=== PATIENT | male | born 1960 | race Caucasian/White ===

== ENCOUNTER 2017-05-25 11:48 | Inpatient (IN) | payer MEDICAID, SELFPAY ==
[2017-05-25] VITALS (27 sets, daily range): BP systolic 110–204; BP diastolic 68–112; PULSE 70–101; RESP 8–26; TEMP 36.9–37.2; O2SAT 88–100; BMI 61.8; BMI 58.6
--- NOTE | 2017-05-25 12:02 | RAD_ITS ---
STUDY: X-RAY CHEST REASON FOR EXAM: Male, 56 years old. Dyspnea. Shortness of breath. TECHNIQUE: Single AP portable view of the chest. COMPARISON: Comparison is made with prior study dated June 12, 2015. FINDINGS: EKG electrodes are seen. There is evidence of vascular congestion and CHF. Small right pleural effusion with bibasilar atelectasis. There is moderate cardiac enlargement. Normal mediastinum and ender. Normal visualized pulmonary arteries. There is atherosclerotic tortuosity of the aortic arch and descending thoracic aorta. There are diffuse degenerative changes of the visualized thoracic spine. Normal visualized ribs, clavicles, and shoulders. There is no demonstrated abnormality of the visualized soft tissue structures of the upper abdomen. RAD/Chest 1 View (Portable) IMPRESSION: Cardiomegaly and CHF. Bibasilar atelectasis. Small right pleural effusion. Electronically Signed: Sourav Norwood MD at 12:28 EST Tel [phone], Service support ,
--- NOTE | 2017-05-25 12:03 | EKG12_ITS ---
Test Reason : SOB Blood Pressure : / mmHG Vent. Rate : 099 BPM Atrial Rate : 099 BPM P-R Int : 188 ms QRS Dur : 082 ms QT Int : 360 ms P-R-T Axes : 059 029 019 degrees QTc Int : 462 ms Sinus rhythm with Premature supraventricular complexes Low voltage QRS Septal [place],age undetermined, cannot be excluded Nonspecific ST abnormality Abnormal ECG Confirmed by WINSOME SHEPPARD, FLORIN ([id number]), news assignment editor WILI CHACON ([id number]) on 05/27/2017 1:28:21 PM Referred By: KAYCE/RENEE Confirmed By:FLORIN SCHUMACHER MD
--- NOTE | 2017-05-25 12:06 | ED.VISSUMM ---
- ER Visit Summary Date of Service: 05/25/17 Chief Complaint: Shortness of breath History of Present Illness: The patient is a 56 M presenting with shortness of breath. He states this has been ongoing for the past 2-3 days. He is short of breath with exertion. He has had a productive cough. He denies chest pain. He was seen at [facility] and per staff he was 50% on room air. EMS was called. He was put on nonrebreather with some improvement Physical Examination: Vitals are stable. Patient is afebrile. Alert no acute distress. HEENT exam is unremarkable. Neck is supple. Lungs are diminished bilaterally. Heart is regular rate and rhythm. Abdomen is soft obese nontender nondistended. Extremities symmetric edema with psoriasis Skin is warm and dry. No focal neurologic deficit. Opens eyes to voice and follows commands Remainder of exam is unremarkable. Emergency Department Course and Treatment: EKG is sinus rate of 99. Chest x-ray shows cardiomegaly, CHF, small right pleural effusion. CBC normal except for platelets 128. This is similar to baseline. Chemistries show glucose 161, BUN 19. Troponin is negative. BNP 145. Lactic acid is normal. He was started on BiPAP on his arrival. Initial VBG shows pH 7.28, PO2 41, PCO2 84.9. Repeat VBG shows pH 7.27, PO2 106, PCO2 86.2. Patient was given Lasix IV. Discussed with Dr. Norman who suggested new BiPAP settings. Discussed with Dr. Shultz for admission. Disposition: Admission Impression: Respiratory failure, CHF This note was generated with [employer]ux dictation software. It may contain incorrect words, spelling, and punctuation that were not noted in review of the chart prior to signing ED Disposition - Plan for ED Patient: Chief Complaint: Shortness of Breath Referrals: [facility],[place] Dhruvcoleman [Primary Care Provider] -
[2017-05-25 12:21] LABS: Absolute Lymphocyte Count 0.69 X10^3/ul (0.83-4.51); Absolute Neutrophil Count 7.3 X10^3/uL (2.0-7.7); Basophil# 0.02 X10^3/uL; Basophil% 0.2 % (0-1); Eosinophil# 0.07 X10^3/uL; Eosinophils% 0.8 % (0-5); Hematocrit 54.8 % (40-54); Hemoglobin 15.7 g/dl (13.0-16.5); Lymphocyte # 0.69 X10^3/ul (4.0); Lymphocyte % 7.9 % (19-41); Mean Corp Hgb Conc 28.6 g/gl (32-36); Mean Corpuscular Hgb 25.7 pg (27.0-32.0); Mean Corpuscular Volume 89.8 fL (80-94); Mean Platelet Vol. 11.2 fl (6.2-12.0); Monocyte# 0.55 X10^3/uL; Monocyte% 6.3 % (0-10); Neutrophil # 7.29 X10^3/uL (2.7-7.7); Neutrophil % 83.7 % (47-70); Platelet Count 128 K/mm3 (150-450); RBC Distribution Width CV 18.8 % (11.6-14.6); RBC Distribution Width SD 59.7 fl (35.1-43.9); White Blood Count 8.7 K/mm3 (4.4-11.0)
[2017-05-25 12:22] LABS: Blood Gas Specimen Type VEN; O2 Delivery Device NRB Mask; SITE OTHER; Time Given 1200; VBG BASE EXCESS 13 mmol/L (-1.0-3.5); VBG Bicarbonate 40 mmol/L (22-26); VBG Oxygen Content 42 mmol/L (23-33); VBG PO2 41 mmHg (25-40); VBG SO2 66 % (50-70); VBG pCO2 84.9 mmHg (41-51); VBG pH 7.28 (7.32-7.42)
[2017-05-25 12:27] LABS: Anion Gap 4 (5-15); BUN 19 mg/dL (7-18); BUN/Creat Ratio 16.8 RATIO (10-20); Chloride 102 mmol/L (98-107); Creatinine, Serum 1.13 mg/dL (0.70-1.30); EST Glomerular Filtration Rate 71 mL/min (>60); Est Glom Filt Rate - Afr Amer 86 mL/min (>60); Estimated Creatinine Clearance 71.26 ml/min; Glucose 161 mg/dL (74-106); Potassium 4.1 mmol/L (3.5-5.1); Sodium Level 143 mmol/L (136-145)
[2017-05-25] MEDS: Ipratropium/Albuterol Sulfate 3 ML AMPUL.NEB INHALATION ×2 (12:27→22:36)
[2017-05-25] MEDS: Albuterol 2.5 MG/3 ML VIAL.NEB. INHALATION ×2 (12:27)
[2017-05-25 12:34] LABS: Differential Indicated SCAN CRITERIA MET; POSITIVE COUNT NO; POSITIVE DIFFERENTIAL NO; POSITIVE MORPHOLOGY YES
[2017-05-25 12:52] LABS: Platelet Estimate ADEQUATE (ADEQ); Platelet Morphology LARGE; Polychromasia RARE
[2017-05-25 12:57] LABS: Lactic Acid 1.7 mmol/L (0.4-2.0)
--- NOTE | 2017-05-25 13:06 | CPS ---
MOTHER'S NAME IS JOSE AND HER PHONE NUMBER IS [phone]
[2017-05-25 13:50] LABS: Mucous, Urine 0 SEEN /hpf (<or=2+)
[2017-05-25 13:59] LABS: Color, Urine Yellow (Yellow); Glucose, Dipstick Normal (Normal); Ketone-Dipstick Negative (Negative); Leukocyte Esterase-Dipstick 25 /ul (Negative); Nitrite-Dipstick Negative (Negative); Occult Blood-Urine 50 /ul (Negative); Protein-Dipstick 100 mg/dl (Negative); Specific Gravity, Urine 1.025 (1.002-1.030); Urine Clarity Sl. Cloudy (Clear); Urine Urobilinogen 4 mg/dl (Normal)
[2017-05-25 14:02] LABS: Urine Bilirubin Dipstick 1 mg/dL (Negative)
[2017-05-25 14:15] LABS: Bacteria RARE /hpf (None Seen); Red Blood Cells-Urine 0-5 SEEN /hpf (0-5); Squamous Epithelial Cells - UA 0-5 SEEN /hpf (0-5); White Blood Cells 0-5 SEEN /hpf (0-5); Yeast-Urine RARE /hpf (None Seen)
[2017-05-25 14:21] LABS: Base Excess 12 mmol/L (-2 to +2); Bicarbonate 39.2 mmol/L (22-26); Blood Gas Specimen Type ART; EPAP 9; FI02 75; IPAP 18; PO2 106 mmHG (75-100); RR 12; SITE R Radial; SO2 97 % (95-99); Time Given 1415; Total Carbon Dioxide 42 mmol/L; pCO2 86.2 mmHg (35-45); pH 7.27 (7.35-7.45)
[2017-05-25] MEDS: Furosemide 40 MG/4 ML Vial IV ×2 (14:52→17:02)
--- NOTE | 2017-05-25 15:06 | HP.PCM_ITS ---
Problem List (1) Acute respiratory failure Status: Acute (2) CHF exacerbation Status: Acute Qualifiers: Heart failure type: unspecified Qualified Code(s): I50.9 - Heart failure, unspecified (3) Super-super obese Status: Chronic History of Present Illness Date of Admission: 05/25/17 Chief Complaint: Shortness of breath - 2 days The patient is a 56 year old M, with history of super super morbid obesity, hypertension, type II DM comes in with shortness of breath ongoing for 2 days. EMS was called to the [facility] for complaints of shortness of breath. Patient who lives with his mother states that he has been feeling very short of breath, his pulse oximetry was said to be 50% on room air in the clinic, he was given 10 L of oxygen via a nonrebreather, patient saturation was percent when the EMS got there. Arrival to the ED, his vitals show temperature of 90 8.6F, heart rate of 101, blood pressure was 204/106, oxygen saturation was 94% on 15 L nonrebreather. Patient was said to be sleepy, ABGs were done -7.27, PCO2 was 86.2, PO2 was 97. He was started on BiPAP at 22/12. At the time of being seen in the ED, his oxygen saturation was 84% on BiPAP. Show WBC count of 8.7, Hb 15.7 platelet 128, BMP was remarkable for CO2 of 37, BUN 17, creatinine 1.13, troponin 0.02, BNP of 145. Chest x-ray showed vascular congestion. Past Medical History Past Medical History (Chronic Problems): Chronic Problems Super obesity (Chronic) Super-super obese (Chronic) HTN (hypertension) (Chronic) Allergies No Known Allergies Allergy (Verified 05/25/17 11:48) Home Medications: Ambulatory Orders Medication Instructions Recorded Amlodipine [Norvasc] 5 mg PO DAILY 05/25/17 Docusate Sodium [Colace] 100 mg PO DAILY PRN PRN 05/25/17 Ergocalciferol [Vitamin D] 1 cap PO QWEEK 05/25/17 Fluticasone 0.05% [Flonase Nasal 2 spray NASAL DAILY 05/25/17 [place]] Metformin HCl [Glucophage] 500 mg PO TIDCM 05/25/17 Mineral Oil/Petrolatum,White 1 applic TOPICAL DAILY PRN PRN 05/25/17 [Eucerin] Surgical History: no surgical history Lives: With Family Smoking Status: Former smoker Tobacco Use: Non-smoker Alcohol: None Drugs: None - *Family History Maternal History Items: Unknown Review of Systems Constitutional: Denies: Anorexia, Chills, Fever, Malaise, Weakness, Weight Change Eyes: Denies: Blurred vision, Cataracts, Conjunctivae Inflammation, Pain, Redness, Vision Change HEENT: Denies: Head Aches, Hearing Changes, Sinus Congestion, Sinus Drainage, Sore Throat Cardiovascular: Denies: Chest Pain, Claudication, Chest Pressure, Orthopnea, Palpitations, Paroxysmal Noc. Dyspnea Respiratory: Reports: Shortness of Breath, Shortness of breath upon exertion. Denies: Cough, Shortness of breath at rest, Sputum production Gastrointestinal: Denies: Abdominal Pain, Constipation, Hematemesis, Nausea, Vomiting Genitourinary: Denies: Dysuria, Frequency, Incontinence Musculoskeletal: Denies: Arm Pain, Joint Pain, Joint stiffness, Joint swelling, Joint Tenderness Skin: Denies: Rash, Wounds Neurological: Denies: Difficulty swallowing, Focal weakness, Numbness, Tingling Psychiatric: Denies: Anxiety, Depression, Homicidal Ideations, Suicidal Ideations Endocrine: Reports: Heat/ Cold Intolerance - heat intolerant Hematologic/ Lymphatic: Denies: Easy Bruising, Easy Bleeding VTE Information - Inpt Only VTE Present on Admission: No VTE Pharm Prophylaxis ordered?: Yes Patient Problems: Active and Suspected Problems Acute respiratory failure (Acute) CHF exacerbation (Acute) - Physical Exam General: Alert, Oriented x3, Cooperative, - - Super super morbid obesity HEENT: Atraumatic, PERRLA, EOMI, Normocephalic Oral: Moist Mucosa Neck: Supple Lungs: Clear to auscultation, Normal air movement Cardiovascular: Regular rate, Regular Rhythm, Normal S1, Normal S2, No murmurs Abdomen: Bowel Sounds Present, Soft, Non Tender, Non-Distended, No Hepato- splenomegaly, Obese Extremities: No edema Skin: No rashes Musculoskeletal: No Tenderness to Palpation of Joints or Extremities Lymphatic: No Cervical, Supraclavicular, or Inguinal Adenopathy Neurological: Cranial nerves II-XII grossly intact, Neuro grossly intact Psych/Mental Status: Normal Affect, Appropriate Vital Signs Temp Pulse Resp BP Pulse Ox 98.6 F 88 21 H 162/90 H 99 05/25/17 11:50 05/25/17 14:43 05/25/17 14:43 05/25/17 14:43 05/25/17 14:43 Oxygen Flow Rate 12 Oxygen Delivery Method Bi-pap Weight: 189.9 kg Body Mass Index (BMI) 61.8 Microbiology Past 72 Hours 05/25/17 13:00 Influenza Types A,B Direct FA (RANDOLPH) - Final Mucosa - Nose Laboratory Tests Past 24 Hrs 05/25/17 05/25/17 05/25/17 12:00 12:00 12:00 WBC 8.7 RBC 6.10 Hgb 15.7 Hct 54.8 H MCV 89.8 MCH 25.7 L MCHC 28.6 L RDW 18.8 H RDW Differential 59.7 H Plt Count 128 L MPV 11.2 Immature Gran % (Auto) 1.100 H Neut % (Auto) 83.7 H Lymph % (Auto) 7.9 L Rich % (Auto) 6.3 Eos % (Auto) 0.8 Baso % (Auto) 0.2 Absolute Neuts (auto) 7.3 Absolute Lymphs (auto) 0.69 L Total Counted Not Reportable Platelet Estimate ADEQUATE Plt Morphology Comment LARGE Polychromasia RARE Specimen Type Sample Site pH Bicarbonate Actual POC Total CO2 Base Excess O2 Saturation O2 % ABG pCO2 ABG pO2 VBG pH VBG pO2 VBG O2 Sat (Calc) VBG O2 Content VBG Base Excess POC Mix VBG pCO2 Pt Tmp Respiration Rate O2 Delivery Device Liter Flow EPAP IPAP Blood Gas Notified Whom Blood Gas Notified Time Sodium 143 Potassium 4.1 Chloride 102 Carbon Dioxide 37.0 H Anion Gap 4 L BUN 19 H Creatinine 1.13 Estim Creat Clear Calc 71.26 Est GFR (MDRD) Af Amer 86 Est GFR (MDRD) Non-Af 71 BUN/Creatinine Ratio 16.8 Glucose 161 H Lactic Acid Calcium 8.0 L Troponin I 0.02 B-Natriuretic Peptide 145.0 H Urine Color Urine Clarity Urine pH Ur Specific Garrison Urine Protein Urine Glucose (UA) Urine Ketones Urine Occult Blood Urine Nitrite Urine Bilirubin Urine Urobilinogen Ur Leukocyte Esterase Urine RBC Urine WBC Ur Squamous Epith Cells Urine Bacteria Urine Mucus Urine Yeast 05/25/17 05/25/17 05/25/17 12:09 12:20 13:45 WBC RBC Hgb Hct MCV MCH MCHC RDW RDW Differential Plt Count MPV Immature Gran % (Auto) Neut % (Auto) Lymph % (Auto) Rich % (Auto) Eos % (Auto) Baso % (Auto) Absolute Neuts (auto) Absolute Lymphs (auto) Total Counted Platelet Estimate Plt Morphology Comment Polychromasia Specimen Type ALISHA Sample Site OTHER pH Bicarbonate Actual POC Total CO2 Base Excess O2 Saturation O2 % ABG pCO2 ABG pO2 VBG pH 7.28 L VBG pO2 41 H VBG O2 Sat (Calc) 66 VBG O2 Content 42 H VBG Base Excess 13 H POC Mix VBG pCO2 Pt Tmp 84.9 H* Respiration Rate O2 Delivery Device NRB Mask Liter Flow 15.0 EPAP IPAP Blood Gas Notified Whom ED Blood Gas Notified Time 1200 Sodium Potassium Chloride Carbon Dioxide Anion Gap BUN Creatinine Estim Creat Clear Calc Est GFR (MDRD) Af Amer Est GFR (MDRD) Non-Af BUN/Creatinine Ratio Glucose Lactic Acid 1.7 Calcium Troponin I B-Natriuretic Peptide Urine Color Yellow Urine Clarity Sl. Cloudy Urine pH 5.0 Ur Specific Garrison 1.025 Urine Protein 100 H Urine Glucose (UA) Normal Urine Ketones Negative Urine Occult Blood 50 H Urine Nitrite Negative Urine Bilirubin 1 H Urine Urobilinogen 4 H Ur Leukocyte Esterase 25 H Urine RBC 0-5 SEEN Urine WBC 0-5 SEEN Ur Squamous Epith Cells 0-5 SEEN Urine Bacteria RARE Urine Mucus 0 SEEN Urine Yeast RARE 05/25/17 14:13 WBC RBC Hgb Hct MCV MCH MCHC RDW RDW Differential Plt Count MPV Immature Gran % (Auto) Neut % (Auto) Lymph % (Auto) Rich % (Auto) Eos % (Auto) Baso % (Auto) Absolute Neuts (auto) Absolute Lymphs (auto) Total Counted Platelet Estimate Plt Morphology Comment Polychromasia Specimen Type ART Sample Site R Radial pH 7.27 L Bicarbonate Actual 39.2 H POC Total CO2 42 Base Excess 12 H O2 Saturation 97 O2 % 75 ABG pCO2 86.2 H* ABG pO2 106 H VBG pH VBG pO2 VBG O2 Sat (Calc) VBG O2 Content VBG Base Excess POC Mix VBG pCO2 Pt Tmp Respiration Rate 12 O2 Delivery Device Bi / C PAP Liter Flow EPAP 9 IPAP 18 Blood Gas Notified Whom HOSP Blood Gas Notified Time 1415 Sodium Potassium Chloride Carbon Dioxide Anion Gap BUN Creatinine Estim Creat Clear Calc Est GFR (MDRD) Af Amer Est GFR (MDRD) Non-Af BUN/Creatinine Ratio Glucose Lactic Acid Calcium Troponin I B-Natriuretic Peptide Urine Color Urine Clarity Urine pH Ur Specific Garrison Urine Protein Urine Glucose (UA) Urine Ketones Urine Occult Blood Urine Nitrite Urine Bilirubin Urine Urobilinogen Ur Leukocyte Esterase Urine RBC Urine WBC Ur Squamous Epith Cells Urine Bacteria Urine Mucus Urine Yeast Assessment/Plan Active and Suspected Problems Acute respiratory failure (Acute) CHF exacerbation (Acute) 56 year old M, with history of super super morbid obesity, hypertension, type II DM comes in with shortness of breath ongoing for 2 days. EMS was called to the [facility] for complaints of shortness of breath. 1. Acute respiratory failure, multifactorial, likely secondary to CHF exacerbation, obesity hypoventilation syndrome, possible COPD, although no wheezes heard on exam and chest x-ray points to vascular congestion. BNP is 145. 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 2. Hypertension, controlled, continue on home Norvasc with as needed hydralazine, will continue to monitor closely 3. DM, type 2, on metformin 500 mg p.o. 3 times daily, will add Accu-Cheks and insulin sliding scale 4. Super morbid obesity with BMI more than 60, patient should be evaluated for bariatric surgery on discharge in the outpatient 5. Thrombocytopenia, likely transient, no signs of bleeding, will continue to monitor 6. Chronic Lymphedema with chronic skin changes 7. DVT prophylaxis with Lovenox twice daily per guidelines. 8. GI Prophylaxis with PPI Code Visit Inpatient E&M: 63521 Init Hosp L3
--- NOTE | 2017-05-25 15:52 | ECHOD_ITS ---
Reason For Study: DYSPNEA Procedure This was a 2D Doppler, Color Flow transthoracic echocardiogram. The exam was of poor technical quality due to body habitus. The study was technically difficult. Contrast injection was performed. Exam performed portable in ICU/CCU. Left Ventricle Normal LV size. Mild concentric left ventricular hypertrophy. Left ventricular systolic function is normal. The estimated ejection fraction is 65 %. No evidence for diastolic dysfunction. No regional wall motion abnormalities noted. Right Ventricle The right ventricle is not well visualized. Atria The left atrium is not well visualized. The right atrium is not well visualized. No doppler evidence for ASD. Mitral Valve There is no mitral annular calcification. Mitral valve not well visualized. Trivial mitral valve insufficiency. Tricuspid Valve The tricuspid valve is not well visualized. Trivial tricuspid valve insufficiency. Right ventricular systolic pressure estimated to be 63 mmHg. Aortic Valve The aortic valve is not well visualized. Pulmonic Valve The pulmonic valve is not well visualized. Great Vessels The aortic root is not well visualized. Pericardium/Pleural Small pericardial effusion. There are no echocardiographic indications of cardiac tamponade. Medication Diluted definity 4ml given slow IV push to enhance endocardial definition. MMode/2D Measurements & Calculations LVIDd: 4.8 cm IVSd: 1.4 cm Ao root diam: 3.9 cm LVIDs: 3.2 cm LVPWd: 1.3 cm LA dimension: 3.1 cm FS: 33.8 % LVAd ap4: 33.2 cm2 SV(MOD-sp4): 79.4 ml SV(sp4-el): 82.8 ml EDV(MOD-sp4): 104.4 ml EDV(sp4-el): 108.4 ml LVAs ap4: 14.2 cm2 ESV(MOD-sp4): 25.1 ml ESV(sp4-el): 25.7 ml EF(MOD-sp4): 76.0 % EF(sp4-el): 76.3 % Doppler Measurements & Calculations MV E max carlene: 94.5 cm/sec Ao V2 max: 134.6 cm/sec LV V1 max: 110.2 cm/sec MV A max carlene: 77.4 cm/sec Ao max P.3 mmHg LV V1 max P.9 mmHg MV E/A: 1.2 PA V2 max: 92.3 cm/sec TR max carlene: 370.9 cm/sec TR max P.2 mmHg Interpretation Summary The study was technically difficult. Contrast injection was performed. Left ventricular systolic function is normal. The estimated ejection fraction is 65 %. Mild concentric left ventricular hypertrophy. Trivial mitral valve insufficiency. Trivial tricuspid valve insufficiency. Small pericardial effusion. There are no echocardiographic indications of cardiac tamponade. Right ventricular systolic pressure estimated to be 63 mmHg c/w pulmonary hypertension. No evidence for diastolic dysfunction. Ordering Physician: Nida Shultz Referring Physician: LARRY GUTIERRES [facility] Performed By: Sivan Colby, RDCS, RVT
[2017-05-25 17:16] LABS: Bedside Glucose 108 mg/dL (70-110)
[2017-05-25 19:08] LABS: M R Staph aureus DNA By PCR Negative (Negative); Probe Check PASS; Specimen Processing Control PASS
[2017-05-25 21:34] LABS: D-Dimer Quantitative (DVT/PE) 0.86 FEU/ug/m (0.27-0.49)
[2017-05-25 21:41] LABS: Bedside Glucose 103 mg/dL (70-110)
[2017-05-25] MEDS: Menthol/Lanolin/Calamine/Znox 113 GM Tube 1 APPLIC TOPICAL (22:11)
[2017-05-25] MEDS: Enoxaparin 40 MG/0.4 ML Syringe SC (22:12)
[2017-05-25] MEDS: MELATONIN 3 MG TABLET PO (22:13)
[2017-05-26] VITALS (34 sets, daily range): BP systolic 123–161; BP diastolic 71–103; PULSE 72–84; RESP 11–20; TEMP 36.1–37.1; O2SAT 78–99
[2017-05-26 04:23] LABS: Hematocrit 50.5 % (40-54); Hemoglobin 14.4 g/dl (13.0-16.5); Mean Corp Hgb Conc 28.5 g/gl (32-36); Mean Corpuscular Hgb 25.6 pg (27.0-32.0); Mean Corpuscular Volume 89.7 fL (80-94); Mean Platelet Vol. 10.9 fl (6.2-12.0); Platelet Count 105 K/mm3 (150-450); RBC Distribution Width CV 18.5 % (11.6-14.6); RBC Distribution Width SD 59.7 fl (35.1-43.9); Red Blood Count 5.63 M/mm3 (4.6-6.2); White Blood Count 8.1 K/mm3 (4.4-11.0)
[2017-05-26 04:24] LABS: Scan Indicated on CBC? Y/N NO
[2017-05-26 04:44] LABS: Anion Gap 4 (5-15); BUN 17 mg/dL (7-18); BUN/Creat Ratio 16.8 RATIO (10-20); Calcium,Total 7.9 mg/dL (8.5-10.1); Chloride 99 mmol/L (98-107); Creatinine, Serum 1.01 mg/dL (0.70-1.30); EST Glomerular Filtration Rate 81 mL/min (>60); Est Glom Filt Rate - Afr Amer 97 mL/min (>60); Estimated Creatinine Clearance 82.32 ml/min; Glucose 105 mg/dL (74-106); Potassium 4.1 mmol/L (3.5-5.1); Sodium Level 142 mmol/L (136-145)
[2017-05-26 06:16] LABS: Bedside Glucose 106 mg/dL (70-110)
[2017-05-26] MEDS: Ipratropium/Albuterol Sulfate 3 ML AMPUL.NEB INHALATION ×5 (07:09→23:03)
--- NOTE | 2017-05-26 07:46 | CON.PCM_ITS ---
Problem List (1) Acute respiratory failure Status: Acute (2) CHF exacerbation Status: Acute Qualifiers: Heart failure type: unspecified Qualified Code(s): I50.9 - Heart failure, unspecified (3) Super-super obese Status: Chronic (4) HTN (hypertension) Status: Chronic Reason for Consult Date of Consultation: 05/26/17 Reason for Consultation: Respiratory failure History of Present Illness: The patient is a 56 year old M, with past medical history listed below, who presented to [facility] on 05/25/2017 secondary to progressive shortness of breath over 2 day period. Patient reportedly was picked up from the [facility] for complaints of shortness of breath by EMS. Patient reportedly lives with his mother and states that he started to have progressive shortness of breath. Upon evaluation, patient was noted to be 50% on room air was given 10 L of oxygen via nonrebreather and improved by EMS arrival. On evaluation in the emergency department, patient was noted to be tachycardic with a severely elevated blood pressure of 204/106 and saturating 94 % on a nonrebreather. Patient was reportedly sleepy and an ABG was obtained showing a combined hypoxic and hypercarbic respiratory failure. Patient was initiated on BiPAP therapy at 16/8. I was called and the patient was increased to 22/12. In the intensive care unit, patient was transitioned to 6 L nasal cannula oxygen at approximately 1 AM. Patient reports he does not use supplemental oxygen at baseline. Patient does have lymphedema, but states he is unaware of any history of congestive heart failure or heart problems. Patient does report subjective improvement after hospitalization. Patient denies any constitutional symptoms such as fever, chills, nausea or vomiting. Patient has diuresed well overnight. Patient denies any history of severely elevated blood pressures. Patient denies any previous respiratory issues. Patient has never smoked. Patient has never had pulmonary function testing. 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 Review of systems otherwise negative ?10 systems. Past Medical History Past Medical History (Chronic Problems): Chronic Problems Super obesity (Chronic) Super-super obese (Chronic) HTN (hypertension) (Chronic) Allergies No Known Allergies Allergy (Verified 05/25/17 11:48) Home Medications: Ambulatory Orders Medication Instructions Recorded Amlodipine [Norvasc] 5 mg PO DAILY 05/25/17 Docusate Sodium [Colace] 100 mg PO DAILY PRN PRN 05/25/17 Ergocalciferol [Vitamin D] 1 cap PO QWEEK 05/25/17 Fluticasone 0.05% [Flonase Nasal 2 spray NASAL DAILY 05/25/17 [place]] Metformin HCl [Glucophage] 500 mg PO TIDCM 05/25/17 Mineral Oil/Petrolatum,White 1 applic TOPICAL DAILY PRN PRN 05/25/17 [Eucerin] Surgical History: no surgical history Lives: With Family Smoking Status: Former smoker Tobacco Use: Non-smoker Alcohol: None Drugs: None - *Family History Maternal History Items: Unknown Review of Systems Comment: See HPI Patient Problems: Active and Suspected Problems Acute respiratory failure (Acute) CHF exacerbation (Acute) Objective: Chest x-ray was personally reviewed and shows cardiomegaly with bilateral pleural effusions and vascular congestion. Patient does appear to have right sided enlargement. - Physical Exam General: Alert, Oriented x3, Cooperative, No apparent distress, - - Morbidly obese. Speaking in full sentences. HEENT: Atraumatic, PERRLA, EOMI, Normocephalic, - - Scleral icterus or injection noted. Oral: Moist Mucosa, No Gingival or Mucosal Lesions/ Ulcerations, - - Mallampati 4 Neck: Supple, No Nodes, Trachea Midline, - - Unable to assess JVD secondary to body habitus. Very thick neck with redundant tissue noted. Lungs: No rhonchi, No wheeze, Diminished, Rales, - - Symmetric expansion. No dullness to percussion. Cardiovascular: Regular rate, Regular Rhythm, Normal S1, Normal S2, No murmurs, No rub noted, No Gallop Abdomen: Bowel Sounds Present, Soft, Non Tender, Non-Distended, Obese Extremities: No clubbing, No cyanosis, Edema - 4+ lower extremity Skin: - - Lymphedema and chronic stasis changes of lower extremities. No purulent secretions appreciated. Scattered vesicles appreciated. Musculoskeletal: No Tenderness to Palpation of Joints or Extremities, No Muscle Wasting Lymphatic: No Cervical, Supraclavicular, or Inguinal Adenopathy Neurological: Cranial nerves II-XII grossly intact, Neuro grossly intact, - - Decreased sensation of the lower extremities. Psych/Mental Status: Alert and oriented to time, place, person, mood and affect Vital Signs Temp Pulse Resp BP Pulse Ox 37.1 C 77 15 136/94 H 94 05/26/17 07:00 05/26/17 07:00 05/26/17 07:00 05/26/17 07:00 05/26/17 07:00 Oxygen Flow Rate 6 Oxygen Delivery Method Nasal Cannula Weight: 183.7 kg Body Mass Index (BMI) 58.6 Intake and Output for Last 24 Hours 05/24/17 05/25/17 05/26/17 23:59 23:59 23:59 Intake Total 550 / 550 Output Total 1600 / 1600 1999 Balance -1600 / -1600 -1450 / -1450 Laboratory Tests Past 24 Hrs 05/25/17 05/25/17 05/25/17 16:00 16:00 20:50 WBC RBC Hgb Hct MCV MCH MCHC RDW RDW Differential Plt Count MPV D-Dimer Quant (PE/DVT) Sodium Potassium Chloride Carbon Dioxide Anion Gap BUN Creatinine Estim Creat Clear Calc Est GFR (MDRD) Af Amer Est GFR (MDRD) Non-Af BUN/Creatinine Ratio Glucose Calcium Troponin I 0.03 0.04 MRSA (PCR) Negative 05/25/17 05/26/17 05/26/17 20:50 02:00 04:00 WBC RBC Hgb Hct MCV MCH MCHC RDW RDW Differential Plt Count MPV D-Dimer Quant (PE/DVT) 0.86 H* Sodium 142 Potassium 4.1 Chloride 99 Carbon Dioxide 39.0 H Anion Gap 4 L BUN 17 Creatinine 1.01 Estim Creat Clear Calc 82.32 Est GFR (MDRD) Af Amer 97 Est GFR (MDRD) Non-Af 81 BUN/Creatinine Ratio 16.8 Glucose 105 Calcium 7.9 L Troponin I < 0.02 MRSA (PCR) 05/26/17 04:00 WBC 8.1 RBC 5.63 Hgb 14.4 Hct 50.5 MCV 89.7 MCH 25.6 L MCHC 28.5 L RDW 18.5 H RDW Differential 59.7 H Plt Count 105 L MPV 10.9 D-Dimer Quant (PE/DVT) Sodium Potassium Chloride Carbon Dioxide Anion Gap BUN Creatinine Estim Creat Clear Calc Est GFR (MDRD) Af Amer Est GFR (MDRD) Non-Af BUN/Creatinine Ratio Glucose Calcium Troponin I MRSA (PCR) POC Glucose 05/26/17 05/25/17 05/25/17 06:11 21:35 17:09 POC Glucose 106 103 108 Clinical Impression(s) from Imaging Studies Chest X-Ray 05/25/17 12:02 IMPRESSION: Cardiomegaly and CHF. Bibasilar atelectasis. Small right pleural effusion. Electronically Signed: Sourav Norwood MD at 12:28 EST Tel [phone], Service support , Assessment/Plan Active and Suspected Problems Acute respiratory failure (Acute) CHF exacerbation (Acute) RECOMMENDATIONS: 1. Aggressive blood pressure control 2. Aggressive diuresis 3. Continue diabetic medications with sliding scale insulin 4. Consider peripheral smear for evaluation of clumping of platelets 5. Wean oxygen as tolerated, ABG as indicated 6. PT/OT RECOMMENDATIONS: 1. Acute combined respiratory failure secondary to probable congestive heart failure Patient denies any history of cardiac dysfunction in the past. However, patient does have significant changes with lymphedema and radiologic evidence of congestion. Echocardiogram has been ordered. Patient is receiving diuretic therapy. Wean oxygen as tolerated. Cannot exclude the need for BiPAP rescue. Patient is at high risk for obstructive sleep apnea and would likely benefit from a polysomnogram with initiation of BiPAP therapy if applicable. Would keep saturations 88-92% to avoid go to retention moving forward. 2. Hypertensive emergency Patient presented with blood pressures that were 200s/100s. Patient was significant improvement overnight following diuresis and support of lung function. Unclear if patient has had flash pulmonary edema secondary to elevated blood pressures or if elevated blood pressures were result of stress reaction to decreased oxygenation. We will continue to monitor. 3. Type 2 diabetes mellitus Patient can continue on metformin for now. Continue to watch renal function closely. Patient should continue with Accu-Cheks with sliding scale insulin. Cannot exclude the need for long-acting insulin moving forward. 4. Thrombocytopenia/chronic lymphedema/super morbid obesity Complicates care, management, recovery and prognosis. Clinical suspicion for clumping of platelets leading to decreased reported counts. No bleeding complications have been noted. Wound nurse will be consulted for lower extremities. Patient should continue with physical therapy and occupational therapy to provide mobility. Code Visit Inpatient E&M: 21036 Init Hosp L3
[2017-05-26] MEDS: CHLORHEXIDINE GLUC 2% CLOTH 1 EACH TOWELETTE TOPICAL (09:00)
[2017-05-26] MEDS: Enoxaparin 40 MG/0.4 ML Syringe SC ×2 (10:15→20:55)
[2017-05-26] MEDS: Furosemide 40 MG/4 ML Vial IV ×2 (10:15→17:40)
[2017-05-26] MEDS: Pantoprazole Sodium 20 MG Tablet PO (10:16)
[2017-05-26] MEDS: Menthol/Lanolin/Calamine/Znox 113 GM Tube 1 APPLIC TOPICAL ×2 (10:30→20:54)
--- NOTE | 2017-05-26 12:03 | CASEMGMT ---
Social Work Referral received from nursing with questions regarding family situation. SW met with pt in room and introduced self and role of SW. Pt lives in a one story home with mother, father and sister. Pt states he is independent with ADLs and IADLs but does need assistance with finances. Pt bedroom and bath is on the first floor and pt states he has access to shower and has no physical limitations caring for daily grooming needs. Pt goes to the [facility] for primary care and uses [facility] pharmacy. Pt states most meds are covered and if not he can scrape together enough money to fill prescriptions SW provided information on [employer] prescription assistance program. Pt has not previously had home oxygen. Pt states he is currently not working but does assist family in the home and with driving. Pt confirms that he feels safe in his home and plans to return there upon d/c. With permission from pt, phone call placed to pt mother Saumya. She confirms pt is able to care for himself, is a helpful part of the family and is planning on returning home upon d/c. Report given to MELINDA Lam CM. No further SW needs at this time. NOREEN Rosa
[2017-05-26 12:51] LABS: Bedside Glucose 144 mg/dL (70-110)
--- NOTE | 2017-05-26 13:37 | CHAPLAIN ---
Type of Pastoral Visit _x__ Initial Visit ___ Follow-up Visit ___ On-call Visit ___ General Patient Visit ___ Spiritual Assessment ___ Family Conference ___ Bereavement ___ Rapid Response ___ Code Blue ___ Other (describe below) Pastoral Care Referral From _x__ Patient ___ Family ___ Nurse ___ Physician ___ Agile Test Lead ___ Nougat Candy Maker Helper ___ Other (describe below) Sacrament/Intervention _x__ Active listening ___ Anointing ___ Congregational ___ Bereavement ___ Communion ___ Leticia exploration ___ ___ Life review ___ Prayer ___ Reconciliation ___ Sacrament of Sick ___ Supportive presence ___ Wedding ___ Other (describe below) Pastoral Comments
--- NOTE | 2017-05-26 13:39 | NURSING ---
was asked to see patient for edema to bilateral lower legs. pt is super morbidly obese with a BMI of 58. patient was admitted for SOB. patient states he has chronic edema to bilateral lower legs. states he cannot tolerate wearing compression. states he tries to keep legs elevated but cannot always keep them up. patient has lymphedema with lichenification of bilateral lower legs. washed legs and feet with soap and water. attempted to remove some of the dry skin but was unsuccessful. skin very thick, crusty, and brown. no signs of infection noted. patient states he cannot tolerated wearing any type of compression to the lower legs. would consider unna boots, but do not think patient would be able to tolerate them. legs elevated up in the recliner at this time. will monitor.
--- NOTE | 2017-05-26 16:36 | PCM.PN.HOSP ---
Patient Problems: Active and Suspected Problems Acute respiratory failure (Acute) CHF exacerbation (Acute) Subjective: Breathing better. States that he's LE edema for years. Vitals/I&O's: Vital Signs Temp Pulse Resp BP Pulse Ox 36.2 C L 81 18 142/77 H 93 05/26/17 16:00 05/26/17 16:00 05/26/17 16:00 05/26/17 16:00 05/26/17 16:00 Oxygen Flow Rate 6 Oxygen Delivery Method Nasal Cannula Weight: 183.7 kg Body Mass Index (BMI) 58.6 Intake and Output for Last 24 Hours 05/24/17 05/25/17 05/26/17 23:59 23:59 23:59 Intake Total 550 / 550 Output Total 1600 / 1600 3600 / 3600 Balance -1600 / -1600 -3050 / -3050 General: Alert, Cooperative, No apparent distress HEENT: Atraumatic, Normocephalic Neck: No Nodes, Thyroid Normal Size and Texture Lungs: Diminished, - - crackles Cardiovascular: Regular rate, Regular Rhythm, Normal S1, Normal S2 Abdomen: Bowel Sounds Present, Soft, Non Tender, Non-Distended, Obese Extremities: No clubbing, No Calf Tenderness, Edema Skin: - - Lymphedematous changes to the lower extremities with lichenification. Psych/Mental Status: Normal Affect, Appropriate Laboratory Results 05/25/17 16:00: Troponin I 0.03 05/25/17 16:00: MRSA (PCR) Negative 05/25/17 17:09: POC Glucose 108 05/25/17 20:50: Troponin I 0.04 05/25/17 20:50: D-Dimer Quant (PE/DVT) 0.86 H* 05/25/17 21:35: POC Glucose 103 05/26/17 02:00: Troponin I < 0.02 05/26/17 04:00: Sodium 142, Potassium 4.1, Chloride 99, Carbon Dioxide 39.0 H, Anion Gap 4 L, BUN 17, Creatinine 1.01, Estim Creat Clear Calc 82.32, Est GFR (MDRD) Af Amer 97, Est GFR (MDRD) Non-Af 81, BUN/Creatinine Ratio 16.8, Glucose 105, Calcium 7.9 L 05/26/17 04:00: WBC 8.1, RBC 5.63, Hgb 14.4, Hct 50.5, MCV 89.7, MCH 25.6 L, MCHC 28.5 L, RDW 18.5 H, RDW Differential 59.7 H, Plt Count 105 L, MPV 10.9 05/26/17 06:11: POC Glucose 106 05/26/17 12:46: POC Glucose 144 H Current Medications Acetaminophen (Tylenol) 650 mg PO Q6H PRN PRN PRN Reason: Mild Pain (scale 0-3)/T>100.7 Albuterol Sulfate (Ventolin Aerosols) 2.5 mg INHALATION Q2H PRN PRN PRN Reason: SOB &/OR WHEEZING Albuterol/Ipratropium (Duoneb) 3 ml INHALATION Q4HWA.RT [facility] Last Admin: 05/26/17 15:43 Dose: 3 ml Bisacodyl (Dulcolax) 10 mg PO DAILY PRN PRN PRN Reason: Constipation Calamine/Phenol (Calmoseptine Ointment) 1 applic TOPICAL BID [facility] PRN Reason: Protocol Last Admin: 05/25/17 22:11 Dose: 1 applic Chlorhexidine Gluconate () 1 each TOPICAL DAILY [facility] Dextrose (D50w Syringe) 0 gm IV X1 PRN; Protocol PRN Reason: Hypoglycemia Enoxaparin Sodium (Lovenox) 40 mg SC BID [facility] Last Admin: 05/26/17 10:15 Dose: 40 mg Furosemide (Lasix) 40 mg IV BIDLX [facility] Last Admin: 05/26/17 10:15 Dose: 40 mg Glucagon () 1 mg IM .X1 PRN PRN Reason: Hypoglycemia Sodium Chloride () 250 mls @ 15 mls/hr IV .[id number] PRN PRN Reason: SALINE FLUSH Insulin Aspart (Novolog Flexpen (Bkc)) 0 units SC ACHS [facility] PRN Reason: Protocol Last Admin: 05/26/17 12:47 Dose: Not Given Magnesium Hydroxide (Milk Of Magnesia) 30 ml PO DAILY PRN PRN PRN Reason: Constipation Melatonin (Melatonin) 3 mg PO QHS [facility] Last Admin: 05/25/17 22:13 Dose: 3 mg Ondansetron HCl (Zofran) 4 mg IV Q8H PRN PRN PRN Reason: Nausea Pantoprazole Sodium (Protonix) 20 mg PO DAILY [facility] Last Admin: 05/26/17 10:16 Dose: 20 mg Sodium Chloride () 5 - 30 ml IV UD PRN PRN Reason: SALINE FLUSH Assessment/Plan Active and Suspected Problems Acute respiratory failure (Acute) CHF exacerbation (Acute) 1. Acute hypoxic and hypercapnic respiratory failure Certainly multifactorial due to the patient's heart failure but may be underlying obstructive sleep apnea, pulmonary artery hypertension, obesity hypoventilation. Wean oxygen as tolerated. Check an amatory pulse ox at discharge. Patient polysomnogram 2. Acute heart failure Unclear type at this time. Follow-up echocardiogram Continue with Lasix. 3. Hypertension Fair control at this time. Will monitor and assess echocardiogram and see what agents may need to be added. 4. DVT prophylaxis with Lovenox. Code Visit Inpatient E&M: 08191 Subs Hosp L2
--- NOTE | 2017-05-26 16:51 | PN_ITS ---
Patient Problems: Active and Suspected Problems Acute respiratory failure (Acute) CHF exacerbation (Acute) Subjective: Breathing better. States that he's LE edema for years. Vitals/I&O's: Vital Signs Temp Pulse Resp BP Pulse Ox 36.2 C L 81 18 142/77 H 93 05/26/17 16:00 05/26/17 16:00 05/26/17 16:00 05/26/17 16:00 05/26/17 16:00 Oxygen Flow Rate 6 Oxygen Delivery Method Nasal Cannula Weight: 183.7 kg Body Mass Index (BMI) 58.6 Intake and Output for Last 24 Hours 05/24/17 05/25/17 05/26/17 23:59 23:59 23:59 Intake Total 550 / 550 Output Total 1600 / 1600 3600 / 3600 Balance -1600 / -1600 -3050 / -3050 General: Alert, Cooperative, No apparent distress HEENT: Atraumatic, Normocephalic Neck: No Nodes, Thyroid Normal Size and Texture Lungs: Diminished, - - crackles Cardiovascular: Regular rate, Regular Rhythm, Normal S1, Normal S2 Abdomen: Bowel Sounds Present, Soft, Non Tender, Non-Distended, Obese Extremities: No clubbing, No Calf Tenderness, Edema Skin: - - Lymphedematous changes to the lower extremities with lichenification. Psych/Mental Status: Normal Affect, Appropriate Laboratory Results 05/25/17 16:00: Troponin I 0.03 05/25/17 16:00: MRSA (PCR) Negative 05/25/17 17:09: POC Glucose 108 05/25/17 20:50: Troponin I 0.04 05/25/17 20:50: D-Dimer Quant (PE/DVT) 0.86 H* 05/25/17 21:35: POC Glucose 103 05/26/17 02:00: Troponin I < 0.02 05/26/17 04:00: Sodium 142, Potassium 4.1, Chloride 99, Carbon Dioxide 39.0 H, Anion Gap 4 L, BUN 17, Creatinine 1.01, Estim Creat Clear Calc 82.32, Est GFR ( MDRD) Af Amer 97, Est GFR (MDRD) Non-Af 81, BUN/Creatinine Ratio 16.8, Glucose 105, Calcium 7.9 L 05/26/17 04:00: WBC 8.1, RBC 5.63, Hgb 14.4, Hct 50.5, MCV 89.7, MCH 25.6 L, MCHC 28.5 L, RDW 18.5 H, RDW Differential 59.7 H, Plt Count 105 L, MPV 10.9 05/26/17 06:11: POC Glucose 106 05/26/17 12:46: POC Glucose 144 H Current Medications Acetaminophen (Tylenol) 650 mg PO Q6H PRN PRN PRN Reason: Mild Pain (scale 0-3)/T>100.7 Albuterol Sulfate (Ventolin Aerosols) 2.5 mg INHALATION Q2H PRN PRN PRN Reason: SOB &/OR WHEEZING Albuterol/Ipratropium (Duoneb) 3 ml INHALATION Q4HWA.RT [facility] Last Admin: 05/26/17 15:43 Dose: 3 ml Bisacodyl (Dulcolax) 10 mg PO DAILY PRN PRN PRN Reason: Constipation Calamine/Phenol (Calmoseptine Ointment) 1 applic TOPICAL BID [facility] PRN Reason: Protocol Last Admin: 05/25/17 22:11 Dose: 1 applic Chlorhexidine Gluconate () 1 each TOPICAL DAILY [facility] Dextrose (D50w Syringe) 0 gm IV X1 PRN; Protocol PRN Reason: Hypoglycemia Enoxaparin Sodium (Lovenox) 40 mg SC BID [facility] Last Admin: 05/26/17 10:15 Dose: 40 mg Furosemide (Lasix) 40 mg IV BIDLX [facility] Last Admin: 05/26/17 10:15 Dose: 40 mg Glucagon () 1 mg IM .X1 PRN PRN Reason: Hypoglycemia Sodium Chloride () 250 mls @ 15 mls/hr IV .[id number] PRN PRN Reason: SALINE FLUSH Insulin Aspart (Novolog Flexpen (Bkc)) 0 units SC ACHS [facility] PRN Reason: Protocol Last Admin: 05/26/17 12:47 Dose: Not Given Magnesium Hydroxide (Milk Of Magnesia) 30 ml PO DAILY PRN PRN PRN Reason: Constipation Melatonin (Melatonin) 3 mg PO QHS [facility] Last Admin: 05/25/17 22:13 Dose: 3 mg Ondansetron HCl (Zofran) 4 mg IV Q8H PRN PRN PRN Reason: Nausea Pantoprazole Sodium (Protonix) 20 mg PO DAILY [facility] Last Admin: 05/26/17 10:16 Dose: 20 mg Sodium Chloride () 5 - 30 ml IV UD PRN PRN Reason: SALINE FLUSH Assessment/Plan Active and Suspected Problems Acute respiratory failure (Acute) CHF exacerbation (Acute) 1. Acute hypoxic and hypercapnic respiratory failure * Certainly multifactorial due to the patient's heart failure but may be underlying obstructive sleep apnea, pulmonary artery hypertension, obesity hypoventilation. * Wean oxygen as tolerated. Check an amatory pulse ox at discharge. * Patient polysomnogram 2. Acute heart failure * Unclear type at this time. * Follow-up echocardiogram * Continue with Lasix. 3. Hypertension * Fair control at this time. * Will monitor and assess echocardiogram and see what agents may need to be added. 4. DVT prophylaxis with Lovenox. Code Visit Inpatient E&M: 01318 Subs Hosp L2
[2017-05-26] MEDS: 0.9% NaCl Peripheral Flush Adult/Peds IV (17:40)
[2017-05-26 17:56] LABS: Bedside Glucose 106 mg/dL (70-110)
[2017-05-26] MEDS: MELATONIN 3 MG TABLET PO (20:55)
[2017-05-26 21:11] LABS: Bedside Glucose 136 mg/dL (70-110)
[2017-05-27] VITALS (24 sets, daily range): BP systolic 114–166; BP diastolic 72–129; PULSE 73–94; RESP 12–20; TEMP 36.3–37.2; O2SAT 89–100
[2017-05-27 06:12] LABS: Anion Gap 1 (5-15); BUN 19 mg/dL (7-18); BUN/Creat Ratio 20.1 RATIO (10-20); Calcium,Total 7.8 mg/dL (8.5-10.1); Chloride 97 mmol/L (98-107); Creatinine, Serum 0.94 mg/dL (0.70-1.30); EST Glomerular Filtration Rate 87 mL/min (>60); Est Glom Filt Rate - Afr Amer 105 mL/min (>60); Estimated Creatinine Clearance 88.45 ml/min; Glucose 106 mg/dL (74-106); Sodium Level 143 mmol/L (136-145); Thyroid Stim Hormone (TSH) 2.16 uIU/mL (0.358-3.74)
[2017-05-27] MEDS: 0.9% NaCl Peripheral Flush Adult/Peds IV ×3 (06:32→17:19)
[2017-05-27] MEDS: CHLORHEXIDINE GLUC 2% CLOTH 1 EACH TOWELETTE TOPICAL (06:32)
[2017-05-27 06:36] LABS: Bedside Glucose 96 mg/dL (70-110)
[2017-05-27] MEDS: Ipratropium/Albuterol Sulfate 3 ML AMPUL.NEB INHALATION ×4 (06:50→19:00)
--- NOTE | 2017-05-27 08:32 | PCM.PN.INT ---
Subjective: Patient did well overnight. Patient denies any current chest pain, abdominal pain, nausea or vomiting. Patient does report that he has difficulty tolerating BiPAP therapy. Patient's oxygen requirements have improved. Patient does state that he feels improved now that he is able to get to a chair. General: Alert, Oriented x3, Cooperative, No apparent distress, - - Morbidly obese. Speaking in full sentences. HEENT: Atraumatic, PERRLA, EOMI, Normocephalic, - - No scleral icterus or injection noted. Oral: Moist Mucosa, No Gingival or Mucosal Lesions/ Ulcerations Neck: Supple, No Nodes, Trachea Midline, - - Unable to assess JVD secondary to body habitus Lungs: No rhonchi, No wheeze, Diminished, Rales, - - Symmetric expansion. No dullness to percussion. Cardiovascular: Regular rate, Regular Rhythm, Normal S1, Normal S2, No murmurs, No rub noted, No Gallop Abdomen: Bowel Sounds Present, Soft, Non Tender, Non-Distended, Obese Extremities: No clubbing, No cyanosis, Edema, - - Venous stasis changes of the lower extremity Skin: - - Mostly unchanged compared to previous. Musculoskeletal: No Tenderness to Palpation of Joints or Extremities, No Muscle Wasting Lymphatic: No Cervical, Supraclavicular, or Inguinal Adenopathy Neurological: Cranial nerves II-XII grossly intact, Neuro grossly intact, Motor Exam 5/5 strength throughout Psych/Mental Status: Alert and oriented to time, place, person, mood and affect Vital Signs Temp Pulse Resp BP Pulse Ox 36.7 C 78 16 162/101 H 94 05/27/17 04:00 05/27/17 06:50 05/27/17 06:50 05/27/17 06:06 05/27/17 06:50 Oxygen Flow Rate 3 Oxygen Delivery Method Nasal Cannula Weight: 183.7 kg Body Mass Index (BMI) 58.6 Intake and Output for Last 24 Hours 05/25/17 05/26/17 05/27/17 23:59 23:59 23:59 Intake Total 1350 / 1350 180 / 180 Output Total 1600 / 1600 5500 / 5500 850 / 850 Balance -1600 / -1600 -4150 / -4150 -670 / -670 Labs (Last 48 Hours) 05/25/17 05/25/17 05/25/17 16:00 16:00 17:09 WBC RBC Hgb Hct MCV MCH MCHC RDW RDW Differential Plt Count MPV D-Dimer Quant (PE/DVT) Sodium Potassium Chloride Carbon Dioxide Anion Gap BUN Creatinine Estim Creat Clear Calc Est GFR (MDRD) Af Amer Est GFR (MDRD) Non-Af BUN/Creatinine Ratio Glucose Calcium Troponin I 0.03 TSH MRSA (PCR) Negative POC Glucose 108 05/25/17 05/25/17 05/25/17 20:50 20:50 21:35 WBC RBC Hgb Hct MCV MCH MCHC RDW RDW Differential Plt Count MPV D-Dimer Quant (PE/DVT) 0.86 H* Sodium Potassium Chloride Carbon Dioxide Anion Gap BUN Creatinine Estim Creat Clear Calc Est GFR (MDRD) Af Amer Est GFR (MDRD) Non-Af BUN/Creatinine Ratio Glucose Calcium Troponin I 0.04 TSH MRSA (PCR) POC Glucose 103 05/26/17 05/26/17 05/26/17 02:00 04:00 04:00 WBC 8.1 RBC 5.63 Hgb 14.4 Hct 50.5 MCV 89.7 MCH 25.6 L MCHC 28.5 L RDW 18.5 H RDW Differential 59.7 H Plt Count 105 L MPV 10.9 D-Dimer Quant (PE/DVT) Sodium 142 Potassium 4.1 Chloride 99 Carbon Dioxide 39.0 H Anion Gap 4 L BUN 17 Creatinine 1.01 Estim Creat Clear Calc 82.32 Est GFR (MDRD) Af Amer 97 Est GFR (MDRD) Non-Af 81 BUN/Creatinine Ratio 16.8 Glucose 105 Calcium 7.9 L Troponin I < 0.02 TSH MRSA (PCR) POC Glucose 05/26/17 05/26/17 05/26/17 06:11 12:46 17:37 WBC RBC Hgb Hct MCV MCH MCHC RDW RDW Differential Plt Count MPV D-Dimer Quant (PE/DVT) Sodium Potassium Chloride Carbon Dioxide Anion Gap BUN Creatinine Estim Creat Clear Calc Est GFR (MDRD) Af Amer Est GFR (MDRD) Non-Af BUN/Creatinine Ratio Glucose Calcium Troponin I TSH MRSA (PCR) POC Glucose 106 144 H 106 05/26/17 05/27/17 05/27/17 20:51 05:35 06:29 WBC RBC Hgb Hct MCV MCH MCHC RDW RDW Differential Plt Count MPV D-Dimer Quant (PE/DVT) Sodium 143 Potassium 4.0 Chloride 97 L Carbon Dioxide 45.0 H Anion Gap 1 L BUN 19 H Creatinine 0.94 Estim Creat Clear Calc 88.45 Est GFR (MDRD) Af Amer 105 Est GFR (MDRD) Non-Af 87 BUN/Creatinine Ratio 20.1 H Glucose 106 Calcium 7.8 L Troponin I TSH 2.16 MRSA (PCR) POC Glucose 136 H 96 Assessment/Plan Active and Suspected Problems Acute respiratory failure (Acute) CHF exacerbation (Acute) RECOMMENDATIONS: 1. Aggressive diuresis and continued blood pressure control 2. Repeat BMP on a daily basis for electrolyte repletion 3. Continue diabetic medications with sliding scale insulin 4. Continue with PT/OT 5. Wean oxygen as tolerated, ABG as indicated 6. Okay to leave the intensive care unit from my perspective RECOMMENDATIONS: 1. Acute combined respiratory failure secondary to probable congestive heart failure She appears to be responding to diuretic therapy well. Despite diuresis of 4 L, patient's renal function has remained acceptable. Patient's oxygenation is improving. Patient's echo was a very poor quality, but did show significantly elevated right ventricular systolic pressures. This would likely need to be reevaluated after patient is euvolemic. 2. Hypertensive emergency Patient presented with blood pressures that were 200s/100s. Patient was significant improvement overnight following diuresis and support of lung function. Unclear if patient has had flash pulmonary edema secondary to elevated blood pressures or if elevated blood pressures were result of stress reaction to decreased oxygenation. We will continue to monitor. 3. Type 2 diabetes mellitus Patient can continue on metformin for now. Continue to watch renal function closely. Patient should continue with Accu-Cheks with sliding scale insulin. Cannot exclude the need for long-acting insulin moving forward. 4. Thrombocytopenia/chronic lymphedema/super morbid obesity Complicates care, management, recovery and prognosis. Clinical suspicion for clumping of platelets leading to decreased reported counts. No bleeding complications have been noted. Wound nurse will be consulted for lower extremities. Patient should continue with physical therapy and occupational therapy to provide mobility. Recheck CBC tomorrow Code Visit Inpatient E&M: 55224 Subs Hosp L3
[2017-05-27] MEDS: Acetaminophen 325 MG Tablet 650 MG PO (08:44)
[2017-05-27] MEDS: Enoxaparin 40 MG/0.4 ML Syringe SC ×2 (08:45→21:57)
[2017-05-27] MEDS: Pantoprazole Sodium 20 MG Tablet PO (08:45)
[2017-05-27] MEDS: Furosemide 40 MG/4 ML Vial IV ×2 (08:46→17:18)
[2017-05-27 11:56] LABS: Bedside Glucose 134 mg/dL (70-110)
--- NOTE | 2017-05-27 11:58 | PCM.PN.HOSP ---
Patient Problems: Active and Suspected Problems Acute respiratory failure (Acute) CHF exacerbation (Acute) Subjective: Breathing better. States that he has tried CPAP for years ago but just in feel that it worked and stated that it actually made his symptoms worse. States that he has had chronic lower extremity edema and skin changes since he was in high school. Vitals/I&O's: Vital Signs Temp Pulse Resp BP Pulse Ox 37.2 C 74 14 166/100 H 96 05/27/17 11:00 05/27/17 11:00 05/27/17 11:00 05/27/17 11:00 05/27/17 11:00 Oxygen Flow Rate 3 Oxygen Delivery Method Nasal Cannula Weight: 183.7 kg Body Mass Index (BMI) 58.6 Intake and Output for Last 24 Hours 05/25/17 05/26/17 05/27/17 23:59 23:59 23:59 Intake Total 1350 / 1350 180 / 180 Output Total 1600 / 1600 5500 / 5500 850 / 850 Balance -1600 / -1600 -4150 / -4150 -670 / -670 General: Alert, Cooperative, No apparent distress HEENT: Atraumatic, Normocephalic Neck: No Nodes, Thyroid Normal Size and Texture Lungs: Clear to auscultation, Normal air movement, No rhonchi, No wheeze Cardiovascular: Regular rate, Regular Rhythm, Normal S1, Normal S2 Abdomen: Bowel Sounds Present, Soft, Non Tender, Non-Distended, Obese Extremities: Edema - Bilateral with lichenification. Skin: - - Lymphedematous changes of lower extremities with lichenification. Musculoskeletal: No Tenderness to Palpation of Joints or Extremities, No Muscle Wasting Psych/Mental Status: Normal Affect, Appropriate Laboratory Results 05/26/17 12:46: POC Glucose 144 H 05/26/17 17:37: POC Glucose 106 05/26/17 20:51: POC Glucose 136 H 05/27/17 05:35: Sodium 143, Potassium 4.0, Chloride 97 L, Carbon Dioxide 45.0 H, Anion Gap 1 L, BUN 19 H, Creatinine 0.94, Estim Creat Clear Calc 88.45, Est GFR (MDRD) Af Amer 105, Est GFR (MDRD) Non-Af 87, BUN/Creatinine Ratio 20.1 H, Glucose 106, Calcium 7.8 L, TSH 2.16 05/27/17 06:29: POC Glucose 96 05/27/17 11:49: POC Glucose 134 H Current Medications Acetaminophen (Tylenol) 650 mg PO Q6H PRN PRN PRN Reason: Mild Pain (scale 0-3)/T>100.7 Last Admin: 05/27/17 08:44 Dose: 650 mg Albuterol Sulfate (Ventolin Aerosols) 2.5 mg INHALATION Q2H PRN PRN PRN Reason: SOB &/OR WHEEZING Albuterol/Ipratropium (Duoneb) 3 ml INHALATION Q4HWA.RT [facility] Last Admin: 05/27/17 11:24 Dose: 3 ml Bisacodyl (Dulcolax) 10 mg PO DAILY PRN PRN PRN Reason: Constipation Calamine/Phenol (Calmoseptine Ointment) 1 applic TOPICAL BID [facility] PRN Reason: Protocol Last Admin: 05/26/17 20:54 Dose: 1 applic Chlorhexidine Gluconate () 1 each TOPICAL DAILY [facility] Last Admin: 05/27/17 06:32 Dose: 1 each Dextrose (D50w Syringe) 0 gm IV X1 PRN; Protocol PRN Reason: Hypoglycemia Enoxaparin Sodium (Lovenox) 40 mg SC BID [facility] Last Admin: 05/27/17 08:45 Dose: 40 mg Furosemide (Lasix) 40 mg IV BIDLX [facility] Last Admin: 05/27/17 08:46 Dose: 40 mg Glucagon () 1 mg IM .X1 PRN PRN Reason: Hypoglycemia Sodium Chloride () 250 mls @ 15 mls/hr IV .[id number] PRN PRN Reason: SALINE FLUSH Insulin Aspart (Novolog Flexpen (Bkc)) 0 units SC ACHS [facility] PRN Reason: Protocol Last Admin: 05/27/17 06:31 Dose: Not Given Magnesium Hydroxide (Milk Of Magnesia) 30 ml PO DAILY PRN PRN PRN Reason: Constipation Melatonin (Melatonin) 3 mg PO QHS [facility] Last Admin: 05/26/17 20:55 Dose: 3 mg Ondansetron HCl (Zofran) 4 mg IV Q8H PRN PRN PRN Reason: Nausea Pantoprazole Sodium (Protonix) 20 mg PO DAILY [facility] Last Admin: 05/27/17 08:45 Dose: 20 mg Sodium Chloride () 5 - 30 ml IV UD PRN PRN Reason: SALINE FLUSH Last Admin: 05/27/17 08:46 Dose: 10 ml Assessment/Plan Active and Suspected Problems Acute respiratory failure (Acute) CHF exacerbation (Acute) 1. Acute hypoxic and hypercapnic respiratory failure Certainly multifactorial due to the patient's heart failure but may be underlying obstructive sleep apnea, pulmonary artery hypertension, obesity hypoventilation. Wean oxygen as tolerated. Check an amatory pulse ox at discharge. Patient polysomnogram 2. Acute heart failure with preserved ejection fraction EF 65% Continue with Lasix. Add lisinopril 3. Hypertension Still elevated. We will add lisinopril and monitor. 4. Pulmonary hypertension Likely group 2 and or 3 secondary to CHF and obstructive sleep apnea, respectively Patient really has no enthusiasm to go through another polysomnogram nor get set up with another CPAP or BiPAP. I talked to him about further cardiac dysfunction and even sudden cardiac without proper treatment of his obstructive sleep apnea. Did not seem receptive to making any changes and essentially I would get the impression that he would continue to ignore those recommendations. 5. DVT prophylaxis with Lovenox. Transfer to PCU. Code Visit Inpatient E&M: 93329 Subs Hosp L2
--- NOTE | 2017-05-27 12:08 | PN_ITS ---
Patient Problems: Active and Suspected Problems Acute respiratory failure (Acute) CHF exacerbation (Acute) Subjective: Breathing better. States that he has tried CPAP for years ago but just in feel that it worked and stated that it actually made his symptoms worse. States that he has had chronic lower extremity edema and skin changes since he was in high school. Vitals/I&O's: Vital Signs Temp Pulse Resp BP Pulse Ox 37.2 C 74 14 166/100 H 96 05/27/17 11:00 05/27/17 11:00 05/27/17 11:00 05/27/17 11:00 05/27/17 11:00 Oxygen Flow Rate 3 Oxygen Delivery Method Nasal Cannula Weight: 183.7 kg Body Mass Index (BMI) 58.6 Intake and Output for Last 24 Hours 05/25/17 05/26/17 05/27/17 23:59 23:59 23:59 Intake Total 1350 / 1350 180 / 180 Output Total 1600 / 1600 5500 / 5500 850 / 850 Balance -1600 / -1600 -4150 / -4150 -670 / -670 General: Alert, Cooperative, No apparent distress HEENT: Atraumatic, Normocephalic Neck: No Nodes, Thyroid Normal Size and Texture Lungs: Clear to auscultation, Normal air movement, No rhonchi, No wheeze Cardiovascular: Regular rate, Regular Rhythm, Normal S1, Normal S2 Abdomen: Bowel Sounds Present, Soft, Non Tender, Non-Distended, Obese Extremities: Edema - Bilateral with lichenification. Skin: - - Lymphedematous changes of lower extremities with lichenification. Musculoskeletal: No Tenderness to Palpation of Joints or Extremities, No Muscle Wasting Psych/Mental Status: Normal Affect, Appropriate Laboratory Results 05/26/17 12:46: POC Glucose 144 H 05/26/17 17:37: POC Glucose 106 05/26/17 20:51: POC Glucose 136 H 05/27/17 05:35: Sodium 143, Potassium 4.0, Chloride 97 L, Carbon Dioxide 45.0 H , Anion Gap 1 L, BUN 19 H, Creatinine 0.94, Estim Creat Clear Calc 88.45, Est GFR (MDRD) Af Amer 105, Est GFR (MDRD) Non-Af 87, BUN/Creatinine Ratio 20.1 H, Glucose 106, Calcium 7.8 L, TSH 2.16 05/27/17 06:29: POC Glucose 96 05/27/17 11:49: POC Glucose 134 H Current Medications Acetaminophen (Tylenol) 650 mg PO Q6H PRN PRN PRN Reason: Mild Pain (scale 0-3)/T>100.7 Last Admin: 05/27/17 08:44 Dose: 650 mg Albuterol Sulfate (Ventolin Aerosols) 2.5 mg INHALATION Q2H PRN PRN PRN Reason: SOB &/OR WHEEZING Albuterol/Ipratropium (Duoneb) 3 ml INHALATION Q4HWA.RT [facility] Last Admin: 05/27/17 11:24 Dose: 3 ml Bisacodyl (Dulcolax) 10 mg PO DAILY PRN PRN PRN Reason: Constipation Calamine/Phenol (Calmoseptine Ointment) 1 applic TOPICAL BID [facility] PRN Reason: Protocol Last Admin: 05/26/17 20:54 Dose: 1 applic Chlorhexidine Gluconate () 1 each TOPICAL DAILY [facility] Last Admin: 05/27/17 06:32 Dose: 1 each Dextrose (D50w Syringe) 0 gm IV X1 PRN; Protocol PRN Reason: Hypoglycemia Enoxaparin Sodium (Lovenox) 40 mg SC BID [facility] Last Admin: 05/27/17 08:45 Dose: 40 mg Furosemide (Lasix) 40 mg IV BIDLX [facility] Last Admin: 05/27/17 08:46 Dose: 40 mg Glucagon () 1 mg IM .X1 PRN PRN Reason: Hypoglycemia Sodium Chloride () 250 mls @ 15 mls/hr IV .[id number] PRN PRN Reason: SALINE FLUSH Insulin Aspart (Novolog Flexpen (Bkc)) 0 units SC ACHS [facility] PRN Reason: Protocol Last Admin: 05/27/17 06:31 Dose: Not Given Magnesium Hydroxide (Milk Of Magnesia) 30 ml PO DAILY PRN PRN PRN Reason: Constipation Melatonin (Melatonin) 3 mg PO QHS [facility] Last Admin: 05/26/17 20:55 Dose: 3 mg Ondansetron HCl (Zofran) 4 mg IV Q8H PRN PRN PRN Reason: Nausea Pantoprazole Sodium (Protonix) 20 mg PO DAILY [facility] Last Admin: 05/27/17 08:45 Dose: 20 mg Sodium Chloride () 5 - 30 ml IV UD PRN PRN Reason: SALINE FLUSH Last Admin: 05/27/17 08:46 Dose: 10 ml Assessment/Plan Active and Suspected Problems Acute respiratory failure (Acute) CHF exacerbation (Acute) 1. Acute hypoxic and hypercapnic respiratory failure * Certainly multifactorial due to the patient's heart failure but may be underlying obstructive sleep apnea, pulmonary artery hypertension, obesity hypoventilation. * Wean oxygen as tolerated. Check an amatory pulse ox at discharge. * Patient polysomnogram 2. Acute heart failure with preserved ejection fraction * EF 65% * Continue with Lasix. * Add lisinopril 3. Hypertension * Still elevated. We will add lisinopril and monitor. 4. Pulmonary hypertension * Likely group 2 and or 3 secondary to CHF and obstructive sleep apnea, respectively * Patient really has no enthusiasm to go through another polysomnogram nor get set up with another CPAP or BiPAP. I talked to him about further cardiac dysfunction and even sudden cardiac without proper treatment of his obstructive sleep apnea. Did not seem receptive to making any changes and essentially I would get the impression that he would continue to ignore those recommendations. 5. DVT prophylaxis with Lovenox. Transfer to PCU. Code Visit Inpatient E&M: [id number] Subs Hosp L2
[2017-05-27] MEDS: Menthol/Lanolin/Calamine/Znox 113 GM Tube 1 APPLIC TOPICAL ×2 (17:18→21:56)
[2017-05-27] MEDS: Lisinopril 10 MG Tablet PO (17:18)
[2017-05-27 17:20] LABS: Bedside Glucose 128 mg/dL (70-110)
[2017-05-27 21:56] LABS: Bedside Glucose 122 mg/dL (70-110)
[2017-05-27] MEDS: MELATONIN 3 MG TABLET PO (21:57)
[2017-05-28] VITALS (20 sets, daily range): BP systolic 119–156; BP diastolic 61–89; PULSE 74–99; RESP 12–20; TEMP 35.9–37; O2SAT 70–100
[2017-05-28 05:16] LABS: Absolute Lymphocyte Count 0.84 X10^3/ul (0.83-4.51); Absolute Neutrophil Count 6.4 X10^3/uL (2.0-7.7); Basophil# 0.01 X10^3/uL; Basophil% 0.1 % (0-1); Eosinophils% 2.5 % (0-5); Hematocrit 51.9 % (40-54); Hemoglobin 15.6 g/dl (13.0-16.5); Lymphocyte # 0.84 X10^3/ul (4.0); Lymphocyte % 10.4 % (19-41); Mean Corp Hgb Conc 30.1 g/gl (32-36); Mean Corpuscular Volume 86.4 fL (80-94); Mean Platelet Vol. 11.2 fl (6.2-12.0); Monocyte# 0.61 X10^3/uL; Monocyte% 7.6 % (0-10); Neutrophil # 6.38 X10^3/uL (2.7-7.7); Platelet Count 137 K/mm3 (150-450); RBC Distribution Width CV 19.1 % (11.6-14.6); RBC Distribution Width SD 57.8 fl (35.1-43.9); Red Blood Count 6.01 M/mm3 (4.6-6.2); White Blood Count 8.1 K/mm3 (4.4-11.0)
[2017-05-28 05:36] LABS: Anion Gap 3 (5-15); BUN 23 mg/dL (7-18); BUN/Creat Ratio 24.6 RATIO (10-20); Calcium,Total 8.3 mg/dL (8.5-10.1); Chloride 96 mmol/L (98-107); Creatinine, Serum 0.93 mg/dL (0.70-1.30); EST Glomerular Filtration Rate 88 mL/min (>60); Est Glom Filt Rate - Afr Amer 107 mL/min (>60); Glucose 114 mg/dL (74-106); Magnesium 2.4 mg/dL (1.6-2.6); Phosphorus 4.3 mg/dL (2.5-4.9); Potassium 3.9 mmol/L (3.5-5.1); Sodium Level 139 mmol/L (136-145)
[2017-05-28 05:38] LABS: POSITIVE COUNT NO; POSITIVE DIFFERENTIAL NO; POSITIVE MORPHOLOGY NO
[2017-05-28 06:55] LABS: Bedside Glucose 119 mg/dL (70-110)
[2017-05-28] MEDS: Ipratropium/Albuterol Sulfate 3 ML AMPUL.NEB INHALATION ×4 (07:02→20:57)
--- NOTE | 2017-05-28 07:02 | PN_ITS ---
Subjective: Patient did well overnight. Patient was transferred to the floor, but stayed in the intensive care unit secondary to lack of beds. Patient did wear his BiPAP overnight for approximately 6 hours and reported it hurt my chest. Patient does continue to report discomfort from the Poe catheter. Some dyspnea on exertion was reported. Nursing with no concerns overnight. General: Alert, Oriented x3, Cooperative, No apparent distress, - - Morbidly obese. Speaking in full sentences. Appears older than stated age. HEENT: Atraumatic, PERRLA, EOMI, Normocephalic, - - No scleral icterus or injection noted. Oral: Moist Mucosa, No Gingival or Mucosal Lesions/ Ulcerations Neck: Supple, No Nodes, Trachea Midline, - - Unable to assess JVD secondary to body habitus Lungs: No rhonchi, No wheeze, Diminished, Rales - Improving, - - Symmetric expansion. No dullness to percussion. Cardiovascular: Regular rate, Regular Rhythm, Normal S1, Normal S2, No murmurs, No rub noted, No Gallop Abdomen: Bowel Sounds Present, Soft, Non Tender, Non-Distended, Obese Extremities: No clubbing, No cyanosis, Edema Skin: - - Chronic venous stasis changes of lower extremities. Musculoskeletal: No Tenderness to Palpation of Joints or Extremities Lymphatic: No Cervical, Supraclavicular, or Inguinal Adenopathy Neurological: Cranial nerves II-XII grossly intact, Neuro grossly intact Psych/Mental Status: Alert and oriented to time, place, person, mood and affect Vital Signs Temp Pulse Resp BP Pulse Ox 36.7 C 80 15 130/86 H 89 05/28/17 06:00 05/28/17 06:00 05/28/17 06:00 05/28/17 06:00 05/28/17 06:00 Oxygen Flow Rate 2 Oxygen Delivery Method Nasal Cannula Weight: 174.5 kg Body Mass Index (BMI) 58.6 Intake and Output for Last 24 Hours 05/26/17 05/27/17 05/28/17 23:59 23:59 23:59 Intake Total 1350 / 1350 580 / 580 480 / 480 Output Total 5500 / 5500 3100 / 3100 2150 / 2150 Balance -4150 / -4150 -2520 / -2520 -1670 / -1670 Labs (Last 48 Hours) 02/05/26/17 05/26/17 12:46 17:37 20:51 WBC RBC Hgb Hct MCV MCH MCHC RDW RDW Differential Plt Count MPV Immature Gran % (Auto) Neut % (Auto) Lymph % (Auto) [place] % (Auto) Eos % (Auto) Baso % (Auto) Absolute Neuts (auto) Absolute Lymphs (auto) Total Counted Sodium Potassium Chloride Carbon Dioxide Anion Gap BUN Creatinine Estim Creat Clear Calc Est GFR (MDRD) Af Amer Est GFR (MDRD) Non-Af BUN/Creatinine Ratio Glucose Calcium Phosphorus Magnesium TSH POC Glucose 144 H 106 136 H 05/27/17 05/27/17 05/27/17 05:35 06:29 11:49 WBC RBC Hgb Hct MCV MCH MCHC RDW RDW Differential Plt Count MPV Immature Gran % (Auto) Neut % (Auto) Lymph % (Auto) [place] % (Auto) Eos % (Auto) Baso % (Auto) Absolute Neuts (auto) Absolute Lymphs (auto) Total Counted Sodium 143 Potassium 4.0 Chloride 97 L Carbon Dioxide 45.0 H Anion Gap 1 L BUN 19 H Creatinine 0.94 Estim Creat Clear Calc 88.45 Est GFR (MDRD) Af Amer 105 Est GFR (MDRD) Non-Af 87 BUN/Creatinine Ratio 20.1 H Glucose 106 Calcium 7.8 L Phosphorus Magnesium TSH 2.16 POC Glucose 96 134 H 05/27/17 05/27/17 05/28/17 17:14 21:52 05:10 WBC 8.1 RBC 6.01 Hgb 15.6 Hct 51.9 MCV 86.4 MCH 26.0 L MCHC 30.1 L RDW 19.1 H RDW Differential 57.8 H Plt Count 137 L MPV 11.2 Immature Gran % (Auto) 0.400 Neut % (Auto) 79.0 H Lymph % (Auto) 10.4 L [place] % (Auto) 7.6 Eos % (Auto) 2.5 Baso % (Auto) 0.1 Absolute Neuts (auto) 6.4 Absolute Lymphs (auto) 0.84 Total Counted Not Reportable Sodium Potassium Chloride Carbon Dioxide Anion Gap BUN Creatinine Estim Creat Clear Calc Est GFR (MDRD) Af Amer Est GFR (MDRD) Non-Af BUN/Creatinine Ratio Glucose Calcium Phosphorus Magnesium TSH POC Glucose 128 H 122 H 05/28/17 05/28/17 05:10 06:32 WBC RBC Hgb Hct MCV MCH MCHC RDW RDW Differential Plt Count MPV Immature Gran % (Auto) Neut % (Auto) Lymph % (Auto) [place] % (Auto) Eos % (Auto) Baso % (Auto) Absolute Neuts (auto) Absolute Lymphs (auto) Total Counted Sodium 139 Potassium 3.9 Chloride 96 L Carbon Dioxide 40.0 H Anion Gap 3 L BUN 23 H Creatinine 0.93 Estim Creat Clear Calc 89.40 Est GFR (MDRD) Af Amer 107 Est GFR (MDRD) Non-Af 88 BUN/Creatinine Ratio 24.6 H Glucose 114 H Calcium 8.3 L Phosphorus 4.3 Magnesium 2.4 TSH POC Glucose 119 H Assessment/Plan Active and Suspected Problems Acute respiratory failure (Acute) CHF exacerbation (Acute) RECOMMENDATIONS: 1. Aggressive diuresis and continued blood pressure control 2. Repeat BMP on a daily basis for electrolyte repletion 3. Continue diabetic medications with sliding scale insulin 4. Continue with PT/OT 5. Wean oxygen as tolerated, walking oximetry prior to discharge 6. Remove Poe catheter RECOMMENDATIONS: 1. Acute combined respiratory failure secondary to probable congestive heart failure Patient appears to be responding to diuretic therapy well. Despite diuresis of 35 pound weight loss from admission, patient's renal function has remained acceptable. Patient's oxygenation is improving. Patient's echo was a very poor quality, but did show significantly elevated right ventricular systolic pressures. This would likely need to be reevaluated after patient is euvolemic to see if pulmonary hypertension persists. 2. Hypertensive emergency Patient presented with blood pressures that were 200s/100s. Patient was significant improvement overnight following diuresis and support of lung function. Unclear if patient has had flash pulmonary edema secondary to elevated blood pressures or if elevated blood pressures were result of stress reaction to decreased oxygenation. We will continue to monitor. 3. Type 2 diabetes mellitus Patient can continue on metformin for now. Continue to watch renal function closely. Patient should continue with Accu-Cheks with sliding scale insulin. Cannot exclude the need for long-acting insulin moving forward. 4. Thrombocytopenia/chronic lymphedema/super morbid obesity Complicates care, management, recovery and prognosis. Clinical suspicion for clumping of platelets leading to decreased reported counts. No bleeding complications have been noted. Wound nurse will be consulted for lower extremities. Patient should continue with physical therapy and occupational therapy to provide mobility. Code Visit Inpatient E&M: [id number] Subs Hosp L2
[2017-05-28] MEDS: Enoxaparin 40 MG/0.4 ML Syringe SC (09:49)
[2017-05-28] MEDS: Pantoprazole Sodium 20 MG Tablet PO (09:49)
[2017-05-28] MEDS: Furosemide 40 MG/4 ML Vial IV ×2 (09:50→18:11)
[2017-05-28] MEDS: Menthol/Lanolin/Calamine/Znox 113 GM Tube 1 APPLIC TOPICAL ×2 (09:50→21:46)
[2017-05-28] MEDS: Lisinopril 10 MG Tablet PO (09:53)
--- NOTE | 2017-05-28 10:24 | PCM.PN.HOSP ---
Patient Problems: Active and Suspected Problems Acute respiratory failure (Acute) CHF exacerbation (Acute) Subjective: Breathing well. No changes lower extremity edema. Vitals/I&O's: Vital Signs Temp Pulse Resp BP Pulse Ox 35.9 C L 80 16 137/89 H 100 05/28/17 08:12 05/28/17 08:12 05/28/17 08:12 05/28/17 08:12 05/28/17 08:12 Oxygen Flow Rate 3 Oxygen Delivery Method Nasal Cannula Weight: 174.5 kg Body Mass Index (BMI) 58.6 Intake and Output for Last 24 Hours 05/26/17 05/27/17 05/28/17 23:59 23:59 23:59 Intake Total 1350 / 1350 580 / 580 480 / 480 Output Total 5500 / 5500 3100 / 3100 2150 / 2150 Balance -4150 / -4150 -2520 / -2520 -1670 / -1670 General: Alert, Cooperative, No apparent distress HEENT: Atraumatic, Normocephalic Neck: No Nodes, Thyroid Normal Size and Texture Lungs: Clear to auscultation, Normal air movement, No rhonchi, No wheeze Cardiovascular: Regular rate, Regular Rhythm, Normal S1, Normal S2 Abdomen: Bowel Sounds Present, Soft, Non-Distended, Obese Extremities: Edema Skin: - - Stasis dermatitis, lymphedema and lichenification of the lower extremities. Psych/Mental Status: Normal Affect, Appropriate Laboratory Results 05/27/17 11:49: POC Glucose 134 H 05/27/17 17:14: POC Glucose 128 H 05/27/17 21:52: POC Glucose 122 H 05/28/17 05:10: WBC 8.1, RBC 6.01, Hgb 15.6, Hct 51.9, MCV 86.4, MCH 26.0 L, MCHC 30.1 L, RDW 19.1 H, RDW Differential 57.8 H, Plt Count 137 L, MPV 11.2, Immature Gran % (Auto) 0.400, Neut % (Auto) 79.0 H, Lymph % (Auto) 10.4 L, [place] % (Auto) 7.6, Eos % (Auto) 2.5, Baso % (Auto) 0.1, Absolute Neuts (auto) 6.4, Absolute Lymphs (auto) 0.84, Total Counted Not Reportable 05/28/17 05:10: Sodium 139, Potassium 3.9, Chloride 96 L, Carbon Dioxide 40.0 H, Anion Gap 3 L, BUN 23 H, Creatinine 0.93, Estim Creat Clear Calc 89.40, Est GFR (MDRD) Af Amer 107, Est GFR (MDRD) Non-Af 88, BUN/Creatinine Ratio 24.6 H, Glucose 114 H, Calcium 8.3 L, Phosphorus 4.3, Magnesium 2.4 05/28/17 06:32: POC Glucose 119 H Current Medications Acetaminophen (Tylenol) 650 mg PO Q6H PRN PRN PRN Reason: Mild Pain (scale 0-3)/T>100.7 Last Admin: 05/27/17 08:44 Dose: 650 mg Albuterol Sulfate (Ventolin Aerosols) 2.5 mg INHALATION Q2H PRN PRN PRN Reason: SOB &/OR WHEEZING Albuterol/Ipratropium (Duoneb) 3 ml INHALATION Q4HWA.RT [facility] Last Admin: 05/28/17 07:02 Dose: 3 ml Bisacodyl (Dulcolax) 10 mg PO DAILY PRN PRN PRN Reason: Constipation Calamine/Phenol (Calmoseptine Ointment) 1 applic TOPICAL BID CHRISTINA PRN Reason: Protocol Last Admin: 05/28/17 09:50 Dose: 1 applic Chlorhexidine Gluconate () 1 each TOPICAL DAILY [facility] Last Admin: 05/28/17 09:50 Dose: Not Given Dextrose (D50w Syringe) 0 gm IV X1 PRN; Protocol PRN Reason: Hypoglycemia Enoxaparin Sodium (Lovenox) 40 mg SC BID [facility] Last Admin: 05/28/17 09:49 Dose: 40 mg Furosemide (Lasix) 40 mg IV BIDLX [facility] Last Admin: 05/28/17 09:50 Dose: 40 mg Glucagon () 1 mg IM .X1 PRN PRN Reason: Hypoglycemia Insulin Aspart (Novolog Flexpen (Bkc)) 0 units SC ACHS [facility] PRN Reason: Protocol Last Admin: 05/28/17 06:39 Dose: Not Given Lisinopril (Zestril) 10 mg PO DAILY [facility] Last Admin: 05/28/17 09:53 Dose: 10 mg Magnesium Hydroxide (Milk Of Magnesia) 30 ml PO DAILY PRN PRN PRN Reason: Constipation Melatonin (Melatonin) 3 mg PO QHS [facility] Last Admin: 05/27/17 21:57 Dose: 3 mg Ondansetron HCl (Zofran) 4 mg IV Q8H PRN PRN PRN Reason: Nausea Pantoprazole Sodium (Protonix) 20 mg PO DAILY [facility] Last Admin: 05/28/17 09:49 Dose: 20 mg Sodium Chloride () 5 - 30 ml IV UD PRN PRN Reason: SALINE FLUSH Last Admin: 05/27/17 17:19 Dose: 10 ml Assessment/Plan Active and Suspected Problems Acute respiratory failure (Acute) CHF exacerbation (Acute) 1. Acute hypoxic and hypercapnic respiratory failure Certainly multifactorial due to the patient's heart failure but may be underlying obstructive sleep apnea, pulmonary artery hypertension, obesity hypoventilation. Wean oxygen as tolerated. Check an amatory pulse ox at discharge. Patient declines further evaluation for CPAP at this time. 2. Acute heart failure with preserved ejection fraction EF 65% Change Lasix over to oral, additionally add potassium Add lisinopril 3. Hypertension Still elevated. We will add lisinopril and monitor. 4. Pulmonary hypertension Likely group 2 and or 3 secondary to CHF and obstructive sleep apnea, respectively Patient really has no enthusiasm to go through another polysomnogram nor get set up with another CPAP or BiPAP. I talked to him about further cardiac dysfunction and even sudden cardiac without proper treatment of his obstructive sleep apnea. Did not seem receptive to making any changes and essentially I would get the impression that he would continue to ignore those recommendations. 5. DVT prophylaxis with Lovenox. We will discharge patient today.
--- NOTE | 2017-05-28 10:28 | PN_ITS ---
Patient Problems: Active and Suspected Problems Acute respiratory failure (Acute) CHF exacerbation (Acute) Subjective: Breathing well. No changes lower extremity edema. Vitals/I&O's: Vital Signs Temp Pulse Resp BP Pulse Ox 35.9 C L 80 16 137/89 H 100 05/28/17 08:12 05/28/17 08:12 05/28/17 08:12 05/28/17 08:12 05/28/17 08:12 Oxygen Flow Rate 3 Oxygen Delivery Method Nasal Cannula Weight: 174.5 kg Body Mass Index (BMI) 58.6 Intake and Output for Last 24 Hours 05/26/17 05/27/17 05/28/17 23:59 23:59 23:59 Intake Total 1350 / 1350 580 / 580 480 / 480 Output Total 5500 / 5500 3100 / 3100 2150 / 2150 Balance -4150 / -4150 -2520 / -2520 -1670 / -1670 General: Alert, Cooperative, No apparent distress HEENT: Atraumatic, Normocephalic Neck: No Nodes, Thyroid Normal Size and Texture Lungs: Clear to auscultation, Normal air movement, No rhonchi, No wheeze Cardiovascular: Regular rate, Regular Rhythm, Normal S1, Normal S2 Abdomen: Bowel Sounds Present, Soft, Non-Distended, Obese Extremities: Edema Skin: - - Stasis dermatitis, lymphedema and lichenification of the lower extremities. Psych/Mental Status: Normal Affect, Appropriate Laboratory Results 05/27/17 11:49: POC Glucose 134 H 05/27/17 17:14: POC Glucose 128 H 05/27/17 21:52: POC Glucose 122 H 05/28/17 05:10: WBC 8.1, RBC 6.01, Hgb 15.6, Hct 51.9, MCV 86.4, MCH 26.0 L, MCHC 30.1 L, RDW 19.1 H, RDW Differential 57.8 H, Plt Count 137 L, MPV 11.2, Immature Gran % (Auto) 0.400, Neut % (Auto) 79.0 H, Lymph % (Auto) 10.4 L, [place] % (Auto) 7.6, Eos % (Auto) 2.5, Baso % (Auto) 0.1, Absolute Neuts (auto) 6.4, Absolute Lymphs (auto) 0.84, Total Counted Not Reportable 05/28/17 05:10: Sodium 139, Potassium 3.9, Chloride 96 L, Carbon Dioxide 40.0 H , Anion Gap 3 L, BUN 23 H, Creatinine 0.93, Estim Creat Clear Calc 89.40, Est GFR (MDRD) Af Amer 107, Est GFR (MDRD) Non-Af 88, BUN/Creatinine Ratio 24.6 H, Glucose 114 H, Calcium 8.3 L, Phosphorus 4.3, Magnesium 2.4 05/28/17 06:32: POC Glucose 119 H Current Medications Acetaminophen (Tylenol) 650 mg PO Q6H PRN PRN PRN Reason: Mild Pain (scale 0-3)/T>100.7 Last Admin: 05/27/17 08:44 Dose: 650 mg Albuterol Sulfate (Ventolin Aerosols) 2.5 mg INHALATION Q2H PRN PRN PRN Reason: SOB &/OR WHEEZING Albuterol/Ipratropium (Duoneb) 3 ml INHALATION Q4HWA.RT [facility] Last Admin: 05/28/17 07:02 Dose: 3 ml Bisacodyl (Dulcolax) 10 mg PO DAILY PRN PRN PRN Reason: Constipation Calamine/Phenol (Calmoseptine Ointment) 1 applic TOPICAL BID CHRISTINA PRN Reason: Protocol Last Admin: 05/28/17 09:50 Dose: 1 applic Chlorhexidine Gluconate () 1 each TOPICAL DAILY [facility] Last Admin: 05/28/17 09:50 Dose: Not Given Dextrose (D50w Syringe) 0 gm IV X1 PRN; Protocol PRN Reason: Hypoglycemia Enoxaparin Sodium (Lovenox) 40 mg SC BID [facility] Last Admin: 05/28/17 09:49 Dose: 40 mg Furosemide (Lasix) 40 mg IV BIDLX [facility] Last Admin: 05/28/17 09:50 Dose: 40 mg Glucagon () 1 mg IM .X1 PRN PRN Reason: Hypoglycemia Insulin Aspart (Novolog Flexpen (Bkc)) 0 units SC ACHS [facility] PRN Reason: Protocol Last Admin: 05/28/17 06:39 Dose: Not Given Lisinopril (Zestril) 10 mg PO DAILY [facility] Last Admin: 05/28/17 09:53 Dose: 10 mg Magnesium Hydroxide (Milk Of Magnesia) 30 ml PO DAILY PRN PRN PRN Reason: Constipation Melatonin (Melatonin) 3 mg PO QHS [facility] Last Admin: 05/27/17 21:57 Dose: 3 mg Ondansetron HCl (Zofran) 4 mg IV Q8H PRN PRN PRN Reason: Nausea Pantoprazole Sodium (Protonix) 20 mg PO DAILY [facility] Last Admin: 05/28/17 09:49 Dose: 20 mg Sodium Chloride () 5 - 30 ml IV UD PRN PRN Reason: SALINE FLUSH Last Admin: 05/27/17 17:19 Dose: 10 ml Assessment/Plan Active and Suspected Problems Acute respiratory failure (Acute) CHF exacerbation (Acute) 1. Acute hypoxic and hypercapnic respiratory failure * Certainly multifactorial due to the patient's heart failure but may be underlying obstructive sleep apnea, pulmonary artery hypertension, obesity hypoventilation. * Wean oxygen as tolerated. Check an amatory pulse ox at discharge. * Patient declines further evaluation for CPAP at this time. 2. Acute heart failure with preserved ejection fraction * EF 65% * Change Lasix over to oral, additionally add potassium * Add lisinopril 3. Hypertension * Still elevated. We will add lisinopril and monitor. 4. Pulmonary hypertension * Likely group 2 and or 3 secondary to CHF and obstructive sleep apnea, respectively * Patient really has no enthusiasm to go through another polysomnogram nor get set up with another CPAP or BiPAP. I talked to him about further cardiac dysfunction and even sudden cardiac without proper treatment of his obstructive sleep apnea. Did not seem receptive to making any changes and essentially I would get the impression that he would continue to ignore those recommendations. 5. DVT prophylaxis with Lovenox. We will discharge patient today.
--- NOTE | 2017-05-28 10:38 | DCINST_ITS ---
- Discharge Diagnoses Current Active Problems: Current Active and Chronic Problems Acute respiratory failure (Acute) CHF exacerbation (Acute) Super obesity (Chronic) Super-super obese (Chronic) You will use the following diet at home:: Calorie/Carbohydrate Controlled ( specify 1200, 1400, etc) - 2000 kcal/day, Fluid restricted (specify 2000 mls, 1500 mls) - 1500 cc fluid/day Your food should be the consistency of: Regular Your liquids should be the consistency of: Regular/Thin Discharge Activity: Return to Normal Activity Weight Bearing Status: Weight bearing as tolerated Call your doctor if your incision/area has: Continuous Slow Oozing Call your doctor if you observe: Fever of 101 or Higher Instructions: Heart Failure: Making Changes to Your Diet, Heart Failure: Evaluating Your Heart, Heart Failure: Medications to Help Your Heart, Discharge Instructions for Heart Failure Allergies/Adverse Reactions: Allergies No Known Allergies Allergy (Verified 05/25/17 11:48) Medications to take at Discharge Docusate Sodium [Colace] 100 mg PO DAILY PRN PRN 05/25/17 Ergocalciferol [Vitamin D] 1 cap PO QWEEK 05/25/17 Fluticasone 0.05% [Flonase Nasal [place]] 2 spray NASAL DAILY 05/25/17 Mineral Oil/Petrolatum,White [Eucerin] 1 applic TOPICAL DAILY PRN PRN 05/25/17 Acetaminophen [Tylenol Tablet] 500 mg PO Q6H PRN PRN tablet 05/28/17 Aspirin 81 mg PO DAILY #1 tab.chew 05/28/17 Carvedilol [Coreg] 6.25 mg PO BID #60 tab 05/28/17 Furosemide [Lasix] 40 mg PO BID #60 tab 05/28/17 Lisinopril [Zestril] 10 mg PO DAILY #30 tab 05/28/17 Potassium Chloride [K-Dur] 20 meq PO DAILY #30 tab 05/28/17 The following prescriptions were given: Aspirin 81 mg PO DAILY #1 tab.chew Lisinopril [Zestril] 10 mg PO DAILY #30 tab Potassium Chloride [K-Dur] 20 meq PO DAILY #30 tab Carvedilol [Coreg] 6.25 mg PO BID #60 tab Furosemide [Lasix] 40 mg PO BID #60 tab Primary Care Physician: Gaby Mata [Primary Care Provider] - Within 1 Week Please Follow Up With: heart group - Heart failure When: 1-2 months Please Follow Up With: Sukh Norman MD - [facility] When: 1-2 months Proposed Discharge Date: 05/28/17
--- NOTE | 2017-05-28 10:38 | PCM.DC.SUM ---
Discharge Date and Diagnosis - Problem List Patient Problems: Active and Suspected Problems CHF (congestive heart failure) (Acute) Acute respiratory failure (Acute) CHF exacerbation (Acute) Date of Admission: 05/25/17 Date of Discharge: 05/28/17 - Primary Discharge Diagnosis Active and Suspected Problems CHF (congestive heart failure) (Acute) Acute respiratory failure (Acute) CHF exacerbation (Acute) - Secondary Discharge Diagnosis Chronic Problems Super obesity (Chronic) Super-super obese (Chronic) HTN (hypertension) (Chronic) Hospital Course and Treatment Imaging Results: Clinical Impression(s) from Imaging Studies Chest X-Ray 05/25/17 12:02 IMPRESSION: Cardiomegaly and CHF. Bibasilar atelectasis. Small right pleural effusion. Electronically Signed: Sourav Norwood MD at 12:28 EST Tel [phone], Service support , Consultations 05/25/17 16:45 Consult: Onc/Wound/procurement specialist Routine Comment: Procedures: 2-D Echocardiogram - Left ventricular systolic function is normal. The estimated ejection fraction is 65 %. Mild concentric left ventricular hypertrophy. Trivial mitral valve insufficiency. Trivial tricuspid valve insufficiency. Small pericardial effusion. There are no echocardiographic indications of cardiac tamponade. Right ventricular systolic pressure estimated to be 63 mmHg c/w pulmonary hypertension. No evidence for diastolic dysfunction. Summary of Care Provided: The patient is a 56 year old M presents with shortness of breath from home. Patient was in acute hypercapnic Respiratory failure. Patient's respiratory failure was due to acute heart failure with preserved ejection fraction us pulmonary hypertension plus obesity hypoventilation plus untreated obstructive sleep apnea. He was put on Lasix and his weight from 189.9 kg to 174.5 kg. Patient is still very edematous overall but this is complicated due to the patient's pulmonary hypertension which is a combination of group 2 and group 3, due to heart failure and obstructive sleep apnea that has been untreated. Patient has been evaluated for sleep apnea in the past and has not tolerated CPAP. Patient is dismissive of further recommendations of him getting a no sleep study and CPAP or BiPAP. When it is brought to the patient's attention about his diffuse edema, lymphedema and his lichenification of his lower extremities patient just shrugs it off saying that he has had that since he has been in high school. Patient is currently medically stable. And I feel patient can be discharged. My concern is compliance for this patient and/or the lack thereof. And with that I feel the patient would be a high likelihood of readmission irregardless as to when he was discharged. I am going to discharge the patient today with prescription for oral Lasix, lisinopril and Coreg. Patient also received potassium tablets as well. Patient instructed to have a BMP in about 2 weeks time. Patient is instructed to follow-up with his primary care doctor in 1 week. Patient should follow-up with pulmonary as well as cardiology in the next 1-2 months. [] Discharge Diet: 1800 Calorie Control Diet, 6 Cup Fluid Restriction, 2000 mg Sodium Diet Discharge Activity: Return to Normal Activity Weight Bearing Status: Weight bearing as tolerated Call your doctor if your incision/area has: Continuous Slow Oozing Call your doctor if you observe: Fever of 101 or Higher Home Medications: Medications to take at Discharge Docusate Sodium [Colace] 100 mg PO DAILY PRN PRN 05/25/17 Ergocalciferol [Vitamin D] 1 cap PO QWEEK 05/25/17 Fluticasone 0.05% [Flonase Nasal [place]] 2 spray NASAL DAILY 05/25/17 Mineral Oil/Petrolatum,White [Eucerin] 1 applic TOPICAL DAILY PRN PRN 05/25/17 Acetaminophen [Tylenol Tablet] 500 mg PO Q6H PRN PRN tablet 05/28/17 Aspirin 81 mg PO DAILY #1 tab.chew 05/28/17 Carvedilol [Coreg] 6.25 mg PO BID #60 tab 05/28/17 Furosemide [Lasix] 40 mg PO BID #60 tab 05/28/17 Lisinopril [Zestril] 10 mg PO DAILY #30 tab 05/28/17 Potassium Chloride [K-Dur] 20 meq PO DAILY #30 tab 05/28/17 Following Prescrptions Were Given to Patient: Aspirin 81 mg PO DAILY #1 tab.chew Lisinopril [Zestril] 10 mg PO DAILY #30 tab Potassium Chloride [K-Dur] 20 meq PO DAILY #30 tab Carvedilol [Coreg] 6.25 mg PO BID #60 tab Furosemide [Lasix] 40 mg PO BID #60 tab Primary Care Physician: Gaby Mata [Primary Care Provider] - Within 1 Week Please Follow Up With: heart group - Heart failure When: 1-2 months Please Follow Up With: Sukh Norman MD - [facility] When: 1-2 months Patient Instructions: Heart Failure: Making Changes to Your Diet, Heart Failure: Evaluating Your Heart, Heart Failure: Medications to Help Your Heart, Discharge Instructions for Heart Failure Disposition: Home Minutes spent on discharge:: 32 Patient Condition:: Fair Meaningful Use Info Meaningful Use Diagnoses (Choose all that apply): CHF - CHF DHIRAJ/ARB ordered at discharge?: Yes Documented LVEF (%): 65 Code Visit Inpatient E&M: 59232 Disch Hosp
--- NOTE | 2017-05-28 10:44 | DS.PCM_ITS ---
Discharge Date and Diagnosis - Problem List Patient Problems: Active and Suspected Problems CHF (congestive heart failure) (Acute) Acute respiratory failure (Acute) CHF exacerbation (Acute) Date of Admission: 05/25/17 Date of Discharge: 05/28/17 - Primary Discharge Diagnosis Active and Suspected Problems CHF (congestive heart failure) (Acute) Acute respiratory failure (Acute) CHF exacerbation (Acute) - Secondary Discharge Diagnosis Chronic Problems Super obesity (Chronic) Super-super obese (Chronic) HTN (hypertension) (Chronic) Hospital Course and Treatment Imaging Results: Clinical Impression(s) from Imaging Studies Chest X-Ray 05/25/17 12:02 IMPRESSION: Cardiomegaly and CHF. Bibasilar atelectasis. Small right pleural effusion. Electronically Signed: Sourav Norwood MD at 12:28 EST Tel [phone], Service support , Consultations 05/25/17 16:45 Consult: Onc/Wound/paste up artist Routine Comment: Procedures: 2-D Echocardiogram - Left ventricular systolic function is normal. The estimated ejection fraction is 65 %. Mild concentric left ventricular hypertrophy. Trivial mitral valve insufficiency. Trivial tricuspid valve insufficiency. Small pericardial effusion. There are no echocardiographic indications of cardiac tamponade. Right ventricular systolic pressure estimated to be 63 mmHg c/w pulmonary hypertension. No evidence for diastolic dysfunction. Summary of Care Provided: The patient is a 56 year old M presents with shortness of breath from home. Patient was in acute hypercapnic Respiratory failure. Patient's respiratory failure was due to acute heart failure with preserved ejection fraction us pulmonary hypertension plus obesity hypoventilation plus untreated obstructive sleep apnea. He was put on Lasix and his weight from 189.9 kg to 174.5 kg. Patient is still very edematous overall but this is complicated due to the patient's pulmonary hypertension which is a combination of group 2 and group 3, due to heart failure and obstructive sleep apnea that has been untreated. Patient has been evaluated for sleep apnea in the past and has not tolerated CPAP. Patient is dismissive of further recommendations of him getting a no sleep study and CPAP or BiPAP. When it is brought to the patient's attention about his diffuse edema, lymphedema and his lichenification of his lower extremities patient just shrugs it off saying that he has had that since he has been in high school. Patient is currently medically stable. And I feel patient can be discharged. My concern is compliance for this patient and/or the lack thereof. And with that I feel the patient would be a high likelihood of readmission irregardless as to when he was discharged. I am going to discharge the patient today with prescription for oral Lasix, lisinopril and Coreg. Patient also received potassium tablets as well. Patient instructed to have a BMP in about 2 weeks time. Patient is instructed to follow-up with his primary care doctor in 1 week. Patient should follow-up with pulmonary as well as cardiology in the next 1-2 months. [] Discharge Diet: 1800 Calorie Control Diet, 6 Cup Fluid Restriction, 2000 mg Sodium Diet Discharge Activity: Return to Normal Activity Weight Bearing Status: Weight bearing as tolerated Call your doctor if your incision/area has: Continuous Slow Oozing Call your doctor if you observe: Fever of 101 or Higher Home Medications: Medications to take at Discharge Docusate Sodium [Colace] 100 mg PO DAILY PRN PRN 05/25/17 Ergocalciferol [Vitamin D] 1 cap PO QWEEK 05/25/17 Fluticasone 0.05% [Flonase Nasal [place]] 2 spray NASAL DAILY 05/25/17 Mineral Oil/Petrolatum,White [Eucerin] 1 applic TOPICAL DAILY PRN PRN 05/25/17 Acetaminophen [Tylenol Tablet] 500 mg PO Q6H PRN PRN tablet 05/28/17 Aspirin 81 mg PO DAILY #1 tab.chew 05/28/17 Carvedilol [Coreg] 6.25 mg PO BID #60 tab 05/28/17 Furosemide [Lasix] 40 mg PO BID #60 tab 05/28/17 Lisinopril [Zestril] 10 mg PO DAILY #30 tab 05/28/17 Potassium Chloride [K-Dur] 20 meq PO DAILY #30 tab 05/28/17 Following Prescrptions Were Given to Patient: Aspirin 81 mg PO DAILY #1 tab.chew Lisinopril [Zestril] 10 mg PO DAILY #30 tab Potassium Chloride [K-Dur] 20 meq PO DAILY #30 tab Carvedilol [Coreg] 6.25 mg PO BID #60 tab Furosemide [Lasix] 40 mg PO BID #60 tab Primary Care Physician: Gaby Mata [Primary Care Provider] - Within 1 Week Please Follow Up With: heart group - Heart failure When: 1-2 months Please Follow Up With: Sukh Norman MD - [facility] When: 1-2 months Patient Instructions: Heart Failure: Making Changes to Your Diet, Heart Failure : Evaluating Your Heart, Heart Failure: Medications to Help Your Heart, Discharge Instructions for Heart Failure Disposition: Home Minutes spent on discharge:: 32 Patient Condition:: Fair Meaningful Use Info Meaningful Use Diagnoses (Choose all that apply): CHF - CHF DHIRAJ/ARB ordered at discharge?: Yes Documented LVEF (%): 65 Code Visit Inpatient E&M: [id number] Disch Hosp
--- NOTE | 2017-05-28 10:50 | CPS ---
with ambulation, put 02 back on at 3 lpm
[2017-05-28 12:22] LABS: Bedside Glucose 127 mg/dL (70-110)
--- NOTE | 2017-05-28 12:49 | CASEMGMT ---
Addendum entered by Genaro Cali 05/28/17 15:12: DC Summary with Home Oxygen need included by physician faxed to [facility]. Original Note: Home oxygen testing completed, pt will need Home O2. Order faxed to [facility], joe @ [employer] notified and tank will be delivered to [facility]. Jeanna IZAGUIRRE RN ACM
[2017-05-28 17:50] LABS: Bedside Glucose 114 mg/dL (70-110)
[2017-05-28] MEDS: MELATONIN 3 MG TABLET PO (21:47)
[2017-05-28 21:55] LABS: Bedside Glucose 140 mg/dL (70-110)
[2017-05-29] VITALS (11 sets, daily range): BP systolic 118–144; BP diastolic 71–73; PULSE 71–92; RESP 18–20; TEMP 36.6–36.8; O2SAT 83–97
[2017-05-29 07:06] LABS: Absolute Lymphocyte Count 0.76 X10^3/ul (0.83-4.51); Absolute Neutrophil Count 5.4 X10^3/uL (2.0-7.7); Basophil# 0.02 X10^3/uL; Basophil% 0.3 % (0-1); Eosinophil# 0.25 X10^3/uL; Eosinophils% 3.6 % (0-5); Hematocrit 53.6 % (40-54); Hemoglobin 15.6 g/dl (13.0-16.5); Lymphocyte # 0.76 X10^3/ul (4.0); Lymphocyte % 11.1 % (19-41); Mean Corp Hgb Conc 29.1 g/gl (32-36); Mean Corpuscular Hgb 25.8 pg (27.0-32.0); Mean Corpuscular Volume 88.7 fL (80-94); Mean Platelet Vol. 10.3 fl (6.2-12.0); Monocyte# 0.42 X10^3/uL; Monocyte% 6.1 % (0-10); Neutrophil # 5.41 X10^3/uL (2.7-7.7); Neutrophil % 78.9 % (47-70); Platelet Count 100 K/mm3 (150-450); RBC Distribution Width CV 18.2 % (11.6-14.6); Red Blood Count 6.04 M/mm3 (4.6-6.2); White Blood Count 6.9 K/mm3 (4.4-11.0)
[2017-05-29 07:06] LABS: Bedside Glucose 119 mg/dL (70-110)
[2017-05-29 07:07] LABS: Differential Indicated SCAN CRITERIA MET; POSITIVE COUNT NO; POSITIVE DIFFERENTIAL NO; POSITIVE MORPHOLOGY YES
[2017-05-29 07:33] LABS: Anion Gap 1 (5-15); BUN 28 mg/dL (7-18); BUN/Creat Ratio 24.8 RATIO (10-20); Calcium,Total 8.3 mg/dL (8.5-10.1); Chloride 98 mmol/L (98-107); Creatinine, Serum 1.13 mg/dL (0.70-1.30); EST Glomerular Filtration Rate 71 mL/min (>60); Est Glom Filt Rate - Afr Amer 86 mL/min (>60); Estimated Creatinine Clearance 73.57 ml/min; Glucose 103 mg/dL (74-106); Potassium 5.2 mmol/L (3.5-5.1); Sodium Level 143 mmol/L (136-145)
[2017-05-29 08:02] LABS: Platelet Morphology LARGE
[2017-05-29 08:04] LABS: Platelet Estimate SLT DEC (ADEQ)
--- NOTE | 2017-05-29 09:39 | PCM.PN.INT ---
Subjective: Patient did okay overnight. Patient continues to have hematuria, but states it is typically at the end of his urine stream. Patient does report some dysuria. Patient's discharge was delayed secondary to gross hematuria following Poe removal yesterday. Patient feels his breathing is at its baseline. Patient is willing to take oxygen at home if necessary. General: Alert, Oriented x3, Cooperative, No apparent distress, - - Morbidly obese. Speaking in full sentences. HEENT: Atraumatic, PERRLA, EOMI, Normocephalic, - - Right scleral injection without icterus Oral: Moist Mucosa, No Gingival or Mucosal Lesions/ Ulcerations Neck: Supple, No Nodes, Trachea Midline, - - JVD difficult to assess secondary to body habitus Lungs: No rhonchi, No wheeze, Diminished, Rales - Continues to improve, - - Symmetric expansion. No dullness to percussion. Cardiovascular: Regular rate, Regular Rhythm, Normal S1, Normal S2, No murmurs, No rub noted, No Gallop Abdomen: Bowel Sounds Present, Soft, Non Tender, Non-Distended, Obese Extremities: No cyanosis, Capillary Refill Less than 3 Seconds, Edema - Improving Skin: - - Bob unchanged compared to previous Musculoskeletal: No Tenderness to Palpation of Joints or Extremities, No Muscle Wasting Lymphatic: No Cervical, Supraclavicular, or Inguinal Adenopathy Neurological: Cranial nerves II-XII grossly intact, Neuro grossly intact Psych/Mental Status: Alert and oriented to time, place, person, mood and affect Vital Signs Temp Pulse Resp BP Pulse Ox 36.6 C 82 18 118/73 83 05/29/17 08:40 05/29/17 08:40 05/29/17 08:40 05/29/17 08:40 05/29/17 09:01 Oxygen Flow Rate [AMBULATION 3 with Oxygen] Oxygen Flow Rate [AMBULATING 0 on Room Air] Oxygen Flow Rate 3 Oxygen Delivery Method Nasal Cannula Weight: 175.5 kg Body Mass Index (BMI) 58.6 Intake and Output for Last 24 Hours 05/27/17 05/28/17 05/29/17 23:59 23:59 23:59 Intake Total 580 / 580 1464 / 1464 120 / 120 Output Total 3100 / 3100 2350 / 2350 Balance -2520 / -2520 -886 / -886 120 / 120 Labs (Last 48 Hours) 05/27/17 05/27/17 05/27/17 11:49 17:14 21:52 WBC RBC Hgb Hct MCV MCH MCHC RDW RDW Differential Plt Count MPV Immature Gran % (Auto) Neut % (Auto) Lymph % (Auto) [place] % (Auto) Eos % (Auto) Baso % (Auto) Absolute Neuts (auto) Absolute Lymphs (auto) Total Counted Platelet Estimate Plt Morphology Comment Sodium Potassium Chloride Carbon Dioxide Anion Gap BUN Creatinine Estim Creat Clear Calc Est GFR (MDRD) Af Amer Est GFR (MDRD) Non-Af BUN/Creatinine Ratio Glucose Calcium Phosphorus Magnesium POC Glucose 134 H 128 H 122 H 05/28/17 05/28/17 05/28/17 05:10 05:10 06:32 WBC 8.1 RBC 6.01 Hgb 15.6 Hct 51.9 MCV 86.4 MCH 26.0 L MCHC 30.1 L RDW 19.1 H RDW Differential 57.8 H Plt Count 137 L MPV 11.2 Immature Gran % (Auto) 0.400 Neut % (Auto) 79.0 H Lymph % (Auto) 10.4 L [place] % (Auto) 7.6 Eos % (Auto) 2.5 Baso % (Auto) 0.1 Absolute Neuts (auto) 6.4 Absolute Lymphs (auto) 0.84 Total Counted Not Reportable Platelet Estimate Plt Morphology Comment Sodium 139 Potassium 3.9 Chloride 96 L Carbon Dioxide 40.0 H Anion Gap 3 L BUN 23 H Creatinine 0.93 Estim Creat Clear Calc 89.40 Est GFR (MDRD) Af Amer 107 Est GFR (MDRD) Non-Af 88 BUN/Creatinine Ratio 24.6 H Glucose 114 H Calcium 8.3 L Phosphorus 4.3 Magnesium 2.4 POC Glucose 119 H 05/28/17 05/28/17 05/28/17 12:03 17:31 21:46 WBC RBC Hgb Hct MCV MCH MCHC RDW RDW Differential Plt Count MPV Immature Gran % (Auto) Neut % (Auto) Lymph % (Auto) [place] % (Auto) Eos % (Auto) Baso % (Auto) Absolute Neuts (auto) Absolute Lymphs (auto) Total Counted Platelet Estimate Plt Morphology Comment Sodium Potassium Chloride Carbon Dioxide Anion Gap BUN Creatinine Estim Creat Clear Calc Est GFR (MDRD) Af Amer Est GFR (MDRD) Non-Af BUN/Creatinine Ratio Glucose Calcium Phosphorus Magnesium POC Glucose 127 H 114 H 140 H 05/29/17 05/29/17 05/29/17 06:40 06:40 07:02 WBC 6.9 RBC 6.04 Hgb 15.6 Hct 53.6 MCV 88.7 MCH 25.8 L MCHC 29.1 L RDW 18.2 H RDW Differential 58.0 H Plt Count 100 L MPV 10.3 Immature Gran % (Auto) 0.000 Neut % (Auto) 78.9 H Lymph % (Auto) 11.1 L [place] % (Auto) 6.1 Eos % (Auto) 3.6 Baso % (Auto) 0.3 Absolute Neuts (auto) 5.4 Absolute Lymphs (auto) 0.76 L Total Counted Not Reportable Platelet Estimate SLT DEC Plt Morphology Comment LARGE Sodium 143 Potassium 5.2 H Chloride 98 Carbon Dioxide 44.0 H Anion Gap 1 L BUN 28 H Creatinine 1.13 Estim Creat Clear Calc 73.57 Est GFR (MDRD) Af Amer 86 Est GFR (MDRD) Non-Af 71 BUN/Creatinine Ratio 24.8 H Glucose 103 Calcium 8.3 L Phosphorus Magnesium POC Glucose 119 H Assessment/Plan Active and Suspected Problems Acute respiratory failure (Acute) CHF exacerbation (Acute) RECOMMENDATIONS: 1. Continue diuresis and blood pressure control 2. No active intervention for hyperkalemia 3. Continue diabetic medications with sliding scale insulin 4. Continue with PT/OT 5. Wean oxygen as tolerated, walking oximetry prior to discharge 6. Follow-up in 2 weeks in our office RECOMMENDATIONS: 1. Acute combined respiratory failure secondary to probable congestive heart failure Patient appears to be responding to diuretic therapy well. He was significant reduction in weight secondary to diuresis. Discharge was delayed secondary to hematuria following Poe removal. Patient should continue on diuretic therapy as an outpatient. Once euvolemic, complete pulmonary function test and walking oximetry should be completed. High clinical suspicion the patient will require supplemental oxygen on discharge, at least with ambulation. Stressed to the patient the importance of keeping saturations greater than 90% at all times. Patient was advised to obtain his own pulse oximeter. Patient should follow-up in our office with nurse practitioner in 2 weeks. 2. Hypertensive emergency Patient presented with blood pressures that were 200s/100s. Patient was significant improvement overnight following diuresis and support of lung function. Unclear if patient has had flash pulmonary edema secondary to elevated blood pressures or if elevated blood pressures were result of stress reaction to decreased oxygenation. We will continue to monitor. 3. Type 2 diabetes mellitus Patient can continue on metformin for now. Continue to watch renal function closely. Patient should continue with Accu-Cheks with sliding scale insulin. Cannot exclude the need for long-acting insulin moving forward. 4. Thrombocytopenia/chronic lymphedema/super morbid obesity materia Complicates care, management, recovery and prognosis. Clinical suspicion for clumping of platelets leading to decreased reported counts. Spite reported hematuria, hemoglobin remains stable. Wound nurse following lower extremities. Patient should continue with physical therapy and occupational therapy to provide mobility. Code Visit Inpatient E&M: 47147 Subs Hosp L2
[2017-05-29] MEDS: Furosemide 40 MG/4 ML Vial IV ×2 (10:00→18:03)
[2017-05-29] MEDS: Menthol/Lanolin/Calamine/Znox 113 GM Tube 1 APPLIC TOPICAL ×2 (10:00→22:25)
[2017-05-29] MEDS: Pantoprazole Sodium 20 MG Tablet PO (10:00)
[2017-05-29] MEDS: CHLORHEXIDINE GLUC 2% CLOTH 1 EACH TOWELETTE TOPICAL (10:05)
[2017-05-29] MEDS: Lisinopril 10 MG Tablet PO (10:05)
[2017-05-29 11:31] LABS: Bedside Glucose 106 mg/dL (70-110)
--- NOTE | 2017-05-29 14:53 | PCM.PN.HOSP ---
Patient Problems: Active and Suspected Problems Acute respiratory failure (Acute) CHF exacerbation (Acute) Subjective: still w hematuria, but improving. declining BiPAP. Vitals/I&O's: Vital Signs Temp Pulse Resp BP Pulse Ox 36.7 C 81 18 132/72 H 95 05/29/17 14:04 05/29/17 14:04 05/29/17 14:04 05/29/17 14:04 05/29/17 14:04 Oxygen Flow Rate [AMBULATION 3 with Oxygen] Oxygen Flow Rate [AMBULATING 0 on Room Air] Oxygen Flow Rate 3 Oxygen Delivery Method Nasal Cannula Weight: 175.5 kg Body Mass Index (BMI) 58.6 Intake and Output for Last 24 Hours 05/27/17 05/28/17 05/29/17 23:59 23:59 23:59 Intake Total 580 / 580 1464 / 1464 300 / 300 Output Total 3100 / 3100 2350 / 2350 150 / 150 Balance -2520 / -2520 -886 / -886 150 / 150 General: Alert, Cooperative, No apparent distress HEENT: Atraumatic, Normocephalic Neck: No Nodes, Thyroid Normal Size and Texture Lungs: Clear to auscultation, No rhonchi, No wheeze, Diminished Cardiovascular: Regular rate, Regular Rhythm, Normal S1, Normal S2, No murmurs Abdomen: Bowel Sounds Present, Soft, Non Tender, Non-Distended, No Hepato-splenomegaly Extremities: No edema, Capillary Refill Less than 3 Seconds Skin: No rashes, No breakdown Psych/Mental Status: Normal Affect, Appropriate Laboratory Results 05/28/17 17:31: POC Glucose 114 H 05/28/17 21:46: POC Glucose 140 H 05/29/17 06:40: Sodium 143, Potassium 5.2 H, Chloride 98, Carbon Dioxide 44.0 H, Anion Gap 1 L, BUN 28 H, Creatinine 1.13, Estim Creat Clear Calc 73.57, Est GFR (MDRD) Af Amer 86, Est GFR (MDRD) Non-Af 71, BUN/Creatinine Ratio 24.8 H, Glucose 103, Calcium 8.3 L 05/29/17 06:40: WBC 6.9, RBC 6.04, Hgb 15.6, Hct 53.6, MCV 88.7, MCH 25.8 L, MCHC 29.1 L, RDW 18.2 H, RDW Differential 58.0 H, Plt Count 100 L, MPV 10.3, Immature Gran % (Auto) 0.000, Neut % (Auto) 78.9 H, Lymph % (Auto) 11.1 L, [place] % (Auto) 6.1, Eos % (Auto) 3.6, Baso % (Auto) 0.3, Absolute Neuts (auto) 5.4, Absolute Lymphs (auto) 0.76 L, Total Counted Not Reportable, Platelet Estimate SLT DEC, Plt Morphology Comment LARGE 05/29/17 07:02: POC Glucose 119 H 05/29/17 11:23: POC Glucose 106 Current Medications Acetaminophen (Tylenol) 650 mg PO Q6H PRN PRN PRN Reason: Mild Pain (scale 0-3)/T>100.7 Last Admin: 05/27/17 08:44 Dose: 650 mg Albuterol Sulfate (Ventolin Aerosols) 2.5 mg INHALATION Q2H PRN PRN PRN Reason: SOB &/OR WHEEZING Albuterol/Ipratropium (Duoneb) 3 ml INHALATION Q4HWA.RT [facility] Last Admin: 05/29/17 10:31 Dose: Not Given Bisacodyl (Dulcolax) 10 mg PO DAILY PRN PRN PRN Reason: Constipation Calamine/Phenol (Calmoseptine Ointment) 1 applic TOPICAL BID [facility]STINA PRN Reason: Protocol Last Admin: 05/29/17 10:00 Dose: 1 applic Chlorhexidine Gluconate () 1 each TOPICAL DAILY [facility] Last Admin: 05/29/17 10:05 Dose: 1 each Dextrose (D50w Syringe) 0 gm IV X1 PRN; Protocol PRN Reason: Hypoglycemia Furosemide (Lasix) 40 mg IV BIDLX [facility] Last Admin: 05/29/17 10:00 Dose: 40 mg Glucagon () 1 mg IM .X1 PRN PRN Reason: Hypoglycemia Insulin Aspart (Novolog Flexpen (Bkc)) 0 units SC ACHS [facility]RISTINA PRN Reason: Protocol Last Admin: 05/29/17 11:25 Dose: Not Given Lisinopril (Zestril) 10 mg PO DAILY [facility] Last Admin: 05/29/17 10:05 Dose: 10 mg Magnesium Hydroxide (Milk Of Magnesia) 30 ml PO DAILY PRN PRN PRN Reason: Constipation Melatonin (Melatonin) 3 mg PO QHS [facility] Last Admin: 05/28/17 21:47 Dose: 3 mg Ondansetron HCl (Zofran) 4 mg IV Q8H PRN PRN PRN Reason: Nausea Pantoprazole Sodium (Protonix) 20 mg PO DAILY [facility] Last Admin: 05/29/17 10:00 Dose: 20 mg Sodium Chloride () 5 - 30 ml IV UD PRN PRN Reason: SALINE FLUSH Last Admin: 05/27/17 17:19 Dose: 10 ml Assessment/Plan Active and Suspected Problems Acute respiratory failure (Acute) CHF exacerbation (Acute) 1. Acute hypoxic and hypercapnic respiratory failure Certainly multifactorial due to the patient's heart failure but may be underlying obstructive sleep apnea, pulmonary artery hypertension, obesity hypoventilation. Wean oxygen as tolerated. Check an amatory pulse ox at discharge. Patient declines further evaluation for CPAP at this time. 2. Acute heart failure with preserved ejection fraction EF 65% Change Lasix over to oral, additionally add potassium Add lisinopril 3. Hypertension Still elevated. We will add lisinopril and monitor. 4. Pulmonary hypertension Likely group 2 and or 3 secondary to CHF and obstructive sleep apnea, respectively Patient really has no enthusiasm to go through another polysomnogram nor get set up with another CPAP or BiPAP. I talked to him about further cardiac dysfunction and even sudden cardiac without proper treatment of his obstructive sleep apnea. Did not seem receptive to making any changes and essentially I would get the impression that he would continue to ignore those recommendations. 5. DVT prophylaxis on hold as chemical proph, contraindicated w active bleeding; and holding SCDs given LE edema and dermatitis. 6. Hematuria occurred after cates dc'd improving continue to monitor hold flushing unless worse given his CHF. Code Visit Inpatient E&M: 46497 Subs Hosp L2
--- NOTE | 2017-05-29 14:57 | PN_ITS ---
Patient Problems: Active and Suspected Problems Acute respiratory failure (Acute) CHF exacerbation (Acute) Subjective: still w hematuria, but improving. declining BiPAP. Vitals/I&O's: Vital Signs Temp Pulse Resp BP Pulse Ox 36.7 C 81 18 132/72 H 95 05/29/17 14:04 05/29/17 14:04 05/29/17 14:04 05/29/17 14:04 05/29/17 14:04 Oxygen Flow Rate [AMBULATION 3 with Oxygen] Oxygen Flow Rate [AMBULATING 0 on Room Air] Oxygen Flow Rate 3 Oxygen Delivery Method Nasal Cannula Weight: 175.5 kg Body Mass Index (BMI) 58.6 Intake and Output for Last 24 Hours 05/27/17 05/28/17 05/29/17 23:59 23:59 23:59 Intake Total 580 / 580 1464 / 1464 300 / 300 Output Total 3100 / 3100 2350 / 2350 150 / 150 Balance -2520 / -2520 -886 / -886 150 / 150 General: Alert, Cooperative, No apparent distress HEENT: Atraumatic, Normocephalic Neck: No Nodes, Thyroid Normal Size and Texture Lungs: Clear to auscultation, No rhonchi, No wheeze, Diminished Cardiovascular: Regular rate, Regular Rhythm, Normal S1, Normal S2, No murmurs Abdomen: Bowel Sounds Present, Soft, Non Tender, Non-Distended, No Hepato- splenomegaly Extremities: No edema, Capillary Refill Less than 3 Seconds Skin: No rashes, No breakdown Psych/Mental Status: Normal Affect, Appropriate Laboratory Results 05/28/17 17:31: POC Glucose 114 H 05/28/17 21:46: POC Glucose 140 H 05/29/17 06:40: Sodium 143, Potassium 5.2 H, Chloride 98, Carbon Dioxide 44.0 H , Anion Gap 1 L, BUN 28 H, Creatinine 1.13, Estim Creat Clear Calc 73.57, Est GFR (MDRD) Af Amer 86, Est GFR (MDRD) Non-Af 71, BUN/Creatinine Ratio 24.8 H, Glucose 103, Calcium 8.3 L 05/29/17 06:40: WBC 6.9, RBC 6.04, Hgb 15.6, Hct 53.6, MCV 88.7, MCH 25.8 L, MCHC 29.1 L, RDW 18.2 H, RDW Differential 58.0 H, Plt Count 100 L, MPV 10.3, Immature Gran % (Auto) 0.000, Neut % (Auto) 78.9 H, Lymph % (Auto) 11.1 L, [place] % (Auto) 6.1, Eos % (Auto) 3.6, Baso % (Auto) 0.3, Absolute Neuts (auto) 5.4, Absolute Lymphs (auto) 0.76 L, Total Counted Not Reportable, Platelet Estimate SLT DEC, Plt Morphology Comment LARGE 05/29/17 07:02: POC Glucose 119 H 05/29/17 11:23: POC Glucose 106 Current Medications Acetaminophen (Tylenol) 650 mg PO Q6H PRN PRN PRN Reason: Mild Pain (scale 0-3)/T>100.7 Last Admin: 05/27/17 08:44 Dose: 650 mg Albuterol Sulfate (Ventolin Aerosols) 2.5 mg INHALATION Q2H PRN PRN PRN Reason: SOB &/OR WHEEZING Albuterol/Ipratropium (Duoneb) 3 ml INHALATION Q4HWA.RT [facility] Last Admin: 05/29/17 10:31 Dose: Not Given Bisacodyl (Dulcolax) 10 mg PO DAILY PRN PRN PRN Reason: Constipation Calamine/Phenol (Calmoseptine Ointment) 1 applic TOPICAL BID [facility]STINA PRN Reason: Protocol Last Admin: 05/29/17 10:00 Dose: 1 applic Chlorhexidine Gluconate () 1 each TOPICAL DAILY [facility] Last Admin: 05/29/17 10:05 Dose: 1 each Dextrose (D50w Syringe) 0 gm IV X1 PRN; Protocol PRN Reason: Hypoglycemia Furosemide (Lasix) 40 mg IV BIDLX [facility] Last Admin: 05/29/17 10:00 Dose: 40 mg Glucagon () 1 mg IM .X1 PRN PRN Reason: Hypoglycemia Insulin Aspart (Novolog Flexpen (Bkc)) 0 units SC ACHS [facility]STINA PRN Reason: Protocol Last Admin: 05/29/17 11:25 Dose: Not Given Lisinopril (Zestril) 10 mg PO DAILY [facility] Last Admin: 05/29/17 10:05 Dose: 10 mg Magnesium Hydroxide (Milk Of Magnesia) 30 ml PO DAILY PRN PRN PRN Reason: Constipation Melatonin (Melatonin) 3 mg PO QHS [facility] Last Admin: 05/28/17 21:47 Dose: 3 mg Ondansetron HCl (Zofran) 4 mg IV Q8H PRN PRN PRN Reason: Nausea Pantoprazole Sodium (Protonix) 20 mg PO DAILY [facility] Last Admin: 05/29/17 10:00 Dose: 20 mg Sodium Chloride () 5 - 30 ml IV UD PRN PRN Reason: SALINE FLUSH Last Admin: 05/27/17 17:19 Dose: 10 ml Assessment/Plan Active and Suspected Problems Acute respiratory failure (Acute) CHF exacerbation (Acute) 1. Acute hypoxic and hypercapnic respiratory failure * Certainly multifactorial due to the patient's heart failure but may be underlying obstructive sleep apnea, pulmonary artery hypertension, obesity hypoventilation. * Wean oxygen as tolerated. Check an amatory pulse ox at discharge. * Patient declines further evaluation for CPAP at this time. 2. Acute heart failure with preserved ejection fraction * EF 65% * Change Lasix over to oral, additionally add potassium * Add lisinopril 3. Hypertension * Still elevated. We will add lisinopril and monitor. 4. Pulmonary hypertension * Likely group 2 and or 3 secondary to CHF and obstructive sleep apnea, respectively * Patient really has no enthusiasm to go through another polysomnogram nor get set up with another CPAP or BiPAP. I talked to him about further cardiac dysfunction and even sudden cardiac without proper treatment of his obstructive sleep apnea. Did not seem receptive to making any changes and essentially I would get the impression that he would continue to ignore those recommendations. 5. DVT prophylaxis on hold as chemical proph, contraindicated w active bleeding ; and holding SCDs given LE edema and dermatitis. 6. Hematuria * occurred after cates dc'd * improving * continue to monitor * hold flushing unless worse given his CHF. Code Visit Inpatient E&M: 40286 Subs Hosp L2
--- NOTE | 2017-05-29 16:08 | CHAPLAIN ---
Type of Pastoral Visit ___ Initial Visit _x__ Follow-up Visit ___ On-call Visit ___ General Patient Visit ___ Spiritual Assessment ___ Family Conference ___ Bereavement ___ Rapid Response ___ Code Blue ___ Other (describe below) Pastoral Care Referral From _x__ Patient ___ Family ___ Nurse ___ Physician ___ Editor In Chief ___ Physics Instructor ___ Other (describe below) Sacrament/Intervention _x__ Active listening ___ Anointing ___ Protestant ___ Bereavement ___ Communion ___ Leticia exploration ___ ___ Life review _x__ Prayer ___ Reconciliation ___ Sacrament of Sick ___ Supportive presence ___ Wedding ___ Other (describe below) Pastoral Comments
[2017-05-29 16:26] LABS: Bedside Glucose 94 mg/dL (70-110)
[2017-05-29] MEDS: 0.9% NaCl Peripheral Flush Adult/Peds IV (18:04)
[2017-05-29 22:35] LABS: Bedside Glucose 113 mg/dL (70-110)
[2017-05-30] VITALS (7 sets, daily range): BP systolic 132–147; BP diastolic 65–93; PULSE 72–101; RESP 20; TEMP 36.6–36.7; O2SAT 91–97
[2017-05-30 07:06] LABS: Bedside Glucose 103 mg/dL (70-110)
--- NOTE | 2017-05-30 07:48 | PCM.PROGNOTE ---
Patient Problems: Active and Suspected Problems Acute respiratory failure (Acute) CHF exacerbation (Acute) Subjective: Patient did well overnight. No acute issues have been reported. Patient reports dysuria and hematuria have resolved. Patient denies any current chest pain and states his dyspnea on exertion is at its baseline. Patient is aware of the need for oxygen at home and reports he will be compliant. - Physical Exam General: Alert, Oriented x3, Cooperative, No apparent distress, Well developed, Well nourished, - - Morbidly obese HEENT: Atraumatic, PERRLA, EOMI, Normocephalic, - - No scleral icterus or injection. Glasses in place. Oral: Moist Mucosa, No Gingival or Mucosal Lesions/ Ulcerations Neck: Supple, No Nodes, Trachea Midline, - - Difficult to assess JVD secondary to body habitus Lungs: No rhonchi, No wheeze, No rales, Diminished, - - Symmetric expansion. No dullness to percussion. Cardiovascular: Regular rate, Regular Rhythm, Normal S1, Normal S2, No murmurs, No rub noted, No Gallop Abdomen: Bowel Sounds Present, Soft, Non Tender, Non-Distended, Obese Extremities: No clubbing, No cyanosis, Edema Skin: - - Venous stasis changes of bilateral lower extremities Musculoskeletal: No Tenderness to Palpation of Joints or Extremities Lymphatic: No Cervical, Supraclavicular, or Inguinal Adenopathy Neurological: Cranial nerves II-XII grossly intact, Neuro grossly intact, Motor Exam 5/5 strength throughout Psych/Mental Status: Alert and oriented to time, place, person, mood and affect Vital Signs Temp Pulse Resp BP Pulse Ox 36.6 C 75 20 H 133/91 H 91 05/30/17 06:49 05/30/17 06:49 05/30/17 06:49 05/30/17 06:49 05/30/17 07:33 Oxygen Flow Rate [AMBULATION 3 with Oxygen] Oxygen Flow Rate [AMBULATING 0 on Room Air] Oxygen Flow Rate 5 Oxygen Delivery Method Nasal Cannula Weight: 175.5 kg Body Mass Index (BMI) 58.6 Intake and Output for Last 24 Hours 05/28/17 05/29/17 05/30/17 23:59 23:59 23:59 Intake Total 1464 / 1464 1280 / 1280 220 / 220 Output Total 2350 / 2350 450 / 450 250 / 250 Balance -886 / -886 830 / 830 -30 / -30 Laboratory Tests Past 24 Hrs 05/29/17 06:40 Total Counted Not Reportable Platelet Estimate SLT DEC Plt Morphology Comment LARGE POC Glucose 05/30/17 05/29/17 05/29/17 06:54 22:23 16:22 POC Glucose 103 113 H 94 05/29/17 11:23 POC Glucose 106 Laboratory Results - last 24 hr 05/29/17 05/29/17 05/29/17 11:23 16:22 22:23 WBC RBC Hgb Hct MCV MCH MCHC RDW RDW Differential Plt Count MPV Immature Gran % (Auto) Neut % (Auto) Lymph % (Auto) [place] % (Auto) Eos % (Auto) Baso % (Auto) Absolute Neuts (auto) Absolute Lymphs (auto) Total Counted Sodium Potassium Chloride Carbon Dioxide Anion Gap BUN Creatinine Estim Creat Clear Calc Est GFR (MDRD) Af Amer Est GFR (MDRD) Non-Af BUN/Creatinine Ratio Glucose Calcium Phosphorus Magnesium POC Glucose 106 94 113 H 05/30/17 05/30/17 05/30/17 06:54 07:54 07:54 WBC 6.3 RBC 5.85 Hgb 15.1 Hct 51.3 MCV 87.7 MCH 25.8 L MCHC 29.4 L RDW 18.6 H RDW Differential 58.0 H Plt Count 116 L MPV 11.5 Immature Gran % (Auto) 0.200 Neut % (Auto) 73.1 H Lymph % (Auto) 11.8 L [place] % (Auto) 8.1 Eos % (Auto) 6.5 H Baso % (Auto) 0.3 Absolute Neuts (auto) 4.6 Absolute Lymphs (auto) 0.75 L Total Counted Not Reportable Sodium 141 Potassium 4.3 Chloride 95 L Carbon Dioxide 43.0 H Anion Gap 3 L BUN 31 H Creatinine 1.08 Estim Creat Clear Calc 76.98 Est GFR (MDRD) Af Amer 90 Est GFR (MDRD) Non-Af 75 BUN/Creatinine Ratio 28.7 H Glucose 102 Calcium 8.3 L Phosphorus 3.2 Magnesium 2.6 POC Glucose 103 Assessment/Plan Active and Suspected Problems Acute respiratory failure (Acute) CHF exacerbation (Acute) RECOMMENDATIONS: 1. Continue diuresis and blood pressure control 2. No active intervention for hyperkalemia 3. Continue diabetic medications with sliding scale insulin 4. Continue with PT/OT 5. Wean oxygen as tolerated, walking oximetry prior to discharge 6. Follow-up in 2 weeks in our office RECOMMENDATIONS: 1. Acute combined respiratory failure secondary to probable congestive heart failure Patient appears to be responding to diuretic therapy well. He was significant reduction in weight secondary to diuresis. Discharge was delayed secondary to hematuria following Poe removal, but this has resolved. Patient should continue on diuretic therapy as an outpatient. Once euvolemic, complete pulmonary function test and walking oximetry should be completed. Patient reports he will be compliant with supplemental oxygen. Patient was advised to obtain his own pulse oximeter. Patient should follow-up in our office with nurse practitioner in 2 weeks. 2. Hypertensive emergency Patient presented with blood pressures that were 200s/100s. Patient was significant improvement overnight following diuresis and support of lung function. Unclear if patient has had flash pulmonary edema secondary to elevated blood pressures or if elevated blood pressures were result of stress reaction to decreased oxygenation. We will continue to monitor. 3. Type 2 diabetes mellitus Patient can continue on metformin for now. Blood sugars have been well-controlled. Continue to watch renal function closely. Patient should continue with Accu-Cheks with sliding scale insulin. Cannot exclude the need for long-acting insulin moving forward. 4. Thrombocytopenia/chronic lymphedema/super morbid obesity materia Complicates care, management, recovery and prognosis. Clinical suspicion for clumping of platelets leading to decreased reported counts. Spite reported hematuria, hemoglobin remains stable. Wound nurse following lower extremities. Patient should continue with physical therapy and occupational therapy to provide mobility. Code Visit Inpatient E&M: 87244 Subs Hosp L2
[2017-05-30 08:04] LABS: Absolute Lymphocyte Count 0.75 X10^3/ul (0.83-4.51); Absolute Neutrophil Count 4.6 X10^3/uL (2.0-7.7); Basophil# 0.02 X10^3/uL; Basophil% 0.3 % (0-1); Eosinophil# 0.41 X10^3/uL; Eosinophils% 6.5 % (0-5); Hematocrit 51.3 % (40-54); Hemoglobin 15.1 g/dl (13.0-16.5); Lymphocyte # 0.75 X10^3/ul (4.0); Lymphocyte % 11.8 % (19-41); Mean Corp Hgb Conc 29.4 g/gl (32-36); Mean Corpuscular Hgb 25.8 pg (27.0-32.0); Mean Corpuscular Volume 87.7 fL (80-94); Mean Platelet Vol. 11.5 fl (6.2-12.0); Monocyte# 0.51 X10^3/uL; Monocyte% 8.1 % (0-10); Neutrophil # 4.63 X10^3/uL (2.7-7.7); Neutrophil % 73.1 % (47-70); Platelet Count 116 K/mm3 (150-450); RBC Distribution Width CV 18.6 % (11.6-14.6); Red Blood Count 5.85 M/mm3 (4.6-6.2); White Blood Count 6.3 K/mm3 (4.4-11.0)
[2017-05-30 08:19] LABS: Anion Gap 3 (5-15); BUN 31 mg/dL (7-18); BUN/Creat Ratio 28.7 RATIO (10-20); Calcium,Total 8.3 mg/dL (8.5-10.1); Chloride 95 mmol/L (98-107); Creatinine, Serum 1.08 mg/dL (0.70-1.30); EST Glomerular Filtration Rate 75 mL/min (>60); Est Glom Filt Rate - Afr Amer 90 mL/min (>60); Estimated Creatinine Clearance 76.98 ml/min; Glucose 102 mg/dL (74-106); Magnesium 2.6 mg/dL (1.6-2.6); Phosphorus 3.2 mg/dL (2.5-4.9); Potassium 4.3 mmol/L (3.5-5.1); Sodium Level 141 mmol/L (136-145)
[2017-05-30 08:20] LABS: POSITIVE COUNT NO; POSITIVE DIFFERENTIAL NO; POSITIVE MORPHOLOGY NO
[2017-05-30] MEDS: Pantoprazole Sodium 20 MG Tablet PO (09:29)
[2017-05-30] MEDS: Menthol/Lanolin/Calamine/Znox 113 GM Tube 1 APPLIC TOPICAL (09:29)
[2017-05-30] MEDS: Furosemide 40 MG/4 ML Vial IV (09:29)
[2017-05-30] MEDS: 0.9% NaCl Peripheral Flush Adult/Peds IV (09:30)
[2017-05-30] MEDS: Lisinopril 10 MG Tablet PO (09:30)
--- NOTE | 2017-05-30 09:38 | PCM.PN.HOSP ---
Patient Problems: Active and Suspected Problems Acute respiratory failure (Acute) CHF exacerbation (Acute) Subjective: Hematuria resolved. Breathing well. Vitals/I&O's: Vital Signs Temp Pulse Resp BP Pulse Ox 36.7 C 74 20 H 147/93 H 97 05/30/17 09:28 05/30/17 09:28 05/30/17 09:28 05/30/17 09:28 05/30/17 09:28 Oxygen Flow Rate [AMBULATION 3 with Oxygen] Oxygen Flow Rate [AMBULATING 0 on Room Air] Oxygen Flow Rate 3 Oxygen Delivery Method Nasal Cannula Weight: 175.1 kg Body Mass Index (BMI) 58.6 Intake and Output for Last 24 Hours 05/28/17 05/29/17 05/30/17 23:59 23:59 23:59 Intake Total 1464 / 1464 1280 / 1280 220 / 220 Output Total 2350 / 2350 450 / 450 250 / 250 Balance -886 / -886 830 / 830 -30 / -30 General: Alert, Cooperative, No apparent distress HEENT: Atraumatic, Normocephalic Neck: No Nodes, Thyroid Normal Size and Texture Lungs: Clear to auscultation, Normal air movement, No rhonchi, No wheeze Cardiovascular: Regular rate, Regular Rhythm, Normal S1, Normal S2, No murmurs Abdomen: Bowel Sounds Present, Soft, Non Tender, Non-Distended, No Hepato-splenomegaly Extremities: No edema, No Calf Tenderness Psych/Mental Status: Normal Affect, Appropriate Laboratory Results 05/29/17 11:23: POC Glucose 106 05/29/17 16:22: POC Glucose 94 05/29/17 22:23: POC Glucose 113 H 05/30/17 06:54: POC Glucose 103 05/30/17 07:54: WBC 6.3, RBC 5.85, Hgb 15.1, Hct 51.3, MCV 87.7, MCH 25.8 L, MCHC 29.4 L, RDW 18.6 H, RDW Differential 58.0 H, Plt Count 116 L, MPV 11.5, Immature Gran % (Auto) 0.200, Neut % (Auto) 73.1 H, Lymph % (Auto) 11.8 L, Price % (Auto) 8.1, Eos % (Auto) 6.5 H, Baso % (Auto) 0.3, Absolute Neuts (auto) 4.6, Absolute Lymphs (auto) 0.75 L, Total Counted Not Reportable 05/30/17 07:54: Sodium 141, Potassium 4.3, Chloride 95 L, Carbon Dioxide 43.0 H, Anion Gap 3 L, BUN 31 H, Creatinine 1.08, Estim Creat Clear Calc 76.98, Est GFR (MDRD) Af Amer 90, Est GFR (MDRD) Non-Af 75, BUN/Creatinine Ratio 28.7 H, Glucose 102, Calcium 8.3 L, Phosphorus 3.2, Magnesium 2.6 Current Medications Acetaminophen (Tylenol) 650 mg PO Q6H PRN PRN PRN Reason: Mild Pain (scale 0-3)/T>100.7 Last Admin: 05/27/17 08:44 Dose: 650 mg Albuterol Sulfate (Ventolin Aerosols) 2.5 mg INHALATION Q2H PRN PRN PRN Reason: SOB &/OR WHEEZING Albuterol/Ipratropium (Duoneb) 3 ml INHALATION Q4HWA.RT [facility] Last Admin: 05/30/17 07:00 Dose: Not Given Bisacodyl (Dulcolax) 10 mg PO DAILY PRN PRN PRN Reason: Constipation Calamine/Phenol (Calmoseptine Ointment) 1 applic TOPICAL BID [facility] PRN Reason: Protocol Last Admin: 05/30/17 09:29 Dose: 1 applic Chlorhexidine Gluconate () 1 each TOPICAL DAILY [facility] Last Admin: 05/30/17 09:28 Dose: Not Given Dextrose (D50w Syringe) 0 gm IV X1 PRN; Protocol PRN Reason: Hypoglycemia Furosemide (Lasix) 40 mg IV BIDLX [facility] Last Admin: 05/30/17 09:29 Dose: 40 mg Glucagon () 1 mg IM .X1 PRN PRN Reason: Hypoglycemia Insulin Aspart (Novolog Flexpen (Bkc)) 0 units SC ACHS [facility] PRN Reason: Protocol Last Admin: 05/30/17 09:28 Dose: Not Given Lisinopril (Zestril) 10 mg PO DAILY [facility] Last Admin: 05/30/17 09:30 Dose: 10 mg Magnesium Hydroxide (Milk Of Magnesia) 30 ml PO DAILY PRN PRN PRN Reason: Constipation Melatonin (Melatonin) 3 mg PO QHS [facility] Last Admin: 05/29/17 22:26 Dose: Not Given Ondansetron HCl (Zofran) 4 mg IV Q8H PRN PRN PRN Reason: Nausea Pantoprazole Sodium (Protonix) 20 mg PO DAILY [facility] Last Admin: 05/30/17 09:29 Dose: 20 mg Sodium Chloride () 5 - 30 ml IV UD PRN PRN Reason: SALINE FLUSH Last Admin: 05/30/17 09:30 Dose: 10 ml Assessment/Plan Active and Suspected Problems Acute respiratory failure (Acute) CHF exacerbation (Acute) 1. Acute hypoxic and hypercapnic respiratory failure Certainly multifactorial due to the patient's heart failure but may be underlying obstructive sleep apnea, pulmonary artery hypertension, obesity hypoventilation. Wean oxygen as tolerated. Check an amatory pulse ox at discharge. Patient declines further evaluation for CPAP at this time. 2. Acute heart failure with preserved ejection fraction EF 65% Change Lasix over to oral, additionally add potassium Add lisinopril 3. Hypertension Still elevated. We will add lisinopril and monitor. 4. Pulmonary hypertension Likely group 2 and or 3 secondary to CHF and obstructive sleep apnea, respectively Patient really has no enthusiasm to go through another polysomnogram nor get set up with another CPAP or BiPAP. I talked to him about further cardiac dysfunction and even sudden cardiac without proper treatment of his obstructive sleep apnea. Did not seem receptive to making any changes and essentially I would get the impression that he would continue to ignore those recommendations. 5. DVT prophylaxis on hold as chemical proph, contraindicated w active bleeding; and holding SCDs given LE edema and dermatitis. 6. Hematuria occurred after cates dc'd resolved DC to home. Code Visit Inpatient E&M: [id number] Disch Hosp
== END 2017-05-30 11:35 | disposition home or self-care (01) | DRG 87 ==
LOC: ED 13:37 → ICU 15:09 → PCU 05-28 18:32
PROVIDERS: Internal Medicine Critical Care Medicine; Admitting Provider Internal Medicine; Emergency Provider Emergency Medicine
DX: J96.02 Acute respiratory failure with hypercapnia (principal); I50.31 Acute diastolic (congestive) heart failure; I27.20 Pulmonary hypertension, unspecified; D69.6 Thrombocytopenia, unspecified; E66.2 Morbid (severe) obesity with alveolar hypoventilation; Z68.43 Body mass index [BMI] 50.0-59.9, adult; I11.0 Hypertensive heart disease with heart failure; R31.0 Gross hematuria; E11.9 Type 2 diabetes mellitus without complications; Z79.84 Long term (current) use of oral hypoglycemic drugs; Z87.891 Personal history of nicotine dependence; I89.0 Lymphedema, not elsewhere classified; G47.33 Obstructive sleep apnea (adult) (pediatric); L28.0 Lichen simplex chronicus; J96.01 Acute respiratory failure with hypoxia
CPT/HCPCS: 36415; 36600; 71045; 80048; 81001; 82803; 82962; 83605; 83735; 83880; 84100; 84443; 84484; 85025; 85027; 85379; 87040; 87641; 87804; 93005; 93306; 94002; 94003; 94640; 94761; 97110; 97116; 97162; 97166; 97530; 97535; 97802; 99285; Q9957; A4216; C8929; J1940

== ENCOUNTER → 2017-08-06 14:24 | Outpatient (CLI) | payer MEDICAID, SELFPAY | PROVIDERS: Visit Provider Internal Medicine Critical Care Medicine | DX: G47.33 Obstructive sleep apnea (adult) (pediatric) (principal); I27.21 Secondary pulmonary arterial hypertension | CPT/HCPCS: 94762 ==

== ENCOUNTER → 2017-08-18 11:01 | Outpatient (CLI) | payer MEDICAID, SELFPAY ==
[2017-08-18 11:58] VITALS: PULSE 116; PULSE 66; PULSE 71; PULSE 72; PULSE 84; PULSE 90; PULSE 92; PULSE 94; O2SAT 86; O2SAT 89; O2SAT 90; O2SAT 92; O2SAT 94; O2SAT 96
--- NOTE | 2017-08-18 12:05 | CPS ---
He wears O2 at home 3LPM with exertion and at night. Started test on room air and at 2 minutes applied 3 LPM O2. At 9 mins 96% and then removed the O2 for 2 mins 93%
--- NOTE | 2017-08-18 14:49 | WT_ITS ---
PSN 6 Minute Walk Test - 6 Minute Walk Test 6 Minute Walk Test: 6 Minute Walk Test PSN:6-Minute Walk Test Start: 08/18/17 11: 58 Freq: Status: Active Protocol: RESP.6MINW Document 08/18/17 11:58 FR (Rec: 08/18/17 12:10 FR [id number]) 6 Minute Walk Test Date Performed 08/18/17 Time Performed 11:00 Height 5 ft 11 in Weight: 173.726 kg Weight in Pounds 383.[address]: Sukh Norman Assistive device used: None Pre-test Oxygen Delivery Method Room Air Pulse Ox (%) 94 Pulse Rate (60-100 beats/min) 66 Dyspnea Radha Scale (0-10) 7 Exertion Radha Scale (6-20) 11 1st minute Oxygen Delivery Method Room Air Pulse Ox (%) 89 Pulse Rate (60-100 beats/min) 94 2nd minute Oxygen Delivery Method Room Air Pulse Ox (%) 86 Pulse Rate (60-100 beats/min) 116 H Number of Rests Taken 1 Reported Symptoms Increased Work of Breathing 3rd minute Oxygen Flow Rate (L/min) (L/min) 3 Oxygen Delivery Method Nasal Cannula Pulse Ox (%) 86 Pulse Rate (60-100 beats/min) 72 Reported Symptoms Increased Work of Breathing 4th minute Oxygen Flow Rate (L/min) (L/min) 3 Oxygen Delivery Method Nasal Cannula Pulse Ox (%) 90 Pulse Rate (60-100 beats/min) 84 Reported Symptoms Increased Work of Breathing 5th minute Oxygen Flow Rate (L/min) (L/min) 3 Oxygen Delivery Method Nasal Cannula Pulse Ox (%) 92 Pulse Rate (60-100 beats/min) 90 Reported Symptoms Increased Work of Breathing 6th minute Oxygen Flow Rate (L/min) (L/min) 3 Oxygen Delivery Method Nasal Cannula Pulse Ox (%) 89 Pulse Rate (60-100 beats/min) 92 Dyspnea Radha Scale (0-10) 9 Exertion Radha Scale (6-20) 14 Reported Symptoms Increased Work of Breathing Post-test Oxygen Flow Rate (L/min) (L/min) 3 Oxygen Delivery Method Nasal Cannula Pulse Ox (%) 96 Pulse Rate (60-100 beats/min) 71 Full Laps Walked 15 Partial Lap, Number of Tiles Walked 12 Total Distance Walked (ft) 897 08/18/17 12:05 Cardiopulmonary Services by Ross,Sandee He wears O2 at home 3LPM with exertion and at night. Started test on room air and at 2 minutes applied 3 LPM O2. At 9 mins 96% and then removed the O2 for 2 mins 93% Initialized on 08/18/17 12:05 - END OF NOTE - Interpretation Interpretation: The patient was able to ambulate only 897 feet over the course of 6 minutes with no assistive devices and one break. The patient had a saturation of 94% on room air. The patient desaturated to 86% in the second minute of ambulation with associated tachycardia. Patient was placed on 3 L nasal cannula and remained marginal and saturations. His are consistent with a respiratory limitation exercise tolerance. - Recommendations Recommendations: The patient requires no supplemental oxygen at rest, but should be using at least 3 L/min with any exertion.
== END ==
PROVIDERS: Visit Provider Internal Medicine Critical Care Medicine
DX: J96.11 Chronic respiratory failure with hypoxia (principal); Z99.81 Dependence on supplemental oxygen
CPT/HCPCS: 94618

== ENCOUNTER → 2017-08-25 09:49 | Outpatient (CLI) | payer MEDICAID, SELFPAY ==
--- NOTE | 2017-08-25 13:41 | PFT ---
INTRODUCTION: The patient is a 56-year-old male currently under the care of Dr. Norman that presents for pulmonary function testing secondary to a diagnosis of VAN. Respiratory therapy reports good patient effort. Bronchodilators were used during testing. INTERPRETATION: Forced expiration spirometry demonstrates no evidence of a large airways obstructive ventilatory defect. There was a significant response to aerosolized bronchodilators, based upon overall change in FEV1. Spirograms are of good quality and plateau normally. Body plethysmography was performed and reveals a decreased TLC to 5.3 L, 80% of predicted, indicative of a mild restrictive ventilatory impairment. The ERV was significantly reduced, which could be related to an underlying body habitus effect. Diffusing capacity by single breath CO is moderately reduced at 45% of predicted. IMPRESSION: These pulmonary function studies demonstrate the presence of a mild restrictive ventilatory impairment with a disproportionate reduction in diffusing capacity. The patient was also noted to have a significant bronchodilator response. There are no previous pulmonary function studies available for comparison.
== END ==
PROVIDERS: Visit Provider Internal Medicine Critical Care Medicine
DX: J96.11 Chronic respiratory failure with hypoxia (principal); G47.33 Obstructive sleep apnea (adult) (pediatric); Z99.81 Dependence on supplemental oxygen
CPT/HCPCS: 94060; 94726; 94729

== ENCOUNTER 2017-12-29 01:22 | Emergency (ER) | payer MEDICAID, SELFPAY ==
[2017-12-29 01:22] VITALS: BP 186/92; PULSE 60; RESP 17; TEMP 36.6; O2SAT 92; BMI 54.5
--- NOTE | 2017-12-29 01:29 | RAD_ITS ---
STUDY: X-RAY CHEST REASON FOR EXAM: Male, 57 years old. Right-sided rib pain, no injury TECHNIQUE: Single AP portable view of the chest. 2 images There is obesity, the entirety of soft tissue is not imaged. COMPARISON: 05/25/2017. 06/12/2015 FINDINGS: The lungs are clear and expanded. There is no demonstrated pleural abnormality. There is mild cardiac enlargement. Normal mediastinum and ender. Normal visualized pulmonary arteries. Normal visualized aortic arch and descending thoracic aorta. There are diffuse degenerative changes of the visualized thoracic spine. Ribs are not sufficiently visualized for detailed assessment. Stable thickening along the chest wall. The upper abdominal soft tissues are obscured. RAD/Chest 1 View IMPRESSION: Stable cardiac enlargement and thickening along the chest davenport. Technically limited examination due to body habitus and penetration. Electronically Signed: Brandy Frye MD at 2:20 EDT , Service support ,
--- NOTE | 2017-12-29 01:32 | ED.DCSUM_ITS ---
- ER Visit Summary Date of Service: 12/29/17 Chief Complaint: [] Right-sided shoulder and rib pain History of Present Illness: The patient is a 57 M has been expressing right- sided shoulder and rib pain for last week. It waxes and wanes. It is continuous aching and throbbing. He saw the chiropractor earlier today and was adjusted. He is unsure if that made it worse. He is to be been using aspirin with minimal relief. No injury. Hurts to move his shoulder and twist his body. Denies any other symptoms. Is never had this much pain before. Does not remember what caused it Physical Examination: [] Vital signs reviewed General: Well-nourished well-developed Head: Normocephalic atraumatic Eyes: Pupils equal round and reactive to light extraocular movements intact ENT: TMs clear no hemotympanum no trauma Neck: Nontender full range of motion Cardiovascular: Regular rate rhythm no murmurs normal S1-S2 Respiratory: No distress clear to auscultation bilaterally chest to palpation whole right side of the chest without step-off or deformity or crepitus. Abdomen: Soft nontender nondistended normal bowel sounds no masses Back: Nontender no CVA tenderness Extremities: Tender to palpation right upper shoulder and arm secondary to pain and movement. Skin: Normal color no trauma Neuro alert oriented cranial nerves II through XII intact normal strength sensation reflexes Test Results: [] Emergency Department Course and Treatment: [] Patient given a shot of morphine. Chest x-ray obtained to look at his lungs and ribs. It is negative for fracture or pneumothorax. At this time I think is musculoskeletal. I think likely chiropractor manipulated his ribs and cause worsening pain. He will be discharged with a short course of Percocet. I do not feel this is cardiac or emergent cause. This is very much reproducible musculoskeletal pain. Treatment Plan: [] Disposition: [] Impression: [] Right-sided rib pain This note was generated with [employer] dictation software. It may contain incorrect words, spelling, and punctuation that were not noted in review of the chart prior to signing ED Disposition - Plan for ED Patient: Disposition: Home or Assisted Living Chief Complaint: Upper Extremity Injury Instructions: Costochondritis Prescriptions: Oxycodone HCl/Acetaminophen [Percocet 5/325] 1 - 2 tab PO Q6H PRN PRN 3 Days #12 tab PRN Reason: Pain Referrals: [facility]Gaby Ugalde [Primary Care Provider] -
--- NOTE | 2017-12-29 01:34 | ED.DEP ---
ED Disposition - Plan for ED Patient: Disposition: Home or Assisted Living Chief Complaint: Upper Extremity Injury Instructions: Costochondritis Prescriptions: Oxycodone HCl/Acetaminophen [Percocet 5/325] 1 - 2 tab PO Q6H PRN PRN 3 Days #12 tab PRN Reason: Pain Referrals: [facility],Gaby Ugalde [Primary Care Provider] -
[2017-12-29] MEDS: morphine 8 MG/ML Syringe IM (01:41)
== END 2017-12-29 02:30 | disposition home or self-care (01) ==
PROVIDERS: Emergency Provider Emergency Medicine
DX: R07.81 Pleurodynia (principal); M25.511 Pain in right shoulder; I11.0 Hypertensive heart disease with heart failure; I50.9 Heart failure, unspecified; G47.33 Obstructive sleep apnea (adult) (pediatric); E66.9 Obesity, unspecified; Z79.82 Long term (current) use of aspirin; Z79.899 Other long term (current) drug therapy
CPT/HCPCS: 71045; 96372; 99281

== ENCOUNTER → 2018-08-03 09:43 | Outpatient (CLI) | payer MEDICAID, SELFPAY ==
[2018-05-10 09:34] VITALS: BMI 55.5
[2018-07-22 09:01] VITALS: BMI 55.5
--- NOTE | 2018-08-03 14:46 | PFTCOMP_ITS ---
COMPLETE PULMONARY FUNCTION TEST INTERPRETATION Brief HPI: Patient is a 57 year old male, currently under the care of myself, who presents to [facility] for complete pulmonary function tests secondary to diagnosis of respiratory failure. Respiratory therapist reports good effort and reproducible results. Interpretation: Forced expiration spirometry shows no large airways obstructive ventilatory defect with an FEV1 of 53% predicted. There is no significant bronchodilator re sponse by strict ATS criteria. Spirograms are of good quality and plateau slowly, indicating slowly emptying areas of the lungs. The respiratory flow volume loop shows decreased expiratory flow rates at high lung volumes consistent with small airways obstruction. Lung volumes by body plethysmography show a decreased total lung capacity at 4.38 L, 72% predicted. All other lung volumes are reduced symmetrically. Diffusion capacity by carbon monoxide is decreased at 47% predicted. The airway resistance is normal. No previous pulmonary function tests were available for review. Impression: Mild restrictive ventilatory defect with reduction to diffusion capacity that is out of proportion in a pattern consistent with interstitial lung disease
== END ==
PROVIDERS: Referring Provider Nurse Practitioner Acute Care; Visit Provider Nurse Practitioner Acute Care
DX: R06.02 Shortness of breath (principal)
CPT/HCPCS: 94060; 94726; 94729

== ENCOUNTER → 2018-08-05 10:52 | Outpatient (CLI) | payer MEDICAID, SELFPAY ==
[2018-05-10 09:34] VITALS: BMI 55.5
[2018-07-22 09:01] VITALS: BMI 55.5
[2018-08-05 11:21] VITALS: PULSE 100; PULSE 102; PULSE 82; PULSE 86; PULSE 98; PULSE 99; O2SAT 85; O2SAT 89; O2SAT 90; O2SAT 91; O2SAT 92
--- NOTE | 2018-08-05 14:40 | PCM.PSN.6M ---
PSN 6 Minute Walk Test - 6 Minute Walk Test 6 Minute Walk Test: 6 Minute Walk Test PSN:6-Minute Walk Test Start: 08/05/18 11:21 Freq: Status: Active Protocol: RESP.6MINW Document 08/05/18 11:21 SMB (Rec: 08/05/18 11:25 SMB [id number]) 6 Minute Walk Test Date Performed 08/05/18 Time Performed 11:05 Height 5 ft 10 in Weight: 176.901 kg Weight in Pounds 390.[address]: Christianne Tariq Assistive device used: None Pre-test Oxygen Flow Rate (L/min) (L/min) 3 Oxygen Delivery Method Nasal Cannula Pulse Ox (%) 91 Pulse Rate (60-100 beats/min) 86 Dyspnea Radha Scale (0-10) 1 Exertion Radha Scale (6-20) 11 1st minute Oxygen Flow Rate (L/min) (L/min) 3 Oxygen Delivery Method Nasal Cannula Pulse Ox (%) 91 Pulse Rate (60-100 beats/min) 99 2nd minute Oxygen Flow Rate (L/min) (L/min) 4 Oxygen Delivery Method Nasal Cannula Pulse Ox (%) 89 Pulse Rate (60-100 beats/min) 100 3rd minute Oxygen Flow Rate (L/min) (L/min) 3 Oxygen Delivery Method Nasal Cannula Pulse Ox (%) 85 Pulse Rate (60-100 beats/min) 102 H 4th minute Oxygen Flow Rate (L/min) (L/min) 4 Oxygen Delivery Method Nasal Cannula Pulse Ox (%) 90 Pulse Rate (60-100 beats/min) 98 5th minute Oxygen Flow Rate (L/min) (L/min) 4 Oxygen Delivery Method Nasal Cannula Pulse Ox (%) 92 Pulse Rate (60-100 beats/min) 100 Reported Symptoms Increased Work of Breathing 6th minute Oxygen Flow Rate (L/min) (L/min) 4 Oxygen Delivery Method Room Air Pulse Ox (%) 91 Pulse Rate (60-100 beats/min) 100 Reported Symptoms Increased Work of Breathing Post-test Oxygen Flow Rate (L/min) (L/min) 4 Oxygen Delivery Method Nasal Cannula Pulse Ox (%) 92 Pulse Rate (60-100 beats/min) 82 Dyspnea Radha Scale (0-10) 5 Exertion Radha Scale (6-20) 13 Reported Symptoms Increased Work of Breathing Full Laps Walked 15 Partial Lap, Number of Tiles Walked 5 Total Distance Walked (ft) 890 - Interpretation Interpretation: The patient was noted to be 91% on 3 L nasal cannula at rest. The patient desaturated to 85% in the third minute and was increased to 4 L nasal cannula. In total, the patient traveled 890 feet over the course of 6 minutes with no breaks. There was some reflexive tachycardia, but overall, patient has respiratory limitation exercise tolerance. - Recommendations Recommendations: 3 L nasal cannula are needed at rest and 4 L nasal cannula with exertion.
== END ==
PROVIDERS: Referring Provider Nurse Practitioner Acute Care; Visit Provider Nurse Practitioner Acute Care
DX: J96.11 Chronic respiratory failure with hypoxia (principal); Z99.81 Dependence on supplemental oxygen
CPT/HCPCS: 94618

== ENCOUNTER 2018-12-29 08:46 | Outpatient (RCR) | payer MEDICAID, SELFPAY ==
[2018-11-08 10:28] VITALS: BMI 57.1
[2018-12-29 09:14] VITALS: BP 155/97; PULSE 73; RESP 20; TEMP 36.5; BMI 58.2
--- NOTE | 2018-12-29 18:30 | HP.PCM_ITS ---
(1) Blister of great toe of left foot Status: Acute Current Visit: Yes Qualifiers: Encounter type: initial encounter Qualified Code(s): S90.422A - Blister (nonthermal), left great toe, initial encounter Code(s): S90.422A - Blister (nonthermal), left great toe, initial encounter (2) Blister of toe of left foot Status: Acute Current Visit: Yes Qualifiers: Encounter type: initial encounter Qualified Code(s): S90.425A - Blister (nonthermal), left lesser toe(s), initial encounter Code(s): S90.425A - Blister (nonthermal), left lesser toe(s), initial encounter (3) Ulcer of left lower extremity, limited to breakdown of skin Status: Chronic Current Visit: Yes Code(s): L97.921 - Non-pressure chronic ulcer of unspecified part of left lower leg limited to breakdown of skin (4) Bilateral leg edema Status: Chronic Current Visit: Yes Code(s): R60.0 - Localized edema (5) Venous insufficiency Status: Suspected Current Visit: Yes Code(s): I87.2 - Venous insufficiency (chronic) (peripheral) (6) Other specified peripheral vascular diseases Status: Suspected Current Visit: Yes Code(s): I73.89 - Other specified peripheral vascular diseases (7) Malnutrition Status: Suspected Current Visit: Yes Code(s): E46 - Unspecified protein- calorie malnutrition (8) Lymphedema Status: Chronic Current Visit: Yes Code(s): I89.0 - Lymphedema, not elsewhere classified (9) CHF (congestive heart failure) Status: Chronic Current Visit: Yes Qualifiers: Code(s): I50.9 - Heart failure, unspecified (10) Super-super obese Status: Chronic Current Visit: Yes Code(s): E66.01 - Morbid (severe) obesity due to excess calories History of Present Illness Date of Service: 12/29/18 Chief Complaint: Chronic leg swelling and left leg ulcer History of Wound: This 58-year-old male with significant past medical history of super obesity, chronic leg swelling with recurrent ulcers and delayed healing, hypertension, congestive heart failure, and sleep apnea presents for evaluation of leg swelling and left leg weeping. He is not sure how long the ulcer has been present however his at least in 1 month. He denies known redness or odor. He denies trauma. He is tried previous wound treatment plan. He is not currently on a dressing care plan or wearing compression garments. He wears Rosebud shoes and also has a blister on his left first and second toe. He does not think his shoes are too tight. Past Medical History Past Medical History: Chronic Problems (Last Reviewed 11/08/18 @ 10:54 by SUNIL Carter) Ulcer of left lower extremity, limited to breakdown of skin (Chronic) Bilateral leg edema (Chronic) Lymphedema (Chronic) Essential (primary) hypertension (Chronic) VAN (obstructive sleep apnea) (Chronic) AHI 59 with Desats to 71% Chronic respiratory failure with hypoxia, on home O2 therapy (Chronic) wearing 3 LPM at all times, including with sleep Secondary pulmonary arterial hypertension (Chronic) CHF (congestive heart failure) (Chronic) Super-super obese (Chronic) Surgical History: no surgical history Allergies/Adverse Reactions: Allergies No Known Allergies Allergy (Verified 12/29/18 09:34) Home Medications: Ambulatory Orders Medication Instructions Recorded Ergocalciferol [Vitamin D] 1 cap PO QWEEK 05/25/17 Aspirin 81 mg PO DAILY #1 tab.chew 05/28/17 Carvedilol [Coreg] 6.25 mg PO BID #60 tab 05/28/17 Furosemide [Lasix] 40 mg PO BID #60 tab 05/28/17 Potassium Chloride [K-Dur] 20 meq PO DAILY #30 tab 05/28/17 albuterol sulfate HFA 90 2 puff INHALATION Q4H PRN inh 01/07/18 mcg/actuation aerosol inhaler cetirizine 10 mg tablet 10 mg PO DAILY #30 tab 08/12/18 lisinopril 10 mg tablet 10 mg PO DAILY #30 tab 10/19/18 Disability Placard 0 .ROUTE .MEDSUPPLY #1 ea 11/08/18 - Family History Maternal Family History: Family History (Last Reviewed 11/08/18 @ 10:54 by SUNIL Carter) Mother Hypertension Father Hypertension Unknown Lives: - - lives with parents Smoking Status: Never smoker Tobacco Use: Non-smoker Review of Systems Constitutional: Reports: Fatigue. Denies: Chills, Fever HEENT: Denies: Sore Throat Cardiovascular: Reports: Orthopnea. Denies: Chest Pain, Claudication Respiratory: Denies: Shortness of Breath Gastrointestinal: Denies: Diarrhea, Nausea, Vomiting Musculoskeletal: Reports: Leg Pain. Denies: Foot Pain Skin: Reports: Skin Changes, Wounds Neurological: Reports: Balance problems, Incoordination. Denies: Numbness Endocrine: Reports: Change in Body Habitus - Physical Exam Vital Signs Temp Pulse Resp BP 97.7 F L 73 20 H 155/97 H 12/29/18 09:14 12/29/18 09:14 12/29/18 09:14 12/29/18 09:14 General: Alert, Oriented x3, Cooperative, No apparent distress HEENT: Atraumatic Extremities: No cyanosis, Capillary Refill Less than 3 Seconds - All digits bilateral lower extremity, No Calf Tenderness - Negative Luis Antonio and Chilel sign bilateral. Compartments are soft to palpate bilateral, Diminished Peripheral Pulses, Edema - Bilateral lower extremity moderate severe edema consistent with lymphedema presentation, - - Active range of motion digits bilateral. Active range of motion of ankle bilateral with 4 out of 5 muscle strength Skin: Ulcer/ Wound - Ulcer cluster to right anterior lateral leg with some hemorrhagic tissue exposed. There is no erythema, streaking, odor, infection, deep tissue exposure or undermining. The peripheral skin is atrophic, hairless, and with peeling skin and this is consistent with his contralateral limb skin quality. Bilateral lower extremities also have lichenification with some i nvagination and dried crusting skin consistent with chronic leg edema. There is no odor noted. There is a blister with hematogenous drainage noted to the distal left hallux and upon drainage the skin was left intact as a biological barrier and there was no deep necrosis or deep tissue exposure. There was also evidence of a left second toe distal blister which is now dried and adhered with some some hemorrhagic tissue noted. The nails are intact in bilateral lower extremities Wound Measurements and Assessment WC - Nurse 1 - General Ulcer Measurement Start: 12/29/18 09:14 Freq: Status: Active Protocol: Activity Type Activity Date Activity User E-Sign Co-Sign Detail Recorded Client Recorded Date Recorded By Document 12/29/18 09:14 [facility] [id number] 12/29/18 09:31 [facility] 12/29/18 09:14 Wound Center Nurse 1 [Edema Assessment] -Lower Limb Edema Present Yes -Right Calf (cm) 54.6 -Right Ankle (cm) 35.1 -Left Calf (cm) 57 -Left Ankle (cm) 36 WC - Nurse 2 - General Ulcer CM Notes Start: 12/29/18 09:14 Freq: Status: Active Protocol: Activity Type Activity Date Activity User E-Sign Co-Sign Detail Recorded Client Recorded Date Recorded By Document 12/29/18 09:58 AN [id number] 12/29/18 10:07 AN 12/29/18 09:58 Wound Center Nurse 2 [Procedure/Treatment] #2 LEFT GREAT TOE ULCER -Time 10:07 -Correct Patient Yes -Correct Side, Site, Position Yes -Correct Procedure Yes -Procedure Performed Yes -Type of Procedure Debridement -Clinical Debridement Subcutaneous -Post Debridement Size (cm) - Length 2.0 -Post Debridement Size (cm) - Width 1.0 -Post Debridement Size (cm) - Depth 0.1 -Total Square Cm 2.00 -Wound/Ulcer Outcome Not Healed -Bleeding Controlled with Pressure -Offloading Yes -Type of Offloading Surgical Shoe -Treatment Response Procedure Tolerated Well #1 LEFT LOWER LEG CLUSTER -Time 10:03 -Correct Patient Yes -Correct Side, Site, Position Yes -Correct Procedure Yes -Procedure Performed Yes -Type of Procedure Debridement -Clinical Debridement Selective -Post Debridement Size (cm) - Length 10 -Post Debridement Size (cm) - Width 9 -Post Debridement Size (cm) - Depth 0.1 -Total Square Cm 90 -Wound/Ulcer Outcome Not Healed [See Physician Procedure note for Specifics] Musculoskeletal: No Tenderness to Palpation of Joints or Extremities, Muscle Wasting, - - No pain with ulcer manipulation or blister manipulation Neurological: - - Lack of normal epicritic sensation to light touch bilateral lower extremities Psych/Mental Status: Normal Affect, Appropriate Debridement Note Post-Debridement Measurements/Treatment - Nurse 2 - General Ulcer CM Notes Start: 12/29/18 09:14 Freq: Status: Active Protocol: Activity Type Activity Date Activity User E-Sign Co-Sign Detail Recorded Client Recorded Date Recorded By Document 12/29/18 09:58 AN [id number] 12/29/18 10:07 AN 12/29/18 09:58 Wound Center Nurse 2 #2 LEFT GREAT TOE ULCER -Time 10:07 -Correct Patient Yes -Correct Side, Site, Position Yes -Correct Procedure Yes -Procedure Performed Yes -Type of Procedure Debridement -Clinical Debridement Subcutaneous -Post Debridement Size (cm) - Length 2.0 -Post Debridement Size (cm) - Width 1.0 -Post Debridement Size (cm) - Depth 0.1 -Total Square Cm 2.00 -Wound/Ulcer Outcome Not Healed -Bleeding Controlled with Pressure -Offloading Yes -Type of Offloading Surgical Shoe -Treatment Response Procedure Tolerated Well #1 LEFT LOWER LEG CLUSTER -Time 10:03 -Correct Patient Yes -Correct Side, Site, Position Yes -Correct Procedure Yes -Procedure Performed Yes -Type of Procedure Debridement -Clinical Debridement Selective -Post Debridement Size (cm) - Length 10 -Post Debridement Size (cm) - Width 9 -Post Debridement Size (cm) - Depth 0.1 -Total Square Cm 90 -Wound/Ulcer Outcome Not Healed Wound debrided: anterior lateral leg Laterality: Left Type of Debridement: Selective debridement Anesthesia Used: 4% Lidocaine Solution Depth: Down to and including healthy tissue Percentage of wound debrided: 20 Instrument Used: #15 blade Tissue Removed: fibrous, devitalized tissue, biofilm, slough Severity: Limited To Skin Breakdown Amount of bleeding with debridement: Mild Bleeding Controlled with: Pressure Patient tolerated procedure well Assessment/Plan Active Problems (Last Reviewed 11/08/18 @ 10:54 by Christianne Tariq, [employer]INE[employer]) Ulcer of left lower extremity, limited to breakdown of skin (Chronic) Bilateral leg edema (Chronic) Lymphedema (Chronic) Blister of toe of left foot (Acute) Blister of great toe of left foot (Acute) CHF (congestive heart failure) (Chronic) Super-super obese (Chronic) Assessment: Ulcer left leg with some hemorrhagic tissue exposed; no infection. Bilateral lower extremity chronic edema with skin changes. Venous insufficiency work-up in process and is suspected. Peripheral vascular disease work-up in process and is suspected. Malnutrition suspected. Lymphedema. Left hallux hematogenous bulla, drained today without infection. Left second toe hematogenous blister, dry and stable Plan: I reviewed and discussed his case today. Selective debridement was performed to the left leg as noted in the clinical panel. After verbal consent and alcohol cleanse the left hallux blister site was drained and the skin was left intact with the biological barrier. I recommend changing the leg dressing daily with Adaptic and compression dressing consisting of Tubigrip. I recommend changing the toe site with dry gauze. He was reassured no local or systemic signs of infection noted today and I do not recommend antibiotics. To monitor for infection development in which he understands this plan. I recommend Tubigrip for compression therapy. It is noted that he likely has several etiologies for his lower extremity edema including congestive heart failure. To elevate legs at rest and to avoid idle standing and sitting. Further work-up with venous duplex Doppler with reflux evaluation was ordered today. Additionally noninvasive arterial studies were ordered and results are pending. Updated lab work orders were also provided today to better understand his baseline medical status including CBC, CMP, and screen for diabetes with hemoglobin A1c. His past medical record will further be reviewed in his note from his primary care physician will be requested from Gaby maldonado in clinic; a medical record release was obtained today. To avoid laying directly on the leg ulcer site. I recommend that he also avoids wearing shoes that cause friction and pressure on the foot blister site; I suspect tissues may not be properly fitted. I ordered a surgical open toe shoe to take relief off of the site. I recommend nutritional supplementation such as Mikhail or [id number] Glucerna and a prescription was offered. To return to the wound healing center 1 week or call sooner if you have any questions or concerns. I did answer all his questions.
== END 2019-01-03 23:59 ==
LOC: WC 08:46
PROVIDERS: Visit Provider Podiatrist
DX: I73.89 Other specified peripheral vascular diseases (principal); I89.0 Lymphedema, not elsewhere classified; E66.01 Morbid (severe) obesity due to excess calories; Z68.43 Body mass index [BMI] 50.0-59.9, adult; Z71.3 Dietary counseling and surveillance; I50.9 Heart failure, unspecified; I11.0 Hypertensive heart disease with heart failure; G47.30 Sleep apnea, unspecified; L97.821 Non-pressure chronic ulcer of other part of left lower leg limited to breakdown of skin; I87.2 Venous insufficiency (chronic) (peripheral); S90.423A Blister (nonthermal), unspecified great toe, initial encounter; X58.XXXA Exposure to other specified factors, initial encounter
CPT/HCPCS: 97597; 99212; G0463

== ENCOUNTER → 2018-12-30 11:11 | Outpatient (CLI) | payer MEDICAID, SELFPAY ==
[2018-12-29 09:14] VITALS: BMI 58.2
[2018-12-30 12:58] LABS: Hematocrit 45.5 % (40-54); Hemoglobin 13.9 g/dL (13.0-16.5); Mean Corp Hgb Conc 30.5 g/dL (32-36); Mean Corpuscular Hgb 27.3 pg (27.0-32.0); Mean Corpuscular Volume 89.4 fL (80-94); Mean Platelet Vol. 11.5 fl (6.2-12.0); Platelet Count 106 K/mm3 (150-450); RBC Distribution Width CV 16.3 % (11.6-14.6); RBC Distribution Width SD 52.8 fl (35.1-43.9); Red Blood Count 5.09 M/mm3 (4.6-6.2); White Blood Count 5.8 K/mm3 (4.4-11.0)
[2018-12-30 13:20] LABS: ALB/GLOB Ratio 0.6 RATIO (0.9-2.4); AST(SGOT) 27 U/L (15-37); Alanine Aminotransfer ALT/SGPT 24 U/L (16-61); Albumin, Serum 2.8 g/dL (3.2-5.0); Alkaline Phosphatase 106 U/L (45-117); Anion Gap 7 (5-15); BUN 15 mg/dL (7-18); BUN/Creat Ratio 16.9 RATIO (10-20); Calcium,Total 8.5 mg/dL (8.5-10.1); Chloride 103 mmol/L (98-107); Creatinine, Serum 0.89 mg/dL (0.70-1.30); EST Glomerular Filtration Rate 93 mL/min (>60); Est Glom Filt Rate - Afr Amer 113 mL/min (>60); Globulin 4.9 g/dL (2.2-4.2); Glucose 111 mg/dL (74-106); Hemoglobin A1c 6.7 % (4.2-6.3); Potassium 4.7 mmol/L (3.5-5.1); Protein, Total 7.7 g/dL (6.4-8.2); Sodium Level 138 mmol/L (136-145)
== END ==
PROVIDERS: Referring Provider Podiatrist; Visit Provider Podiatrist
DX: L97.909 Non-pressure chronic ulcer of unspecified part of unspecified lower leg with unspecified severity (principal); R73.03 Prediabetes
CPT/HCPCS: 36415; 80053; 83036; 85027

== ENCOUNTER 2019-01-23 13:33 | Emergency (ER) | payer MEDICAID, SELFPAY ==
[2019-01-12 10:02] VITALS: BMI 58.2
[2019-01-23 13:35] VITALS: BP 132/86; PULSE 77; RESP 18; TEMP 37; O2SAT 95; BMI 57.4
--- NOTE | 2019-01-23 14:14 | RAD_ITS ---
STUDY: X-RAY - LEFT FOOT CLINICAL: Male, 58 years old. Left foot wound TECHNIQUE: 3 view(s) of the foot. COMPARISON: None. FINDINGS: Calcaneal spur and enthesophyte is identified. There is calcification of the proximal plantar fascia region. Normal visualized subtalar, talonavicular, calcaneocuboid, tarsal and tarsometatarsal articulations. Normal metatarsi. There is degenerative arthrosis of the metatarsophalangeal joint of the hallux . Normal tibial and fibular sesamoid bones. Normal interphalangeal joint of the great toe. Normal phalanges of the great toe. Normal second through fifth metatarsophalangeal joints. Normal interphalangeal joints and phalanges of the lesser toes. Mild diffuse soft tissue swelling. RAD/Foot min 3 Views IMPRESSION: No destructive bony process. Nonspecific soft tissue swelling. Electronically Signed: Nicanor Norton MD ([place]) at 14:57 EDT , Service support ,
[2019-01-23 14:34] VITALS: BP 132/86; PULSE 77; RESP 18; TEMP 37; O2SAT 95
[2019-01-23] MEDS: 0.9% Normal Saline 1,000 ML 1000 ML IV (15:02)
[2019-01-23 15:06] LABS: Absolute Lymphocyte Count 0.61 X10^3/uL (0.83-4.51); Absolute Neutrophil Count 9.5 X10^3/uL (2.0-7.7); Basophil# 0.02 X10^3/uL; Basophil% 0.2 % (0-1); Eosinophil# 0.08 X10^3/uL; Eosinophils% 0.7 % (0-5); Hematocrit 45.2 % (40-54); Hemoglobin 13.3 g/dL (13.0-16.5); Lymphocyte # 0.61 X10^3/ul (4.0); Lymphocyte % 5.7 % (19-41); Mean Corp Hgb Conc 29.4 g/dL (32-36); Mean Corpuscular Volume 91.7 fL (80-94); Mean Platelet Vol. 11.1 fl (6.2-12.0); Monocyte# 0.51 X10^3/uL; Monocyte% 4.7 % (0-10); NRBC Flagged by Analyzer 0 % (0-5); Neutrophil # 9.49 X10^3/uL (2.7-7.7); Neutrophil % 88.1 % (47-70); Platelet Count 114 K/mm3 (150-450); RBC Distribution Width CV 16.7 % (11.6-14.6); RBC Distribution Width SD 56.1 fl (35.1-43.9); Red Blood Count 4.93 M/mm3 (4.6-6.2); White Blood Count 10.8 K/mm3 (4.4-11.0)
[2019-01-23 15:22] LABS: ALB/GLOB Ratio 0.7 RATIO (0.9-2.4); AST(SGOT) 14 U/L (15-37); Alanine Aminotransfer ALT/SGPT 19 U/L (16-61); Alkaline Phosphatase 104 U/L (45-117); Anion Gap 0 (5-15); BUN 18 mg/dL (7-18); BUN/Creat Ratio 14.2 RATIO (10-20); Calcium,Total 8.2 mg/dL (8.5-10.1); Chloride 103 mmol/L (98-107); Creatinine, Serum 1.27 mg/dL (0.70-1.30); EST Glomerular Filtration Rate 62 mL/min (>60); Est Glom Filt Rate - Afr Amer 74 mL/min (>60); Estimated Creatinine Clearance 63.87 ml/min; Globulin 4.4 g/dL (2.2-4.2); Glucose 118 mg/dL (74-106); Potassium 4.5 mmol/L (3.5-5.1); Protein, Total 7.4 g/dL (6.4-8.2); Sodium Level 141 mmol/L (136-145)
[2019-01-23 15:23] LABS: Lactic Acid 1.3 mmol/L (0.4-2.0)
--- NOTE | 2019-01-23 15:53 | ED.VISSUMM ---
- ER Visit Summary Date of Service: 01/23/19 Chief Complaint: Left foot open wound History of Present Illness: The patient is a 58 M who presents with open wounds to his left foot that has been getting worse over the past week and a half. Patient states he has aching and sharp pain in his left foot. Patient states this is worse with weightbearing. Patient states his pain is gradually gotten worse. Patient states he was seen in the wound clinic in the past and he tried to do some of the same therapies at home that they did in the wound clinic to help his wounds heal. Patient states she has not had any improvement with this. Patient admits to subjective chills but denies any fevers. Patient admits to some slight shortness of breath but denies any cough. Patient admits to some swelling in his left leg. Physical Examination: Vital signs are stable. Patient is afebrile. Patient is in no acute distress. Skin is warm and dry. There is erythema and warmth of the left lower extremity from the knee to the foot. There are some open wounds on the dorsal aspect of the left foot. There is tenderness to palpation. There is no active discharge or drainage. Sensation was intact to light touch in all digits. Capillary refill is less than 2 seconds in all digits. Heart was regular rate and rhythm. Lungs are clear and equal bilaterally. Abdomen is soft and nontender. Test Results: CBC was normal except for mild thrombocytopenia of 114. Basic metabolic profile shows slightly elevated CO2 of 38. Lactate was normal. X-ray of the left foot was obtained. There is some soft tissue swelling but no evidence of osteomyelitis. Emergency Department Course and Treatment: Blood cultures were obtained. Patient was started on Ancef. Patient felt like he would do better at home with oral antibiotics. Patient has an appointment with podiatry at the wound care center in 2 days. Patient was given a prescription for Keflex. Patient was instructed to follow-up as directed 2 days. Patient was instructed to return if worse in any way. Patient and family understood and were agreeable with the plan. All questions were answered. Disposition: Discharge home Impression: Cellulitis left lower extremity This note was generated with [employer] dictation software. It may contain incorrect words, spelling, and punctuation that were not noted in review of the chart prior to signing ED Disposition - Plan for ED Patient: Disposition: Home or Assisted Living Diagnosis: Cellulitis of left lower extremity Prescriptions: Cephalexin [Keflex] 500 mg PO Q6 #40 cap Prescription Printed Referrals: [facility] Gaby Guzman [Primary Care Provider] - Brisa Lam DPM [STAFF PHYSICIAN] - 2 Days
[2019-01-23] MEDS: Cefazolin 1 GM/50 ML BAG IV (16:53)
[2019-01-23] MEDS: BACITRACIN 15 GM Tube 1 APPLIC TOPICAL (16:58)
[2019-01-23 17:43] VITALS: BP 135/69; PULSE 68; RESP 16
== END 2019-01-23 17:45 | disposition home or self-care (01) ==
PROVIDERS: Emergency Provider Emergency Medicine
DX: L03.116 Cellulitis of left lower limb (principal); M79.89 Other specified soft tissue disorders; S91.302A Unspecified open wound, left foot, initial encounter; X58.XXXA Exposure to other specified factors, initial encounter; Y93.9 Activity, unspecified; Y92.9 Unspecified place or not applicable; Y99.9 Unspecified external cause status; E11.9 Type 2 diabetes mellitus without complications; J44.9 Chronic obstructive pulmonary disease, unspecified; M54.9 Dorsalgia, unspecified; G89.29 Other chronic pain; E66.9 Obesity, unspecified; Z79.82 Long term (current) use of aspirin; Z79.899 Other long term (current) drug therapy
CPT/HCPCS: 73630; 80053; 83605; 85025; 87040; 96361; 96365; 99283; J7030; A4216

== ENCOUNTER 2019-02-02 13:15 | Outpatient (RCR) | payer MEDICAID, SELFPAY ==
[2019-01-04 01:19] VITALS: BP 155/97; PULSE 73; RESP 20; TEMP 36.5
--- NOTE | 2019-01-05 10:08 | VDLE_ITS ---
Reason For Study: venous insufficiency, edema RIGHT LEFT FV is compressible, spontaneous, phasic, FV is compressible, spontaneous, phasic, competent and demonstrates normal competent and demonstrates normal augmentation. augmentation. POP V is compressible, spontaneous, phasic, POP V is compressible, spontaneous, phasic, competent and demonstrates normal competent and demonstrates normal augmentation. augmentation. T/P Trunk is compressible. T/P Trunk is compressible. Unable to compress CFV due to pain. Normal Unable to compress CFV due to pain. Normal venous flow patterns noted. venous flow patterns noted. Unable to image calf veins due to pt body Unable to image calf veins due to pt body habitus. habitus. GSV proximal thigh measures .77 x .77 cm. GSV proximal thigh measures .83 x .83 cm. GSV at knee measures .75 x .75 cm. GSV at knee measures .79 x .75 cm. GSV is competent throughout. GSV is competent throughout. SSV proximal calf is competent and SSV proximal calf is competent and measures .41 x .39 cm. measures .42 x .42 cm. Procedure Exam performed in department. The exam was of poor technical quality due to pt body habitus. Interpretation Summary Deep veins of the lower extremities appear patent. There is no evidence of deep vein thrombosis on either side. However, calf veins could not be visualized on either side due to the patient's body habitus. Common femoral veins were not compressed on either side due to pain, but venous flow patterns appear to be normal. The femoral and politeal veins are competent bilaterally. The great saphenous veins appear bilaterally patent and compressible segmentally. Valvular competence appears to be intact segmentally within the great saphenous veins bilaterally. Small saphenous veins are patent and competent bilaterally. Ordering Physician: Brisa Lam Performed By: Wicho Kern RVAfia
--- NOTE | 2019-01-05 10:09 | ART_ITS ---
Reason For Study: PVD Left Segmental Pressures Left brachial= 136mmHg. Left dorsalis pedis artery = 170mmHg. Left digit = 136 mmHg. The left dorsalis pedis waveforms are triphasic. Unable to obtain MENTAL TESTER due to pt body habitus. Right Segmental Pressures Right brachial= 144mmHg. Right dorsalis pedis artery = 159mmHg. Right digit = 149 mmHg. The right dorsalis pedis waveforms are triphasic. Unable to obtain MENTAL TESTER due to pt body habitus. Indices The right ankle brachial index by the dorsalis pedis is 1.1. The right digital-brachial index is 1.03. The left ankle brachial index by the dorsalis pedis is 1.18. The left digital-brachial index is .94. Interpretation Summary Dorsalis pedis Doppler pulses are triphasic bilaterally. Posterior tibial artery pulses could not be obtained due to the patient's body habitus. Pulse-volume recording waveform amplitudes appear satisfactory at all levels, but for digital level on the right, which is diminished. Resting ankle- brachial indices are normal bilaterally. Digital-brachial indices are normal bilaterally. There is no evidence of significant arterial occlusive disease in the lower extremities bilaterally. Ordering Physician: Brisa Lam Performed By: THERESE OLIVEROS T
[2019-01-05 13:21] VITALS: BP 146/86; PULSE 75; RESP 18; TEMP 36.2; BMI 58.2
--- NOTE | 2019-01-05 16:58 | PN.PCM_ITS ---
(1) Chronic ulcer of left foot with fat layer exposed Status: Chronic Code(s): L97.522 - Non-pressure chronic ulcer of other part of left foot with fat layer exposed (2) Ulcer of left lower extremity, limited to breakdown of skin Status: Chronic Code(s): L97.921 - Non-pressure chronic ulcer of unspecified part of left lower leg limited to breakdown of skin (3) Bilateral leg edema Status: Chronic Code(s): R60.0 - Localized edema (4) Venous insufficiency Status: Suspected Code(s): I87.2 - Venous insufficiency (chronic) (peripheral) (5) Malnutrition Status: Suspected Code(s): E46 - Unspecified protein-calorie malnutrition (6) Lymphedema Status: Chronic Code(s): I89.0 - Lymphedema, not elsewhere classified (7) CHF (congestive heart failure) Status: Chronic Qualifiers: Code(s): I50.9 - Heart failure, unspecified (8) Super-super obese Status: Chronic Code(s): E66.01 - Morbid (severe) obesity due to excess calories Type of Wound Date of Service: 01/05/19 Chief Complaint: Chronic leg swelling and left leg ulcer. Left great toe ulcer at previous blister site History of Wound: This 58-year-old male with significant past medical history of super obesity, chronic leg swelling with recurrent ulcers and delayed healing, hypertension, congestive heart failure, and sleep apnea presents for evaluation of leg swelling and left leg weeping. He denies fever, chill, nausea, vomiting. He denies known redness or odor. He is performed dressing change this past week. He has chronic swelling. Progress of Wound: Stable leg and hallux left - Physical Exam Vital Signs Temp Pulse Resp BP 97.1 F L 75 18 146/86 H 01/05/19 13:21 01/05/19 13:21 01/05/19 13:21 01/05/19 13:21 General: Alert, Oriented x3, Cooperative, No apparent distress HEENT: Atraumatic Extremities: No cyanosis, Capillary Refill Less than 3 Seconds - All digits bilateral, No Calf Tenderness - Negative Luis Antonio and Chilel sign bilateral. Compartments are soft to palpate bilateral lower extremities., Diminished Sandra pheral Pulses, Edema - Bilateral lower extremity moderate to severe with indurated tissue. This is consistent with lymphedema Skin: Ulcer/ Wound - No purulence, erythema, streaking, odor, infection. At the prior bolus site on the left distal hallux there is no granulation fibrous tissue exposed without maceration or deep tissue probing. The left leg ulcer now only has some hemorrhagic tissue exposed progressing well. There is continued serous weeping. The skin in general is hairless and atrophic bilateral lower extremities Wound Measurements and Assessment WC - Nurse 1 - General Ulcer Measurement Start: 01/05/19 13:21 Freq: Status: Active Protocol: Activity Type Activity Date Activity User E-Sign Co-Sign Detail Recorded Client Recorded Date Recorded By Document 01/05/19 13:21 DL [id number] 01/05/19 13:30 DL 01/05/19 13:21 Wound Center Nurse 1 [Ulcer Assessment] #2 LEFT GREAT TOE ULCER -Current Size (cm) - Length 1.5 -Current Size (cm) - Width 1.6 -Current Size (cm) - Depth 0.1 -Total Square Cm 2.40 -Photo Taken No -Exudate Amt Medium -Exudate Type Serosanguineous -Wound Margin Thickened -Granulation Amt Small (1-33%) -Granulation Quality [place] -Necrosis Amt Small (1-33%) -Necrotic Tissue Type Adherent Slough -Structure Exposed N/A -Texture (Sandra-wound Skin Appearance) Localized Edema -Moisture (Sandra-wound Skin Appearance No Abnormality ) -Color (Sandra-wound Skin Appearance) Erythema,Rubor -Temperature (Sandra-wound Skin No Abnormality Appearance) (Pt Warm) -Tenderness on Palpation (Sandra-wound No Skin Appearance) -Ulcer Cleansing Rinsed/ Irrigated with Saline -Foul Odor after Cleansing No -Anesthetic Used 4% Lidocaine Solution #1 LEFT LOWER LEG CLUSTER -Current Size (cm) - Length 11 -Current Size (cm) - Width 10 -Current Size (cm) - Depth 0.1 -Total Square Cm 110 -Photo Taken No -Exudate Amt Small -Exudate Type Serosanguineous -Wound Margin Thickened -Granulation Amt Medium (34-66%) -Granulation Quality [place] -Necrosis Amt Medium (34-66%) -Necrotic Tissue Type Adherent Slough -Structure Exposed N/A -Texture (Sandra-wound Skin Appearance) Induration, Localized Edema ,Scarring -Moisture (Sandra-wound Skin Appearance Dry/Scaly ) -Color (Sandra-wound Skin Appearance) Hemosiderin Staining -Temperature (Sandra-wound Skin No Abnormality Appearance) (Pt Warm) -Tenderness on Palpation (Sandra-wound No Skin Appearance) -Ulcer Cleansing Wound Cleanser -Foul Odor after Cleansing No -Anesthetic Used 4% Lidocaine Solution [Edema Assessment] -Right Calf (cm) 55.5 -Right Ankle (cm) 34.6 -Left Calf (cm) 55.2 -Left Ankle (cm) 35.5 WC - Nurse 2 - General Ulcer CM Notes Start: 01/05/19 13:21 Freq: Status: Active Protocol: Activity Type Activity Date Activity User E-Sign Co-Sign Detail Recorded Client Recorded Date Recorded By Document 01/05/19 13:45 AN [id number] 01/05/19 13:48 AN 01/05/19 13:45 Wound Center Nurse 2 [Procedure/Treatment] #2 LEFT GREAT TOE ULCER -Time 13:47 -Correct Patient Yes -Correct Side, Site, Position Yes -Correct Procedure Yes -Procedure Performed Yes -Type of Procedure Debridement -Clinical Debridement Subcutaneous -Post Debridement Size (cm) - Length 0.4 -Post Debridement Size (cm) - Width 0.7 -Post Debridement Size (cm) - Depth 0.1 -Total Square Cm 0.28 -Wound/Ulcer Outcome Not Healed -Bleeding Controlled with Pressure -Offloading Yes -Treatment Response Procedure Tolerated Well [See Physician Procedure note for Specifics] Musculoskeletal: No Tenderness to Palpation of Joints or Extremities, Muscle Wasting Neurological: - - Lack of full normal sensation to light touch bilateral lower extremities Psych/Mental Status: Normal Affect, Appropriate Debridement Note Post-Debridement Measurements/Treatment WC - Nurse 2 - General Ulcer CM Notes Start: 01/05/19 13:21 Freq: Status: Active Protocol: Activity Type Activity Date Activity User E-Sign Co-Sign Detail Recorded Client Recorded Date Recorded By Document 01/05/19 13:45 AN [id number] 01/05/19 13:48 AN 01/05/19 13:45 Wound Center Nurse 2 #2 LEFT GREAT TOE ULCER -Time 13:47 -Correct Patient Yes -Correct Side, Site, Position Yes -Correct Procedure Yes -Procedure Performed Yes -Type of Procedure Debridement -Clinical Debridement Subcutaneous -Post Debridement Size (cm) - Length 0.4 -Post Debridement Size (cm) - Width 0.7 -Post Debridement Size (cm) - Depth 0.1 -Total Square Cm 0.28 -Wound/Ulcer Outcome Not Healed -Bleeding Controlled with Pressure -Offloading Yes -Treatment Response Procedure Tolerated Well Wound debrided: distal hallux Laterality: Left Type of Debridement: Excisional debridement Anesthesia Used: 5% Lidocaine Gel Depth: in the subcutaneous layer Percentage of wound debrided: 100 Instrument Used: #15 blade Tissue Removed: fibrous, devitalized subcutaneous, biofilm, slough Severity: Fat Layer Exposed Amount of bleeding with debridement: Mild Bleeding Controlled with: Pressure Patient tolerated procedure well - Additional Wound Wound debrided: leg Laterality: Left Type of Debridement: Selective debridement Anesthesia Used: 5% Lidocaine Gel Depth: in the subcutaneous layer Percentage of wound debrided: 100 Instrument Used: #15 blade Tissue Removed: fibrous, devitalized tissue, biofilm, slough Severity: Limited To Skin Breakdown Amount of bleeding with debridement: Mild Bleeding Controlled with: Pressure Patient tolerated procedure: Patient tolerated procedure well Assessment/Plan Assessment: Ulcer left leg with some hemorrhagic tissue exposed; no infection. Ulcer left hallux fat layer exposed, no infection. Bilateral lower extremity chronic edema with skin changes. Lymphedema. Peripheral vascular disease work- up and ruled out tentatively. Malnutrition suspected Plan: I reviewed and discussed his case today. Selective debridement was performed to the left leg as noted in the clinical panel. Subcutaneous excisional debridement was performed to the left hallux as noted in the clinical panel. To change dressing daily with Adaptic and compression dressing consisting of Tubigrip. I recommend changing the toe site with aquacel AG. He was reassured no local or systemic signs of infection noted today and I do not recommend antibiotics. To monitor for infection development in which he understands this plan. I recommend Tubigrip for compression therapy. It is noted that he likely has several etiologies for his lower extremity edema including congestive heart failure. To elevate legs at rest and to avoid idle standing and sitting. Further work-up with venous duplex Doppler with reflux evaluation was ordered in the results were reviewed. He does not appear to have venous incompetence per the reflux study results. Additionally noninvasive arterial studies were ordered and reviewed today as well. He appears to have arterial perfusion to lower extremities without arterial significant disease. However, it is noted that his body habitus has prevented full evaluation of the PT artery and this is considered incomplete. Further referral will be consid ered if there is ongoing healing delays. I do recommend lymphedema pump use and this order was placed. This is medically necessary to prevent recurrent ulcers and infections and limb loss. Updated lab work orders were also provided today to better understand his baseline medical status including CBC, CMP, and screen for diabetes with hemoglobin A1c. There are no gross abnormalities with the CBC and CMP. His hemoglobin A1c was 6.7%. his past medical record from [facility] have been was reviewed. It is noted he does not have a formal diagnosis of diabetes at this time and I am concerned that he may be developing this condition. To follow-up with his primary care provider at [facility] in clinic. I recommend that he also avoids wearing shoes that cause friction and pressure on the foot blister site; to wear a surgical shoe and weight-bear as tolerated. I recommend nutritional supplementation such as Mikhail or [id number] Glucerna and a prescription was offered. To return to the wound healing center 1 week or call sooner if you have any questions or concerns. I did answer all his questions.
[2019-01-12 10:02] VITALS: BP 165/82; PULSE 78; RESP 18; TEMP 36.4; BMI 58.2
--- NOTE | 2019-01-12 10:45 | PN.PCM_ITS ---
(1) Chronic ulcer of left foot with fat layer exposed Status: Resolved Current Visit: Yes Code(s): L97.522 - Non-pressure chronic ulcer of other part of left foot with fat layer exposed (2) Ulcer of left lower extremity, limited to breakdown of skin Status: Resolved Current Visit: Yes Code(s): L97.921 - Non-pressure chronic ulcer of unspecified part of left lower leg limited to breakdown of skin (3) Bilateral leg edema Status: Chronic Current Visit: Yes Code(s): R60.0 - Localized edema (4) Venous insufficiency Status: Suspected Current Visit: Yes Code(s): I87.2 - Venous insufficiency (chronic) (peripheral) (5) Malnutrition Status: Suspected Current Visit: Yes Code(s): E46 - Unspecified protein- calorie malnutrition (6) Lymphedema Status: Chronic Current Visit: Yes Code(s): I89.0 - Lymphedema, not elsewher e classified (7) CHF (congestive heart failure) Status: Chronic Current Visit: Yes Qualifiers: Code(s): I50.9 - Heart failure, unspecified (8) Super-super obese Status: Chronic Current Visit: Yes Code(s): E66.01 - Morbid (severe) obesity due to excess calories Type of Wound Date of Service: 01/12/19 Chief Complaint: Chronic leg swelling. Ulcers History of Wound: This 58-year-old male with significant past medical history of super obesity, chronic leg swelling with recurrent ulcers and delayed healing, hypertension, congestive heart failure, and sleep apnea presents for evaluation of leg swelling and left leg weeping. He denies fever, chill, nausea, vomiting. He denies known redness or odor. He denies drainage. He has chronic swelling with recurrent history of ulcerations. He denies new blisters to the foot. Progress of Wound: Healed - Physical Exam Vital Signs Temp Pulse Resp BP 97.5 F L 78 18 165/82 H 01/12/19 10:02 01/12/19 10:02 01/12/19 10:02 01/12/19 10:02 General: Alert, Oriented x3, Cooperative, No apparent distress HEENT: Atraumatic Extremities: No cyanosis, Capillary Refill Less than 3 Seconds, No Calf Tenderness - Negative Luis Antonio and Chilel signs bilateral, Diminished Peripheral Pulses, Edema - Bilateral moderate edema consistent with lymphedema and congestive heart failure fluid overload and venous insufficiency etiologies Skin: Ulcer/ Wound - There is no skin discontinuity in the prior ulcer sites have fully epithelialized. His skin is atrophic, hairless, with lichenification changes and some invagination consistent with chronic swelling Wound Measurements and Assessment WC - Nurse 1 - General Ulcer Measurement Start: 01/05/19 13:21 Freq: Status: Active Protocol: Activity Type Activity Date Activity User E-Sign Co-Sign Detail Recorded Client Recorded Date Recorded By Document 01/12/19 10:02 RB [id number] 01/12/19 10:10 RB 01/12/19 10:02 Wound Center Nurse 1 [Ulcer Assessment] #2 LEFT GREAT TOE ULCER -Current Size (cm) - Length 0.1 -Current Size (cm) - Width 0.1 -Current Size (cm) - Depth 0.1 -Total Square Cm 0.01 -Tunneling No -Undermining/Tunneling No -Circular Undermining No -Exudate Amt Small -Exudate Type Serosanguineous -Wound Margin Flat & Intact -Granulation Amt Medium (34-66%) -Granulation Quality [place] -Necrosis Amt Medium (34-66%) -Necrotic Tissue Type Adherent Slough -Structure Exposed N/A -Texture (Sandra-wound Skin Appearance) Assessed -Moisture (Sandra-wound Skin Appearance Assessed,Dry/ ) Scaly -Color (Sandra-wound Skin Appearance) Assessed, Erythema -Temperature (Sandra-wound Skin No Abnormality Appearance) (Pt Warm) -Tenderness on Palpation (Sandra-wound No Skin Appearance) -Ulcer Cleansing Wound Cleanser -Foul Odor after Cleansing No -Anesthetic Used 5% Lidocaine Gel [Edema Assessment] -Lower Limb Edema Present Yes -Left Calf (cm) 58 -Left Ankle (cm) 35 WC - Nurse 2 - General Ulcer CM Notes Start: 01/05/19 13:21 Freq: Status: Active Protocol: Activity Type Activity Date Activity User E-Sign Co-Sign Detail Recorded Client Recorded Date Recorded By Document 01/12/19 10: AN [id number] 01/12/19 10:25 AN 01/12/19 10:19 Pain Scale: 0-10 Numeric [Pain] -Is Patient Pain Free? Yes Musculoskeletal: No Tenderness to Palpation of Joints or Extremities, Muscle Wasting, - - Compartment soft to palpate bilateral lower extremities Neurological: - - Lack of normal epicritic sensation light touch Debridement Note Post-Debridement Measurements/Treatment WC - Nurse 2 - General Ulcer CM Notes Start: 01/05/19 13:21 Freq: Status: Active Protocol: Activity Type Activity Date Activity User E-Sign Co-Sign Detail Recorded Client Recorded Date Recorded By Document 01/05/19 13:45 AN [id number] 01/05/19 13:48 AN Document 01/12/19 10:19 AN [id number] 01/12/19 10:25 AN 01/05/19 01/12/19 13:45 10:19 Wound Center Nurse 2 #2 LEFT GREAT TOE ULCER -Time 13:47 -Correct Patient Yes -Correct Side, Site, Position Yes -Correct Procedure Yes -Procedure Performed Yes -Type of Procedure Debridement -Clinical Debridement Subcutaneous -Post Debridement Size (cm) - Length 0.4 -Post Debridement Size (cm) - Width 0.7 -Post Debridement Size (cm) - Depth 0.1 -Total Square Cm 0.28 -Wound/Ulcer Outcome Not Healed -Bleeding Controlled with Pressure -Offloading Yes -Treatment Response Procedure Tolerated Well Pain Scale: 0-10 Numeric Is Patient Pain Free? Yes No debridement was completed today - The ulcers have healed today Assessment/Plan Active Problems (Last Reviewed 11/08/18 @ 10:54 by Christianne Tariq NP-C) Bilateral leg edema (Chronic) Lymphedema (Chronic) CHF (congestive heart failure) (Chronic) Super-super obese (Chronic) Assessment: Ulcer left leg healed. Ulcer left hallux healed. Bilateral lower extremity chronic edema with skin changes. Lymphedema. Peripheral vascular disease work-up and ruled out tentatively Plan: I reviewed and discussed his case today. The ulcer sites have healed and I recommend discontinuing dressing care. His chronic edema is a major concern at this time. I recommend more aggressive compression such as a CircAid wrap. An order was placed today. To avoid idle standing and sitting. To elevate legs at rest. His congestive heart failure status is noted. We will consider lymphedema pumps in the future. He defers at this time and admits he will not use them at home. He was reassured no local or systemic signs of infection noted today and I do not recommend antibiotics. Further work-up with venous duplex Doppler with reflux evaluation was ordered in the results were reviewed. He does not appear to have venous incompetence per the reflux study results. Additionally noninvasive arterial studies were ordered and reviewed today as well. He appears to have arterial perfusion to lower extremities without arterial significant disease. However, it is noted that his body habitus has prevented full evaluation of the PT artery and this is considered incomplete. Further referral will be considered if there is ongoing healing delays. Updated lab work orders were also provided today to better understand his baseline medical status including CBC, CMP, and screen for diabetes with hemoglobin A1c. There are no gross abnormalities with the CBC and CMP. His hemoglobin A1c was 6.7%. his past medical record from [facility] have been was reviewed. It is noted he does not have a formal diagnosis of diabetes at this time and I am concerned that he may be developing this condition. To follow-up with his primary care provider at [facility] in clinic. He is discharged from the wound healing center at this time. He will follow-up with the foot and ankle center in 1 month to check his heel ulcer sites, follow-up on his order compression garment, and perform nail palliation that he is not able to safely perform on his own. I did answer all his questio ns.
[2019-02-02 13:09] VITALS: BP 161/87; PULSE 70; RESP 18; TEMP 36.4; BMI 58.2
--- NOTE | 2019-02-02 14:14 | PCM.WC.PN ---
(1) Chronic ulcer of left foot with fat layer exposed Status: Acute Code(s): L97.522 - Non-pressure chronic ulcer of other part of left foot with fat layer exposed (2) Bilateral leg edema Status: Chronic Code(s): R60.0 - Localized edema (3) Venous insufficiency Status: Suspected Code(s): I87.2 - Venous insufficiency (chronic) (peripheral) (4) Malnutrition Status: Suspected Code(s): E46 - Unspecified protein-calorie malnutrition (5) Lymphedema Status: Chronic Code(s): I89.0 - Lymphedema, not elsewhere classified (6) CHF (congestive heart failure) Status: Chronic Qualifiers: Code(s): I50.9 - Heart failure, unspecified (7) Super-super obese Status: Chronic Code(s): E66.01 - Morbid (severe) obesity due to excess calories Type of Wound Date of Service: 02/02/19 Chief Complaint: Chronic leg swelling. Ulcer cluster left foot new History of Wound: This 58-year-old male with significant past medical history of super obesity, chronic leg swelling with recurrent ulcers and delayed healing, hypertension, congestive heart failure, and sleep apnea presents for evaluation of leg swelling and new left foot ulcers. His newest foot ulcers to the top outside border and this onset was 2 weeks ago. He denies fever, chill, nausea, vomiting. He denies known redness or odor. He denies drainage. He has chronic swelling with recurrent history of ulcerations. He was referred here by the [facility] ankle center. He has been changing the dressing with silver cell. He reports he went to the emergency room on January 23 who treated him with antibiotics cephalexin for cellulitis. This has helped decrease redness, odor, and blister formation. Progress of Wound: New left foot ulcer cluster - Physical Exam Vital Signs Temp Pulse Resp BP 97.5 F L 70 18 161/87 H 02/02/19 13:09 02/02/19 13:09 02/02/19 13:09 02/02/19 13:09 General: Alert, Oriented x3, Cooperative, No apparent distress HEENT: Atraumatic Extremities: No cyanosis, Capillary Refill Less than 3 Seconds, No Calf Tenderness, Diminished Peripheral Pulses, Edema - Bilateral lower extremities with chronic skin changes, Tenderness - Pain was also manipulation Skin: Ulcer/ Wound - No purulence, erythema, streaking, odor, infection. Decreased maceration. Improved granulation tissue to the ulcer bed with reduced fibrous tissue formation. The peripheral skin is hairless, atrophic, and with hyperpigmentation Wound Measurements and Assessment WC - Nurse 1 - General Ulcer Measurement Start: 01/05/19 13:21 Freq: Status: Active Protocol: Activity Type Activity Date Activity User E-Sign Co-Sign Detail Recorded Client Recorded Date Recorded By Document 02/02/19 13:09 [facility] [id number] 02/02/19 13:14 BMF 02/02/19 13:09 Wound Center Nurse 1 [Ulcer Assessment] #3- L LAT FOOT CLUSTER -Combined with other wound No -Current Size (cm) - Length 2.5 -Current Size (cm) - Width 2.3 -Current Size (cm) - Depth 0.1 -Total Square Cm 5.75 -Date of Last Picture (Recall this 02/02/19 field) -Photo Taken Yes -Epithelialization None Present -Tunneling No -Undermining/Tunneling No -Circular Undermining No -Exudate Amt Small -Exudate Type Serous -Wound Margin Distinct, Outline Attached -Granulation Amt None Present (0 %) -Slough/Fibrin Yes -Necrosis Amt Large (67-100%) -Necrotic Tissue Type Adherent Slough -Texture (Sandra-wound Skin Appearance) Assessed, Scarring -Moisture (Sandra-wound Skin Appearance Assessed,Dry/ ) Scaly -Color (Sandra-wound Skin Appearance) Assessed -Temperature (Sandra-wound Skin No Abnormality Appearance) (Pt Warm) -Tenderness on Palpation (Sandra-wound No Skin Appearance) -Ulcer Cleansing SOAP AND WATER -Foul Odor after Cleansing No -Anesthetic Used 4% Lidocaine Solution [Edema Assessment] -Lower Limb Edema Present Yes -Left Calf (cm) 54.5 -Left Ankle (cm) 33.4 WC - Nurse 2 - General Ulcer CM Notes Start: 01/05/19 13:21 Freq: Status: Active Protocol: Activity Type Activity Date Activity User E-Sign Co-Sign Detail Recorded Client Recorded Date Recorded By Document 02/02/19 13:50 AN [id number] 02/02/19 13:56 AN 02/02/19 13:50 Wound Center Nurse 2 [Procedure/Treatment] #3- L LAT FOOT CLUSTER -Time 13:50 -Correct Patient Yes -Correct Side, Site, Position Yes -Correct Procedure Yes -Type of Procedure Debridement -Clinical Debridement Subcutaneous -Post Debridement Size (cm) - Length 2.5 -Post Debridement Size (cm) - Width 2.3 -Post Debridement Size (cm) - Depth 0.1 -Total Square Cm 5.75 -Wound/Ulcer Outcome Not Healed -Ulcer Cleansing Rinsed/ Irrigated with Saline -Foul Odor after Cleansing No -Bioengineered Tissue No -Bleeding Controlled with Pressure -Offloading No -Treatment Response Procedure Tolerated Well [See Physician Procedure note for Specifics] Pain Scale: 0-10 Numeric [Pain] -Is Patient Pain Free? Yes Musculoskeletal: No Tenderness to Palpation of Joints or Extremities, Muscle Wasting, - - Compartment soft to palpate left lower extremity Neurological: Sensory exam intact to light touch and pain Psych/Mental Status: Normal Affect, Appropriate Debridement Note Post-Debridement Measurements/Treatment WC - Nurse 2 - General Ulcer CM Notes Start: 01/05/19 13:21 Freq: Status: Active Protocol: Activity Type Activity Date Activity User E-Sign Co-Sign Detail Recorded Client Recorded Date Recorded By Document 01/05/19 13:45 AN [id number] 01/05/19 13:48 AN Document 01/12/19 10:19 AN [id number] 01/12/19 10:25 AN Document 02/02/19 13:50 AN [id number] 02/02/19 13:56 AN 01/05/19 01/12/19 02/02/19 13:45 10: 13:50 Wound Center Nurse 2 #3- L LAT FOOT CLUSTER -Time 13:50 -Correct Patient Yes -Correct Side, Site, Position Yes -Correct Procedure Yes -Type of Procedure Debridement -Clinical Debridement Subcutaneous -Post Debridement Size (cm) - Length 2.5 -Post Debridement Size (cm) - Width 2.3 -Post Debridement Size (cm) - Depth 0.1 -Total Square Cm 5.75 -Wound/Ulcer Outcome Not Healed -Ulcer Cleansing Rinsed/ Irrigated with Saline -Foul Odor after Cleansing No -Bioengineered Tissue No -Bleeding Controlled with Pressure -Offloading No -Treatment Response Procedure Tolerated Well #2 LEFT GREAT TOE ULCER -Time 13:47 -Correct Patient Yes -Correct Side, Site, Position Yes -Correct Procedure Yes -Procedure Performed Yes -Type of Procedure Debridement -Clinical Debridement Subcutaneous -Post Debridement Size (cm) - Length 0.4 -Post Debridement Size (cm) - Width 0.7 -Post Debridement Size (cm) - Depth 0.1 -Total Square Cm 0.28 -Wound/Ulcer Outcome Not Healed -Bleeding Controlled with Pressure -Offloading Yes -Treatment Response Procedure Tolerated Well Pain Scale: 0-10 Numeric Is Patient Pain Free? Yes Yes Wound debrided: dorsall lateral foot Laterality: Left Type of Debridement: Excisional debridement Anesthesia Used: 5% Lidocaine Gel Depth: in the subcutaneous layer Percentage of wound debrided: 100 Instrument Used: #15 blade Tissue Removed: fibrous, devitalized subcutaneous, biofilm, slough Severity: Fat Layer Exposed Amount of bleeding with debridement: Mild Bleeding Controlled with: Pressure Patient tolerated procedure well Assessment/Plan Assessment: Ulcer left dorsal lateral foot with fat layer exposed, no infection. Previous reported cellulitis resolving (treated by ER staff provider). Bilateral lower extremity chronic edema with skin changes. Lymphedema. Peripheral vascular disease work-up and ruled out tentatively Plan: I reviewed and discussed his case today. His previous ulcer sites have healed and a new left dorsal lateral foot ulcer is noted within the past 2 weeks. This ulcer was debrided as well in the clinical panel. I recommend changing the dressing daily with silver cell or Aquacel Ag. This was applied today. His chronic edema is a major concern at this time. I recommend more aggressive compression such as a CircAid wrap. An order was placed today. To avoid idle standing and sitting. To elevate legs at rest. His congestive heart failure status is noted. We will consider lymphedema pumps in the future. He defers at this time and admits he will not use them at home. He was reassured no local or systemic signs of infection noted today and I do not recommend antibiotics. Further work-up with venous duplex Doppler with reflux evaluation was ordered in the results were reviewed. He does not appear to have venous incompetence per the reflux study results. Additionally noninvasive arterial studies were ordered and reviewed today as well. He appears to have arterial perfusion to lower extremities without arterial significant disease. However, it is noted that his body habitus has prevented full evaluation of the PT artery and this is considered incomplete. Further referral will be considered if there is ongoing healing delays. Updated lab work orders were also provided today to better understand his baseline medical status including CBC, CMP, and screen for diabetes with hemoglobin A1c. There are no gross abnormalities with the CBC and CMP. His hemoglobin A1c was 6.7%. His past medical record from [facility] have been was reviewed. It is noted he does not have a formal diagnosis of diabetes at this time and I am concerned that he may be developing this condition. To follow-up with his primary care provider at [facility] in clinic. He was advised to follow-up in 1 week at the wound healing center or call sooner if he has any questions or concerns.
== END 2019-02-03 23:59 ==
LOC: WC 13:15
PROVIDERS: Referring Provider Podiatrist; Visit Provider Podiatrist
DX: I87.2 Venous insufficiency (chronic) (peripheral) (principal); I73.9 Peripheral vascular disease, unspecified; L97.522 Non-pressure chronic ulcer of other part of left foot with fat layer exposed; L97.821 Non-pressure chronic ulcer of other part of left lower leg limited to breakdown of skin; R60.0 Localized edema; I89.0 Lymphedema, not elsewhere classified; I50.9 Heart failure, unspecified; E66.01 Morbid (severe) obesity due to excess calories; I11.0 Hypertensive heart disease with heart failure; M79.89 Other specified soft tissue disorders; G47.30 Sleep apnea, unspecified; Z68.43 Body mass index [BMI] 50.0-59.9, adult; Z71.3 Dietary counseling and surveillance
CPT/HCPCS: 11042; 93923; 93970; 99212; G0463

== ENCOUNTER 2019-02-23 14:00 | Outpatient (RCR) | payer MEDICAID, SELFPAY ==
[2019-02-04 01:15] VITALS: BP 161/87; PULSE 70; RESP 18; TEMP 36.4; BMI 57.4
[2019-02-09 14:20] VITALS: BP 149/95; PULSE 72; RESP 18; TEMP 36.4; BMI 57.4
--- NOTE | 2019-02-09 16:44 | PN.PCM_ITS ---
(1) Bilateral leg edema Status: Chronic Current Visit: Yes Code(s): R60.0 - Localized edema (2) Venous insufficiency Status: Suspected Current Visit: Yes Code(s): I87.2 - Venous insufficiency (chronic) (peripheral) (3) Malnutrition Status: Suspected Current Visit: Yes Code(s): E46 - Unspecified protein- calorie malnutrition (4) Lymphedema Status: Chronic Current Visit: Yes Code(s): I89.0 - Lymphedema, not elsewhere classified (5) Chronic ulcer of left foot with fat layer exposed Status: Chronic Current Visit: Yes Code(s): L97.522 - Non-pressure chronic ulcer of other part of left foot with fat layer exposed Type of Wound Date of Service: 02/09/19 Chief Complaint: Chronic leg swelling. Ulcer cluster left foot new History of Wound: This 58-year-old male with significant past medical history of super obesity, chronic leg swelling with recurrent ulcers and delayed healing, hypertension, congestive heart failure, and sleep apnea presents for evaluation of leg swelling and new left foot ulcers. His newest foot ulcers to the top outside border and this onset was 3 weeks ago. He denies fever, chill, nausea, vomiting. He denies known redness or odor. He denies drainage. He has chronic swelling with recurrent history of ulcerations. He was referred here by the foot and ankle center. He has been changing the dressing with silver cell. He reports he went to the emergency room on January 23 who treated him with antibiotics cephalexin for cellulitis. This has helped decrease redness, odor, and blister formation. He relates decreased discomfort this past week. Progress of Wound: Improved compared to last week - Physical Exam Vital Signs Temp Pulse Resp BP 97.5 F L 72 18 149/95 H 02/09/19 14:20 02/09/19 14:20 02/09/19 14:20 02/09/19 14:20 General: Alert, Oriented x3, Cooperative, No apparent distress Extremities: No cyanosis, Capillary Refill Less than 3 Seconds, No Calf Tenderness, Diminished Peripheral Pulses, Edema Skin: Ulcer/ Wound - No purulence, erythema, streaking, odor, infection. Peripheral skin is hairless and atrophic with chronic stasis changes bilateral. There is no deep tissue exposure or eschar formation left foot Wound Measurements and Assessment WC - Nurse 1 - General Ulcer Measurement Start: 02/09/19 14:20 Freq: Status: Active Protocol: Activity Type Activity Date Activity User E-Sign Co-Sign Detail Recorded Client Recorded Date Recorded By Document 02/09/19 14:20 RB [id number] 02/09/19 14:27 RB 02/09/19 14:20 Wound Center Nurse 1 [Ulcer Assessment] #3- L LAT FOOT CLUSTER -Combined with other wound No -Current Size (cm) - Length 3 -Current Size (cm) - Width 1 -Current Size (cm) - Depth 0.1 -Total Square Cm 3 -Tunneling No -Undermining/Tunneling No -Circular Undermining No -Exudate Amt Small -Exudate Type Serosanguineous -Wound Margin Thickened -Granulation Amt Medium (34-66%) -Granulation Quality [place] -Slough/Fibrin Yes -Necrosis Amt Small (1-33%) -Necrotic Tissue Type Adherent Slough -Structure Exposed N/A -Texture (Sandra-wound Skin Appearance) Assessed -Moisture (Sandra-wound Skin Appearance Assessed,Dry/ ) Scaly -Color (Sandra-wound Skin Appearance) Assessed, Erythema, Hemosiderin Staining -Temperature (Sandra-wound Skin No Abnormality Appearance) (Pt Warm) -Tenderness on Palpation (Sandra-wound No Skin Appearance) -Ulcer Cleansing Wound Cleanser -Foul Odor after Cleansing No -Anesthetic Used 5% Lidocaine Gel [Edema Assessment] -Lower Limb Edema Present Yes -Left Calf (cm) 55 -Left Ankle (cm) 34 WC - Nurse 2 - General Ulcer CM Notes Start: 02/09/19 14:20 Freq: Status: Active Protocol: Activity Type Activity Date Activity User E-Sign Co-Sign Detail Recorded Client Recorded Date Recorded By Document 02/09/19 15:14 [id number] 02/09/19 15:17 02/09/19 15:14 Wound Center Nurse 2 [Procedure/Treatment] #3- L LAT FOOT CLUSTER -Time 15:16 -Correct Patient Yes -Correct Side, Site, Position Yes -Correct Procedure Yes -Procedure Performed Yes -Type of Procedure Debridement -Clinical Debridement Subcutaneous -Post Debridement Size (cm) - Length 3.1 -Post Debridement Size (cm) - Width 1.1 -Post Debridement Size (cm) - Depth 0.1 -Total Square Cm 3.41 -Wound/Ulcer Outcome Not Healed -Ulcer Cleansing Rinsed/ Irrigated with Saline -Foul Odor after Cleansing No -Bioengineered Tissue No -Bleeding Controlled with Pressure -Offloading Yes -Type of Offloading Surgical Shoe -Treatment Response Procedure Tolerated Well [See Physician Procedure note for Specifics] Pain Scale: 0-10 Numeric [Pain] -Is Patient Pain Free? Yes Musculoskeletal: No Tenderness to Palpation of Joints or Extremities, Muscle Wasting Neurological: Sensory exam intact to light touch and pain, - Psych/Mental Status: Normal Affect, Appropriate Debridement Note Post-Debridement Measurements/Treatment WC - Nurse 2 - General Ulcer CM Notes Start: 02/09/19 14:20 Freq: Status: Active Protocol: Activity Type Activity Date Activity User E-Sign Co-Sign Detail Recorded Client Recorded Date Recorded By Document 02/09/19 15:14 MEHUL [id number] 02/09/19 15:17 MEHUL 02/09/19 15:14 Wound Center Nurse 2 #3- L LAT FOOT CLUSTER -Time 15:16 -Correct Patient Yes -Correct Side, Site, Position Yes -Correct Procedure Yes -Procedure Performed Yes -Type of Procedure Debridement -Clinical Debridement Subcutaneous -Post Debridement Size (cm) - Length 3.1 -Post Debridement Size (cm) - Width 1.1 -Post Debridement Size (cm) - Depth 0.1 -Total Square Cm 3.41 -Wound/Ulcer Outcome Not Healed -Ulcer Cleansing Rinsed/ Irrigated with Saline -Foul Odor after Cleansing No -Bioengineered Tissue No -Bleeding Controlled with Pressure -Offloading Yes -Type of Offloading Surgical Shoe -Treatment Response Procedure Tolerated Well Pain Scale: 0-10 Numeric Is Patient Pain Free? Yes Wound debrided: lateral dorsal foot Laterality: Left Type of Debridement: Excisional debridement Anesthesia Used: 5% Lidocaine Gel Depth: in the subcutaneous layer Percentage of wound debrided: 100 Instrument Used: #15 blade Tissue Removed: fibrous, devitalized subcutaneous, biofilm, slough Severity: Fat Layer Exposed Amount of bleeding with debridement: Mild Bleeding Controlled with: Pressure Patient tolerated procedure well Assessment/Plan Active Problems (Last Reviewed 11/08/18 @ 10:54 by Christianne Tariq NP-C) Bilateral leg edema (Chronic) Lymphedema (Chronic) Chronic ulcer of left foot with fat layer exposed (Chronic) Assessment: Ulcer left dorsal lateral foot with fat layer exposed, no infection. Previous reported cellulitis resolving (treated by ER staff provider). Bilateral lower extremity chronic edema with skin changes. Lymphedema. Peripheral vascular disease work-up and ruled out tentatively Plan: I reviewed and discussed his case today. His ulcer was debrided as noted in the clinical panel. I recommend changing the dressing daily with silver cell or Aquacel Ag. This was applied today. Advanced wound healing product will be considered in the future if this is open for more than 1 month duration and lack of meaningful progress is made. His chronic edema is a major concern at this time. I recommend more aggressive compression such as a CircAid wrap. An order was placed today. To avoid idle standing and sitting. To elevate legs at rest. His congestive heart failure status is noted. We will consider lymphedema pumps in the future. He defers at this time and admits he will not use them at home. He was reassured no local or systemic signs of infection noted today and I do not recommend antibiotics. Further work-up with venous duplex Doppler with reflux evaluation was ordered in the results were reviewed. He does not appear to have venous incompetence per the reflux study results. Additionally noninvasive arterial studies were ordered and reviewed today as well. He appears to have arterial perfusion to lower extremities without arterial significant disease. However, it is noted that his body habitus has prevented full evaluation of the PT artery and this is considered incomplete. Further referral will be considered if there is ongoing healing delays. Updated lab work orders were also provided today to better understand his baseline medical status including CBC, CMP, and screen for diabetes with hemoglobin A1c. There are no gross abnormalities with the CBC and CMP. His hemoglobin A1c was 6.7%. His past medical record from [facility] have been was reviewed. It is noted he does not have a formal diagnosis of diabetes at this time and I am concerned that he may be developing this condition. To follow-up with his primary care provider at [facility] in clinic. He was advised to follow-up in 1 week at the wound healing center or call sooner if he has any questions or concerns.
[2019-02-16 13:11] VITALS: BP 154/80; PULSE 75; RESP 20; TEMP 35.6; BMI 57.4
--- NOTE | 2019-02-16 14:08 | PCM.WC.PN ---
(1) Chronic ulcer of left foot with fat layer exposed Status: Chronic Code(s): L97.522 - Non-pressure chronic ulcer of other part of left foot with fat layer exposed (2) Bilateral leg edema Status: Chronic Code(s): R60.0 - Localized edema (3) Venous insufficiency Status: Suspected Code(s): I87.2 - Venous insufficiency (chronic) (peripheral) (4) Malnutrition Status: Suspected Code(s): E46 - Unspecified protein-calorie malnutrition (5) Lymphedema Status: Chronic Code(s): I89.0 - Lymphedema, not elsewhere classified Type of Wound Date of Service: 02/16/19 Chief Complaint: Chronic leg swelling. Ulcer cluster left foot new History of Wound: This 58-year-old male with significant past medical history of super obesity, chronic leg swelling with recurrent ulcers and delayed healing, hypertension, congestive heart failure, and sleep apnea presents for evaluation of leg swelling and new left foot ulcers. His newest foot ulcers to the top outside border and this onset was 4 weeks ago. He denies fever, chill, nausea, vomiting. He denies known redness or odor. He denies drainage. He has chronic swelling with recurrent history of ulcerations. He was referred here by the foot [facility] ankle center. He has been changing the dressing with silver cell. He reports he went to the emergency room on January 23 who treated him with antibiotics cephalexin for cellulitis. This has helped decrease redness, odor, and blister formation. He relates continued decreased discomfort this past week. Progress of Wound: Improved compared to last week - Physical Exam Vital Signs Temp Pulse Resp BP 96.0 F L 75 20 H 154/80 H 02/16/19 13:11 02/16/19 13:11 02/16/19 13:11 02/16/19 13:11 General: Alert, Oriented x3, Cooperative, No apparent distress HEENT: Atraumatic Extremities: No cyanosis, Capillary Refill Less than 3 Seconds, No Calf Tenderness - Negative Luis Antonio and Chilel sign bilateral, Diminished Peripheral Pulses, Edema Skin: Ulcer/ Wound - No purulence, erythema, streaking, odor, maceration, infection. The skin discontinuity to the dorsal lateral left foot is decreased fibrous tissue and increased granulation tissue and peripheral epithelialization noted. There is no deep tissue exposure noted or jarad necrosis. His leg skin remains intact however there is significant dry peeling skin with invagination and chronic lichenification Wound Measurements and Assessment WC - Nurse 1 - General Ulcer Measurement Start: 02/09/19 14:20 Freq: Status: Active Protocol: Activity Type Activity Date Activity User E-Sign Co-Sign Detail Recorded Client Recorded Date Recorded By Document 02/16/19 13:11 CS [id number] 02/16/19 13:16 CS 02/16/19 13:11 Wound Center Nurse 1 [Ulcer Assessment] #3- L LAT FOOT CLUSTER -Combined with other wound No -Current Size (cm) - Length 6.2 -Current Size (cm) - Width 2.3 -Current Size (cm) - Depth 0.2 -Total Square Cm 14.26 -Photo Taken No -Epithelialization None Present -Tunneling No -Undermining/Tunneling No -Circular Undermining No -Exudate Amt Small -Exudate Type Yellow/Green -Wound Margin Distinct, Outline Attached -Granulation Amt None Present (0 %) -Granulation Quality N/A -Slough/Fibrin Yes -Necrosis Amt Large (67-100%) -Necrotic Tissue Type Adherent Slough -Structure Exposed None/Limited to Skin Breakdown -Texture (Sandra-wound Skin Appearance) Friable -Moisture (Sandra-wound Skin Appearance Dry/Scaly ) -Color (Sandra-wound Skin Appearance) Erythema -Temperature (Sandra-wound Skin No Abnormality Appearance) (Pt Warm) -Tenderness on Palpation (Sandra-wound No Skin Appearance) -Ulcer Cleansing Rinsed/ Irrigated with Saline -Foul Odor after Cleansing No -Anesthetic Used 4% Lidocaine Solution [Edema Assessment] -Lower Limb Edema Present Yes -Left Calf (cm) 53.5 -Left Ankle (cm) 44.5 - Nurse 2 - General Ulcer CM Notes Start: 02/09/19 14:20 Freq: Status: Active Protocol: Activity Type Activity Date Activity User E-Sign Co-Sign Detail Recorded Client Recorded Date Recorded By Document 02/16/19 13:40 [id number] 02/16/19 13:43 02/16/19 13:40 Wound Center Nurse 2 [Procedure/Treatment] #3- L LAT FOOT CLUSTER -Time 13:41 -Correct Patient Yes -Correct Side, Site, Position Yes -Correct Procedure Yes -Procedure Performed Yes -Type of Procedure Debridement -Clinical Debridement Subcutaneous -Post Debridement Size (cm) - Length 6.2 -Post Debridement Size (cm) - Width 2.4 -Post Debridement Size (cm) - Depth 0.2 -Total Square Cm 14.88 -Wound/Ulcer Outcome Not Healed -Ulcer Cleansing Rinsed/ Irrigated with Saline -Foul Odor after Cleansing No -Bioengineered Tissue No -Bleeding Controlled with Pressure -Offloading Yes -Type of Offloading Surgical Shoe -Treatment Response Procedure Tolerated Well [See Physician Procedure note for Specifics] Pain Scale: 0-10 Numeric [Pain] -Is Patient Pain Free? Yes Musculoskeletal: No Tenderness to Palpation of Joints or Extremities, Muscle Wasting, - - Compartment soft to palpate bilateral Neurological: Sensory exam intact to light touch and pain Psych/Mental Status: Normal Affect, Appropriate Debridement Note Post-Debridement Measurements/Treatment WC - Nurse 2 - General Ulcer CM Notes Start: 02/09/19 14:20 Freq: Status: Active Protocol: Activity Type Activity Date Activity User E-Sign Co-Sign Detail Recorded Client Recorded Date Recorded By Document 02/09/19 15:14 [id number] 02/09/19 15:17 Document 02/16/19 13:40 [id number] 02/16/19 13:43 02/09/19 02/16/19 15:14 13:40 Wound Center Nurse 2 #3- L LAT FOOT CLUSTER -Time 15:16 13:41 -Correct Patient Yes Yes -Correct Side, Site, Position Yes Yes -Correct Procedure Yes Yes -Procedure Performed Yes Yes -Type of Procedure Debridement Debridement -Clinical Debridement Subcutaneous Subcutaneous -Post Debridement Size (cm) - Length 3.1 6.2 -Post Debridement Size (cm) - Width 1.1 2.4 -Post Debridement Size (cm) - Depth 0.1 0.2 -Total Square Cm 3.41 14.88 -Wound/Ulcer Outcome Not Healed Not Healed -Ulcer Cleansing Rinsed/ Rinsed/ Irrigated with Irrigated with Saline Saline -Foul Odor after Cleansing No No -Bioengineered Tissue No No -Bleeding Controlled with Pressure Pressure -Offloading Yes Yes -Type of Offloading Surgical Shoe Surgical Shoe -Treatment Response Procedure Procedure Tolerated Well Tolerated Well Pain Scale: 0-10 Numeric Is Patient Pain Free? Yes Yes Wound debrided: dorsal lateral foot Laterality: Left Type of Debridement: Excisional debridement Anesthesia Used: 5% Lidocaine Gel Depth: in the subcutaneous layer Percentage of wound debrided: 100 Instrument Used: #15 blade Tissue Removed: fibrous, devitalized subcutaneous, biofilm, slough Severity: Fat Layer Exposed Amount of bleeding with debridement: Mild Bleeding Controlled with: Pressure Patient tolerated procedure well Assessment/Plan Assessment: Ulcer left dorsal lateral foot with fat layer exposed, no infection. Previous reported cellulitis resolving (treated by ER staff provider). Bilateral lower extremity chronic edema with skin changes. Lymphedema. Peripheral vascular disease work-up and ruled out tentatively. xerosis Plan: I reviewed and discussed his case today. His ulcer was debrided as noted in the clinical panel. I recommend changing the dressing daily with silver cell or Aquacel Ag. This was applied today. Advanced wound healing product will be considered in the future if this is open for more than 1 month duration and lack of meaningful progress is made. His chronic edema is a major concern at this time. I recommend more aggressive compression such as a CircAid wrap. An order was placed today. To avoid idle standing and sitting. To elevate legs at rest. His congestive heart failure status is noted. We will consider lymphedema pumps in the future. He defers at this time and admits he will not use them at home. He was reassured no local or systemic signs of infection noted today and I do not recommend antibiotics. Further work-up with venous duplex Doppler with reflux evaluation was ordered in the results were reviewed. He does not appear to have venous incompetence per the reflux study results. Additionally noninvasive arterial studies were ordered and reviewed today as well. He appears to have arterial perfusion to lower extremities without arterial significant disease. However, it is noted that his body habitus has prevented full evaluation of the PT artery and this is considered incomplete. Further referral will be considered if there is ongoing healing delays. Updated lab work orders were also provided today to better understand his baseline medical status including CBC, CMP, and screen for diabetes with hemoglobin A1c. There are no gross abnormalities with the CBC and CMP. His hemoglobin A1c was 6.7%. His past medical record from [facility] have been was reviewed. It is noted he does not have a formal diagnosis of diabetes at this time and I am concerned that he may be developing this condition. To follow-up with his primary care provider at [facility] in clinic. His persistent xerosis is noted and he understands edema management is a big part of his treatment plan. I do also recommend a prescription strength moisturizing cream. A prescription for Lac-Hydrin 12% cream was provided today and he was advised on proper use. He was advised to follow-up in 1 week at the wound healing center or call sooner if he has any questions or concerns.
[2019-02-23 14:00] VITALS: BP 141/93; PULSE 80; RESP 22; TEMP 35.8; BMI 57.4
--- NOTE | 2019-02-24 18:20 | PN.PCM_ITS ---
(1) Chronic ulcer of left foot with fat layer exposed Status: Chronic Current Visit: Yes Code(s): L97.522 - Non-pressure chronic ulcer of other part of left foot with fat layer exposed (2) Bilateral leg edema Status: Chronic Current Visit: Yes Code(s): R60.0 - Localized edema (3) Venous insufficiency Status: Suspected Current Visit: Yes Code(s): I87.2 - Venous insufficiency (chronic) (peripheral) (4) Malnutrition Status: Suspected Current Visit: Yes Code(s): E46 - Unspecified protein- calorie malnutrition (5) Lymphedema Status: Chronic Current Visit: Yes Code(s): I89.0 - Lymphedema, not elsewhere classified Type of Wound Date of Service: 02/23/19 Chief Complaint: Chronic leg swelling. Ulcer cluster left foot History of Wound: This 58-year-old male with significant past medical history of super obesity, chronic leg swelling with recurrent ulcers and delayed healing, hypertension, congestive heart failure, and sleep apnea presents for evaluation of leg swelling and left foot ulcers. He denies fever, chill, nausea, vomiting. He denies known redness or odor. He denies drainage. He has chronic swelling with recurrent history of ulcerations. He was referred here by the foot and ankle center. He has been changing the dressing with silver cell. He is wearing a surgical shoe as advised. Progress of Wound: Improving - Physical Exam Vital Signs Temp Pulse Resp BP 96.4 F L 80 22 H 141/93 H 02/23/19 14:00 02/23/19 14:00 02/23/19 14:00 02/23/19 14:00 General: Alert, Oriented x3, Cooperative, No apparent distress Extremities: No cyanosis, Capillary Refill Less than 3 Seconds, No Calf Tenderness, Diminished Peripheral Pulses, Edema Skin: Ulcer/ Wound - No purulence, erythema, streaking, odor, infection. Peripheral skin is hairless and atrophic. Wound Measurements and Assessment WC - Nurse 1 - General Ulcer Measurement Start: 02/09/19 14:20 Freq: Status: Active Protocol: Activity Type Activity Date Activity User E-Sign Co-Sign Detail Recorded Client Recorded Date Recorded By Document 02/23/19 14:00 [facility] [id number] 02/23/19 14:09 [facility] 02/23/19 14:00 Wound Center Nurse 1 [Ulcer Assessment] #3- L LAT FOOT CLUSTER -Combined with other wound No -Current Size (cm) - Length 1.9 -Current Size (cm) - Width 2.2 -Current Size (cm) - Depth 0.2 -Total Square Cm 4.18 -Photo Taken No -Epithelialization None Present -Tunneling No -Undermining/Tunneling No -Circular Undermining No -Exudate Amt Small -Exudate Type Serous -Wound Margin Distinct, Outline Attached -Granulation Amt None Present (0 %) -Slough/Fibrin Yes -Necrosis Amt Large (67-100%) -Necrotic Tissue Type Adherent Slough -Texture (Sandra-wound Skin Appearance) Assessed, Scarring -Moisture (Sandra-wound Skin Appearance Assessed,Dry/ ) Scaly -Color (Sandra-wound Skin Appearance) Assessed -Temperature (Sandra-wound Skin No Abnormality Appearance) (Pt Warm) -Tenderness on Palpation (Sandra-wound No Skin Appearance) -Ulcer Cleansing Rinsed/ Irrigated with Saline -Foul Odor after Cleansing No -Anesthetic Used 4% Lidocaine Solution [Edema Assessment] -Lower Limb Edema Present Yes -Left Calf (cm) 54 -Left Ankle (cm) 34 WC - Nurse 2 - General Ulcer CM Notes Start: 02/09/19 14:20 Freq: Status: Active Protocol: Activity Type Activity Date Activity User E-Sign Co-Sign Detail Recorded Client Recorded Date Recorded By Document 02/23/19 14:34 [email or web address] [id number] 02/23/19 14:39 MEHUL 02/23/19 14:34 Wound Center Nurse 2 [Procedure/Treatment] #3- L LAT FOOT CLUSTER -Time 14:37 -Correct Patient Yes -Correct Side, Site, Position Yes -Correct Procedure Yes -Procedure Performed Yes -Type of Procedure Debridement -Clinical Debridement Subcutaneous -Post Debridement Size (cm) - Length 2 -Post Debridement Size (cm) - Width 2.2 -Post Debridement Size (cm) - Depth 0.2 -Total Square Cm 4.4 -Wound/Ulcer Outcome Not Healed -Ulcer Cleansing Rinsed/ Irrigated with Saline -Foul Odor after Cleansing No -Bioengineered Tissue No -Bleeding Controlled with Pressure -Offloading No -Treatment Response Procedure Tolerated Well [See Physician Procedure note for Specifics] Pain Scale: 0-10 Numeric [Pain] -Is Patient Pain Free? Yes Musculoskeletal: No Tenderness to Palpation of Joints or Extremities, Muscle Wasting, - - Compartments are soft to palpate Neurological: - - Lack of normal epicritic sensation light touch is consistent with neuropathy Psych/Mental Status: Normal Affect, Appropriate Debridement Note Post-Debridement Measurements/Treatment WC - Nurse 2 - General Ulcer CM Notes Start: 02/09/19 14:20 Freq: Status: Active Protocol: Activity Type Activity Date Activity User E-Sign Co-Sign Detail Recorded Client Recorded Date Recorded By Document 02/09/19 15:14 [id number] 02/09/19 15:17 Document 02/16/19 13:40 [id number] 02/16/19 13:43 Document 02/23/19 14:34 [id number] 02/23/19 14:39 02/09/19 02/16/19 02/23/19 15:14 13:40 14:34 Wound Center Nurse 2 #3- L LAT FOOT CLUSTER -Time 15:16 13:41 14:37 -Correct Patient Yes Yes Yes -Correct Side, Site, Position Yes Yes Yes -Correct Procedure Yes Yes Yes -Procedure Performed Yes Yes Yes -Type of Procedure Debridement Debridement Debridement -Clinical Debridement Subcutaneous Subcutaneous Subcutaneous -Post Debridement Size (cm) - Length 3.1 6.2 2 -Post Debridement Size (cm) - Width 1.1 2.4 2.2 -Post Debridement Size (cm) - Depth 0.1 0.2 0.2 -Total Square Cm 3.41 14.88 4.4 -Wound/Ulcer Outcome Not Healed Not Healed Not Healed -Ulcer Cleansing Rinsed/ Rinsed/ Rinsed/ Irrigated with Irrigated with Irrigated with Saline Saline Saline -Foul Odor after Cleansing No No No -Bioengineered Tissue No No No -Bleeding Controlled with Pressure Pressure Pressure -Offloading Yes Yes No -Type of Offloading Surgical Shoe Surgical Shoe -Treatment Response Procedure Procedure Procedure Tolerated Well Tolerated Well Tolerated Well Pain Scale: 0-10 Numeric Is Patient Pain Free? Yes Yes Yes Wound debrided: dorsal lateral foot Laterality: Left Type of Debridement: Excisional debridement Anesthesia Used: 5% Lidocaine Gel Depth: in the subcutaneous layer Percentage of wound debrided: 100 Instrument Used: #15 blade Tissue Removed: fibrous, devitalized subcutaneous, biofilm, slough Severity: Fat Layer Exposed Amount of bleeding with debridement: Mild Bleeding Controlled with: Pressure Patient tolerated procedure well Assessment/Plan Active Problems (Last Reviewed 11/08/18 @ 10:54 by SUNIL Carter) Bilateral leg edema (Chronic) Lymphedema (Chronic) Chronic ulcer of left foot with fat layer exposed (Chronic) Assessment: Ulcer left dorsal lateral foot with fat layer exposed, no infection. Bilateral lower extremity chronic edema with skin changes. Lymphedema. Peripheral vascular disease work-up and ruled out tentatively. xerosis Plan: I reviewed and discussed his case today. His ulcer was debrided as noted in the clinical panel. I recommend changing the dressing daily with silver cell or Aquacel Ag. This was applied today. Advanced wound healing product will be considered in the future if this is open for more than 1 month duration and lack of meaningful progress is made. His chronic edema is a major concern at this time. I recommend more aggressive compression such as a CircAid wrap. An order was placed today. To avoid idle standing and sitting. To elevate legs at rest. His congestive heart failure status is noted. We refuses lymphedema pumps at this time because he said he is unable to put them on he does not have enough help throughout the day to complete this recommendation. He was reassured no local or systemic signs of infection noted today and I do not recommend antibiotics. Further work-up with venous duplex Doppler with reflux evaluation was ordered in the results were reviewed. He does not appear to have venous incompetence per the reflux study results. Additionally noninvasive arterial studies were ordered and reviewed today as well. He appears to have arterial perfusion to lower extremities without arterial significant disease. However, it is noted that his body habitus has prevented full evaluation of the PT artery and this is considered incomplete. Recommend vascular specialist referral to see if any intervention is possible. Updated lab work orders were also provided today to better understand his baseline medical status including CBC, CMP, and screen for diabetes with hemoglobin A1c. There are no gross abnormalities with the CBC and CMP. His hemoglobin A1c was 6.7%. His past medical record from [facility] have been was reviewed. To follow- up with his primary care provider at [facility] in clinic. His persistent xerosis is noted and he understands edema management is a big part of his treatment plan. I do also recommend a prescription strength moisturizing cream. A prescription for Lac-Hydrin 12% cream was provided previously and we reviewed compliance today. He was advised to follow-up in 1 week at the wound healing center or call sooner if he has any questions or concerns.
== END 2019-03-05 23:59 ==
LOC: WC 14:00
PROVIDERS: Referring Provider Podiatrist; Visit Provider Podiatrist
DX: L97.522 Non-pressure chronic ulcer of other part of left foot with fat layer exposed (principal); I89.0 Lymphedema, not elsewhere classified; R60.0 Localized edema; E66.01 Morbid (severe) obesity due to excess calories; Z68.43 Body mass index [BMI] 50.0-59.9, adult; Z71.3 Dietary counseling and surveillance; I11.0 Hypertensive heart disease with heart failure; G47.30 Sleep apnea, unspecified; M79.89 Other specified soft tissue disorders; I50.9 Heart failure, unspecified; L28.0 Lichen simplex chronicus; L85.3 Xerosis cutis
CPT/HCPCS: 11042

== ENCOUNTER 2019-03-23 10:15 | Outpatient (RCR) | payer MEDICAID, SELFPAY ==
[2019-03-06 00:56] VITALS: BP 141/93; PULSE 80; RESP 22; TEMP 35.8
[2019-03-09 10:18] VITALS: BP 133/81; PULSE 77; RESP 22; TEMP 36.3; BMI 57.4
--- NOTE | 2019-03-09 15:10 | PN.PCM_ITS ---
(1) Chronic ulcer of left foot with fat layer exposed Status: Chronic Code(s): L97.522 - Non-pressure chronic ulcer of other part of left foot with fat layer exposed (2) Bilateral leg edema Status: Resolved Code(s): R60.0 - Localized edema (3) Venous insufficiency Status: Suspected Code(s): I87.2 - Venous insufficiency (chronic) (peripheral) (4) Other specified peripheral vascular diseases Status: Suspected Code(s): I73.89 - Other specified peripheral vascular diseases (5) Malnutrition Status: Suspected Code(s): E46 - Unspecified protein-calorie malnutrition (6) Lymphedema Status: Chronic Code(s): I89.0 - Lymphedema, not elsewhere classified (7) CHF (congestive heart failure) Status: Chronic Qualifiers: Code(s): I50.9 - Heart failure, unspecified Type of Wound Date of Service: 03/09/19 Chief Complaint: Chronic leg swelling. Ulcer cluster left foot History of Wound: This 58-year-old male with significant past medical history of super obesity, chronic leg swelling with recurrent ulcers and delayed healing, hypertension, congestive heart failure, and sleep apnea presents for evaluation of leg swelling and left foot ulcers. He denies fever, chill, nausea, vomiting. He denies known redness or odor. He denies drainage. He has chronic swelling with recurrent history of ulcerations. He was referred here by the foot [facility] ankle center. He has been changing the dressing with silver cell. He is wearing a surgical shoe as advised. Progress of Wound: Improving - Physical Exam Vital Signs Temp Pulse Resp BP 97.4 F L 77 22 H 133/81 H 03/09/19 10:18 03/09/19 10:18 03/09/19 10:18 03/09/19 10:18 General: Alert, Oriented x3, Cooperative, No apparent distress HEENT: Atraumatic Extremities: No cyanosis, Capillary Refill Less than 3 Seconds, No Calf Tenderness, Diminished Peripheral Pulses, Edema Skin: Ulcer/ Wound - No purulence, erythema, string, odor, infection. Peripheral skin is dry, atrophic, and with chronic lichenification. The ulcer bed is fibrous and granular and is very painful Wound Measurements and Assessment WC - Nurse 1 - General Ulcer Measurement Start: 03/09/19 10:18 Freq: Status: Active Protocol: Activity Type Activity Date Activity User E-Sign Co-Sign Detail Recorded Client Recorded Date Recorded By Document 03/09/19 10:18 DL [id number] 03/09/19 10:23 DL 03/09/19 10:18 Wound Center Nurse 1 [Ulcer Assessment] #3- L LAT FOOT CLUSTER -Current Size (cm) - Length 2.1 -Current Size (cm) - Width 0.4 -Current Size (cm) - Depth 0.2 -Total Square Cm 0.84 -Photo Taken No -Exudate Amt None Present -Wound Margin Distinct, Outline Attached -Granulation Amt Large (67-100%) -Granulation Quality Red -Necrosis Amt Small (1-33%) -Necrotic Tissue Type Adherent Slough -Structure Exposed N/A -Texture (Sandra-wound Skin Appearance) Scarring -Moisture (Sandra-wound Skin Appearance Dry/Scaly ) -Color (Sandra-wound Skin Appearance) Hemosiderin Staining,Rubor -Temperature (Sandra-wound Skin No Abnormality Appearance) (Pt Warm) -Tenderness on Palpation (Sandra-wound No Skin Appearance) -Ulcer Cleansing Rinsed/ Irrigated with Saline -Foul Odor after Cleansing No -Anesthetic Used 5% Lidocaine Gel WC - Nurse 2 - General Ulcer CM Notes Start: 03/09/19 10:18 Freq: Status: Active Protocol: Activity Type Activity Date Activity User E-Sign Co-Sign Detail Recorded Client Recorded Date Recorded By Document 03/09/19 10:46 MEHUL [id number] 03/09/19 10:50 03/09/19 10:46 Wound Center Nurse 2 [Procedure/Treatment] -Time 10:46 -Correct Patient Yes -Correct Side, Site, Position Yes -Correct Procedure Yes -Procedure Performed Yes -Type of Procedure Debridement -Clinical Debridement Subcutaneous -Post Debridement Size (cm) - Length 2 -Post Debridement Size (cm) - Width 1.2 -Post Debridement Size (cm) - Depth 0.2 -Total Square Cm 2.4 -Wound/Ulcer Outcome Not Healed -Ulcer Cleansing Rinsed/ Irrigated with Saline -Foul Odor after Cleansing No -Bioengineered Tissue No -Bleeding Controlled with Pressure -Offloading No -Treatment Response Procedure Tolerated Well [See Physician Procedure note for Specifics] Pain Scale: 0-10 Numeric [Pain] -Is Patient Pain Free? Yes Musculoskeletal: No Tenderness to Palpation of Joints or Extremities, Muscle Wasting Neurological: - Psych/Mental Status: Normal Affect, Appropriate Debridement Note Post-Debridement Measurements/Treatment WC - Nurse 2 - General Ulcer CM Notes Start: 03/09/19 10:18 Freq: Status: Active Protocol: Activity Type Activity Date Activity User E-Sign Co-Sign Detail Recorded Client Recorded Date Recorded By Document 03/09/19 10:46 MEHUL [id number] 03/09/19 10:50 MEHUL 03/09/19 10:46 Wound Center Nurse 2 #3- L LAT FOOT CLUSTER -Time 10:46 -Correct Patient Yes -Correct Side, Site, Position Yes -Correct Procedure Yes -Procedure Performed Yes -Type of Procedure Debridement -Clinical Debridement Subcutaneous -Post Debridement Size (cm) - Length 2 -Post Debridement Size (cm) - Width 1.2 -Post Debridement Size (cm) - Depth 0.2 -Total Square Cm 2.4 -Wound/Ulcer Outcome Not Healed -Ulcer Cleansing Rinsed/ Irrigated with Saline -Foul Odor after Cleansing No -Bioengineered Tissue No -Bleeding Controlled with Pressure -Offloading No -Treatment Response Procedure Tolerated Well Pain Scale: 0-10 Numeric Is Patient Pain Free? Yes Wound debrided: dorsal foot Laterality: Left Type of Debridement: Excisional debridement Anesthesia Used: 5% Lidocaine Gel Depth: in the subcutaneous layer Percentage of wound debrided: 100 Instrument Used: #15 blade Tissue Removed: fibrous, devitalized subcutaneous, biofilm, slough Severity: Fat Layer Exposed Amount of bleeding with debridement: Mild Bleeding Controlled with: Pressure Patient tolerated procedure well Assessment/Plan Assessment: Ulcer left dorsal lateral foot with fat layer exposed, no infection. Bilateral lower extremity chronic edema with skin changes. Lymphedema. Peripheral vascular disease work-up and ruled out tentatively. xerosis Plan: I reviewed and discussed his case today. His ulcer was debrided as noted in the clinical panel. I recommend changing the dressing daily with silver cell or Aquacel Ag. This was applied today. Advanced wound healing product will be considered in the future if this is open for more than 1 month duration and lack of meaningful progress is made. His chronic edema is a major concern at this time. I recommend more aggressive compression such as a CircAid wrap. He has been wearing this however it is applied in a very loose manner and he does not wear the foot sleeve which is imperative for this to function properly. To avoid idle standing and sitting. To elevate legs at rest. His congestive heart failure status is noted. We deviously refused lymphedema pumps and today reports he is amenable to proceed forward with this. Company will be contacted again. He was also trained on proper application and use of the CircAid compression wrap. He was reassured no local or systemic signs of infection noted today and I do not recommend antibiotics. Due to the chronicity of this ulcer pain and anaerobic and aerobic culture was obtained to look for any bacterial contamination or bioburden. If abnormal pathological bacteria is identified, either oral antibiotics or an antimicrobial soap wash will be considered. Further work-up with venous duplex Doppler with reflux evaluation was ordered in the results were reviewed. He does not appear to have venous incompetence per the reflux study results. Additionally noninvasive arterial studies were ordered and reviewed today as well. He appears to have arterial perfusion to lower extremities without arterial significant disease. However, it is noted that his body habitus has prevented full evaluation of the PT artery and this is considered incomplete. Recommend vascular specialist referral to see if any intervention is possible. Updated lab work orders were also provided today to better understand his baseline medical status including CBC, CMP, and screen for diabetes with hemoglobin A1c. There are no gross abnormalities with the CBC and CMP. His hemoglobin A1c was 6.7%. His past medical record from [facility] have been was reviewed. To follow-up with his primary care provider at [facility] in clinic. His persistent xerosis is noted and he understands edema management is a big part of his treatment plan. I do also recommend a prescription strength moisturizing cream. A prescription for Lac- Hydrin 12% cream was provided previously and we reviewed compliance today. He was advised to follow-up in 1 week at the wound healing center or call sooner if he has any questions or concerns.
[2019-03-16 09:05] VITALS: BP 153/93; PULSE 78; RESP 20; TEMP 35.4; BMI 57.4
--- NOTE | 2019-03-16 09:59 | PCM.WC.PN ---
(1) Chronic ulcer of left foot with fat layer exposed Status: Chronic Current Visit: Yes Code(s): L97.522 - Non-pressure chronic ulcer of other part of left foot with fat layer exposed (2) Bilateral leg edema Status: Chronic Current Visit: Yes Code(s): R60.0 - Localized edema (3) Venous insufficiency Status: Suspected Current Visit: Yes Code(s): I87.2 - Venous insufficiency (chronic) (peripheral) (4) Other specified peripheral vascular diseases Status: Suspected Current Visit: Yes Code(s): I73.89 - Other specified peripheral vascular diseases (5) Malnutrition Status: Suspected Current Visit: Yes Code(s): E46 - Unspecified protein-calorie malnutrition (6) Lymphedema Status: Chronic Current Visit: Yes Code(s): I89.0 - Lymphedema, not elsewhere classified (7) CHF (congestive heart failure) Status: Chronic Current Visit: Yes Qualifiers: Code(s): I50.9 - Heart failure, unspecified Type of Wound Date of Service: 03/16/19 Chief Complaint: Chronic leg swelling. Ulcer cluster left foot History of Wound: This 58-year-old male with significant past medical history of super obesity, chronic leg swelling with recurrent ulcers and delayed healing, hypertension, congestive heart failure, and sleep apnea presents for evaluation of leg swelling and left foot ulcers. He denies fever, chill, nausea, vomiting. He denies known redness or odor. He denies drainage. He has chronic swelling with recurrent history of ulcerations. He was referred here by the foot and ankle center. He has been changing the dressing with silver cell. He is wearing a surgical shoe as advised. He relates he has a family member that can help him perform cleansing, dressing care, and lotion application. He did not tolerate the Lac-Hydrin well previously. He has Goldbond lotion at home and relates this has worked well in the past however he admits he has not been applying on a routine basis. Progress of Wound: Improving - Physical Exam Vital Signs Temp Pulse Resp BP 95.7 F L 78 20 H 153/93 H 03/16/19 09:05 03/16/19 09:05 03/16/19 09:05 03/16/19 09:05 General: Alert, Oriented x3, Cooperative, No apparent distress Extremities: No cyanosis, Capillary Refill Less than 3 Seconds, No Calf Tenderness, Diminished Peripheral Pulses, Edema Skin: Ulcer/ Wound - No purulence, erythema, string, odor, infection. Continued fibrous and granulation tissue noted in the ulcer bed and peripheral epithelialization is noted. Adjacent skin is dry, with skin peeling, chronic skin buildup and invagination of the skin at the ankle level. There is no interdigital maceration process Wound Measurements and Assessment WC - Nurse 1 - General Ulcer Measurement Start: 03/09/19 10:18 Freq: Status: Active Protocol: Activity Type Activity Date Activity User E-Sign Co-Sign Detail Recorded Client Recorded Date Recorded By Document 03/16/19 09:05 [facility] [id number] 03/16/19 09:11 [facility] 03/16/19 09:05 Wound Center Nurse 1 [Ulcer Assessment] #3- L LAT FOOT CLUSTER -Combined with other wound No -Current Size (cm) - Length 2.3 -Current Size (cm) - Width 1 -Current Size (cm) - Depth 0.1 -Total Square Cm 2.3 -Date of Last Picture (Recall this 03/16/19 field) -Photo Taken Yes -Epithelialization None Present -Tunneling No -Undermining/Tunneling No -Circular Undermining No -Exudate Amt Small -Exudate Type Serous -Wound Margin Flat & Intact -Granulation Amt None Present (0 %) -Slough/Fibrin Yes -Necrosis Amt Large (67-100%) -Necrotic Tissue Type Adherent Slough -Texture (Sandra-wound Skin Appearance) Assessed,Callus ,Scarring -Moisture (Sandra-wound Skin Appearance Assessed,Dry/ ) Scaly -Color (Sandra-wound Skin Appearance) Assessed -Temperature (Sandra-wound Skin No Abnormality Appearance) (Pt Warm) -Tenderness on Palpation (Sandra-wound Yes Skin Appearance) -Ulcer Cleansing Rinsed/ Irrigated with Saline -Foul Odor after Cleansing No -Anesthetic Used 5% Lidocaine Gel [Edema Assessment] -Lower Limb Edema Present Yes - Nurse 2 - General Ulcer CM Notes Start: 03/09/19 10:18 Freq: Status: Active Protocol: Activity Type Activity Date Activity User E-Sign Co-Sign Detail Recorded Client Recorded Date Recorded By Document 03/16/19 09:38 [id number] 03/16/19 09:42 03/16/19 09:38 Wound Center Nurse 2 [Procedure/Treatment] #3- L LAT FOOT CLUSTER -Time 09:40 -Correct Patient Yes -Correct Side, Site, Position Yes -Correct Procedure Yes -Procedure Performed Yes -Type of Procedure Debridement -Clinical Debridement Subcutaneous -Post Debridement Size (cm) - Length 2.3 -Post Debridement Size (cm) - Width 1.1 -Post Debridement Size (cm) - Depth 0.1 -Total Square Cm 2.53 -Wound/Ulcer Outcome Not Healed -Ulcer Cleansing Rinsed/ Irrigated with Saline -Foul Odor after Cleansing No -Bioengineered Tissue No -Bleeding Controlled with Pressure -Offloading No -Treatment Response Procedure Tolerated Well [See Physician Procedure note for Specifics] Pain Scale: 0-10 Numeric [Pain] -Is Patient Pain Free? Yes Musculoskeletal: No Tenderness to Palpation of Joints or Extremities, Muscle Wasting, - - Edema lower extremities consistent with lymphedema Neurological: Sensory exam intact to light touch and pain Psych/Mental Status: Normal Affect, Appropriate Debridement Note Post-Debridement Measurements/Treatment WC - Nurse 2 - General Ulcer CM Notes Start: 03/09/19 10:18 Freq: Status: Active Protocol: Activity Type Activity Date Activity User E-Sign Co-Sign Detail Recorded Client Recorded Date Recorded By Document 03/09/19 10:46 [id number] 03/09/19 10:50 Document 03/16/19 09:38 [id number] 03/16/19 09:42 03/09/19 03/16/19 10:46 09:38 Wound Center Nurse 2 #3- L LAT FOOT CLUSTER -Time 10:46 09:40 -Correct Patient Yes Yes -Correct Side, Site, Position Yes Yes -Correct Procedure Yes Yes -Procedure Performed Yes Yes -Type of Procedure Debridement Debridement -Clinical Debridement Subcutaneous Subcutaneous -Post Debridement Size (cm) - Length 2 2.3 -Post Debridement Size (cm) - Width 1.2 1.1 -Post Debridement Size (cm) - Depth 0.2 0.1 -Total Square Cm 2.4 2.53 -Wound/Ulcer Outcome Not Healed Not Healed -Ulcer Cleansing Rinsed/ Rinsed/ Irrigated with Irrigated with Saline Saline -Foul Odor after Cleansing No No -Bioengineered Tissue No No -Bleeding Controlled with Pressure Pressure -Offloading No No -Treatment Response Procedure Procedure Tolerated Well Tolerated Well Pain Scale: 0-10 Numeric Is Patient Pain Free? Yes Yes Wound debrided: dorsal foot cluster Laterality: Left Type of Debridement: Excisional debridement Anesthesia Used: 5% Lidocaine Gel Depth: in the subcutaneous layer Percentage of wound debrided: 50 Instrument Used: #15 blade Tissue Removed: fibrous, devitalized subcutaneous, biofilm, slough Severity: Fat Layer Exposed Amount of bleeding with debridement: Mild Bleeding Controlled with: Pressure Patient tolerated procedure well Assessment/Plan Active Problems (Last Reviewed 11/08/18 @ 10:54 by Christianne Tariq NP-C) Bilateral leg edema (Chronic) Lymphedema (Chronic) Chronic ulcer of left foot with fat layer exposed (Chronic) CHF (congestive heart failure) (Chronic) Assessment: Ulcer left dorsal lateral foot with fat layer exposed, no infection. Bilateral lower extremity chronic edema with skin changes. Lymphedema. Peripheral vascular disease work-up and ruled out tentatively. xerosis Plan: I reviewed and discussed his case today. His ulcer was debrided as noted in the clinical panel. I recommend changing the dressing daily with silver cell or Aquacel Ag. This was applied today. Advanced wound healing product will be considered in the future if this is open for more than 1 month duration and lack of meaningful progress is made. His chronic edema is a major concern at this time. I recommend more aggressive compression such as a CircAid wrap. He has been wearing this however it is applied in a very loose manner and he does not wear the foot sleeve which is imperative for this to function properly. To avoid idle standing and sitting. To elevate legs at rest. His congestive heart failure status is noted. We deviously refused lymphedema pumps and today reports he is amenable to proceed forward with this. Company is already been contacted again on 03/09/2019. He was also trained on proper application and use of the CircAid compression wrap. He was reassured no local or systemic signs of infection noted today and I do not recommend antibiotics. Due to the chronicity of this ulcer pain and anaerobic and aerobic culture was obtained to look for any bacterial contamination or bioburden. Serratia gram-negative bacteria was identified and this is not a part of the normal skin domingo. There are local lack of infection sign. I would consider this a contamination which may be contributing to his pain and delays in healing. I do recommend that he washes with antimicrobial Hibiclens soap on a daily basis this upcoming week to help reduce his bioburden. This was dispensed. His parents can help him perform this. I also recommend moisturizing the adjacent skin improve the skin integrity with Goldbond lotion. Further work-up with venous duplex Doppler with reflux evaluation was ordered in the results were reviewed. He does not appear to have venous incompetence per the reflux study results. Additionally noninvasive arterial studies were ordered and reviewed today as well. He appears to have arterial perfusion to lower extremities without arterial significant disease. However, it is noted that his body habitus has prevented full evaluation of the PT artery and this is considered incomplete. Recommend vascular specialist referral to see if any intervention is possible. Updated lab work orders were also provided today to better understand his baseline medical status including CBC, CMP, and screen for diabetes with hemoglobin A1c. There are no gross abnormalities with the CBC and CMP. His hemoglobin A1c was 6.7%. His past medical record from [facility] clinic have been was reviewed. To follow-up with his primary care provider at [facility] in clinic. His persistent xerosis is noted and he understands edema management is a big part of his treatment plan. He was advised to follow-up in 1 week at the wound healing center or call sooner if he has any questions or concerns.
[2019-03-23 10:29] VITALS: BP 150/62; PULSE 73; RESP 20; TEMP 36.3; BMI 57.4
--- NOTE | 2019-03-23 13:20 | PN.PCM_ITS ---
(1) Colonization status Status: Acute Code(s): Z22.9 - Carrier of infectious disease, unspecified (2) Chronic ulcer of left foot with fat layer exposed Status: Chronic Code(s): L97.522 - Non-pressure chronic ulcer of other part of left foot with fat layer exposed (3) Bilateral leg edema Status: Chronic Code(s): R60.0 - Localized edema (4) Venous insufficiency Status: Suspected Code(s): I87.2 - Venous insufficiency (chronic) (peripheral) (5) Other specified peripheral vascular diseases Status: Suspected Code(s): I73.89 - Other specified peripheral vascular diseases (6) Malnutrition Status: Suspected Code(s): E46 - Unspecified protein-calorie malnutrition (7) Lymphedema Status: Chronic Code(s): I89.0 - Lymphedema, not elsewhere classified (8) CHF (congestive heart failure) Status: Chronic Qualifiers: Code(s): I50.9 - Heart failure, unspecified Type of Wound Date of Service: 03/23/19 Chief Complaint: Chronic leg swelling. Ulcer cluster left foot History of Wound: This 58-year-old male with significant past medical history of super obesity, chronic leg swelling with recurrent ulcers and delayed healing, hypertension, congestive heart failure, and sleep apnea presents for evaluation of leg swelling and left foot ulcers. He denies fever, chill, nausea, vomiting. He denies known redness or odor. He denies drainage. He has chronic swelling with recurrent history of ulcerations. He was referred here by the foot and ankle center. He has been changing the dressing with silver cell. He is wearing a surgical shoe as advised. He relates he has a family member that can help him perform cleansing, dressing care, and lotion application. He did not tolerate the Lac-Hydrin well previously. Progress of Wound: Improving - Physical Exam Vital Signs Temp Pulse Resp BP 97.4 F L 73 20 H 150/62 H 03/23/19 10:29 03/23/19 10:29 03/23/19 10:29 03/23/19 10:29 General: Alert, Oriented x3, Cooperative, No apparent distress Extremities: No cyanosis, Capillary Refill Less than 3 Seconds, No Calf Tenderness, Diminished Peripheral Pulses, Edema Skin: Ulcer/ Wound - No purulence, erythema, swelling, odor, infection. Skin is atrophic with chronic edema changes. The ulcers are decreased in size and there is a fibrous base and some granulation tissue Wound Measurements and Assessment WC - Nurse 1 - General Ulcer Measurement Start: 03/09/19 10:18 Freq: Status: Active Protocol: Activity Type Activity Date Activity User E-Sign Co-Sign Detail Recorded Client Recorded Date Recorded By Document 03/23/19 10:29 [facility] [id number] 03/23/19 10:36 [facility] 03/23/19 10:29 Wound Center Nurse 1 [Ulcer Assessment] #3- L LAT FOOT CLUSTER -Combined with other wound No -Current Size (cm) - Length 1 -Current Size (cm) - Width 2.3 -Current Size (cm) - Depth 0.1 -Total Square Cm 2.3 -Photo Taken No -Epithelialization None Present -Tunneling No -Undermining/Tunneling No -Circular Undermining No -Exudate Amt Small -Exudate Type Serosanguineous -Wound Margin Distinct, Outline Attached -Granulation Amt None Present (0 %) -Slough/Fibrin Yes -Necrosis Amt Large (67-100%) -Necrotic Tissue Type Adherent Slough -Texture (Sandra-wound Skin Appearance) Assessed, Scarring -Moisture (Sandra-wound Skin Appearance Assessed,Dry/ ) Scaly -Color (Sandra-wound Skin Appearance) Assessed -Temperature (Sandra-wound Skin No Abnormality Appearance) (Pt Warm) -Tenderness on Palpation (Sandra-wound No Skin Appearance) -Ulcer Cleansing Rinsed/ Irrigated with Saline -Foul Odor after Cleansing No -Anesthetic Used 5% Lidocaine Gel [Edema Assessment] -Lower Limb Edema Present Yes -Left Calf (cm) 53.1 -Left Ankle (cm) 34.1 WC - Nurse 2 - General Ulcer CM Notes Start: 03/09/19 10:18 Freq: Status: Active Protocol: Activity Type Activity Date Activity User E-Sign Co-Sign Detail Recorded Client Recorded Date Recorded By Document 03/23/19 11:03 [id number] 03/23/19 11:04 03/23/19 11:03 Wound Center Nurse 2 [Procedure/Treatment] #3- L LAT FOOT CLUSTER -Time 11:03 -Correct Patient Yes -Correct Side, Site, Position Yes -Correct Procedure Yes -Procedure Performed Yes -Type of Procedure Debridement -Clinical Debridement Subcutaneous -Post Debridement Size (cm) - Length 1.1 -Post Debridement Size (cm) - Width 2.3 -Post Debridement Size (cm) - Depth 0.1 -Total Square Cm 2.53 -Wound/Ulcer Outcome Not Healed -Ulcer Cleansing Rinsed/ Irrigated with Saline -Foul Odor after Cleansing No -Bioengineered Tissue No -Bleeding Controlled with Pressure -Offloading No -Treatment Response Procedure Tolerated Well [See Physician Procedure note for Specifics] Pain Scale: 0-10 Numeric [Pain] -Is Patient Pain Free? Yes Musculoskeletal: No Tenderness to Palpation of Joints or Extremities, Muscle Wasting Lymphatic: - - Lymphedema noted Neurological: Sensory exam intact to light touch and pain Psych/Mental Status: Normal Affect, Appropriate Debridement Note Post-Debridement Measurements/Treatment WC - Nurse 2 - General Ulcer CM Notes Start: 03/09/19 10:18 Freq: Status: Active Protocol: Activity Type Activity Date Activity User E-Sign Co-Sign Detail Recorded Client Recorded Date Recorded By Document 03/09/19 10:46 [id number] 03/09/19 10:50 Document 03/16/19 09:38 [id number] 03/16/19 09:42 Document 03/23/19 11:03 [id number] 03/23/19 11:04 03/09/19 03/16/19 03/23/19 10:46 09:38 11:03 Wound Center Nurse 2 #3- L LAT FOOT CLUSTER -Time 10:46 09:40 11:03 -Correct Patient Yes Yes Yes -Correct Side, Site, Position Yes Yes Yes -Correct Procedure Yes Yes Yes -Procedure Performed Yes Yes Yes -Type of Procedure Debridement Debridement Debridement -Clinical Debridement Subcutaneous Subcutaneous Subcutaneous -Post Debridement Size (cm) - Length 2 2.3 1.1 -Post Debridement Size (cm) - Width 1.2 1.1 2.3 -Post Debridement Size (cm) - Depth 0.2 0.1 0.1 -Total Square Cm 2.4 2.53 2.53 -Wound/Ulcer Outcome Not Healed Not Healed Not Healed -Ulcer Cleansing Rinsed/ Rinsed/ Rinsed/ Irrigated with Irrigated with Irrigated with Saline Saline Saline -Foul Odor after Cleansing No No No -Bioengineered Tissue No No No -Bleeding Controlled with Pressure Pressure Pressure -Offloading No No No -Treatment Response Procedure Procedure Procedure Tolerated Well Tolerated Well Tolerated Well Pain Scale: 0-10 Numeric Is Patient Pain Free? Yes Yes Yes Wound debrided: dorsal lateral foot Laterality: Left Type of Debridement: Excisional debridement Anesthesia Used: 5% Lidocaine Gel Depth: in the subcutaneous layer Percentage of wound debrided: 100 Instrument Used: #15 blade Tissue Removed: fibrous, devitalized subcutaneous, biofilm, slough Severity: Fat Layer Exposed Amount of bleeding with debridement: Mild Bleeding Controlled with: Pressure Patient tolerated procedure well Assessment/Plan Assessment: Ulcer left dorsal lateral foot with fat layer exposed, no infection. Bilateral lower extremity chronic edema with skin changes. Lymphedema. Peripheral vascular disease work-up and ruled out tentatively. xerosis Plan: I reviewed and discussed his case today. His ulcer was debrided as noted in the clinical panel. I recommend changing the dressing daily with silver cell or Aquacel Ag. This was applied today. Advanced wound healing product will be considered in the future if this is open for more than 1 month duration and lack of meaningful progress is made. His chronic edema is a major concern at this time. I recommend more aggressive compression such as a CircAid wrap. He has been wearing this however it is applied in a very loose manner and he does n ot wear the foot sleeve which is imperative for this to function properly. To avoid idle standing and sitting. To elevate legs at rest. His congestive heart failure status is noted. We deviously refused lymphedema pumps and today reports he is amenable to proceed forward with this. Company is already been contacted again on 03/09/2019. He was also trained on proper application and use of the CircAid compression wrap. He was reassured no local or systemic signs of infection noted today and I do not recommend antibiotics. Due to the chronicity of this ulcer pain and anaerobic and aerobic culture was obtained to look for any bacterial contamination or bioburden. Serratia gram-negative bacteria was identified and this is not a part of the normal skin domingo. There are local lack of infection sign. I would consider this a contamination which may be contributing to his pain and delays in healing. I do recommend that he washes with antimicrobial Hibiclens soap on a daily basis this upcoming week to help reduce his bioburden. This was dispensed. His parents can help him perform this. I also recommend moisturizing the adjacent skin improve the skin integrity with Goldbond lotion. Further work-up with venous duplex Doppler with reflux evaluation was ordered in the results were reviewed. He does not appear to have venous incompetence per the reflux study results. Additionally noninvasive arterial studies were ordered and reviewed today as well. He appears to have arterial perfusion to lower extremities without arterial significant disease. However, it is noted that his body habitus has prevented full evaluation of the PT artery and this is considered incomplete. Recommend vascular specialist referral to see if any intervention is possible. Updated lab work orders were also provided today to better understand his baseline medical status including CBC, CMP, and screen for diabetes with hemoglobin A1c. There are no gross abnormalities with the CBC and CMP. His hemoglobin A1c was 6.7%. His past medical record from [facility] have been was reviewed. To follow-up with his primary care provider at [facility] in clinic. His persistent xerosis is noted and he understands edema management is a big part of his treatment plan. He was advised to follow-up in 2 week at the wound healing center or call sooner if he has any questions or concerns.
== END 2019-04-05 23:59 ==
LOC: WC 10:15
PROVIDERS: Referring Provider Podiatrist; Visit Provider Podiatrist
DX: L97.522 Non-pressure chronic ulcer of other part of left foot with fat layer exposed (principal); I89.0 Lymphedema, not elsewhere classified; I50.9 Heart failure, unspecified; E66.8 Other obesity; Z68.43 Body mass index [BMI] 50.0-59.9, adult; Z71.3 Dietary counseling and surveillance; G47.30 Sleep apnea, unspecified; I11.0 Hypertensive heart disease with heart failure
CPT/HCPCS: 11042; 87070; 87075; 87077; 87186; 87205

== ENCOUNTER 2019-04-08 11:49 | Outpatient (RCR) | payer MEDICAID, SELFPAY ==
[2019-04-06 00:41] VITALS: BP 150/62; PULSE 73; RESP 20; TEMP 36.3
[2019-04-08 14:19] VITALS: BP 164/102; PULSE 88; RESP 20; TEMP 36.7; BMI 57.4
--- NOTE | 2019-04-08 15:18 | PCM.WC.PN ---
(1) Venous insufficiency Status: Suspected Current Visit: Yes Code(s): I87.2 - Venous insufficiency (chronic) (peripheral) (2) Lymphedema Status: Chronic Current Visit: Yes Code(s): I89.0 - Lymphedema, not elsewhere classified (3) Chronic ulcer of left foot with fat layer exposed Status: Resolved Current Visit: Yes Code(s): L97.522 - Non-pressure chronic ulcer of other part of left foot with fat layer exposed (4) CHF (congestive heart failure) Status: Chronic Current Visit: Yes Qualifiers: Code(s): I50.9 - Heart failure, unspecified (5) Super-super obese Status: Chronic Current Visit: Yes Code(s): E66.01 - Morbid (severe) obesity due to excess calories Type of Wound Date of Service: 04/08/19 Chief Complaint: Chronic leg swelling. Ulcer cluster left foot History of Wound: This 58-year-old male with significant past medical history of super obesity, chronic leg swelling with recurrent ulcers and delayed healing, hypertension, congestive heart failure, and sleep apnea presents for evaluation of leg swelling and left foot ulcers. He denies fever, chill, nausea, vomiting. He denies known redness or odor or even drainage. Thinks the ulcer site has healed today Progress of Wound: Healed - Physical Exam Vital Signs Temp Pulse Resp BP 98.1 F 88 20 H 164/102 H 04/08/19 14:19 04/08/19 14:19 04/08/19 14:19 04/08/19 14:19 General: Alert, Oriented x3, Cooperative Extremities: No cyanosis, Capillary Refill Less than 3 Seconds, No Calf Tenderness, Diminished Peripheral Pulses, Edema Skin: Ulcer/ Wound - Full epithelialization is noted. There is no purulence, erythema, streaking, odor, infection. His skin has chronic dryness still with chronic edema and stasis changes. The ulcer site is healed Wound Measurements and Assessment WC - Nurse 1 - General Ulcer Measurement Start: 04/08/19 14:18 Freq: Status: Active Protocol: Activity Type Activity Date Activity User E-Sign Co-Sign Detail Recorded Client Recorded Date Recorded By Document 04/08/19 14:19 DV [id number] 04/08/19 14:22 DV 04/08/19 14:19 Wound Center Nurse 1 [Ulcer Assessment] #3- L LAT FOOT CLUSTER -Combined with other wound No -Current Size (cm) - Length 0.1 -Current Size (cm) - Width 0.1 -Current Size (cm) - Depth 0.1 -Total Square Cm 0.01 -Photo Taken No -Epithelialization None Present -Tunneling No -Undermining/Tunneling No -Circular Undermining No -Classification - Thickness Full Thickness without Exposed Support Structure -Exudate Amt None Present -Wound Margin Fibrotic Scar, Thickened Scar -Granulation Amt None Present (0 %) -Granulation Quality N/A -Slough/Fibrin Yes -Necrosis Amt Large (67-100%) -Necrotic Tissue Type Adherent Slough -Structure Exposed None/Limited to Skin Breakdown -Texture (Sandra-wound Skin Appearance) Assessed,Callus ,Localized Edema,Scarring -Moisture (Sandra-wound Skin Appearance Assessed,Dry/ ) Scaly -Color (Sandra-wound Skin Appearance) Assessed,Palor -Temperature (Sandra-wound Skin No Abnormality Appearance) (Pt Warm) -Tenderness on Palpation (Sandra-wound Yes Skin Appearance) -Ulcer Cleansing Not Cleansed -Foul Odor after Cleansing No [Edema Assessment] -Lower Limb Edema Present Yes -Left Calf (cm) 53.0 -Left Ankle (cm) 33.5 Musculoskeletal: No Tenderness to Palpation of Joints or Extremities, Muscle Wasting, - - Compartment soft to palpate Neurological: Sensory exam intact to light touch and pain Psych/Mental Status: Normal Affect, Appropriate Debridement Note No debridement was completed today - healed today Assessment/Plan Active Problems (Last Reviewed 11/08/18 @ 10:54 by Christianne Tariq NP-C) Lymphedema (Chronic) CHF (congestive heart failure) (Chronic) Super-super obese (Chronic) Assessment: Ulcer left dorsal lateral foot -healed today. Bilateral lower extremity chronic edema with skin changes. Lymphedema. Peripheral vascular disease work-up and ruled out tentatively. xerosis Plan: I reviewed and discussed his case today. Debridement is required because the ulcer site has healed. He was advised to discontinue ulcer dressed changes. He was advised to keep his skin integrity intact by cleaning daily with soap and water and drying well. To moisturize his in daily. His chronic edema is a major concern at this time. I recommend more aggressive compression such as a CircAid wrap. He has been wearing this however it is applied in a very loose manner and he does not wear the foot sleeve which is imperative for this to function properly. To avoid idle standing and sitting. To elevate legs at rest. His congestive heart failure status is noted. We deviously refused lymphedema pumps and today reports he is amenable to proceed forward with this. Company is already been contacted again on 03/09/2019. He was also trained on proper application and use of the CircAid compression wrap. He was reassured no local or systemic signs of infection noted today and I do not recommend antibiotics. Further work-up with venous duplex Doppler with reflux evaluation was ordered in the results were reviewed. He does not appear to have venous incompetence per the reflux study results. Additionally noninvasive arterial studies were ordered and reviewed today as well. He appears to have arterial perfusion to lower extremities without arterial significant disease. However, it is noted that his body habitus has prevented full evaluation of the PT artery and this is considered incomplete. Recommend vascular specialist referral to see if any intervention is possible. He is discharged from the wound healing center at this time. I answer all his questions. To follow-up at the foot and ankle center after he completes his vascular referral for if he has any other lower extremity issues.
== END 2019-05-06 23:59 ==
LOC: WC 11:49
PROVIDERS: Referring Provider Podiatrist; Visit Provider Podiatrist
DX: I89.0 Lymphedema, not elsewhere classified (principal); I73.9 Peripheral vascular disease, unspecified; I11.0 Hypertensive heart disease with heart failure; I50.9 Heart failure, unspecified; G47.30 Sleep apnea, unspecified; E66.01 Morbid (severe) obesity due to excess calories
CPT/HCPCS: 99213; G0463

== ENCOUNTER 2019-04-27 13:17 | Outpatient (RCR) | payer MEDICAID, SELFPAY ==
--- NOTE | 2019-09-30 16:22 | HP.OTEVAL_ITS ---
Patient's Visit Information FLORIN RUBIN is a 58 year old M, referred to Occupational Therapy by Dr. Prateek Jones MD, with a diagnosis of BLE lymphedema. Date of Evaluation: 04/27/19 Occupational Therapist: Kalpana Mena, OTR/Mehnaz, CHT - Subjective This 58 year old male was seen for OT eval with dx of LE lymphedema. PT states lilibeth cadet has struggled with swelling in his LE for a few years. Pt states ulcers started in 2018 and has been to this clinic in 2015 for lymphedema. pt states he has had poor circulation since he was a kid- pt would like to see what more he can do to mtg lymphedema. pt was at wound center and they did rec'd pt having a compression pump for legs. PT states he has had difficulty pulling on his compression socks. PT did buy velcro closer devices but states he has trouble getting them on. - ADLs Comments: Pt lives with parents- states his mom does help him with his compression socks- pt on 4 liters of O2 - Pain BLE 2 Pain Intensity Range: 1, 4 - Lymphedema (Circumferential Measure) Mid-foot: Right 28cm left 28.9cm Ankle: Right 26cm left 36cm Lower calf: Right 39cm left 40cm Largest calf: Right 53cm left 53cm Below knee: Right 49cm left 50cm - Lower Limb Functional Index Lower Extremity Functional Score: 39 - Goals Demonstrate a 20% reduction in edema by d/c: Yes Demonstrate adequate knowledge of self-massage by 2nd week: Yes Demonstrate adequate knowledge skin care/prec by 2nd week: Yes Demonstrate adequate knowledge therapeutic exercises by d/c: Yes Select approp compression garment w/donning/care/wear by d/c: Yes Voice need to replace compression garment every 4-6mo by dc: Yes - Rehabilitation General Assessment: pt demo with LE lymphedema and would benefit from skilled therapy services 2-3 visit to cont. to ensure educaiton on life long mtg of lymphedema and compression garments. Today pt was ed. on lymph stim ex, and given handout along with ed. on need of compression garments 20-30 mmHg and possible need of assist to pablo compression alternatives. pt demo understanding and agree to POC. Rehabilitation Potential: Questionable - Anticipated Interventions Education re assistive Equipment, Education re Diagnosis, Education re Skin Care and Precautions, Education re Self Massage Techniques, Education re Correct Donning Tech,Care&Wearing Sched Comp Garments, Home Program - Visit Plan TEXT: Thank you for the opportunity to evaluate your patient. For Medicare and Medicare HMO plans, please review the plan of care and approve it. It will need to be FAXED BACK to us at [phone] for Medicare purposes. Please let me know if there are questions or concerns regarding this plan of care. Physician Signature: Date:___
--- NOTE | 2019-09-30 16:23 | HP.OT.NRP ---
FLORIN RUBIN was seen in my office for initial evaluation on 04/27/19. The following Plan of Care was established for this patient: Anticipated Interventions: Education re assistive Equipment, Education re Diagnosis, Education re Skin Care and Precautions, Education re Self Massage Techniques, Education re Correct Donning Tech,Care&Wearing Sched Comp Garments, Home Program This patient was last seen in our office 04/27/19. Pertinent comments regarding their Occupational therapy will appear below: pt see for OT eval only. pt has not scheduled a further apts and due to time lapse in services pt d/c. At this point I will be discontinuing this patient from occupational therapy. I would be happy to see this patient again in the future if found appropriate by the physician. Thank you! Kalpana Mena, OTR/L, CHT
== END 2019-04-27 19:00 | disposition home or self-care (01) ==
LOC: OT 13:17
PROVIDERS: Referring Provider Surgery Vascular Surgery; Visit Provider Surgery Vascular Surgery
DX: I89.0 Lymphedema, not elsewhere classified (principal)
CPT/HCPCS: 97110; 97166; 97530

== ENCOUNTER 2020-06-12 15:57 | Outpatient (RCR) | payer MEDICAID, SELFPAY ==
[2020-06-12] MEDS: COVID-19 VACC, MRNA(PFIZER)/PF 30 MCG/0.3 ML SYRINGE IM (09:32)
[2020-07-03] MEDS: COVID-19 VACC, MRNA(PFIZER)/PF 30 MCG/0.3 ML SYRINGE IM (09:38)
== END 2020-09-11 23:59 ==
LOC: IMMUN 15:57
PROVIDERS: Visit Provider Family Medicine
DX: Z23 Encounter for immunization (principal)
CPT/HCPCS: 0001A; 0002A; 91300

== ENCOUNTER → 2020-09-18 09:48 | Outpatient (CLI) | payer MEDICAID, SELFPAY ==
[2020-08-06 10:04] VITALS: BMI 56.2
--- NOTE | 2020-09-18 09:49 | ECHOCS_ITS ---
Reason For Study: DYSPNEA/SOB Procedure This was a 2D Doppler, Color Flow transthoracic echocardiogram. The study was technically difficult. Due to body habitus. Contrast injection was performed. Exam performed in department. Left Ventricle Normal LV size. Left ventricular systolic function is normal. The estimated ejection fraction is 55 %. No regional wall motion abnormalities noted. Right Ventricle Normal RV size. Normal systolic function. Tricuspid Valve Normal tricuspid valve. Pulmonic Valve The pulmonic valve is not well visualized. Great Vessels Normal aortic root. The pulmonary artery is normal size. Normal inferior vena cava. Pericardium/Pleural No pericardial effusion. Medication 22 gauge I.V. with prn adaptor inserted into right arm. Diluted definity 5.0ml given slow IV push to enhance endocardial definition. MMode/2D Measurements & Calculations LVIDd: 5.7 cm IVSd: 1.4 cm Ao root diam: 3.4 cm LVIDs: 4.2 cm LVPWd: 1.4 cm FS: 26.5 % LAV(MOD-bp): 66.3 ml LA dimension(2D): 4.6 cm LA A4 area: 21.6 cm2 LAV(MOD-bp) Indexed: 23.9 ml/m2 LAV(MOD-sp2): 63.6 ml LAV(MOD-sp4): 65.2 ml Time Measurements MV dec time: 0.19 sec Doppler Measurements & Calculations MV E max erik: 100.6 cm/sec Lat Peak E' Erik: 10.1 cm/sec Med Peak E' Erik: 8.4 cm/sec MV A max erik: 72.4 cm/sec E/E' lat: 10.0 E/E' med: 11.9 MV E/A: 1.4 Ao V2 max: 141.2 cm/sec LV V1 max: 115.1 cm/sec PA V2 max: 73.8 cm/sec Ao max P.0 mmHg LV V1 max P.3 mmHg ECHO/Echo Complete W/ Contrast Interpretation Summary Normal LV size. Left ventricular systolic function is normal. The estimated ejection fraction is 55 %. Contrast injection was performed. Ordering Physician: Osmany العلي Referring Physician: [facility] Performed By: Herlinda Hayward RDCS, RVT
[2020-09-18 11:07] LABS: Hematocrit 47.2 % (40-54); Hemoglobin 13.5 g/dL (13.0-16.5); Mean Corpuscular Volume 93.3 fL (80-94); Red Blood Count 5.06 M/mm3 (4.6-6.2)
[2020-09-18 11:08] LABS: Absolute Lymphocyte Count 0.55 X10^3/uL (0.83-4.51); Absolute Neutrophil Count 4.8 X10^3/uL (2.0-7.7); Basophil# 0.02 X10^3/uL; Basophil% 0.3 % (0-1); Eosinophil# 0.22 X10^3/uL; Eosinophils% 3.6 % (0-5); Lymphocyte # 0.55 X10^3/ul (0.83-4.51); Lymphocyte % 9.1 % (19-41); Mean Corp Hgb Conc 28.6 g/dL (32-36); Mean Corpuscular Hgb 26.7 pg (27.0-32.0); Mean Platelet Vol. 11.3 fl (6.2-12.0); Monocyte# 0.43 X10^3/uL; Monocyte% 7.1 % (0-10); NRBC Flagged by Analyzer 0 % (0-5); Neutrophil # 4.79 X10^3/uL (2.7-7.7); Neutrophil % 79.4 % (47-70); POSITIVE COUNT YES; POSITIVE DIFFERENTIAL YES; Platelet Count 95 K/mm3 (150-450); RBC Distribution Width CV 16.9 % (11.6-14.6); RBC Distribution Width SD 57.7 fl (35.1-43.9)
[2020-09-18 11:10] LABS: Differential Indicated SCAN CRITERIA MET
[2020-09-18 11:28] LABS: Platelet Estimate MOD DEC (ADEQ)
[2020-09-18 11:32] LABS: Anion Gap -1 (5-15); BUN 20 mg/dL (7-18); BUN/Creat Ratio 18.3 RATIO (10-20); Calcium,Total 8.6 mg/dL (8.5-10.1); Chloride 97 mmol/L (98-107); Creatinine, Serum 1.09 mg/dL (0.70-1.30); EST Glomerular Filtration Rate 73 mL/min (>60); Est Glom Filt Rate - Afr Amer 88 mL/min (>60); Glucose 119 mg/dL (74-106); Potassium 4.2 mmol/L (3.5-5.1); Sodium Level 140 mmol/L (136-145)
[2020-09-18 11:33] LABS: BNP,B-Type NATRIURETIC PEPTIDE 114.8 pg/mL (0-100)
== END ==
LOC: CVS 09:49 → LAB 10:34
PROVIDERS: Referring Provider Nurse Practitioner Family; Visit Provider Nurse Practitioner Family
DX: R06.00 Dyspnea, unspecified (principal); I11.0 Hypertensive heart disease with heart failure; I50.32 Chronic diastolic (congestive) heart failure
CPT/HCPCS: 36415; 80048; 83880; 85025; 93306; Q9957; A4216; C8929; J3490

== ENCOUNTER 2020-11-01 08:46 | Inpatient (IN) | payer MEDICAID, SELFPAY ==
[2020-08-06 10:04] VITALS: BMI 56.2
[2020-11-01] VITALS (18 sets, daily range): BP systolic 67–158; BP diastolic 53–92; PULSE 70–89; RESP 16–22; TEMP 35.9–37; O2SAT 89–98; BMI 58.0; BMI 56.0
--- NOTE | 2020-11-01 09:06 | EKG12_ITS ---
Test Reason : FALL Blood Pressure : / mmHG Vent. Rate : 073 BPM Atrial Rate : 073 BPM P-R Int : 182 ms QRS Dur : 094 ms QT Int : 410 ms P-R-T Axes : 040 027 048 degrees QTc Int : 451 ms Normal sinus rhythm Low voltage QRS Borderline ECG Confirmed by HERNANDO SHEPPARD, SIDNEY ([id number]), editor managing director TRELL MCCARTHY ([id number]) on 11/05/2020 9:17:25 AM Referred By: BARBARA Confirmed By:ROXIE VILLAGOMEZ MD
[2020-11-01 09:16] LABS: Absolute Lymphocyte Count 0.42 X10^3/uL (0.83-4.51); Absolute Neutrophil Count 6.1 X10^3/uL (2.0-7.7); Basophil# 0.03 X10^3/uL; Basophil% 0.4 % (0-1); Eosinophils% 1.4 % (0-5); Hematocrit 44.1 % (40-54); Hemoglobin 12.8 g/dL (13.0-16.5); Lymphocyte # 0.42 X10^3/ul (0.83-4.51); Lymphocyte % 5.9 % (19-41); Mean Corpuscular Hgb 28.6 pg (27.0-32.0); Mean Corpuscular Volume 98.4 fL (80-94); Monocyte% 5.6 % (0-10); NRBC Flagged by Analyzer 0.3 % (0-5); Neutrophil # 6.12 X10^3/uL (2.7-7.7); Neutrophil % 85.3 % (47-70); POSITIVE COUNT YES; POSITIVE DIFFERENTIAL YES; POSITIVE MORPHOLOGY YES; Platelet Count 99 K/mm3 (150-450); RBC Distribution Width CV 18.5 % (11.6-14.6); RBC Distribution Width SD 65.2 fl (35.1-43.9); Red Blood Count 4.48 M/mm3 (4.6-6.2); White Blood Count 7.2 K/mm3 (4.4-11.0)
--- NOTE | 2020-11-01 09:17 | EDS_ITS ---
HPI History of Present Illness Chief Complaint: Fall Detail of Chief Complaint: Generalized weakness, fall, shortness of breath Informant: patient and spouse/S.O. Narrative Narrative: Patient presents with ongoing progressive shortness of breath leading to generalized weakness. Today he suffered a fall but denies any injury. Patient does have chronic lung disease and wears 4 L of oxygen at baseline. He states his oxygen saturations used to be in the high 80s low 90s but have recently been dropping into the 70s and 80s. He denies to have a moist sounding cough but has trouble bringing up sputum. He denies fever or chills. He did get the Covid vaccine. Patient states today he got up but just felt very weak and fell to the ground. [facility] Medical History (Updated 11/01/20 @ 09:[address] Rita Wilson MD) Abnormal electrocardiogram Borderline diabetes CHF (congestive heart failure) Chronic respiratory failure with hypoxia, on home O2 therapy Essential (primary) hypertension Obstructive sleep apnea VAN (obstructive sleep apnea) Secondary pulmonary arterial hypertension Super-super obese Home Medications ergocalciferol (vitamin D2) 1 cap PO QWEEK 05/25/17 [History Last Taken Unknown] aspirin 81 mg PO DAILY #1 tab.chew 05/28/17 [Rx Last Taken Unknown] furosemide 40 mg PO BID #60 tab 05/28/17 [Rx Last Taken Unknown] potassium chloride 20 meq PO DAILY #30 tab 05/28/17 [Rx Last Taken Unknown] albuterol sulfate 90 mcg/actuation aerosol inhaler 2 puff INHALATION Q4H PRN inh 01/07/18 [History Last Taken Unknown] cetirizine 10 mg tablet 10 mg PO DAILY #30 tab 08/12/18 [Rx Last Taken Unknown] lisinopril 10 mg tablet 10 mg PO DAILY #30 tab 10/19/18 [Rx Last Taken Unknown] cephalexin 500 mg PO Q6 #40 cap 01/23/19 [Rx Last Taken Unknown] carvedilol 12.5 mg tablet 12.5 mg PO BID #180 tab 09/04/20 [Rx Last Taken Unknown] Allergy/AdvReac Type Severity Reaction Status Date / Time No Known Allergies Allergy Verified 11/01/20 08:53 Family History Mother Hypertension Father Hypertension Surgical History History of tonsillectomy Social History Smoking Status: Never smoker second hand exposure: No alcohol intake: never substance use type: does not use caffeine: Yes Type: carbonated beverages and tea what type of physical activity do you participate in: none ROS ROS ED Constitutional Constitutional ED: Denies chills or fever(s) Eyes Eyes: Denies change in vision ENT ENT ED: Denies sore throat Cardiovascular Cardiovascular: Denies chest pain Respiratory/Chest Respiratory/Chest: Reports cough and dyspnea Gastrointestinal Gastrointestinal: Denies abdominal pain, diarrhea, nausea or vomiting Genitourinary Genitourinary ED: Denies dysuria Musculoskeletal Musculoskeletal: Denies back pain Integumentary Denies rash Neurologic Neurologic: Denies headache(s) or weakness Endocrine Endocrinology: Denies polydipsia or polyuria Allergic/Immunologic Allergic/Immunologic ED: Denies urticaria EXAM Physical Exam Const Vital Signs: 11/01/20 08:47 11/01/20 08:52 11/01/20 09:17 Temperature 98.6 F 98.6 F Temperature Source Temporal Temporal Pulse Rate 71 71 Respiratory Rate 20 H 20 H Respiratory Effort Short of Breath Labored Short of Breath Labored Respiratory Depth Normal Respiratory Pattern Normal Blood Pressure 154/92 H 154/92 H Blood Pressure Mean 112 112 Pulse Ox 97 97 Oxygen Delivery Method Non-Rebreather Non-Rebreather Non-Rebreather Positive obese Nutritional Appearance: obese HEENT Reports normocephalic and head/scalp atraumatic Eyes PERRL and EOMs intact bilaterally Neck supple Chest Wall inspection of chest normal and palpation of chest normal Resp normal respiratory effort Auscultation: diminished lung sounds diffuse Cardio regular rate and regular rhythm GI normal to inspection, nondistended, normoactive bowel sounds Palpation: soft Extremity Extremity Narrative: Chronic lymphedema bilateral lower extremities. Neuro oriented x3 Sensorium / Orientation: alert Psych mental status grossly normal MDM MDM MDM Narrative Medical decision making narrative: Patient's O2 sat on Ventimask was in the high 80s. He was placed on a nonrebreather. Labs, chest x-ray, Covid test obtained. Lab Data Attestation: I reviewed the patient's lab results. Labs: Laboratory Results - last 24 hr 11/01/20 11/01/20 11/01/20 08:50 08:50 08:50 WBC 7.2 RBC 4.48 L Hgb 12.8 L Hct 44.1 MCV 98.4 H MCH 28.6 MCHC 29.0 L RDW Std Deviation 65.2 H RDW Coeff of Sandi 18.5 H Plt Count 99 L MPV 11.0 Immature Gran % (Auto) 1.400 H Neut % (Auto) 85.3 H Lymph % (Auto) 5.9 L Clinton % (Auto) 5.6 Eos % (Auto) 1.4 Baso % (Auto) 0.4 Absolute Neuts (auto) 6.1 Absolute Lymphs (auto) 0.42 L Nucleated RBC % 0.3 Differential Comment COMMENT Anisocytosis 1+ Sodium 140 Potassium 4.6 Chloride 95 L Carbon Dioxide > 45.0 H* Anion Gap TNP BUN 19 H Creatinine 0.86 Estim Creat Clear Calc 93.14 Est GFR (MDRD) Af Amer 117 Est GFR (MDRD) Non-Af 96 BUN/Creatinine Ratio 22.2 H Glucose 116 H Calcium 8.4 L Troponin I High Sens 6.8 B-Natriuretic Peptide 216.0 H Radiography Chest X-Ray - ED: 1 View, Read by ED Physician, Chronic Changes, Cardiomegaly and CHF EKG Initial EKG: Attestation: I personally reviewed and interpreted this EKG as follows: Interpretation: Sinus Rhythm (Sinus at 73 with no acute ischemia.) Treatment and Re-Evaluation Comments:: On repeat evaluation patient's O2 sat is 100% on nonrebreather. I did ask respiratory to place the patient back on Ventimask as patient's normally satting in the 80s to low 90s at home. He does have CO2 retention. I will give him Lasix to help diurese him. I again did reiterate with him that he does not want BiPAP or intubation. He confirms that that is correct. I will speak with the hospitalist. Discharge Plan Triage Chief Complaint: Fall ED Provider: Rita Wilson Dx/Rx/DC Orders Clinical Impression: Respiratory failure, CHF (congestive heart failure), Hypercarbia Prescriptions: No Action ProAir HFA 90 mcg/actuation HFA aerosol inhaler 2 puff INHALATION Q4H PRN (Reason: shortness of breath) RF: 0 cetirizine [All Day Allergy (cetirizine)] 10 mg tablet 10 mg PO DAILY Qty: 30 RF: 6 ergocalciferol (vitamin D2) 50,000 UNIT capsule 1 cap PO QWEEK RF: 0 furosemide 40 MG tablet 40 mg PO BID Qty: 60 RF: 0 aspirin 81 MG tablet,chewable 81 mg PO DAILY Qty: 1 RF: 0 potassium chloride 20 MEQ tablet 20 meq PO DAILY Qty: 30 RF: 0 cephalexin 500 MG capsule 500 mg PO Q6 Qty: 40 RF: 0 lisinopril 10 mg tablet 10 mg PO DAILY Qty: 30 RF: 11 carvedilol 12.5 mg tablet 12.5 mg PO BID Qty: 180 RF: 3 Primary Care Provider: Gaby Dewey Referrals: [facility] Gaby Meyer [Primary Care Provider] - Disposition Disposition: Acute Care Hospital [facility]
[2020-11-01 09:18] LABS: Differential Indicated SCAN CRITERIA MET
--- NOTE | 2020-11-01 09:22 | RAD_ITS ---
STUDY: X-RAY CHEST REASON FOR EXAM: Male, 59 years old. Sob TECHNIQUE: Single AP portable view of the chest. COMPARISON: None. FINDINGS: EKG electrodes are seen. There is evidence of a mild degree of CHF with blunting of both costophrenic angles. Mild increased markings at the lung bases suggestive of atelectasis. There is mild cardiac enlargement. Normal mediastinum and ender. Normal visualized pulmonary arteries. There is atherosclerotic tortuosity of the aortic arch and descending thoracic aorta. There are diffuse degenerative changes of the visualized thoracic spine. Normal visualized ribs, clavicles, and shoulders. There is no demonstrated abnormality of the visualized soft tissue structures of the upper abdomen. RAD/Chest 1 View (Portable) IMPRESSION: Cardiomegaly and CHF. Small bilateral pleural effusions slightly more prominent on the right side with bibasilar atelectasis Electronically Signed: Sourav Norwood MD at 9:57 EDT , Service support ,
[2020-11-01 09:36] LABS: BUN 19 mg/dL (7-18); BUN/Creat Ratio 22.2 RATIO (10-20); Calcium,Total 8.4 mg/dL (8.5-10.1); Carbon Dioxide > 45.0 mmol/L (21.0-32.0); Chloride 95 mmol/L (98-107); Creatinine, Serum 0.86 mg/dL (0.70-1.30); EST Glomerular Filtration Rate 96 mL/min (>60); Est Glom Filt Rate - Afr Amer 117 mL/min (>60); Estimated Creatinine Clearance 93.14 ml/min; Glucose 116 mg/dL (74-106); Potassium 4.6 mmol/L (3.5-5.1); Sodium Level 140 mmol/L (136-145); Troponin-I HS 6.8 pg/mL (3.0-78.5)
[2020-11-01 09:42] LABS: Anisocytosis 1+
--- NOTE | 2020-11-01 10:14 | HP.PCM.HOS_ITS ---
HPI - General General Date of Admission: 11/01/20 Date of Service: 11/01/20 Chief Complaint: Shortness of breath HPI Narrative FLORIN RUBIN, is a 59 M with multiple comorbidities including obstructive sleep apnea, morbid obesity with BMI of 56, chronic congestive heart failure with preserved ejection fraction who presents with shortness of breath. Patient reports baseline shortness of breath however he woke up on the morning of his admission extremely short of breath. Patient had a cough which is nonproductive. He denied any fever no subjective chills. Patient denied any associated chest pain. In view of worsening symptoms squad was called. Patient was found to be saturating 71% at the time EMS arrived, placed on supplemental oxygen and transferred to the ED. His assessment in the ED was consistent with congestive heart failure started on Lasix and supplemental oxygen and admitted to a monitored bed for subsequent management [facility] Medical History Abnormal electrocardiogram Borderline diabetes CHF (congestive heart failure) Chronic respiratory failure with hypoxia, on home O2 therapy Essential (primary) hypertension Obstructive sleep apnea VAN (obstructive sleep apnea) Secondary pulmonary arterial hypertension Super-super obese Home Medications ergocalciferol (vitamin D2) 1 cap PO QWEEK 05/25/17 [History Last Taken Unknown] aspirin 81 mg PO DAILY #1 tab.chew 05/28/17 [Rx Last Taken Unknown] furosemide 40 mg PO BID #60 tab 05/28/17 [Rx Last Taken Unknown] potassium chloride 20 meq PO DAILY #30 tab 05/28/17 [Rx Last Taken Unknown] albuterol sulfate 90 mcg/actuation aerosol inhaler 2 puff INHALATION Q4H PRN inh 01/07/18 [History Last Taken Unknown] lisinopril 10 mg tablet 10 mg PO DAILY #30 tab 10/19/18 [Rx Last Taken Unknown] carvedilol 12.5 mg tablet 12.5 mg PO BID #180 tab 09/04/20 [Rx Last Taken Unknown] docusate sodium [Colace] 100 mg PO DAILY PRN 11/01/20 [History Last Taken Unknown] Allergy/AdvReac Type Severity Reaction Status Date / Time No Known Allergies Allergy Verified 11/01/20 08:53 Family History Mother Hypertension Father Hypertension Surgical History History of tonsillectomy Social History adopted: No household members: family housing: house number of children: 0 service: No current occupational status: unemployed current occupational exposures/hazards: No pets and animals: No history of recent travel: No sexually active: No current gender identity: male Smoking Status: Never smoker second hand exposure: No alcohol intake: never substance use type: does not use caffeine: Yes Type: carbonated beverages and tea what type of physical activity do you participate in: none ROS ROS Narrative GENERAL: denies fever, chills, night sweats, HEENT: denies headache, sinus congestion, or drainage, dysphagia RESPIRATORY: shortness of breath, dyspnea on exertion CARDIAC: denies chest pain, palpitations, orthopnea, GASTROINTESTINAL: denies abdominal pain, nausea, GENITOURINARY: denies dysuria, urgency, frequency, EXTREMITY: denies swelling MUSCULOSKELETAL: denies current joint pain or tenderness NEUROLOGIC: denies focal numbness, weakness, tingling HEMATOLOGIC: denies easy bruising and/or hemorrhage INTEGUMENT: Bilateral stasis dermatitis PSYCHIATRIC: denies suicidal or homicidal ideation Vital Signs Vital Signs Vital Signs: 11/01/20 08:47 11/01/20 08:52 11/01/20 09:17 Temperature 98.6 F 98.6 F Temperature Source Temporal Temporal Pulse Rate 71 71 Respiratory Rate 20 H 20 H Respiratory Effort Short of Breath Labored Short of Breath Labored Respiratory Depth Normal Respiratory Pattern Normal Blood Pressure 154/92 H 154/92 H Blood Pressure Mean 112 112 Pulse Ox 97 97 Oxygen Delivery Method Non-Rebreather Non-Rebreather Non-Rebreather Weight Weight: 183.4 kg Body Mass Index (BMI) 58.0 Physical Exam Narrative GENERAL: Significantly dyspneic at rest using accessory muscles in breathing HEENT: Atraumatic; EYES; Anicteric, Normal Conjunctiva NECK; supple, normal thyroid, RESPIRATORY: Diminished to auscultation CARDIOVASCULAR: Regular S1 S2, GI: soft, normoactive bowel sounds, : No Renal angle tenderness; EXTREMITIES: Bilateral lymphedema with some bleeding around the left toes MUSCULOSKELETAL: no muscle waisting NEURO: Awake; no lateralizing signs. SKIN: As discussed above PSYCH; Flat affect Results Lab / Micro Data Result Diagrams: 11/01/20 08:50 11/01/20 08:50 Labs: Laboratory Results - last 24 hr 11/01/20 08:50: WBC 7.2, RBC 4.48 L, Hgb 12.8 L, Hct 44.1, MCV 98.4 H, MCH 28.6, MCHC 29.0 L, RDW Std Deviation 65.2 H, RDW Coeff of Sandi 18.5 H, Plt Count 99 L, MPV 11.0, Immature Gran % (Auto) 1.400 H, Neut % (Auto) 85.3 H, Lymph % (Auto) 5.9 L, Bennett % (Auto) 5.6, Eos % (Auto) 1.4, Baso % (Auto) 0.4, Absolute Neuts (auto) 6.1, Absolute Lymphs (auto) 0.42 L, Nucleated RBC % 0.3, Differential Comment COMMENT, Anisocytosis 1+ 11/01/20 08:50: Sodium 140, Potassium 4.6, Chloride 95 L, Carbon Dioxide > 45.0 H*, Anion Gap TNP, BUN 19 H, Creatinine 0.86, Estim Creat Clear Calc 93.14, Est GFR (MDRD) Af Amer 117, Est GFR (MDRD) Non-Af 96, BUN/Creatinine Ratio 22.2 H, Glucose 116 H, Calcium 8.4 L, Troponin I High Sens 6.8 11/01/20 08:50: B-Natriuretic Peptide 216.0 H Micro: Microbiology 11/01/20 09:15 Mucosa - Nasopharyngeal SARS-CoV-2 Antigen (Rapid) - Final Radiology Impression Chest X-Ray 11/01/20 09:22 IMPRESSION: Cardiomegaly and CHF. Small bilateral pleural effusions slightly more prominent on the right side with bibasilar atelectasis Electronically Signed: Sourav Norwood MD at 9:57 EDT , Service support , Assessment & Plan Assessment/Plan (1) CHF (congestive heart failure): QUALIFIERS: Heart failure chronicity: chronic Heart failure type: diastolic Qualified Code(s): I50.32 - Chronic diastolic (congestive) heart failure (2) VAN (obstructive sleep apnea): (3) Essential (primary) hypertension: (4) Hypercarbia: (5) Chronic respiratory failure with hypoxia, on home O2 therapy: (6) Secondary pulmonary arterial hypertension: (7) Respiratory failure: (8) Lymphedema: PLAN: Patient is a 59-year-old gentleman presented with shortness of breath 1. Acute hypoxia superimposed on chronic hypoxic respiratory failure ?Secondary to a combination of factors including CHF, obstructive sleep apnea and hypoventilation obesity syndrome. Patient placed on supplemental oxygen admitted to monitored bed for treatment of underlying condition 2. Acute on chronic congestive heart failure ?Echo obtained on 1520 demonstrated EF of 55% with normal left ventricular systolic function. Patient has been admitted to monitored bed. Currently being managed with strict input and output, fluid restriction, daily weight, supplemental oxygen as well as IV Lasix 3. Obstructive sleep apnea ?Patient apparently noncompliant with CPAP therapy patient was counseled on the need to be compliant 4. Essential hypertension ?Patient blood pressure not well controlled we will continue with home meds with plans to adjust meds as needed 5. Acute hypercarbia ?Secondary to #1 and #2 management as discussed above 6. Bilateral stasis dermatitis ?Patient has some lower extremity oozing consult placed to wound care nurse for dressing changes 7. Hyperglycemia ?Patient had a hemoglobin A1c drawn in September 2018 which was 6.7 consistent with diabetes however patient is not on any therapy. Repeat A1c levels ordered 8. Morbid obesity - With a BMI of 56 patient was counseled on weight reduction. Consult also placed to dietitian 9. Secondary pulmonary hypertension ?Patient has known RVSP of 63 m of mercury plan is to treat underlying condition 10. DVT prophylaxis ?Lovenox dose adjusted for weight Advance planning; did discuss with the patient and family regarding advanced directives as well as CODE STATUS. Did explain the various scenarios involved ( FULL CODE, DNR CCA, DNR CCA with no intubation, and DNR CC and what each meant) patient elected to be DNR CCA no intubation. Order was placed. Time spent on discussion 18 minutes. - Charges/Coding Visit Charges Inpatient E&M: 86754 Init Hosp L3 Procedures Hospitalists Procedures: 65251 Advncd Care Plan 30 Min
[2020-11-01] MEDS: Furosemide 40 MG/4 ML Vial IV ×3 (10:48→20:53)
--- NOTE | 2020-11-01 13:10 | CPS ---
Critical values verified times two. Reported values to . Verified by read back.
--- NOTE | 2020-11-01 15:30 | CPS ---
Critical value verified times two.Reported results to .Verified by read back.
[2020-11-01] MEDS: Enoxaparin 40 MG/0.4 ML Syringe SC ×2 (16:01→20:53)
[2020-11-01] MEDS: 0.9% Saline Lock 10 ML Syringe IV ×2 (16:01→20:53)
[2020-11-01] MEDS: Aspirin 81 MG TAB.CHEW PO (16:08)
[2020-11-01] MEDS: Potassium Chloride Oral Tablet 20 MEQ PO (16:09)
[2020-11-01] MEDS: Carvedilol 12.5 MG Tablet PO ×2 (16:09→20:53)
[2020-11-01] MEDS: Loratadine 10 MG Tablet PO (16:09)
[2020-11-01] MEDS: Cephalexin 500 MG Capsule PO (16:09)
[2020-11-01] MEDS: Lisinopril 10 MG Tablet PO (16:09)
[2020-11-01 16:31] LABS: Allen Test Positive; Base Excess 24 mmol/L (-2 to +2); Bicarbonate 51.5 mmol/L (22-26); Blood Gas Specimen Type ART; FI02 100; O2 Delivery Device HFNC; PO2 59 mmHG (75-100); SITE L Radial; SO2 80 % (95-99); Total Carbon Dioxide > 50 mmol/L; pCO2 131.7 mmHg (35-45)
[2020-11-01 16:31] LABS: Allen Test Positive; Base Excess > 30 mmol/L (-2 to +2); Bicarbonate 57.9 mmol/L (22-26); Blood Gas Specimen Type ART; FI02 75; O2 Delivery Device BiPAP; PO2 80 mmHG (75-100); SITE L Radial; SO2 92 % (95-99); Total Carbon Dioxide > 50 mmol/L; pH 7.29 (7.35-7.45)
[2020-11-02] VITALS (25 sets, daily range): BP systolic 123–158; BP diastolic 71–93; PULSE 58–106; RESP 14–24; TEMP 36–36.8; O2SAT 54–96
[2020-11-02] MEDS: 0.9% Saline Lock 10 ML Syringe IV ×4 (00:01→21:30)
[2020-11-02] MEDS: Cephalexin 500 MG Capsule PO ×5 (00:01→23:18)
--- NOTE | 2020-11-02 00:29 | NURSING ---
Despite being extensively educated by respiratory therapist and this RN on the benefits of wearing his BIPAP d/t CO2 retention, pt adamantly refusing to wear the BIPAP. Pt yelling at this RN and becoming very anxious and worked up about not wanting to wear it because the phlegm gets stuck in his throat. Pt states he will be just fine wearing the nasal cannula and does not want to wear the BIPAP at all. Pt requesting salt in his mouth to get rid of the phlegm. Dr. Steele updated on pt's refusal of wearing BIPAP. acknowledged and said to keep O2 sats 88-90% d/t pt having severe COPD. Pt resting in bed on 6 L nasal cannula. MELINDA Bravo.
--- NOTE | 2020-11-02 02:57 | CPS ---
Pt was on bipap for a bit, Then descriptively explained how he can not go back on the mask ever. He only wanted the cannula from now on. RN aware. 191911/01/20
--- NOTE | 2020-11-02 03:17 | NURSING ---
Monitor alarming at central nurses' station, SpO2 in the 70s. This RN went into pt room, pt was satting in the 70s on 6 L. Increased to 15 L, O2 still continued to drop to 54% with good waveform. Pt educated about the situation and the need to put him on BIPAP because his O2 was in the 50s. Pt was agreeable and placed on BIPAP. Sats improved up to 90s, respiratory informed of pt status. Pt currently wearing BIPAP and tolerating well. Frequent reassurance and positive reinforcement regarding wearing the BIPAP given. MELINDA Bravo.
[2020-11-02] MEDS: Furosemide 40 MG/4 ML Vial IV ×3 (05:26→21:30)
[2020-11-02 06:54] LABS: Absolute Lymphocyte Count 0.47 X10^3/uL (0.83-4.51); Absolute Neutrophil Count 5.2 X10^3/uL (2.0-7.7); Basophil# 0.02 X10^3/uL; Basophil% 0.3 % (0-1); Differential Indicated SCAN CRITERIA MET; Eosinophils% 1.6 % (0-5); Hematocrit 41.9 % (40-54); Hemoglobin 12.2 g/dL (13.0-16.5); Lymphocyte # 0.47 X10^3/ul (0.83-4.51); Lymphocyte % 7.4 % (19-41); Mean Corp Hgb Conc 29.1 g/dL (32-36); Mean Corpuscular Hgb 28.4 pg (27.0-32.0); Mean Corpuscular Volume 97.7 fL (80-94); Mean Platelet Vol. 10.2 fl (6.2-12.0); Monocyte# 0.52 X10^3/uL; Monocyte% 8.2 % (0-10); NRBC Flagged by Analyzer 0 % (0-5); Neutrophil # 5.22 X10^3/uL (2.7-7.7); Neutrophil % 81.7 % (47-70); POSITIVE COUNT YES; POSITIVE DIFFERENTIAL YES; Platelet Count 87 K/mm3 (150-450); RBC Distribution Width CV 18.3 % (11.6-14.6); RBC Distribution Width SD 64.1 fl (35.1-43.9); Red Blood Count 4.29 M/mm3 (4.6-6.2); White Blood Count 6.4 K/mm3 (4.4-11.0)
--- NOTE | 2020-11-02 07:21 | PCM.PN.HOSP ---
Subjective Subjective Patient seen still remains significantly dyspneic at rest. Patient was apparently noncompliant with BiPAP therapy during the night. Did have a discussion with the patient on the need to be compliant. Objective Data Objective Data Vital Signs: Vital Signs Temp Pulse Resp BP Pulse Ox 97.4 F L 61 17 140/91 H 96 11/02/20 07:00 11/02/20 07:00 11/02/20 07:00 11/02/20 07:00 11/02/20 07:00 Oxygen Flow Rate (L/min) 35 Oxygen Delivery Method Bi-pap Weight: 173.9 kg Body Mass Index (BMI) 56.0 Intake & Output: Intake and Output for Last 24 Hours 10/31/20 11/01/20 11/02/20 23:59 23:59 23:59 Intake Total 240 / 480 420 / 420 Output Total 3500 / 4900 1650 / 1650 Balance -3260 / -4420 -1230 / -1230 Medical Nutrition Assessment Dietitian: Nutrition Therapy Diagnosis Start: 11/01/20 14:55 Freq: Status: Active Protocol: Document 11/01/20 14:55 AG (Rec: 11/01/20 14:56 [id number]) Nutrition Malnutrition Evidence of Malnutrition Exists No Intake Problem Decreased Nutrient Needs (specify) Etiology (sodium) r/t CHF Signs/Symptoms as evidenced by BLE lymphedema . Status Active Problem Clinical Problem Obese, Class 3 Etiology r/t predicted excessive energy intake Signs/Symptoms as evidenced by pt report of not following a special diet at home and BMI 56. Status Active Problem Recommendation Dietitian Recommendations/Changes Continue cardiac heart healthy diet. 1500mL fluid restriction. Lab / Micro Data Result Diagrams: 11/02/20 06:45 11/01/20 08:50 Labs: Laboratory Results - last 24 hr 11/01/20 08:50: WBC 7.2, RBC 4.48 L, Hgb 12.8 L, Hct 44.1, MCV 98.4 H, MCH 28.6, MCHC 29.0 L, RDW Std Deviation 65.2 H, RDW Coeff of Sandi 18.5 H, Plt Count 99 L, MPV 11.0, Immature Gran % (Auto) 1.400 H, Neut % (Auto) 85.3 H, Lymph % (Auto) 5.9 L, Jefferson % (Auto) 5.6, Eos % (Auto) 1.4, Baso % (Auto) 0.4, Absolute Neuts (auto) 6.1, Absolute Lymphs (auto) 0.42 L, Nucleated RBC % 0.3, Differential Comment COMMENT, Anisocytosis 1+ 11/01/20 08:50: Sodium 140, Potassium 4.6, Chloride 95 L, Carbon Dioxide > 45.0 H*, Anion Gap TNP, BUN 19 H, Creatinine 0.86, Estim Creat Clear Calc 93.14, Est GFR (MDRD) Af Amer 117, Est GFR (MDRD) Non-Af 96, BUN/Creatinine Ratio 22.2 H, Glucose 116 H, Calcium 8.4 L, Troponin I High Sens 6.8 11/01/20 08:50: B-Natriuretic Peptide 216.0 H 11/02/20 06:45: WBC 6.4, RBC 4.29 L, Hgb 12.2 L, Hct 41.9, MCV 97.7 H, MCH 28.4, MCHC 29.1 L, RDW Std Deviation 64.1 H, RDW Coeff of Sandi 18.3 H, Plt Count 87 L, MPV 10.2, Immature Gran % (Auto) 0.800, Neut % (Auto) 81.7 H, Lymph % (Auto) 7.4 L, Jefferson % (Auto) 8.2, Eos % (Auto) 1.6, Baso % (Auto) 0.3, Absolute Neuts (auto) 5.2, Absolute Lymphs (auto) 0.47 L, Nucleated RBC % 0 11/02/20 06:45: Sodium Cancelled, Potassium Cancelled, Chloride Cancelled, Carbon Dioxide Cancelled, Anion Gap Cancelled, BUN Cancelled, Creatinine Cancelled, Estim Creat Clear Calc Cancelled, Est GFR (MDRD) Af Amer Cancelled, Est GFR (MDRD) Non-Af Cancelled, BUN/Creatinine Ratio Cancelled, Glucose Cancelled, Calcium Cancelled, Magnesium Cancelled Micro: Microbiology 11/01/20 09:15 Mucosa - Nasopharyngeal SARS-CoV-2 Antigen (Rapid) - Final ABG Data ABG results: ABG 11/01/20 11/01/20 11/01/20 13:00 13:00 13:01 Specimen Type Cancelled Cancelled ART Sample Site Cancelled Cancelled L Radial pH Cancelled Cancelled 7.20 L Bicarbonate Actual Cancelled Cancelled 51.5 H Total CO2 Cancelled Cancelled > 50 Base Excess Cancelled Cancelled 24 H O2 Saturation Cancelled Cancelled 80 L O2 % Cancelled Cancelled 100 ABG pCO2 Cancelled Cancelled 131.7 H* ABG pO2 Cancelled Cancelled 59 L Daquan Test Cancelled Cancelled Positive Respiration Rate Cancelled Cancelled O2 Delivery Device Cancelled Cancelled HFNC Liter Flow Cancelled Cancelled Minute Volume Cancelled Cancelled Vent Mode Cancelled Cancelled Inspiratory Time Cancelled Cancelled Expiratory Time Cancelled Cancelled Tidal Volume Cancelled Cancelled Mean Airway Pressure Cancelled Cancelled POC PEEP Cancelled Cancelled Peak Inspir Pressure Cancelled Cancelled POC Pressure Suppt Cancelled Cancelled Pressure Control Cancelled Cancelled Pressure High Cancelled Cancelled Pressure Low Cancelled Cancelled Time High Cancelled Cancelled Time Low Cancelled Cancelled EPAP Cancelled Cancelled IPAP Cancelled Cancelled Blood Gas Comments Cancelled Cancelled Crit Call To/Read Back Cancelled Cancelled Yes Blood Gas Notified Whom Cancelled Cancelled Blood Gas Notified Time Cancelled Cancelled Clinical Comments Cancelled Cancelled 11/01/20 15:39 Specimen Type ART Sample Site L Radial pH 7.29 L Bicarbonate Actual 57.9 H Total CO2 > 50 Base Excess > 30 H O2 Saturation 92 L O2 % 75 ABG pCO2 122.0 H* ABG pO2 80 Daquan Test Positive Respiration Rate O2 Delivery Device BiPAP Liter Flow Minute Volume Vent Mode Inspiratory Time Expiratory Time Tidal Volume Mean Airway Pressure POC PEEP Peak Inspir Pressure POC Pressure Suppt Pressure Control Pressure High Pressure Low Time High Time Low EPAP IPAP Blood Gas Comments Crit Call To/Read Back Yes Blood Gas Notified Whom Blood Gas Notified Time Clinical Comments Radiography Diagnostic Testing: Radiology Impression Chest X-Ray 11/01/20 09:22 IMPRESSION: Cardiomegaly and CHF. Small bilateral pleural effusions slightly more prominent on the right side with bibasilar atelectasis Electronically Signed: Sourav Norwood MD at 9:57 EDT , Service support , Physical Exam Narrative GENERAL: Significantly dyspneic at rest HEENT: Atraumatic; EYES; Anicteric, Normal Conjunctiva NECK; supple, normal thyroid, RESPIRATORY: Diminished to auscultation CARDIOVASCULAR: Regular S1 S2, GI: soft, normoactive bowel sounds, : No Renal angle tenderness; EXTREMITIES: Bilateral lymphedema with some bleeding around the left toes MUSCULOSKELETAL: no muscle waisting NEURO: Awake; no lateralizing signs. SKIN: As discussed above PSYCH; Flat affect Assessment & Plan Assessment/Plan (1) CHF (congestive heart failure): QUALIFIERS: Heart failure chronicity: chronic Heart failure type: diastolic Qualified Code(s): I50.32 - Chronic diastolic (congestive) heart failure (2) VAN (obstructive sleep apnea): (3) Essential (primary) hypertension: (4) Hypercarbia: (5) Chronic respiratory failure with hypoxia, on home O2 therapy: (6) Secondary pulmonary arterial hypertension: (7) Respiratory failure: (8) Lymphedema: PLAN: Patient is a 59-year-old gentleman presented with shortness of breath 1. Acute hypoxia superimposed on chronic hypoxic respiratory failure ?Secondary to a combination of factors including CHF, obstructive sleep apnea and hypoventilation obesity syndrome. Patient placed on supplemental oxygen admitted to monitored bed for treatment of underlying condition -11/02/2020; Patient seen still remains significantly dyspneic at rest. Patient was apparently noncompliant with BiPAP therapy during the night. Did have a discussion with the patient on the need to be compliant.. Patient did agree to wear the BiPAP. Subsequent ABGs ordered 2. Acute on chronic congestive heart failure ?Echo obtained on 1520 demonstrated EF of 55% with normal left ventricular systolic function. Patient has been admitted to monitored bed. Currently being managed with strict input and output, fluid restriction, daily weight, supplemental oxygen as well as IV Lasix ?11/02/2020; remains on Lasix, monitoring daily I's and O's and weight. 3. Acute respiratory acidosis ?11/02/2020; with significant hypercarbia as a result of #1 and #2. Patient be managed with BiPAP subsequent monitoring with ABGs ordered 4. Obstructive sleep apnea ?Patient apparently noncompliant with CPAP therapy patient was counseled on the need to be compliant 5. Essential hypertension ?Patient blood pressure not well controlled we will continue with home meds with plans to adjust meds as needed 6. Bilateral stasis dermatitis ?Patient has some lower extremity oozing consult placed to wound care nurse for dressing changes 7. Hyperglycemia ?Patient had a hemoglobin A1c drawn in September 2018 which was 6.7 consistent with diabetes however patient is not on any therapy. Repeat A1c levels ordered 8. Morbid obesity - With a BMI of 56 patient was counseled on weight reduction. Consult also placed to dietitian 9. Secondary pulmonary hypertension ?Patient has known RVSP of 63 m of mercury plan is to treat underlying condition 10. DVT prophylaxis ?Lovenox dose adjusted for weight - Charges/Coding Visit Charges Inpatient E&M: 35510 Init Hosp L3
[2020-11-02 09:02] LABS: BUN 20 mg/dL (7-18); BUN/Creat Ratio 24.1 RATIO (10-20); Calcium,Total 8.4 mg/dL (8.5-10.1); Carbon Dioxide > 45.0 mmol/L (21.0-32.0); Chloride 91 mmol/L (98-107); Creatinine, Serum 0.83 mg/dL (0.70-1.30); EST Glomerular Filtration Rate 100 mL/min (>60); Est Glom Filt Rate - Afr Amer 121 mL/min (>60); Glucose 99 mg/dL (74-106); Magnesium 2.3 mg/dL (1.6-2.6); Potassium 4.2 mmol/L (3.5-5.1); Sodium Level 137 mmol/L (136-145)
[2020-11-02] MEDS: Lisinopril 10 MG Tablet PO (09:47)
[2020-11-02] MEDS: Enoxaparin 40 MG/0.4 ML Syringe SC ×2 (09:47→21:30)
[2020-11-02] MEDS: Potassium Chloride Oral Tablet 20 MEQ PO (09:47)
[2020-11-02] MEDS: Carvedilol 12.5 MG Tablet PO ×2 (09:47→21:30)
[2020-11-02] MEDS: Loratadine 10 MG Tablet PO (09:47)
[2020-11-02] MEDS: Aspirin 81 MG TAB.CHEW PO (09:47)
--- NOTE | 2020-11-02 10:05 | CPS ---
Critical ABG value verified times two.Reported to via [employer].
--- NOTE | 2020-11-02 11:12 | CASEMGMT ---
SW received a call from patient's sister. She said patient does not have a Healthcare Power of Pole Setter or Healthcare Living Will. She asked if they could do the documents if they come in. JASON told her SW will check with patient to make sure he is okay with doing the documents. SW told her to just notify the corporation secretary that they are here when the come in today. SW met with patient. Introduced self and role at [facility]. He was wearing a bipap so it was a little hard to understand him. However, SW asked him about a Healthcare POA. SW let him know his mom and sister were going to come in later to see if he would do the documents. SW asked if he would want his mom as his HCPOA and he said he would want his sister. SW told him SW will check back later. Nisa FRANCOIS
[2020-11-02 13:31] LABS: Allen Test Positive; Blood Gas Specimen Type ART; O2 Delivery Device Bi Pap; SITE L RADIAL
[2020-11-02 13:32] LABS: Time Given 1003
[2020-11-02 13:33] LABS: pH 7.39 (7.35-7.45)
[2020-11-02 13:34] LABS: Base Excess 23 mmol/L (-2 to +2); Bicarbonate 48.2 mmol/L (22-26); PO2 57 mmHG (75-100)
[2020-11-02 13:35] LABS: SO2 87 % (95-99); Total Carbon Dioxide > 50 mmol/L
--- NOTE | 2020-11-02 13:35 | CASEMGMT ---
MELINDA BERGMAN assessment: Face to Face with patient for initial transition planning/care coordination assessment. MELINDA BERGMAN introduced self and role at [facility], pt voices understanding and consents to assessment. Pt is sitting up in bed. Pt has been on continuous bipap but took a break to eat lunch and is now on high flow nc. Pt is A/Ox4 and answers all questions appropriately. Pt's mother is at bedside during assessment. Care providers, pharmacy, and demographics verified. Presentation: Pt c/o weakness, fall-unable to get up, pt's sat on 4L was 71% Admitting dx: Acute hypoxic resp failure PCP: Gaby Ugalde Specialists: Ranjeet, cardio; vinay Norman [facility]erred [facility]acy: [facility] Insurance: [facility] Prescription Benefit: [facility] Living Will/HPOA: Pt completed AD's during this visit w/ E.Derrell GOMEZ and placed on chart. Pt's sister, Morelia Sands, is HPOA. LNOK: Morelia Sands, sister/HPOA; Saumya Johnson, mother Living Arrangements: Pt lives with parents in 1 story home with laundry in basement and states no concerns at home. Pt states is normally independent with ADL's. Transportation: Pt states drives self and states no transportation concerns. DME/HHC: Pt states has a cane, walker, 3L nc home oxygen, and cpap thru [employer]. Pt states has not been wearing cpap because he rips the mask off in the middle of the night and throws it across the room. Pt states he would like to get a different mask at home and Hedy from [employer] aware. Pt states no hx of HHC or SNF. Pt states no concerns with going home at time of discharge. Pt has been unemployed 'for years' per mother. Pt states does not smoke cigarettes or drink ETOH. Pt states no further concerns/needs. CM to follow for increased home oxygen need, PT/OT evals, and any further discharge planning/needs. Advised pt to ask for CM if any further questions/concerns/needs arise, voices understanding. Pt Goal: Home Plan: [place] MELINDA BERGMAN
[2020-11-02 13:36] LABS: pCO2 79.6 mmHg (35-45)
[2020-11-03] VITALS (20 sets, daily range): BP systolic 115–150; BP diastolic 69–83; PULSE 59–73; RESP 12–20; TEMP 35.8–37.2; O2SAT 85–98
[2020-11-03] MEDS: 0.9% Saline Lock 10 ML Syringe IV (05:47)
[2020-11-03] MEDS: Furosemide 40 MG/4 ML Vial IV ×2 (05:47→18:23)
[2020-11-03] MEDS: Cephalexin 500 MG Capsule PO ×4 (05:47→23:59)
[2020-11-03 06:09] LABS: Absolute Neutrophil Count 5.2 X10^3/uL (2.0-7.7); Basophil# 0.02 X10^3/uL; Basophil% 0.3 % (0-1); Eosinophil# 0.14 X10^3/uL; Eosinophils% 2.1 % (0-5); Hemoglobin 12.3 g/dL (13.0-16.5); Lymphocyte % 10.6 % (19-41); Mean Corpuscular Hgb 28.9 pg (27.0-32.0); Mean Corpuscular Volume 96.2 fL (80-94); Mean Platelet Vol. 11.3 fl (6.2-12.0); Monocyte# 0.49 X10^3/uL; Monocyte% 7.4 % (0-10); NRBC Flagged by Analyzer 0 % (0-5); Neutrophil # 5.19 X10^3/uL (2.7-7.7); Neutrophil % 78.7 % (47-70); POSITIVE COUNT YES; Platelet Count 97 K/mm3 (150-450); RBC Distribution Width CV 18.5 % (11.6-14.6); RBC Distribution Width SD 64.6 fl (35.1-43.9); Red Blood Count 4.26 M/mm3 (4.6-6.2); White Blood Count 6.6 K/mm3 (4.4-11.0)
[2020-11-03 06:17] LABS: Differential Indicated SCAN CRITERIA MET
[2020-11-03 06:43] LABS: BUN 24 mg/dL (7-18); BUN/Creat Ratio 28.2 RATIO (10-20); Calcium,Total 8.4 mg/dL (8.5-10.1); Carbon Dioxide > 45.0 mmol/L (21.0-32.0); Chloride 91 mmol/L (98-107); Creatinine, Serum 0.85 mg/dL (0.70-1.30); EST Glomerular Filtration Rate 97 mL/min (>60); Est Glom Filt Rate - Afr Amer 117 mL/min (>60); Estimated Creatinine Clearance 94.23 ml/min; Glucose 108 mg/dL (74-106); Potassium 3.6 mmol/L (3.5-5.1); Sodium Level 139 mmol/L (136-145)
--- NOTE | 2020-11-03 08:27 | CPS ---
patient weaned to 6 lpm.
[2020-11-03] MEDS: Loratadine 10 MG Tablet PO (08:44)
[2020-11-03] MEDS: Enoxaparin 40 MG/0.4 ML Syringe SC ×2 (08:44→22:05)
[2020-11-03] MEDS: Lisinopril 10 MG Tablet PO (08:44)
[2020-11-03] MEDS: Carvedilol 12.5 MG Tablet PO ×2 (08:44→22:04)
[2020-11-03] MEDS: Potassium Chloride Oral Tablet 20 MEQ PO (08:45)
[2020-11-03] MEDS: Aspirin 81 MG TAB.CHEW PO (08:45)
--- NOTE | 2020-11-03 09:33 | CPS ---
patient weaned to 5 lpm.
--- NOTE | 2020-11-03 09:56 | CPS ---
patient found on 4 lpm nc at time of visit.
--- NOTE | 2020-11-03 10:22 | PN.HOSP_ITS ---
Documented by User: Vanessa Viveros NP, TRIAL ATTORNEY-C 11/03/20 11:01 Subjective Subjective Patient seen and examined. Reports improvement in breathing. States he wants to get out of bed and see how he feels breathing with ambulation. Objective Data Objective Data Vital Signs: Vital Signs Temp Pulse Resp BP Pulse Ox 97.8 F 72 20 H 150/83 H 92 11/03/20 08:41 11/03/20 08:41 11/03/20 08:41 11/03/20 08:41 11/03/20 09:55 Oxygen Flow Rate (L/min) 4 Oxygen Delivery Method Nasal Cannula Weight: 383 lb 9.669 oz Body Mass Index (BMI) 56.0 Intake & Output: Intake and Output for Last 24 Hours 11/01/20 11/02/20 11/03/20 23:59 23:59 23:59 Intake Total 240 / 480 1360 / 1360 100 / 100 Output Total 3500 / 4900 4825 / 4825 300 / 300 Balance -3260 / -4420 -3465 / -3465 -200 / -200 Medical Nutrition Assessment Dietitian: Nutrition Therapy Diagnosis Start: 11/01/20 14:55 Freq: Status: Active Protocol: Document 11/01/20 14:55 AG (Rec: 11/01/20 14:56 AG [id number]) Nutrition Malnutrition Evidence of Malnutrition Exists No Intake Problem Decreased Nutrient Needs (specify) Etiology (sodium) r/t CHF Signs/Symptoms as evidenced by BLE lymphedema . Status Active Problem Clinical Problem Obese, Class 3 Etiology r/t predicted excessive energy intake Signs/Symptoms as evidenced by pt report of not following a special diet at home and BMI 56. Status Active Problem Recommendation Dietitian Recommendations/Changes Continue cardiac heart healthy diet. 1500mL fluid restriction. Lab / Micro Data Result Diagrams: 11/03/20 05:25 11/03/20 05:25 Labs: Laboratory Results - last 24 hr 11/03/20 05:25: WBC 6.6, RBC 4.26 L, Hgb 12.3 L, Hct 41.0, MCV 96.2 H, MCH 28.9, MCHC 30.0 L, RDW Std Deviation 64.6 H, RDW Coeff of Sandi 18.5 H, Plt Count 97 L, MPV 11.3, Immature Gran % (Auto) 0.900, Neut % (Auto) 78.7 H, Lymph % (Auto) 10.6 L, [place]ome % (Auto) 7.4, Eos % (Auto) 2.1, Baso % (Auto) 0.3, Absolute Neuts (auto) 5.2, Absolute Lymphs (auto) 0.70 L, Nucleated RBC % 0 11/03/20 05:25: Sodium 139, Potassium 3.6, Chloride 91 L, Carbon Dioxide > 45.0 H*, Anion Gap TNP, BUN 24 H, Creatinine 0.85, Estim Creat Clear Calc 94.23, Est GFR (MDRD) Af Amer 117, Est GFR (MDRD) Non-Af 97, BUN/Creatinine Ratio 28.2 H, Glucose 108 H, Calcium 8.4 L Micro: Microbiology 11/01/20 09:15 Mucosa - Nasopharyngeal SARS-CoV-2 Antigen (Rapid) - Final ABG Data ABG results: ABG 11/02/20 11/02/20 10:03 10:03 Specimen Type ART ART Sample Site L RADIAL L Radial pH 7.39 7.39 Bicarbonate Actual 48.2 H 48.2 H Total CO2 > 50 > 50 Base Excess 23 H 23 H O2 Saturation 87 L 87 L O2 % 35 ABG pCO2 79.6 H* 79.6 H* ABG pO2 57 L 57 L Daquan Test Positive Positive O2 Delivery Device Bi Pap Liter Flow 4.0 Crit Call To/Read Back Yes Yes Blood Gas Notified Whom [facility] MD Blood Gas Notified Time 1003 Physical Exam Const alert, oriented x3 and no apparent distress Orientation / Consciousness: awake, oriented to person, oriented to place and oriented to time Nutritional Appearance: obese HEENT normocephalic and moist oral mucous membranes Eyes PERRL, EOMs intact bilaterally and conjunctivae normal Neck no lymphadenopathy Resp clear to auscultation bilaterally Auscultation: diminished lung sounds Cardio regular rate, regular rhythm and no murmurs Peripheral Pulses: pulses 2+ throughout GI normal to inspection, nondistended, normoactive bowel sounds, non-tender and n on-distended Extremity normal to inspection Skin no rashes or lesions noted Skin Narrative: Bilateral lower extremity lymphedema with venous stasis skin changes. Lesions: no lesions Rashes: no rashes Trauma: no lacerations or abrasions Neuro CN's II-XII intact bilaterally, no focal motor deficits, no sensory deficits noted and deep tendon reflexes 2+ bilaterally Psych mental status grossly normal Mood & Affect: flat affect Assessment & Plan Assessment/Plan (1) CHF (congestive heart failure): (2) Respiratory failure: PLAN: 1. Acute on chronic hypoxic and hypercapnic respiratory failure secondary to acute on chronic heart failure with preserved ejection fraction, VAN and obesity hypoventilation syndrome- continue BIPAP QHS. Patient has CPAP at home and is non-compliant with therapy. Continue supplemental oxygen to maintain O2 at or above 90%. Will need repeat O2 testing prior to discharge. Wears 3L NC at baseline. 2. Acute on chronic heart failure with preserved ejection fraction- CXR consistent with congestion. BNP 216. Echo 09/18/20 with EF 55%. Continue IV lasix. Strict I&O. Daily weight. Denis wraps. 3. VAN/pulmonary HTN/Obesity hypoventilation syndrome- BIPAP QHS. Patient has CPAP at home however is non-compliant. [facility] Patient follows with Dr. Norman. 4. Hypertension- Stable, on carvedilol, lisinopril. 5. Chronic lymphedema/bilateral venous stasis dermatitis- wound RN consult. Denis wraps BLLE. 6. Morbid obesity- Encouraged diet and lifestyle modifications. DVT Prophylaxis-Lovenox sc This patient was seen by SUNIL Courtney under the supervision of Dr. Vigil. Documented by User: Dr. Sid Vigil MD 11/03/20 12:31 Objective Data Lab / Micro Data Result Diagrams: 11/03/20 05:25 11/03/20 05:25 Assessment & Plan Addt'l Comments This patient was seen in conjunction with SUNIL Courtney . I have independently interviewed and examined the patient and reviewed pertinent historical, laboratory, and other data. Please refer to SUNIL Courtney note for details of this patient's presentation, findings, and recommendations. I have reviewed SUNIL Courtney note and concur with documented findings. In brief,Patient is a 59-year-old gentleman presented with shortness of breath Physical Examination: GENERAL: cooperative dyspneic at rest HEENT: Atraumatic; EYES; Anicteric, Normal Conjunctiva NECK; supple, normal thyroid, RESPIRATORY: Diminished to auscultation CARDIOVASCULAR: Regular S1 S2, GI: soft, normoactive bowel sounds, : No Renal angle tenderness; EXTREMITIES: Bilateral lymphedema with some bleeding around the left toes MUSCULOSKELETAL: no muscle waisting NEURO: Awake; no lateralizing signs. SKIN: As discussed above PSYCH; Flat affect Assessment: 1. Acute hypoxic and hypercapnic respiratory failure 2. Chronic hypoxic respiratory failure 3. Congestive heart failure with preserved ejection fraction 4. Obstructive sleep apnea 5. Obesity hypoventilation syndrome 6. Essential hypertension 7. Bilateral stasis dermatitis 8. Diabetes mellitus type 2 9. Obesity with BMI of 55 Recommendations: 1. I have discussed the results of my overview and impressions with the patient 2. Options for management were reviewed
[2020-11-03 13:24] LABS: Hemoglobin A1c 5.8 % (3.8-5.6)
--- NOTE | 2020-11-03 13:24 | CASEMGMT ---
Per therapy, pt is mod/max assist x2 for most activities and was only able to go about 4ft d/t weaknesss and breathing. This RN CM to room and pt is agreeable to SNF and states concerns with going home at discharge. Kristy GOMEZ aware, voices understanding. Pt to be provided list of in-network SNF's. CM to follow. Ed LAWRENCE CM
--- NOTE | 2020-11-03 14:16 | CM.ED ---
Addendum entered by Kristy Sanchez 11/03/20 15:05: JASON met with patient. His first choice for SNF is [facility] and then [facility]. SW remains available. Kristy BARGER Original Note: JASON Note: Referral Source: CM behavioral therapy coordinator Reason: Discharge planning JASON was advised by CM RN that patient will need [facility] ([facility]NF) at discharge. JASON reviewed patient's insurance, [employer], and printed out list of [employer] providers. JASON highlighted list of providers on SNF list for [facility] who are in network. Patient was sleeping and on bipap. SW attempted to wake patient up but he did not wake up. JASON spoke briefly with patient's mother, who is not HCPOA, and explained the SNF list of providers to her. JASON will follow up with patient later today. Plan: Discharge planning Kristy BARGER
[2020-11-04] VITALS (14 sets, daily range): BP systolic 106–130; BP diastolic 65–75; PULSE 57–77; RESP 16–20; TEMP 36.7–37.1; O2SAT 92–100
[2020-11-04 06:03] LABS: Absolute Lymphocyte Count 0.69 X10^3/uL (0.83-4.51); Absolute Neutrophil Count 4.6 X10^3/uL (2.0-7.7); Basophil# 0.02 X10^3/uL; Basophil% 0.3 % (0-1); Eosinophil# 0.18 X10^3/uL; Hematocrit 42.3 % (40-54); Hemoglobin 12.8 g/dL (13.0-16.5); Lymphocyte # 0.69 X10^3/ul (0.83-4.51); Lymphocyte % 11.3 % (19-41); Mean Corp Hgb Conc 30.3 g/dL (32-36); Mean Corpuscular Hgb 28.9 pg (27.0-32.0); Mean Corpuscular Volume 95.5 fL (80-94); Monocyte# 0.62 X10^3/uL; Monocyte% 10.2 % (0-10); NRBC Flagged by Analyzer 0 % (0-5); Neutrophil # 4.55 X10^3/uL (2.7-7.7); Neutrophil % 74.7 % (47-70); POSITIVE COUNT YES; Platelet Count 87 K/mm3 (150-450); RBC Distribution Width CV 18.6 % (11.6-14.6); RBC Distribution Width SD 64.9 fl (35.1-43.9); Red Blood Count 4.43 M/mm3 (4.6-6.2); White Blood Count 6.1 K/mm3 (4.4-11.0)
[2020-11-04] MEDS: Cephalexin 500 MG Capsule PO ×4 (06:23→23:45)
[2020-11-04 06:29] LABS: Anion Gap 0 (5-15); BUN 25 mg/dL (7-18); BUN/Creat Ratio 28.1 RATIO (10-20); Calcium,Total 8.6 mg/dL (8.5-10.1); Chloride 95 mmol/L (98-107); Creatinine, Serum 0.89 mg/dL (0.70-1.30); EST Glomerular Filtration Rate 92 mL/min (>60); Est Glom Filt Rate - Afr Amer 112 mL/min (>60); Glucose 102 mg/dL (74-106); Potassium 3.2 mmol/L (3.5-5.1); Sodium Level 139 mmol/L (136-145)
[2020-11-04] MEDS: Carvedilol 12.5 MG Tablet PO ×2 (08:21→21:27)
[2020-11-04] MEDS: Furosemide 40 MG/4 ML Vial IV (08:21)
[2020-11-04] MEDS: Lisinopril 10 MG Tablet PO (08:21)
[2020-11-04] MEDS: Loratadine 10 MG Tablet PO (08:21)
[2020-11-04] MEDS: Enoxaparin 40 MG/0.4 ML Syringe SC ×2 (08:21→21:26)
[2020-11-04] MEDS: Potassium Chloride Oral Tablet 20 MEQ PO (08:21)
[2020-11-04] MEDS: Aspirin 81 MG TAB.CHEW PO (08:21)
--- NOTE | 2020-11-04 10:21 | PN.HOSP_ITS ---
Documented by User: Vanessa Viveros NP, LINE SERVICE PERSON-C 11/04/20 10:36 Subjective Subjective Patient seen and examined. Reports improvement in breathing. Working with therapy. Amendable to SNF rehab at discharge. Objective Data Objective Data Vital Signs: Vital Signs Temp Pulse Resp BP Pulse Ox 98.8 F 65 18 130/72 H 92 11/04/20 08:16 11/04/20 08:16 11/04/20 08:16 11/04/20 08:16 11/04/20 09:14 Oxygen Flow Rate (L/min) [ 6 AMBULATING with Oxygen #1] Oxygen Flow Rate (L/min) 4 Oxygen Delivery Method Nasal Cannula Weight: 377 lb 13.957 oz Body Mass Index (BMI) 56.0 Intake & Output: Intake and Output for Last 24 Hours 11/02/20 11/03/20 11/04/20 23:59 23:59 23:59 Intake Total 1360 / 1360 300 / 300 120 / 120 Output Total 4825 / 4825 3775 / 3775 300 / 300 Balance -3465 / -3465 -3475 / -3475 -180 / -180 Medical Nutrition Assessment Dietitian: Nutrition Therapy Diagnosis Start: 11/01/20 14:55 Freq: Status: Active Protocol: Document 11/01/20 14:55 AG (Rec: 11/01/20 14:56 AG [id number]) Nutrition Malnutrition Evidence of Malnutrition Exists No Intake Problem Decreased Nutrient Needs (specify) Etiology (sodium) r/t CHF Signs/Symptoms as evidenced by BLE lymphedema . Status Active Problem Clinical Problem Obese, Class 3 Etiology r/t predicted excessive energy intake Signs/Symptoms as evidenced by pt report of not following a special diet at home and BMI 56. Status Active Problem Recommendation Dietitian Recommendations/Changes Continue cardiac heart healthy diet. 1500mL fluid restriction. Lab / Micro Data Result Diagrams: 11/04/20 04:40 11/04/20 04:40 Labs: Laboratory Results - last 24 hr 11/03/20 05:25: Hemoglobin A1c 5.8 H 11/04/20 04:40: WBC 6.1, RBC 4.43 L, Hgb 12.8 L, Hct 42.3, MCV 95.5 H, MCH 28.9, MCHC 30.3 L, RDW Std Deviation 64.9 H, RDW Coeff of Sandi 18.6 H, Plt Count 87 L, MPV 12.0, Immature Gran % (Auto) 0.500, Neut % (Auto) 74.7 H, Lymph % (Auto) 11.3 L, Motley % (Auto) 10.2 H, Eos % (Auto) 3.0, Baso % (Auto) 0.3, Absolute Neuts (auto) 4.6, Absolute Lymphs (auto) 0.69 L, Nucleated RBC % 0 11/04/20 04:40: Sodium 139, Potassium 3.2 L, Chloride 95 L, Carbon Dioxide 44.0 H, Anion Gap 0 L, BUN 25 H, Creatinine 0.89, Estim Creat Clear Calc 90.00, Est GFR (MDRD) Af Amer 112, Est GFR (MDRD) Non-Af 92, BUN/Creatinine Ratio 28.1 H, Glucose 102, Calcium 8.6 Micro: Microbiology 11/01/20 09:15 Mucosa - Nasopharyngeal SARS-CoV-2 Antigen (Rapid) - Final ABG Data ABG results: ABG 11/02/20 10:03 Specimen Type Cancelled Sample Site Cancelled pH Cancelled Bicarbonate Actual Cancelled Total CO2 Cancelled Base Excess Cancelled O2 Saturation Cancelled O2 % Cancelled ABG pCO2 Cancelled ABG pO2 Cancelled Daquan Test Cancelled Respiration Rate Cancelled O2 Delivery Device Cancelled Liter Flow Cancelled Minute Volume Cancelled Vent Mode Cancelled Inspiratory Time Cancelled Expiratory Time Cancelled Tidal Volume Cancelled Mean Airway Pressure Cancelled POC PEEP Cancelled Peak Inspir Pressure Cancelled POC Pressure Suppt Cancelled Pressure Control Cancelled Pressure High Cancelled Pressure Low Cancelled Time High Cancelled Time Low Cancelled EPAP Cancelled IPAP Cancelled Blood Gas Comments Cancelled Crit Call To/Read Back Cancelled Blood Gas Notified Whom Cancelled Blood Gas Notified Time Cancelled Clinical Comments Cancelled Physical Exam Const alert, oriented x3 and no apparent distress Orientation / Consciousness: awake, oriented to person, oriented to place and oriented to time HEENT normocephalic and moist oral mucous membranes Eyes PERRL, EOMs intact bilaterally and conjunctivae normal Neck no lymphadenopathy Resp clear to auscultation bilaterally Auscultation: diminished lung sounds Cardio regular rate, regular rhythm and no murmurs Peripheral Pulses: pulses 2+ throughout GI normal to inspection, nondistended, normoactive bowel sounds, non-tender and non-distended Inspection: central obesity Extremity normal to inspection Skin no rashes or lesions noted Skin Narrative: Bilateral lower extremity lymphedema with venous stasis skin changes. Lesions: no lesions Rashes: no rashes Trauma: no lacerations or abrasions Neuro CN's II-XII intact bilaterally, no focal motor deficits, no sensory deficits noted and deep tendon reflexes 2+ bilaterally Psych mental status grossly normal and affect normal Assessment & Plan Assessment/Plan (1) CHF (congestive heart failure): (2) Respiratory failure: PLAN: 1. Acute on chronic hypoxic and hypercapnic respiratory failure secondary to acute on chronic heart failure with preserved ejection fraction, VAN and obesity hypoventilation syndrome- continue BIPAP QHS. Patient has CPAP at home and is non-compliant with therapy. Continue supplemental oxygen to maintain O2 at or above 90%. Wears 3L NC at baseline. SNF at discharge pending acceptance. 2. Acute on chronic heart failure with preserved ejection fraction- CXR consistent with congestion. BNP 216. Echo 09/18/20 with EF 55%. Strict I&O. Daily weight. Denis wraps. DC IV lasix. Transition to oral lasix 40mg BID. 3. VAN/pulmonary HTN/Obesity hypoventilation syndrome- BIPAP QHS. Patient has CPAP at home however is non-compliant. Will need ongoing follow up with pulmonary medicine. Patient follows with Dr. Norman. 4. Hypertension- Stable, on carvedilol, lisinopril. 5. Chronic lymphedema/bilateral venous stasis dermatitis- wound RN consult. Denis wraps BLLE. 6. Morbid obesity- Encouraged diet and lifestyle modifications. DVT Prophylaxis-Lovenox sc Discharge planning: SNF at discharge for rehab, pending acceptance. This patient was seen by SUNIL Courtney under the supervision of Dr. Vigil. Documented by User: Dr. Sid Vigil MD 11/04/20 11:31 Objective Data Lab / Micro Data Result Diagrams: 11/04/20 04:40 11/04/20 04:40 Assessment & Plan Addt'l Comments This patient was seen in conjunction with SUNIL Courtney . I have independently interviewed and examined the patient and reviewed pertinent historical, laboratory, and other data. Please refer to SUNIL Courtney note for details of this patient's presentation, findings, and recommendations. I have reviewed SUNIL Courtney note and concur with documented findings. In brief,Patient is a 59-year-old gentleman presented with shortness of breath 11/04/2020; patient was seen and assessed by physical therapy recommendation is for patient to be transferred to a halfway facility. His overall breathing status continues to improve Physical Examination: GENERAL: cooperative dyspneic at rest HEENT: Atraumatic; EYES; Anicteric, Normal Conjunctiva NECK; supple, normal thyroid, RESPIRATORY: Diminished to auscultation CARDIOVASCULAR: Regular S1 S2, GI: soft, normoactive bowel sounds, : No Renal angle tenderness; EXTREMITIES: Bilateral lymphedema with some bleeding around the left toes MUSCULOSKELETAL: no muscle waisting NEURO: Awake; no lateralizing signs. SKIN: As discussed above PSYCH; Flat affect Assessment: 1. Acute hypoxic and hypercapnic respiratory failure 2. Chronic hypoxic respiratory failure 3. Congestive heart failure with preserved ejection fraction 4. Obstructive sleep apnea 5. Obesity hypoventilation syndrome 6. Essential hypertension 7. Bilateral stasis dermatitis 8. Diabetes mellitus type 2 9. Obesity with BMI of 55 Recommendations: 1. I have discussed the results of my overview and impressions with the patient 2. Options for management were reviewed Charges/Coding Visit Charges Inpatient E&M: 06985 Subs Hosp L2
[2020-11-04] MEDS: Potassium Chloride Oral Tablet 20 MEQ 40 MEQ PO (11:03)
[2020-11-04] MEDS: Furosemide 40 MG Tablet PO (17:45)
[2020-11-04] MEDS: 0.9% Saline Lock 10 ML Syringe IV (20:08)
[2020-11-05] VITALS (17 sets, daily range): BP systolic 92–113; BP diastolic 51–61; PULSE 60–89; RESP 12–21; TEMP 36.6–36.8; O2SAT 92–98
[2020-11-05] MEDS: Cephalexin 500 MG Capsule PO ×3 (04:50→17:21)
[2020-11-05] MEDS: 0.9% Saline Lock 10 ML Syringe IV (04:54)
[2020-11-05 05:56] LABS: Anion Gap 1 (5-15); BUN 28 mg/dL (7-18); BUN/Creat Ratio 25.5 RATIO (10-20); Calcium,Total 8.6 mg/dL (8.5-10.1); Chloride 95 mmol/L (98-107); EST Glomerular Filtration Rate 72 mL/min (>60); Est Glom Filt Rate - Afr Amer 87 mL/min (>60); Estimated Creatinine Clearance 72.82 ml/min; Glucose 117 mg/dL (74-106); Potassium 3.8 mmol/L (3.5-5.1); Sodium Level 138 mmol/L (136-145)
[2020-11-05] MEDS: Potassium Chloride Oral Tablet 20 MEQ 40 MEQ PO (08:31)
[2020-11-05] MEDS: Aspirin 81 MG TAB.CHEW PO (08:31)
[2020-11-05] MEDS: Loratadine 10 MG Tablet PO (10:30)
[2020-11-05] MEDS: Enoxaparin 40 MG/0.4 ML Syringe SC ×2 (10:30→21:44)
[2020-11-05] MEDS: Furosemide 40 MG Tablet PO ×2 (10:41→17:21)
[2020-11-05] MEDS: Carvedilol 12.5 MG Tablet PO (10:41)
--- NOTE | 2020-11-05 11:00 | CASEMGMT ---
Social Work Met with patient in room. Patient reports that first choice for SNF is [facility] and second choice is [facility] and [facility]. Patient request to have patient sister, Morelia Echavarria (POA) - [phone]. Telephone call to [facility] [place]. Patient is over weight qualifications. Telephone call to [facility]. [facility] reports to have open beds and to be able to review clinicals. Clinical information faxed. Telephone call to Morelia Thibodeaux updated on above information and agreeable to above plan. Will continue to follow. Apolinar Gamino MSW, [facility]
--- NOTE | 2020-11-05 12:36 | PN.HOSP_ITS ---
Documented by User: Vanessa Viveros NP, SALES REPRESENTATIVE PRINTING-C 11/05/20 12:40 Subjective Subjective Patient seen and examined. Shortness of breath improved. Denies new complaints. Awaiting approval to SNF. Objective Data Objective Data Vital Signs: Vital Signs Temp Pulse Resp BP Pulse Ox 98.3 F 70 18 101/51 L 95 11/05/20 10:21 11/05/20 10:21 11/05/20 10:21 11/05/20 10:21 11/05/20 10:21 Oxygen Flow Rate (L/min) [ 6 AMBULATING with Oxygen #1] Oxygen Flow Rate (L/min) 5 Oxygen Delivery Method Nasal Cannula Weight: 367 lb 1.114 oz Body Mass Index (BMI) 56.0 Intake & Output: Intake and Output for Last 24 Hours 11/03/20 11/04/20 11/05/20 23:59 23:59 23:59 Intake Total 300 / 300 1080 / 1140 120 / 120 Output Total 3775 / 3775 0 / 2050 500 / 500 Balance -3475 / -3475 -970 / -910 -380 / -380 Medical Nutrition Assessment Dietitian: Nutrition Therapy Diagnosis Start: 11/01/20 14:55 Freq: Status: Active Protocol: Document 11/01/20 14:55 AG (Rec: 11/01/20 14:56 [id number]) Nutrition Malnutrition Evidence of Malnutrition Exists No Intake Problem Decreased Nutrient Needs (specify) Etiology (sodium) r/t CHF Signs/Symptoms as evidenced by BLE lymphedema . Status Active Problem Clinical Problem Obese, Class 3 Etiology r/t predicted excessive energy intake Signs/Symptoms as evidenced by pt report of not following a special diet at home and BMI 56. Status Active Problem Recommendation Dietitian Recommendations/Changes Continue cardiac heart healthy diet. 1500mL fluid restriction. Lab / Micro Data Result Diagrams: 11/04/20 04:40 11/05/20 04:54 Labs: Laboratory Results - last 24 hr 11/05/20 04:54: Sodium 138, Potassium 3.8, Chloride 95 L, Carbon Dioxide 42.0 H, Anion Gap 1 L, BUN 28 H, Creatinine 1.10, Estim Creat Clear Calc 72.82, Est GFR (MDRD) Af Amer 87, Est GFR (MDRD) Non-Af 72, BUN/Creatinine Ratio 25.5 H, Glucose 117 H, Calcium 8.6 Micro: Microbiology 11/01/20 09:15 Mucosa - Nasopharyngeal SARS-CoV-2 Antigen (Rapid) - Final Physical Exam Const alert, oriented x3 and no apparent distress Orientation / Consciousness: awake, oriented to person, oriented to place and oriented to time HEENT normocephalic and moist oral mucous membranes Eyes PERRL, EOMs intact bilaterally and conjunctivae normal Neck no lymphadenopathy Resp clear to auscultation bilaterally Auscultation: diminished lung sounds Cardio regular rate, regular rhythm and no murmurs Peripheral Pulses: pulses 2+ throughout GI normal to inspection, nondistended, normoactive bowel sounds, non-tender and non-distended Extremity normal to inspection General Extremity: edema bilateral lower extremity Skin no rashes or lesions noted Skin Narrative: Bilateral lower extremity lymphedema with venous stasis skin changes. Lesions: no lesions Rashes: no rashes Trauma: no lacerations or abrasions Neuro CN's II-XII intact bilaterally, no focal motor deficits, no sensory deficits n oted and deep tendon reflexes 2+ bilaterally Psych mental status grossly normal and affect normal Assessment & Plan Assessment/Plan (1) CHF (congestive heart failure): (2) Respiratory failure: PLAN: 1. Acute on chronic hypoxic and hypercapnic respiratory failure secondary to acute on chronic heart failure with preserved ejection fraction, VAN and obesity hypoventilation syndrome- continue BIPAP QHS. Patient has CPAP at home and is non-compliant with therapy. Continue supplemental oxygen to maintain O2 at or above 90%. Wears 3L NC at baseline. SNF at discharge pending acceptance. 2. Acute on chronic heart failure with preserved ejection fraction- CXR consistent with congestion. BNP 216. Echo 09/18/20 with EF 55%. Strict I&O. Daily weight. Denis wraps. DC IV lasix. Transition to oral lasix 40mg BID. 3. VAN/pulmonary HTN/Obesity hypoventilation syndrome- BIPAP QHS. Patient has CPAP at home however is non-compliant. Will need ongoing follow up with pulmonary medicine. Patient follows with Dr. Norman. 4. Hypertension- Stable, on carvedilol, lisinopril. 5. Chronic lymphedema/bilateral venous stasis dermatitis- wound RN consult. Denis wraps BLLE. 6. Morbid obesity- Encouraged diet and lifestyle modifications. DVT Prophylaxis-Lovenox id Discharge planning: SNF at discharge for rehab, pending acceptance. This patient was seen by SUNIL Courtney under the supervision of Dr. Lewis. Documented by User: Dr. Ronni Lewis MD 11/05/20 13:20 Objective Data Lab / Micro Data Result Diagrams: 11/04/20 04:40 11/05/20 04:54 Charges/Coding Addendum Addendum: Dr. Lewis: I personally reviewed the chart and examined the patient, and agree with the above findings. 59-year-old male presents to the hospital with worsening shortness of breath secondary to acute on chronic systolic diastolic CHF with acute on chronic hypoxic and hypercapnic respiratory failure. He did have an echo obtained recently which demonstrated an EF of 55%. He is doing much better today however he is debilitated, PT/OT evaluated him and has recommended place ent for rehab. Given his pulmonary hypertension and his obesity, lifestyle modifications were discussed with him. Also discussed with him that he has obstructive sleep apnea and will need to be compliant with his CPAP on discharge. Visit Charges Inpatient E&M: 50138 Subs Hosp L2
--- NOTE | 2020-11-05 13:10 | CASEMGMT ---
Social Work Telephone call from [facility]. [facility] reports to be able to accept patient and has started pre-cert. Patient and patient sister updated on above. Will continue to follow. Apolinar TENORIO, [place]
--- NOTE | 2020-11-05 14:17 | CASEMGMT ---
Social Work Poly from [facility] request for COVID test results and vaccination status to be faxed to [facility]. Poly also reports that pre-cert could take 2-3 days due to [employer] as insurance. Requested clinical information faxed to [facility]. Apolinar TENORIO, [place]
--- NOTE | 2020-11-05 15:57 | CASEMGMT ---
Social Work PASRR completed and faxed to [place]. Apolinar Gamino INSURANCE ACCOUNT EXECUTIVE, SQL MANAGER-S
[2020-11-06] VITALS (15 sets, daily range): BP systolic 107–146; BP diastolic 64–78; PULSE 58–79; RESP 16–18; TEMP 36.7–37.2; O2SAT 93–100
[2020-11-06] MEDS: Cephalexin 500 MG Capsule PO ×5 (00:07→23:31)
[2020-11-06 07:32] LABS: Anion Gap 1 (5-15); BUN 31 mg/dL (7-18); BUN/Creat Ratio 32.9 RATIO (10-20); Calcium,Total 8.4 mg/dL (8.5-10.1); Chloride 98 mmol/L (98-107); Creatinine, Serum 0.94 mg/dL (0.70-1.30); EST Glomerular Filtration Rate 86 mL/min (>60); Est Glom Filt Rate - Afr Amer 104 mL/min (>60); Estimated Creatinine Clearance 85.21 ml/min; Glucose 87 mg/dL (74-106); Potassium 4.5 mmol/L (3.5-5.1); Sodium Level 135 mmol/L (136-145)
[2020-11-06] MEDS: Potassium Chloride Oral Tablet 20 MEQ 40 MEQ PO (08:30)
--- NOTE | 2020-11-06 08:30 | NURSING ---
AM medications verified with MELINDA Rizzo due to not scanning.
[2020-11-06] MEDS: Carvedilol 12.5 MG Tablet PO ×2 (08:31→21:06)
[2020-11-06] MEDS: Enoxaparin 40 MG/0.4 ML Syringe SC ×2 (08:32→21:06)
[2020-11-06] MEDS: Loratadine 10 MG Tablet PO (08:33)
[2020-11-06] MEDS: Aspirin 81 MG TAB.CHEW PO (08:33)
[2020-11-06] MEDS: Furosemide 40 MG Tablet PO (08:33)
[2020-11-06] MEDS: Lisinopril 10 MG Tablet PO (08:33)
--- NOTE | 2020-11-06 10:51 | PN.HOSP_ITS ---
Documented by User: Vanessa Viveros NP, DIE SINKER APPRENTICE-C 11/06/20 10:54 Subjective Subjective Patient seen and examined. On baseline home O2 requirements. Denies shortness of breath. Awaiting approval to SNF. Objective Data Objective Data Vital Signs: Vital Signs Temp Pulse Resp BP Pulse Ox 98.2 F 61 17 120/78 93 11/06/20 08:30 11/06/20 08:30 11/06/20 08:30 11/06/20 08:30 11/06/20 10:07 Oxygen Flow Rate (L/min) [ 6 AMBULATING with Oxygen #1] Oxygen Flow Rate (L/min) 5 Oxygen Delivery Method Nasal Cannula Weight: 366 lb 13.587 oz Body Mass Index (BMI) 56.0 Intake & Output: Intake and Output for Last 24 Hours 11/04/20 11/05/20 11/06/20 23:59 23:59 23:59 Intake Total 1080 / 1140 1540 / 1540 150 / 150 Output Total 2049 / 2049 1650 / 1650 400 / 400 Balance -970 / -910 -110 / -110 -250 / -250 Medical Nutrition Assessment Dietitian: Nutrition Therapy Diagnosis Start: 11/01/20 14:55 Freq: Status: Active Protocol: Document 11/05/20 14:55 RMA (Rec: 11/05/20 14:55 RMA [id number]) Nutrition Malnutrition Evidence of Malnutrition Exists No Intake Problem Decreased Nutrient Needs (specify) Etiology (sodium) r/t CHF Signs/Symptoms as evidenced by BLE lymphedema . Status Active Problem Clinical Problem Obese, Class 3 Etiology r/t predicted excessive energy intake Signs/Symptoms as evidenced by pt report of not following a special diet at home and BMI 56. Status Active Problem Recommendation Dietitian Recommendations/Changes Continue cardiac heart healthy /sodium restricted diet. 1500mL fluid restriction. ONS not indicated. Additional diet education as needed. Lab / Micro Data Result Diagrams: 11/04/20 04:40 11/06/20 06:00 Labs: Laboratory Results - last 24 hr 11/06/20 06:00: Sodium 135 L, Potassium 4.5, Chloride 98, Carbon Dioxide 36.0 H, Anion Gap 1 L, BUN 31 H, Creatinine 0.94, Estim Creat Clear Calc 85.21, Est GFR (MDRD) Af Amer 104, Est GFR (MDRD) Non-Af 86, BUN/Creatinine Ratio 32.9 H, Glucose 87, Calcium 8.4 L Micro: Microbiology 11/05/20 13:22 Mucosa - Nose SARS-CoV-2 Antigen (Rapid) - Final 11/01/20 09:15 Mucosa - Nasopharyngeal SARS-CoV-2 Antigen (Rapid) - Final Physical Exam Const alert, oriented x3 and no apparent distress Orientation / Consciousness: awake, oriented to person, oriented to place and oriented to time HEENT normocephalic and moist oral mucous membranes Eyes PERRL, EOMs intact bilaterally and conjunctivae normal Neck no lymphadenopathy Resp normal respiratory effort and clear to auscultation bilaterally Cardio regular rate, regular rhythm and no murmurs Peripheral Pulses: pulses 2+ throughout GI normal to inspection, nondistended, normoactive bowel sounds, non-tender and non-distended Extremity normal to inspection Skin no rashes or lesions noted Skin Narrative: Bilateral lower extremity lymphedema with venous stasis skin changes. Lesions: no lesions Rashes: no rashes Trauma: no lacerations or abrasions Neuro CN's II-XII intact bilaterally, no focal motor deficits, no sensory deficits noted and deep tendon reflexes 2+ bilaterally Psych mental status grossly normal and affect normal Assessment & Plan Assessment/Plan (1) CHF (congestive heart failure): PLAN: 1. Acute on chronic hypoxic and hypercapnic respiratory failure secondary to acute on chronic heart failure with preserved ejection fraction, VAN and obesity hypoventilation syndrome- continue BIPAP QHS. Patient has CPAP at home and is non-compliant with therapy. Continue supplemental oxygen to maintain O2 at or above 90%. Wears 3L NC at baseline. SNF at discharge pending acceptance. 2. Acute on chronic heart failure with preserved ejection fraction- CXR consistent with congestion. BNP 216. Echo 09/18/20 with EF 55%. Strict I&O. Daily weight. Denis wraps. DC IV lasix. Transition to oral lasix 40mg BID. 3. VAN/pulmonary HTN/Obesity hypoventilation syndrome- BIPAP QHS. Patient has CPAP at home however is non-compliant. Will need ongoing follow up with pulmonary medicine. Patient follows with Dr. Norman. 4. Hypertension- Stable, on carvedilol, lisinopril. 5. Chronic lymphedema/bilateral venous stasis dermatitis- wound RN consult. Denis wraps BLLE. 6. Morbid obesity- Encouraged diet and lifestyle modifications. DVT Prophylaxis-Lovenox sc Discharge planning: SNF at discharge for rehab, pending acceptance. This patient was seen by SUNIL Courtney under the supervision of Dr. Lewis. Documented by User: Dr. Ronni Lewis MD 11/06/20 11:39 Objective Data Lab / Micro Data Result Diagrams: 11/04/20 04:40 11/06/20 06:00 Charges/Coding Addendum Addendum: Dr. Lewis: I personally reviewed the chart and examined the patient, and agree with the above findings. 59-year-old male presents to the hospital with worsening s hortness of breath secondary to acute on chronic systolic diastolic CHF with acute on chronic hypoxic and hypercapnic respiratory failure. He did have an echo obtained recently which demonstrated an EF of 55%. He is doing much better today however he is debilitated, PT/OT evaluated him and has recommended placement for rehab. Given his pulmonary hypertension and his obesity, lifestyle modifications were discussed with him. Also discussed with him that he has obstructive sleep apnea and will need to be compliant with his CPAP on discharge. 11/06/2020: No issues overnight, feels like he is back to his baseline however he still very weak. Currently awaiting pre-CERT for SNF placement. Visit Charges Inpatient E&M: 95541 Subs Hosp L2
--- NOTE | 2020-11-06 13:25 | CASEMGMT ---
Social Work Telephone call to [facility]. Voicemail left inquiring about pre-cert status. Will continue to follow. Apolinar Gamino MSW, [place]
[2020-11-07] VITALS (9 sets, daily range): BP systolic 109–111; BP diastolic 69–73; PULSE 57–70; RESP 14–18; TEMP 36.4–37.1; O2SAT 94–98
[2020-11-07] MEDS: Cephalexin 500 MG Capsule PO ×2 (05:51→12:08)
[2020-11-07 05:53] LABS: Anion Gap 2 (5-15); BUN 29 mg/dL (7-18); BUN/Creat Ratio 32.9 RATIO (10-20); Calcium,Total 8.1 mg/dL (8.5-10.1); Chloride 100 mmol/L (98-107); Creatinine, Serum 0.88 mg/dL (0.70-1.30); EST Glomerular Filtration Rate 93 mL/min (>60); Est Glom Filt Rate - Afr Amer 113 mL/min (>60); Estimated Creatinine Clearance 91.02 ml/min; Glucose 102 mg/dL (74-106); Potassium 4.7 mmol/L (3.5-5.1); Sodium Level 136 mmol/L (136-145)
[2020-11-07] MEDS: Potassium Chloride Oral Tablet 20 MEQ 40 MEQ PO (08:54)
[2020-11-07] MEDS: Aspirin 81 MG TAB.CHEW PO (08:54)
[2020-11-07] MEDS: Loratadine 10 MG Tablet PO (08:54)
[2020-11-07] MEDS: Carvedilol 12.5 MG Tablet PO (08:55)
[2020-11-07] MEDS: Furosemide 40 MG Tablet PO (08:55)
[2020-11-07] MEDS: Enoxaparin 40 MG/0.4 ML Syringe SC (08:55)
[2020-11-07] MEDS: Lisinopril 10 MG Tablet PO (08:55)
--- NOTE | 2020-11-07 10:02 | TREXTCAR_ITS ---
Documented by User: Vanessa Viveros NP, OFFICE ASSOCIATE-C 11/07/20 10:13 Diet 11/01/20 11:24 Diet: Cardiac - Heart Healthy Food consistency:: Regular Liquid Consistency:: Regular/Thin Dietary Modifications:: Sodium Restricted Fluid restriction:: 1500 mL Routine Orders/Code Status Enema Type: Fleetz Enema Frequency: Daily PRN Suppository Type: Dulcolax 10mg Suppository Frequency: Daily PRN O2 Liters per Minute: 3 O2 Frequency: Continuous Keep PO Greater than or Equal to (%): 90 Routine Lab Work: - (Weekly CBC, BMP) Code Status: DNRCC-A (no intubation) Suggestions for Active Care Change Position every (hours): 2 Times a day to sit in chair: 3 Therapies Physical Therapy: Eval and Treat Occupational Therapy: Eval and Treat Problem/Diagnosis (1) CHF (congestive heart failure): Status: Acute Allergies/Procedures Done in Hospital Allergies No Known Allergies Allergy (Verified 11/01/20 08:53) Procedures: None Type of Care/Length of Stay Estimated LOS: Convalescent Care Less Than 30 days Type of Care Needed: Skilled Rehab Potential: Fair Prognosis: Fair Additional Orders/Day of Discharge Additional Orders: BIPAP QHS H&P will serve as current which was dated: 11/01/20 Day of Discharge: 11/07/20 Dietary and Speech Recommendations Dietitian Recommendations/Changes: Continue cardiac heart healthy/sodium restricted diet. 1500mL fluid restriction. ONS not indicated. Additional diet education as needed. Discharge Plan Admission Admit Date/Time: 11/01/20 10:23 Primary Reason for Your Visit: CHF Attending Provider: Ronni Lewis [facility] Additional Instructions / Restrictions: A stress bilateral lower extremities. Apply Eucerin twice daily. Elevate lower extremities. Discharge Orders/Prescriptions Prescriptions: Continued ProAir HFA 90 mcg/actuation HFA aerosol inhaler 2 puff INHALATION Q4H PRN (Reason: shortness of breath) RF: 0 ergocalciferol (vitamin D2) 50,000 UNIT capsule 1 cap PO QWEEK RF: 0 furosemide 40 MG tablet 40 mg PO BID Qty: 60 RF: 0 aspirin 81 MG tablet,chewable 81 mg PO DAILY Qty: 1 RF: 0 potassium chloride 20 MEQ tablet 20 meq PO DAILY Qty: 30 RF: 0 docusate sodium [Colace] 100 mg Capsule 100 mg PO DAILY PRN (Reason: Constipation) RF: 0 lisinopril 10 mg tablet 10 mg PO DAILY Qty: 30 RF: 11 carvedilol 12.5 mg tablet 12.5 mg PO BID Qty: 180 RF: 3 Referrals / Follow Up: Christianne Tariq OFFICE ASSOCIATE, OFFICE ASSOCIATE-C [Nurse Practitioner] - Within 2 Weeks Osmany العلي OFFICE ASSOCIATE, OFFICE ASSOCIATE-C [Nurse Practitioner] - See Referral Note (As scheduled 11/27/2020) [facility] - In 1 Week Disposition Disposition (needs filled in before D/C Order can be placed): [facility] Facility Documented by User: Dr. Ronni Lewis MD 11/07/20 10:52 Allergies/Procedures Done in Hospital Allergies No Known Allergies Allergy (Verified 11/01/20 08:53) Discharge Plan Admission Admit Date/Time: 11/01/20 10:23 Primary Reason for Your Visit: CHF Attending Provider: Ronni Lewis [facility] Inst[facility] Additional Instructions / Restrictions: A stress bilateral lower extremities. Apply Eucerin twice daily. Elevate lower extremities. Discharge Orders/Prescriptions Prescriptions: Continued ProAir HFA 90 mcg/actuation HFA aerosol inhaler 2 puff INHALATION Q4H PRN (Reason: shortness of breath) RF: 0 ergocalciferol (vitamin D2) 50,000 UNIT capsule 1 cap PO QWEEK RF: 0 furosemide 40 MG tablet 40 mg PO BID Qty: 60 RF: 0 aspirin 81 MG tablet,chewable 81 mg PO DAILY Qty: 1 RF: 0 potassium chloride 20 MEQ tablet 20 meq PO DAILY Qty: 30 RF: 0 docusate sodium [Colace] 100 mg Capsule 100 mg PO DAILY PRN (Reason: Constipation) RF: 0 lisinopril 10 mg tablet 10 mg PO DAILY Qty: 30 RF: 11 carvedilol 12.5 mg tablet 12.5 mg PO BID Qty: 180 RF: 3 Referrals / Follow Up: Christianne Tariq OFFICE ASSOCIATE, OFFICE ASSOCIATE-C [Nurse Practitioner] - Within 2 Weeks Osmany العلي OFFICE ASSOCIATE, OFFICE ASSOCIATE-C [Nurse Practitioner] - See Referral Note (As scheduled 11/27/2020) [facility] - In 1 Week Disposition Disposition (needs filled in before D/C Order can be placed): Senior Care Facility
--- NOTE | 2020-11-07 10:13 | CASEMGMT ---
Social Work Telephone call from Poly Davies. Pre-cert has been obtained and [facility] is able to accept patient today. Medical team updated and reports that patient is ready for discharge today. Met with patient in room. This social media manager updated patient on above information. Patient agreeable to discharge today to [facility]. Patient request for this social media manager to update patient mother on above information. Telephone call to patient mother, Ora. Ora updated on above information. Ora agreeable to all above information. Discharge information to be faxed when obtained. Proposed discharge date: 11/07/2020 Disposition: [facility], [facility]ANDR[facility]
--- NOTE | 2020-11-07 10:13 | PCM.DC.SUM ---
Documented by User: Vanessa Viveros NP, REST ROOM ATTENDANT-C 11/07/20 10:16 Providers Date of Admission: 11/01/20 Date of Discharge: 11/07/20 Primary Care Physician: [facility] Reason For Visit: ACUTE HYPOXIC RESPIRATORY FAILURE Diagnosis Discharge Diagnosis (1) CHF (congestive heart failure): Status: Acute Code(s): I50.9 - Heart failure, unspecified Medications at Discharge Home Medications ergocalciferol (vitamin D2) 1 cap PO QWEEK 05/25/17 aspirin 81 mg PO DAILY #1 tab.chew 05/28/17 furosemide 40 mg PO BID #60 tab 05/28/17 potassium chloride 20 meq PO DAILY #30 tab 05/28/17 albuterol sulfate 90 mcg/actuation aerosol inhaler 2 puff INHALATION Q4H PRN inh 01/07/18 lisinopril 10 mg tablet 10 mg PO DAILY #30 tab 10/19/18 carvedilol 12.5 mg tablet 12.5 mg PO BID #180 tab 09/04/20 docusate sodium [Colace] 100 mg PO DAILY PRN 11/01/20 Hospital Course Operations None Procedures None Summary of Care Provided Minutes Spent on Discharge: 35 Hospital Course: Patient is a 59-year-old male admitted 11/01/2020 due to shortness of breath. 1. Acute on chronic hypoxic and hypercapnic respiratory failure secondary to acute on chronic heart failure with preserved ejection fraction, VAN and obesity hypoventilation syndrome- continue BIPAP QHS. Patient has CPAP at home and is non-compliant with therapy. Continue supplemental oxygen to maintain O2 at or above 90%. Wears 3L NC at baseline. SNF at discharge. Follow-up with pulmonary medicine in 2 weeks. 2. Acute on chronic heart failure with preserved ejection fraction- CXR consistent with congestion. BNP 216. Echo 09/18/20 with EF 55%. Strict I&O. Daily weight. Denis wraps. IV Lasix during admission. Transition to oral lasix 40mg BID. 3. VAN/pulmonary HTN/Obesity hypoventilation syndrome- BIPAP QHS. Patient has CPAP at home however is non-compliant. Will need ongoing follow up with pulmonary medicine. Patient follows with Dr. Norman. 4. Hypertension- Stable, on carvedilol, lisinopril. 5. Chronic lymphedema/bilateral venous stasis dermatitis- Denis wraps BLLE. 6. Morbid obesity- Encouraged diet and lifestyle modifications. Physical Exam Const alert, oriented x3 and no apparent distress Orientation / Consciousness: awake, oriented to person, oriented to place and oriented to time HEENT normocephalic and moist oral mucous membranes Eyes PERRL, EOMs intact bilaterally and conjunctivae normal Neck no lymphadenopathy Resp normal respiratory effort and clear to auscultation bilaterally Cardio regular rate, regular rhythm and no murmurs Peripheral Pulses: pulses 2+ throughout GI normal to inspection, nondistended, normoactive bowel sounds, non-tender and non-distended Extremity normal to inspection Skin no rashes or lesions noted Skin Narrative: Bilateral lower extremity lymphedema with venous stasis skin changes. Lesions: no lesions Rashes: no rashes Trauma: no lacerations or abrasions Neuro CN's II-XII intact bilaterally, no focal motor deficits, no sensory deficits noted and deep tendon reflexes 2+ bilaterally Psych mental status grossly normal and affect normal Patient seen and examined prior to discharge. Physical assessment as noted above. Patient is stable for discharge with follow up recommendations as noted above. This patient was seen by SUNIL Courtney under the supervision of Dr. Lewis. Medical Records Data Medical Nutrition Assessment Dietitian: Nutrition Therapy Diagnosis Start: 11/01/20 14:55 Freq: Status: Active Protocol: Document 11/05/20 14:55 RMA (Rec: 11/05/20 14:55 RMA [id number]) Nutrition Malnutrition Evidence of Malnutrition Exists No Intake Problem Decreased Nutrient Needs (specify) Etiology (sodium) r/t CHF Signs/Symptoms as evidenced by BLE lymphedema . Status Active Problem Clinical Problem Obese, Class 3 Etiology r/t predicted excessive energy intake Signs/Symptoms as evidenced by pt report of not following a special diet at home and BMI 56. Status Active Problem Recommendation Dietitian Recommendations/Changes Continue cardiac heart healthy /sodium restricted diet. 1500mL fluid restriction. ONS not indicated. Additional diet education as needed. Weight / BMI Weight Weight: 369 lb 14.97 oz Body Mass Index (BMI) 56.0 ABG / Lab / Microbiology Data Result Diagrams: 11/04/20 04:40 11/07/20 05:04 Laboratory: Laboratory Results - last 24 hr 11/07/20 05:04: Sodium 136, Potassium 4.7, Chloride 100, Carbon Dioxide 34.0 H, Anion Gap 2 L, BUN 29 H, Creatinine 0.88, Estim Creat Clear Calc 91.02, Est GFR (MDRD) Af Amer 113, Est GFR (MDRD) Non-Af 93, BUN/Creatinine Ratio 32.9 H, Glucose 102, Calcium 8.1 L Microbiology: Microbiology 11/05/20 13:22 Mucosa - Nose SARS-CoV-2 Antigen (Rapid) - Final 11/01/20 09:15 Mucosa - Nasopharyngeal SARS-CoV-2 Antigen (Rapid) - Final Meaningful Use Info Meaningful Use Diagnoses (Choose all that apply): CHF CHF DENIS/ARB ordered at discharge?: Yes Documented LVEF (%): 55 Discharge Plan Admission Admit Date/Time: 11/01/20 10:23 Primary Reason for Your Visit: CHF Attending Provider: Ronni Lewis [facility] Additional Instructions / Restrictions: A stress bilateral lower extremities. Apply Eucerin twice daily. Elevate lower extremities. Discharge Orders/Prescriptions Prescriptions: Continued ProAir HFA 90 mcg/actuation HFA aerosol inhaler 2 puff INHALATION Q4H PRN (Reason: shortness of breath) RF: 0 ergocalciferol (vitamin D2) 50,000 UNIT capsule 1 cap PO QWEEK RF: 0 furosemide 40 MG tablet 40 mg PO BID Qty: 60 RF: 0 aspirin 81 MG tablet,chewable 81 mg PO DAILY Qty: 1 RF: 0 potassium chloride 20 MEQ tablet 20 meq PO DAILY Qty: 30 RF: 0 docusate sodium [Colace] 100 mg Capsule 100 mg PO DAILY PRN (Reason: Constipation) RF: 0 lisinopril 10 mg tablet 10 mg PO DAILY Qty: 30 RF: 11 carvedilol 12.5 mg tablet 12.5 mg PO BID Qty: 180 RF: 3 Referrals / Follow Up: Christianne Tariq NP, REST ROOM ATTENDANT-C [Nurse Practitioner] - Within 2 Weeks Osmany العلي NP, REST ROOM ATTENDANT-C [Nurse Practitioner] - See Referral Note (As scheduled 11/27/2020) [facility] - In 1 Week Disposition Disposition (needs filled in before D/C Order can be placed): Shelter Facility Documented by User: Dr. Ronni Lewis MD 11/07/20 10:52 Providers Date of Admission: 11/01/20 Reason For Visit: ACUTE HYPOXIC RESPIRATORY FAILURE Medications at Discharge Home Medications ergocalciferol (vitamin D2) 1 cap PO QWEEK 05/25/17 aspirin 81 mg PO DAILY #1 tab.chew 05/28/17 furosemide 40 mg PO BID #60 tab 05/28/17 potassium chloride 20 meq PO DAILY #30 tab 05/28/17 albuterol sulfate 90 mcg/actuation aerosol inhaler 2 puff INHALATION Q4H PRN inh 01/07/18 lisinopril 10 mg tablet 10 mg PO DAILY #30 tab 10/19/18 carvedilol 12.5 mg tablet 12.5 mg PO BID #180 tab 09/04/20 docusate sodium [Colace] 100 mg PO DAILY PRN 11/01/20 ABG / Lab / Microbiology Data Result Diagrams: 11/04/20 04:40 11/07/20 05:04 Discharge Plan Admission Admit Date/Time: 11/01/20 10:23 Primary Reason for Your Visit: CHF Attending Provider: Ronni Lewis [facility] Inst[facility] Additional Instructions / Restrictions: A stress bilateral lower extremities. Apply Eucerin twice daily. Elevate lower extremities. Discharge Orders/Prescriptions Prescriptions: Continued ProAir HFA 90 mcg/actuation HFA aerosol inhaler 2 puff INHALATION Q4H PRN (Reason: shortness of breath) RF: 0 ergocalciferol (vitamin D2) 50,000 UNIT capsule 1 cap PO QWEEK RF: 0 furosemide 40 MG tablet 40 mg PO BID Qty: 60 RF: 0 aspirin 81 MG tablet,chewable 81 mg PO DAILY Qty: 1 RF: 0 potassium chloride 20 MEQ tablet 20 meq PO DAILY Qty: 30 RF: 0 docusate sodium [Colace] 100 mg Capsule 100 mg PO DAILY PRN (Reason: Constipation) RF: 0 lisinopril 10 mg tablet 10 mg PO DAILY Qty: 30 RF: 11 carvedilol 12.5 mg tablet 12.5 mg PO BID Qty: 180 RF: 3 Referrals / Follow Up: Christianne Tariq REST ROOM ATTENDANT, REST ROOM ATTENDANT-C [Nurse Practitioner] - Within 2 Weeks Osmany العلي REST ROOM ATTENDANT, REST ROOM ATTENDANT-C [Nurse Practitioner] - See Referral Note (As scheduled 11/27/2020) [facility] [Primary Care Provider] - In 1 Week Disposition Disposition (needs filled in before D/C Order can be placed): Shelter Facility Charges/Coding Addendum Addendum: Dr. Lewis: I personally reviewed the chart and examined the patient, and agree with the above findings. 59-year-old male presents to the hospital with worsening shortness of breath secondary to acute on chronic systolic diastolic CHF with acute on chronic hypoxic and hypercapnic respiratory failure. He did have an echo obtained recently which demonstrated an EF of 55%. He is doing much better today however he is debilitated, PT/OT evaluated him and has recommended placement for rehab. Given his pulmonary hypertension and his obesity, lifestyle modifications were discussed with him. Also discussed with him that he has obstructive sleep apnea and will need to be compliant with his CPAP on discharge. 11/06/2020: No issues overnight, feels like he is back to his baseline however he still very weak. Currently awaiting pre-CERT for SNF placement. 11/07/2020: No issues overnight, says that he is back to his baseline though still weak. He did receive pre-CERT today and will be going back to the SNF for additional therapy. Visit Charges Inpatient E&M: [id number] Disch Hosp
--- NOTE | 2020-11-07 11:03 | PHA.DC.MR ---
Pharmacy Service has performed discharge medication reconciliation for this patient. The patient's discharge medication list was reviewed for discrepancies and discrepancies were resolved. Home Medications ergocalciferol (vitamin D2) 1 cap PO QWEEK 05/25/17 aspirin 81 mg PO DAILY #1 tab.chew 05/28/17 furosemide 40 mg PO BID #60 tab 05/28/17 potassium chloride 20 meq PO DAILY #30 tab 05/28/17 albuterol sulfate 90 mcg/actuation aerosol inhaler 2 puff INHALATION Q4H PRN inh 01/07/18 lisinopril 10 mg tablet 10 mg PO DAILY #30 tab 10/19/18 carvedilol 12.5 mg tablet 12.5 mg PO BID #180 tab 09/04/20 docusate sodium [Colace] 100 mg PO DAILY PRN 11/01/20
--- NOTE | 2020-11-07 11:13 | CASEMGMT ---
Social Work Telephone call to Poly Davies. This director social service updated Poly that patient is active with Palliative Care per RN CM. Apolinar Gamino MSW, ALESSANDRO-S
--- NOTE | 2020-11-07 12:41 | NURSING ---
Report called to nurse Jayesh michael [place].
== END 2020-11-07 13:03 | disposition skilled nursing facility (03) | DRG 133 ==
LOC: ED 09:58 → PCU 10:28
PROVIDERS: Nurse Practitioner Family; Admitting Provider Internal Medicine; Emergency Provider Emergency Medicine; Visit Provider Family Medicine
DX: J96.21 Acute and chronic respiratory failure with hypoxia (principal); J96.22 Acute and chronic respiratory failure with hypercapnia; I11.0 Hypertensive heart disease with heart failure; I50.33 Acute on chronic diastolic (congestive) heart failure; E11.9 Type 2 diabetes mellitus without complications; E87.2 Acidosis; Z20.822 Contact with and (suspected) exposure to COVID-19; I27.21 Secondary pulmonary arterial hypertension; I89.0 Lymphedema, not elsewhere classified; E66.2 Morbid (severe) obesity with alveolar hypoventilation; Z68.43 Body mass index [BMI] 50.0-59.9, adult; Z91.19 Patient's noncompliance with other medical treatment and regimen; Z99.81 Dependence on supplemental oxygen; Z79.899 Other long term (current) drug therapy
CPT/HCPCS: 36415; 36600; 71045; 80048; 82803; 83036; 83735; 83880; 84484; 85025; 87426; 93005; 94002; 94003; 97110; 97116; 97163; 97166; 97530; 97535; 97802; 97803; 99285; A4216; J1940

== ENCOUNTER 2021-11-28 14:30 | Outpatient (RCR) | payer MEDICAID, SELFPAY ==
[2021-11-14 10:05] VITALS: BP 135/84; PULSE 81; RESP 18; TEMP 35.9; BMI 55.2
--- NOTE | 2021-11-14 12:55 | PCM.WC.HP ---
History of Present Illness Date of Service: 11/14/21 Chief Complaint: Chronic leg swelling Ulcer cluster left foot History of Wound: Mr. Johnson is a 58 yo who presents to the wound center due to bilateral lower extremity swelling. This is chronic. He states that his lower extremities are itchy and so he scratches and occasionally notes drainage and bleeding. No active drainage or bleeding reported at this time. Has some compression but finds it difficult to use it and so has not been using it. Largely sedentary. He denies chills, fever or otherwise feeling of unwell. [facility] Medical History (Updated 11/14/21 @ 13:[address] Shara Bullock MD) Abnormal electrocardiogram Bilateral leg edema Blister of great toe of left foot Blister of toe of left foot Borderline diabetes Chronic diastolic (congestive) heart failure Chronic respiratory failure with hypoxia, on home O2 therapy Chronic ulcer of left foot with fat layer exposed Chronic ulcer of left foot with fat layer exposed Depression Essential (primary) hypertension Lymphedema VAN (obstructive sleep apnea) Other specified peripheral vascular diseases Secondary pulmonary arterial hypertension Stasis dermatitis of both legs Super-super obese Venous insufficiency Home Medications aspirin 81 mg chewable tablet 81 mg PO DAILY ##1 05/28/17 [Rx Last Taken 10/31/20 09:00] furosemide 40 mg tablet 40 mg PO BID #60 tabs 05/28/17 [Rx Last Taken 10/31/20 20:00] albuterol sulfate 90 mcg/actuation aerosol inhaler (ProAir HFA) 1 - 2 puff inhalation Q4H PRN shortness of breath 01/07/18 [History Last Taken Unknown] lisinopril 10 mg tablet 10 mg PO DAILY #30 tabs 10/19/18 [Rx Last Taken 10/31/20 09:00] docusate sodium 100 mg capsule (Colace) 100 mg PO DAILY PRN Constipation 11/01/20 [History Last Taken Unknown] Disability Placard #1 ea 02/18/21 [Rx Last Taken Unknown] cholecalciferol (vitamin D3) 1,250 mcg (50,000 unit) capsule 50,000 unit PO QWEEK 05/14/21 [History Last Taken Unknown] carvedilol 12.5 mg tablet 12.5 mg PO BID #180 tabs 09/19/21 [Rx Last Taken Unknown] potassium chloride 20 mEq tablet,extended release(part/cryst) 20 meq PO Q3D 10/03/21 [History Last Taken Unknown] ipratropium 20 mcg-albuterol 100 mcg/actuation mist for inhalation (Combivent Respimat) 1 puff inhalation DAILY 11/14/21 [History Last Taken Unknown] Allergy/AdvReac Type Severity Reaction Status Date / Time No Known Allergies Allergy Verified 11/14/21 10:26 Family History Mother Hypertension Father Hypertension Surgical History History of tonsillectomy Social History adopted: No household members: family housing: house number of children: 0 current occupational status: unemployed current occupational exposures/hazards: No pets and animals: No history of recent travel: No sexually active: No Smoking Status: Never smoker second hand exposure: No alcohol intake: never substance use type: does not use caffeine: Yes Type: carbonated beverages and tea what type of physical activity do you participate in: none ROS Constitutional Constitutional: Denies fatigue, fever(s), headache(s), lethargy, malaise or night sweats Eyes Eyes: Denies change in eye color, change in vision, diplopia, discharge from eye(s), discongugate gaze, double vision or dry eyes ENT HEENT: Denies foreign body in nose, halitosis, headache(s), mouth pain, mucositis, nasal congestion, nasal discharge or neck mass Cardiovascular Cardiovascular: Reports dyspnea at rest, dyspnea on exertion, easily tiring during activity and edema; Denies diaphoresis, dizziness or flutter in chest Respiratory/Chest Respiratory/Chest: Denies excessive phlegm production, hemoptysis, hoarseness, inability to speak, pain with cough, pale skin or blue-oral cyanosis Gastrointestinal Gastrointestinal: Denies chewing difficulty, coffee ground emesis, constipation, cramping, diarrhea, dry heaves or dyspepsia Genitourinary Genitourinary: Denies difficulty urinating, flank pain, genital lesions, hematuria or itching Musculoskeletal Musculoskeletal: Denies atrophy, deformity, joint stiffness, muscle spasms, muscle weakness, myalgias or numbness Integumentary Integumentary: Denies erythema, furuncle, hirsutism, jaundice, lesions or nail changes Neurologic Neurologic: Denies burning sensations, confusion, convulsions, disequilibrium, dizziness or focal weakness Psychiatric Psychiatric: Denies behavioral changes, cognitive impairment, confusion, depression, difficulty concentrating, hallucinations, homicidal ideation or hopelessness Endocrine Endocrinology: Denies excessive sweating, flushing, heat intolerance, increase in ring/shoe/hat size, palpitations or polydipsia Allergic/Immunologic Allergic/Immunologic: Reports wheezing; Denies itchy eyes, lip swelling, tongue swelling, hives, urticaria or eczemia Vital Signs Vital Signs Vital Signs: 11/14/21 10:05 Temperature 96.6 F L Temperature Source Temporal Pulse Rate 81 Respiratory Rate 18 Blood Pressure 135/84 H Blood Pressure Mean 101 Blood Pressure Source Monitor Blood Pressure Position Sitting Blood Pressure Location Right Forearm Oxygen Delivery Method Nasal Cannula Oxygen Flow Rate (L/min) 4 Weight Weight: 385 lb Body Mass Index (BMI) 55.2 Physical Exam Const alert, oriented x3 and no apparent distress General Appearance: cooperative, comfortable and well kempt HEENT normocephalic, head/scalp atraumatic and hearing grossly normal bilaterally Eyes EOMs intact bilaterally Neck full ROM and supple General: normal visual inspection Resp normal respiratory effort Effort and Inspection: able to speak in complete sentences Skin Lesions: lesion noted Neuro oriented x3, CN's II-XII intact bilaterally, moves all extremities and no focal motor deficits Psych mental status grossly normal Appearance: grossly normal Attitude: calm Activity / Motor Behavior: appropriate eye contact Speech: normal speech Debridement Note Debridement Note Post-Debridement Measurements and Additional Note: Post-Debridement Measurements/Treatment - Nurse 1 - General Ulcer Assessment Start: 11/14/21 10:03 Freq: Status: Active Protocol: HARSHA.LOWREJI Activity Type Activity Date Activity User E-sign Co-sign Detail Recorded Client Recorded Date Recorded By Document 11/14/21 10:05 [facility] [id number] 11/14/21 10:23 [facility] 11/14/21 10:05 - Today's Visit Information Type of service Initial Visit Arrival Mode Ambulatory, Walker Transfer Assistance None Patient Identification Verified (Name & Yes ) Patient Requires Transmission-Based No Precautions Height and Weight Height 5 ft 10 in Weight 385 lb Weight in Pounds 385.0 lbs Weight Measurement Method Estimated by Patient Body Mass Index (BMI) 55.2 BMI Classification Obese BSA - Usman 2.76 Vital Signs Temperature (97.8 F-99.1 F) 96.6 F L Temperature Source Temporal Pulse Rate (60-100) 81 Pulse Location Monitor Respiratory Rate (12-18) 18 Respiratory rate source Observation Oxygen Delivery Method Nasal Cannula O2 L/MIN 4 Blood Pressure (90/60-120/80) 135/84 H Blood Pressure Mean 101 Source Monitor Position Sitting Blood Pressure Location Right Forearm History Since Last Visit- (Skip if this is Patient's initial visit) Left Footwear Regular Shoe Right Footwear Regular Shoe Pain Scale: 0-10 Numeric Is Patient Pain Free? Yes Lower Extremity Assessment/ Foot Assessment/ Toe Nail Assessment Right -Lower Extremity Comment (If N/A Above doppler ) difficult d/t thick/dry skin -Posterior Tibial Palpable No -Posterior Tibial Doppler Inaudible -Dorsalis Pedis Palpable No -Dorsalis Pedis Doppler Inaudible -Extremity Color Hyperpigmented -Hair Growth on Legs No -Hair Growth on Toes No -Temperature of Extremity Warm -Other Deformity No -Prior Foot Ulcer No -Charcot Joint No -Prior Amputation No -Thick Yes -Discolored Yes -Deformed No -Improper Length & Hygeine No Left -Lower Extremity Comment (If N/A Above doppler ) difficult d/t thick dry skin -Posterior Tibial Palpable No -Posterior Tibial Doppler Inaudible -Dorsalis Pedis Palpable No -Dorsalis Pedis Doppler Inaudible -Extremity Color Hyperpigmented -Hair Growth on Legs No -Hair Growth on Toes No -Temperature of Extremity Warm -Thick Yes -Discolored Yes -Deformed No -Improper Length & Hygeine Yes Communication Assessment Preferred language Indian Contract Clerk Required No Able to Read Yes Able to Write Yes Communication Tools None Right Hearing Abillity Normal Left Hearing Abillity Normal Visual Assistive Devices Glasses Teaching Assessment Preferences Verbal,Written, Audio/Visual, Demonstration Barriers to Learning None Readiness To Learn Good Willingness to Engage in Self Management Med Activies Readiness to Engage in Self Management Med Activities Anxiety Level Calm Cooperation Cooperative Perception Coherent Interest in Health Problem Asks Questions Education Importance Acknowledges Need Does Patient Smoke tobacco or other No substances Smoking Status Never smoker Is Patient Diabetic Yes Functional Assessment Recent Decline in Ability to Perform Denies Any Declines Culture/Caodaism/Chest Pain Coordinator Cultural/Caodaism Needs that may affect No Treatment Plan Teaching: Wound Center *Welcome to the Wound Center -Person Taught Patient -Teaching Method Discussion -Response to teaching Verbalize understanding Welcome to the Wound Care Center Indian - Nurse 1 - General Ulcer Measurement Start: 11/14/21 10:03 Freq: Status: Active Protocol: Activity Type Activity Date Activity User E-sign Co-sign Detail Recorded Client Recorded Date Recorded By Document 11/14/21 10:05 [facility] [id number] 11/14/21 10:23 [facility] 11/14/21 10:05 Wound Center Nurse 1 Lower Limb Edema Present Yes Right Calf (cm) 54.7 Right Ankle (cm) 35 Left Calf (cm) 54.2 Left Ankle (cm) 34.5 WC - Nurse 2 - General Ulcer CM Notes Start: 11/14/21 10:03 Freq: Status: Active Protocol: Activity Type Activity Date Activity User E-sign Co-sign Detail Recorded Client Recorded Date Recorded By Document 11/14/21 10:46 MW [id number] 11/14/21 10:55 MW 11/14/21 10:46 Pain Scale: 0-10 Numeric Is Patient Pain Free? Yes - Nurse 3 - General Ulcer D/C NN Start: 11/14/21 10:03 Freq: Status: Active Protocol: Activity Type Activity Date Activity User E-sign Co-sign Detail Recorded Client Recorded Date Recorded By Document 11/14/21 11:12 [facility] [id number] 11/14/21 11:13 [facility] 11/14/21 11:12 Wound Care Nurse 3 BLE -Multi-Layered Wrap Application Unna Boot - Bilateral ($) -Unna Boots (Bilat) ($) 2 Treatment Response Procedure Tolerated Well Pain Scale: 0-10 Numeric Is Patient Pain Free? Yes WC - Visit Discharge Discharge Condition Stable Ambulatory Status Ambulatory, Walker Transportation Private Auto Charges/Coding Visit Charges Office Visits / Consults: [id number] OV L3 New Assessment/Plan Assessment/Plan (1) Lymphedema: CODE(S): I89.0 - Lymphedema, not elsewhere classified (2) Super-super obese: CODE(S): E66.01 - Morbid (severe) obesity due to excess calories (3) Stasis dermatitis of both legs: CODE(S): I87.2 - Venous insufficiency (chronic) (peripheral) PLAN: Plan No debridement completed today. No open wounds or ulceration. Lengthy discussion had with patient about compression and skin care. For now, Unna boots to both lower extremities. Also referred to the lymphedema clinic for long-term lymphedema management. Leg elevation, exercise as tolerated. His questions were answered and he was advised to call with any further questions or concerns. Follow-up on Thursday for a nurse visit on with me. This note was generated with [employer] dictation software. It may contain incorrect words, spelling, and punctuation that were not noted in checking the note before signing.
[2021-11-18 15:09] VITALS: BMI 55.2
[2021-11-21 10:00] VITALS: BP 122/59; PULSE 87; RESP 18; TEMP 35.3; BMI 55.2
--- NOTE | 2021-11-21 10:34 | PCM.WC.PN ---
History of Present Illness Date of Service: 11/21/21 Chief Complaint: Chronic leg swelling Ulcer cluster left foot History of Wound: Mr. Johnson is a 58 yo who presents to the wound center due to bilateral lower extremity swelling. This is chronic. He states that his lower extremities are itchy and so he scratches and occasionally notes drainage and bleeding. No active drainage or bleeding reported at this time. Has some compression but finds it difficult to use it and so has not been using it. Largely sedentary. He denies chills, fever or otherwise feeling of unwell. Progress of Wound: Has had Unna boots on. Tolerated it well. Bilateral lower extremity swelling is improving and surrounding skin also improving. Subjective Subjective No new concerns at this time Objective Data Objective Data Vital Signs: Vital Signs Temp Pulse Resp BP O2 Del Method O2 Flow Rate 95.5 F L 87 18 122/59 H Nasal Cannula 4 11/21/21 10:00 11/21/21 10:00 11/21/21 10:00 11/21/21 10:00 11/21/21 10:00 11/21/21 10:00 Oxygen Flow Rate (L/min) 4 Oxygen Delivery Method Nasal Cannula Weight: 385 lb Body Mass Index (BMI) 55.2 Charges/Coding Visit Charges Office Visits / Consults: [id number] OV L3 Est Physical Exam Const alert, oriented x3 and no apparent distress General Appearance: cooperative, comfortable and well kempt HEENT normocephalic, head/scalp atraumatic and hearing grossly normal bilaterally Eyes EOMs intact bilaterally Neck full ROM and supple General: normal visual inspection Resp normal respiratory effort Effort and Inspection: able to speak in complete sentences Skin Lesions: lesion noted Neuro oriented x3, CN's II-XII intact bilaterally, moves all extremities and no focal motor deficits Psych mental status grossly normal Appearance: grossly normal Attitude: calm Activity / Motor Behavior: appropriate eye contact Speech: normal speech Debridement Note Debridement Note Post-Debridement Measurements and Additional Note: Post-Debridement Measurements/Treatment HARSHA - Nurse 1 - General Ulcer Assessment Start: 11/14/21 10:03 Freq: Status: Active Protocol: LARRY Activity Type Activity Date Activity User E-sign Co-sign Detail Recorded Client Recorded Date Recorded By Document 11/14/21 10:[address] [facility] [id number] 11/14/21 10:[address] [facility] Document 11/18/21 15:09 [place] [id number] 11/18/21 15:11 [place] Document 11/21/21 10:[address] [facility] [id number] 11/21/21 10:[address] [facility] 11/14/21 11/18/21 11/21/21 10:05 15:09 10:00 WC - Today's Visit Information Type of service Initial Visit Nurse-only Follow-up Visit Visit (Physician/DECORATION CHECKER ) Arrival Mode Ambulatory, Ambulatory, Ambulatory Walker Walker Transfer Assistance None None Patient Identification Verified (Name & Yes Yes Yes ) Patient Requires Transmission-Based No No No Precautions Height and Weight Height 5 ft 10 in Weight 385 lb Weight in Pounds 385.0 lbs Weight Measurement Method Estimated by Patient Body Mass Index (BMI) 55.2 55.2 55.2 BMI Classification Obese Obese Obese BSA - Usman 2.76 Vital Signs Temperature (97.8 F-99.1 F) 96.6 F L 95.5 F L Temperature Source Temporal Temporal Pulse Rate (60-100) 81 87 Pulse Location Monitor Respiratory Rate (12-18) 18 18 Respiratory rate source Observation Observation Oxygen Delivery Method Nasal Cannula Nasal Cannula O2 L/MIN (L/min) 4 4 Blood Pressure (90/60-120/80) 135/84 H 122/59 H Blood Pressure Mean (mm Hg) 101 80 Source Monitor Monitor Position Sitting Sitting Blood Pressure Location Right Forearm Left Forearm History Since Last Visit- (Skip if this is Patient's initial visit) Have you changed medications since your No No last visit? Any new allergies or adverse reactions No No Had a fall/change in ADL's that may No No increase risk of falls Signs or symptoms of abuse and/or No No neglect since last visit Have you been in the hospital since your No No last visit? Has dressing in place as prescribed Yes Yes Has compression in place as prescribed Yes Yes Has offloadiing in place as prescribed N/A N/A Experienced any changes in pain level or No No management Left Footwear Regular Shoe Regular Shoe Regular Shoe Right Footwear Regular Shoe Regular Shoe Regular Shoe Pain Scale: 0-10 Numeric Is Patient Pain Free? Yes Yes Yes Lower Extremity Assessment/ Foot Assessment/ Toe Nail Assessment Right -Lower Extremity Comment (If N/A Above doppler ) difficult d/t thick/dry skin -Posterior Tibial Palpable No -Posterior Tibial Doppler Inaudible -Dorsalis Pedis Palpable No -Dorsalis Pedis Doppler Inaudible -Extremity Color Hyperpigmented -Hair Growth on Legs No -Hair Growth on Toes No -Temperature of Extremity Warm -Other Deformity No -Prior Foot Ulcer No -Charcot Joint No -Prior Amputation No -Thick Yes -Discolored Yes -Deformed No -Improper Length & Hygeine No Left -Lower Extremity Comment (If N/A Above doppler ) difficult d/t thick dry skin -Posterior Tibial Palpable No -Posterior Tibial Doppler Inaudible -Dorsalis Pedis Palpable No -Dorsalis Pedis Doppler Inaudible -Extremity Color Hyperpigmented -Hair Growth on Legs No -Hair Growth on Toes No -Temperature of Extremity Warm -Thick Yes -Discolored Yes -Deformed No -Improper Length & Hygeine Yes Communication Assessment Preferred language Slovak Magnetic Locater Required No Able to Read Yes Able to Write Yes Communication Tools None Right Hearing Abillity Normal Left Hearing Abillity Normal Visual Assistive Devices Glasses Teaching Assessment Preferences Verbal,Written, Audio/Visual, Demonstration Barriers to Learning None Readiness To Learn Good Willingness to Engage in Self Management Med Activies Readiness to Engage in Self Management Med Activities Anxiety Level Calm Cooperation Cooperative Perception Coherent Interest in Health Problem Asks Questions Education Importance Acknowledges Need Does Patient Smoke tobacco or other No substances Smoking Status Never smoker Is Patient Diabetic Yes Functional Assessment Recent Decline in Ability to Perform Denies Any Declines Culture/Confucianist/Superintendent Overhead Distribution Cultural/Confucianist Needs that may affect No Treatment Plan Teaching: Wound Center *Welcome to the Wound Center -Person Taught Patient -Teaching Method Discussion -Response to teaching Verbalize understanding Welcome to the Wound Care Center English MCLEOD - Nurse 1 - General Ulcer Measurement Start: 11/14/21 10:03 Freq: Status: Active Protocol: Activity Type Activity Date Activity User E-sign Co-sign Detail Recorded Client Recorded Date Recorded By Document 11/14/21 10:[address] [facility] [id number] 11/14/21 10:[address] [facility] Document 11/21/21 10:[address] [facility] [id number] 11/21/21 10:[address] [facility] 11/14/21 11/21/21 10:05 10:00 Wound Center Nurse 1 Lower Limb Edema Present Yes Yes Right Calf (cm) 54.7 52.2 Right Ankle (cm) 35 34 Left Calf (cm) 54.2 52.9 Left Ankle (cm) 34.5 33.6 WC - Nurse 2 - General Ulcer CM Notes Start: 11/14/21 10:03 Freq: Status: Active Protocol: Activity Type Activity Date Activity User E-sign Co-sign Detail Recorded Client Recorded Date Recorded By Document 11/14/21 10:46 MW [id number] 11/14/21 10:55 MW Document 11/21/21 10:21 MW [id number] 11/21/21 10:22 MW 11/14/21 11/21/21 10:46 10:21 Pain Scale: 0-10 Numeric Is Patient Pain Free? Yes Yes - Nurse 3 - General Ulcer D/C NN Start: 11/14/21 10:03 Freq: Status: Active Protocol: Activity Type Activity Date Activity User E-sign Co-sign Detail Recorded Client Recorded Date Recorded By Document 11/14/21 11:[address] [facility] [id number] 11/14/21 11:[address] [facility] Document 11/18/21 15:09 [place] [id number] 11/18/21 15:11 [place] Document 11/21/21 10:25 MW [id number] 11/21/21 10:25 MW 11/14/21 11/18/21 11/21/21 11:12 15:09 10:25 Wound Care Nurse 3 BLE -Lotion applied to leg before No No compression wrap -Multi-Layered Wrap Application Unna Boot - Unna Boot - Unna Boot - Bilateral ($) Bilateral ($) Bilateral ($) -Unna Boots (Bilat) ($) 2 2 2 -Other extremely dry and scaly Treatment Response Procedure Procedure Tolerated Well Tolerated Well Pain Scale: 0-10 Numeric Is Patient Pain Free? Yes Yes Yes Teaching: Wound Center Compression Wraps & Stockings -Person Taught Patient -Teaching Method Discussion -Response to teaching Verbalize understanding WC - Visit Discharge Discharge Condition Stable Stable Stable Ambulatory Status Ambulatory, Ambulatory, Ambulatory Walker Walker Transportation Private Auto Private Auto Private Auto Accompanied by self Medication Reconcilliation completed & Yes No provided to patient/care provider Clinical Summary of Care Provided Yes Yes Assessment/Plan Assessment/Plan (1) Lymphedema: CODE(S): I89.0 - Lymphedema, not elsewhere classified (2) Super-super obese: CODE(S): E66.01 - Morbid (severe) obesity due to excess calories (3) Stasis dermatitis of both legs: CODE(S): I87.2 - Venous insufficiency (chronic) (peripheral) PLAN: Plan No debridement completed today. No open wounds or ulceration. Swelling and dermatitis is improving. Continue Unna boots to both lower extremities. Also referred to the lymphedema clinic for long-term lymphedema management. He states that he has an appointment shortly. Leg elevation, exercise as tolerated. His questions were answered and he was advised to call with any further questions or concerns. Follow-up for nurse visit next week and in 2 weeks with me. This note was generated with [employer] dictation software. It may contain incorrect words, spelling, and punctuation that were not noted in checking the note before signing.
[2021-11-28 14:30] VITALS: BP 139/82; PULSE 87; TEMP 36.2; BMI 55.2
== END 2021-12-04 23:59 | disposition home or self-care (01) ==
LOC: WC 14:30
PROVIDERS: Visit Provider Internal Medicine
DX: M79.89 Other specified soft tissue disorders (principal); I11.0 Hypertensive heart disease with heart failure; I50.32 Chronic diastolic (congestive) heart failure; J96.11 Chronic respiratory failure with hypoxia; E66.01 Morbid (severe) obesity due to excess calories; Z68.43 Body mass index [BMI] 50.0-59.9, adult; I87.2 Venous insufficiency (chronic) (peripheral); I89.0 Lymphedema, not elsewhere classified; R73.03 Prediabetes; G47.33 Obstructive sleep apnea (adult) (pediatric); Z79.82 Long term (current) use of aspirin; Z79.899 Other long term (current) drug therapy
CPT/HCPCS: 29580; 99212; 99213; G0463

== ENCOUNTER 2021-12-03 11:00 | Outpatient (RCR) | payer MEDICAID, SELFPAY ==
--- NOTE | 2021-11-26 12:51 | HP.OTEVAL_ITS ---
Patient's Visit Information FLORIN RUBIN is a 61 year old M, referred to Occupational Therapy by Dr. Shara Bullock MD, with a diagnosis of Lymphedema. Date of Evaluation: 11/26/21 Occupational Therapist: Kalpana Mena, OTR/Mehnaz, CHT - Subjective This 61 year old male was seen for OT eval with dx of Lymphedema- pt states he has neglected his legs for a long time- probable in his 50's he started having swelling-. pt states he does have compression socks but does not wear them all the time- he thinks they are 20-30mmHg. states they make his feet hurt and they are about two years old-. pt also has diabetic socks. pt sleeps in a couch with feet propped up. pt looking at getting a recliner- pt ambulates with rollator with seat and O2. due to other medical conditions. pt is on water pill. pt dx with borderline DM. dx of cellulitis. dx of venous insufficiency. Obstructive sleep apnea. pt states he has attempted to mtg his leg swelling but has not done well last few years. pts mom did accompany him to his session today- - Lymphedema (Circumferential Measure) Ankle: right 38cm left 37cm Lower calf: right 36cm left 36cm Largest calf: right 54cm left 51cm Below knee: right 54 cm left 53cm Lower Exremity Comments: measurements were taken over wraps due to pt having wraps that will be removed from wound center 11/27/21. pt demo circumference that would fit in a number of compression socks. - Lower Limb Functional Index Lower Extremity Functional Score: 13 - Goals Demonstrate a 20% reduction in edema by d/c: Yes Demonstrate adequate knowledge of self-massage by 2nd week: Yes Demonstrate adequate knowledge skin care/prec by 2nd week: Yes Demonstrate adequate knowledge therapeutic exercises by d/c: Yes Select approp compression garment w/donning/care/wear by d/c: Yes Voice need to replace compression garment every 4-6mo by dc: Yes - Rehabilitation General Assessment: pt demo with chronic hx of LE lymphedema- multiple issues with LE cellulitis and difficulty mtg edema due to other comorbidities- pt would benefit from skilled OT services 2-3 visit to ed pt on life long mtg of lymphedema- ed. on compression socks or compression alternatives like Velcro closure devices -therapist did ed., pt he could not go without compression devices for his legs or he would be back at square one- therapist advised getting compression devices (socks or velcro closures ) prior to being d.c from wound center- Due to fonseca rec'd pt call insurance to see if compression devices would be covered - ( pt states he had to pay for them two years ago) told him he will possibly have to as well- this therapist rec'd [employer] or [employer] for purchasing garments. pt demo understanding. pt receptive- therapist ed. pt on lymphedema self massage and lymph stim exercises to assist in fluid circulation- pt was receptive and demo understanding and agree to POC. Rehabilitation Potential: Questionable - Anticipated Interventions Education re assistive Equipment, Education re Diagnosis, Manual Lymph Drainage, Education re Life-long lymphedema Management, Education re Skin Care and Precautions, Education re Self Massage Techniques, Education re Correct Donning Tech,Care&Wearing Sched Comp Garments, Caregiver Training, Home Program, Other Other Interventions: compression alternatives that have Velcro - Visit Plan TEXT: Thank you for the opportunity to evaluate your patient. For Medicare and Medicare HMO plans, please review the plan of care and approve it. It will need to be FAXED BACK to us at [phone] for Medicare purposes. Please let me know if there are questions or concerns regarding this plan of care. Physician Signature: Date:
--- NOTE | 2022-03-18 14:18 | HP.OT.NRP ---
FLORIN RUBIN was seen in my office for initial evaluation on 11/26/21. The following Plan of Care was established for this patient: Anticipated Interventions: Education re assistive Equipment, Education re Diagnosis, Manual Lymph Drainage, Education re Life-long lymphedema Management, Education re Skin Care and Precautions, Education re Self Massage Techniques, Education re Correct Donning Tech,Care&Wearing Sched Comp Garments, Caregiver Training, Home Program, Other Other Interventions: compression alternatives that have Velcro This patient was last seen in our office 12/03/21. Pertinent comments regarding their Occupational therapy will appear below: pt was seen for 2 OT sessions. pt did arrive with Velcro closure compression devices on and reported he was happy with them. pt at this time has not scheduled further apts and is d/c. At this point I will be discontinuing this patient from occupational therapy. I would be happy to see this patient again in the future if found appropriate by the physician. Thank you! Kalpana Mena, OTR/L, CHT
== END 2021-12-03 19:00 | disposition home or self-care (01) ==
LOC: OT 11:00
PROVIDERS: Referring Provider Internal Medicine; Visit Provider Internal Medicine
DX: I89.0 Lymphedema, not elsewhere classified (principal)
CPT/HCPCS: 97166; 97530

== ENCOUNTER 2022-04-23 08:45 | Inpatient (IN) | payer MEDICAID, SELFPAY ==
[2022-04-23] VITALS (14 sets, daily range): BP systolic 133–153; BP diastolic 63–82; PULSE 55–68; RESP 12–24; TEMP 35–36.9; O2SAT 6–98; BMI 57.4; BMI 57.6
--- NOTE | 2022-04-23 09:11 | EKG12_ITS ---
Test Reason : SOB Blood Pressure : / mmHG Vent. Rate : 062 BPM Atrial Rate : 062 BPM P-R Int : 194 ms QRS Dur : 076 ms QT Int : 408 ms P-R-T Axes : 052 026 041 degrees QTc Int : 414 ms Normal sinus rhythm Low voltage QRS Septal infarct , age undetermined Abnormal ECG Confirmed by HERNANDO SHEPPARD, SIDNEY ([id number]), greeting card editor TRELL MCCARTHY ([id number]) on 04/24/2022 1:07:42 PM Referred By: CRIS Confirmed By:ROXIE VILLAGOMEZ MD
--- NOTE | 2022-04-23 09:13 | EDS_ITS ---
HPI History of Present Illness Chief Complaint: Shortness of Breath Informant: patient and family Narrative Narrative: History of of heart failure preserved ejection fraction, sleep apnea, OHS chronic 3 to 4 L of oxygen followed by Dr. Norman. Reported increasing dyspnea with exertion over the past 5 days. Denies any cough symptoms no fevers or headaches. Denies chest or abdominal pain. Reports increasing swelling to his legs with his lymphedema. He sleeps in an upright recliner. He ambulates with a walker. He is on Lasix 40 mg twice daily. Denies recent travel or surgeries no history of PE or DVT. He does not tolerate sleep mass at night. He is COVID vaccinated. No sick contacts. He states he has been turning up his oxygen with his symptoms. He is up to 6 L at home. Due to dyspnea he does have tremors causing him to go down. No injuries. Currently starts with clinic today pulse ox in the 60s sent here for evaluation. He does not know his dry weight. His last hospitalization reported was here 2020. No hospitalizations elsewhere. Denies tobacco history. Prior similar symptoms: Yes [facility] Medical History Abnormal electrocardiogram Bilateral leg edema Blister of great toe of left foot Blister of toe of left foot Borderline diabetes Chronic diastolic (congestive) heart failure Chronic respiratory failure with hypoxia, on home O2 therapy Chronic ulcer of left foot with fat layer exposed Chronic ulcer of left foot with fat layer exposed Depression Essential (primary) hypertension Lymphedema VAN (obstructive sleep apnea) Other specified peripheral vascular diseases Secondary pulmonary arterial hypertension Stasis dermatitis of both legs Super-super obese Venous insufficiency Home Medications albuterol sulfate 90 mcg/actuation aerosol inhaler (ProAir HFA) 1 - 2 puff inhalation Q4H PRN shortness of breath 01/07/18 [History Last Taken 04/23/22] docusate sodium 100 mg capsule (Colace) 100 mg PO DAILY PRN Constipation 11/01/20 [History Last Taken Unknown] Disability Placard #1 ea 02/18/21 [Rx Last Taken Unknown] cholecalciferol (vitamin D3) 1,250 mcg (50,000 unit) capsule 50,000 unit PO KOEHLER SUPPLEMENT 05/14/21 [History Last Taken 04/20/22] potassium chloride 20 mEq tablet,extended release(part/cryst) 20 meq PO Q3D SUPPLEMENT 10/03/21 [History Last Taken 04/21/22] ipratropium 20 mcg-albuterol 100 mcg/actuation mist for inhalation (Combivent Respimat) 1 puff inhalation DAILY SHORTNESS OF BREATH 11/14/21 [History Last Taken 04/23/22] aspirin 81 mg tablet,delayed release 81 mg PO DAILY HEART HEALTH 04/23/22 [History Last Taken 04/23/22] carvedilol 12.5 mg tablet 12.5 mg PO DAILY HEART 04/23/22 [History Last Taken 04/23/22] furosemide 40 mg tablet 40 mg PO BID FLUID 04/23/22 [History Last Taken 04/23/22] lisinopril 10 mg tablet 10 mg PO DAILY blood pressure 04/23/22 [History Last Taken 04/23/22] naproxen sodium 220 mg tablet (Aleve) 220 mg PO Q8H PRN Pain 04/23/22 [History Last Taken 04/22/22] white petrolatum (Petroleum Jelly topical) 1 applic topical Q7D PRN LEGS 04/23/22 [History Last Taken 04/20/22] Allergy/AdvReac Type Severity Reaction Status Date / Time No Known Allergies Allergy Verified 04/23/22 08:46 Family History Mother Hypertension Father Hypertension Surgical History History of tonsillectomy Social History (Updated 04/23/22 @ 14:26 by Asya Hollis) adopted: No household members: family housing: house number of children: 0 current occupational status: unemployed current occupational exposures/hazards: No pets and animals: No history of recent travel: No sexually active: No Smoking Status: Never smoker second hand exposure: No alcohol intake: never substance use type: does not use caffeine: Yes Type: carbonated beverages and tea what type of physical activity do you participate in: none ROS ROS ED Constitutional Constitutional ED: Denies chills, fever(s) or sweats Eyes Eyes: Denies change in vision ENT ENT ED: Denies dysphagia or sore throat Cardiovascular Cardiovascular: Denies chest pain, leg edema, palpitations or racing heartbeat Respiratory/Chest Respiratory/Chest: Reports dyspnea and dyspnea on exertion; Denies cough Gastrointestinal Gastrointestinal: Denies abdominal pain, diarrhea, nausea or vomiting Genitourinary Genitourinary ED: Denies dysuria, hematuria or urinary frequency Musculoskeletal Musculoskeletal: Denies back pain, extremity pain or neck pain Integumentary Denies rash or wounds Neurologic Neurologic: Denies headache(s), paresthesias or weakness EXAM Physical Exam Const Vital Signs: 04/23/22 08:47 04/23/22 09:04 04/23/22 09:05 Temperature 95.0 F L Temperature Source Temporal Pulse Rate 62 Respiratory Rate 17 Respiratory Effort Short of Breath Labored Blood Pressure 145/66 H Blood Pressure Mean 92 Pulse Ox 97 94 Oxygen Delivery Method Nasal Cannula Nasal Cannula Nasal Cannula Oxygen Flow Rate (L/min) 6 6 94 04/23/22 09:20 04/23/22 10:35 04/23/22 10:37 Temperature 98.0 F 98.0 F Temperature Source Oral Oral Pulse Rate 66 68 Respiratory Rate 13 18 Respiratory Effort Blood Pressure 135/63 H 135/63 H Blood Pressure Mean 87 87 Pulse Ox 95 98 97 Oxygen Delivery Method Nasal Cannula Nasal Cannula Nasal Cannula Oxygen Flow Rate (L/min) 6 6 6 Positive well nourished and well developed Constitutional Narrative: 6 L nasal cannula no respiratory distress. General Appearance ED: well developed and NAD HEENT Reports moist mucous membranes normocephalic and atraumatic Eyes PERRL, EOMs intact bilaterally and conjunctivae normal General Eye ED: Yes normal appearance of both eyes Neck no lymphadenopathy and supple General: Negative for tenderness Chest Wall Chest: Negative for tenderness Resp normal respiratory effort and normal air movement Effort and Inspection: symmetric chest movement; Negative for respiratory distress Cardio regular rate, regular rhythm and no murmurs Peripheral Pulses: pulses 2+ throughout GI normal to inspection, nondistended, normoactive bowel sounds and non-tender Palpation: Negative for guarding or rebound tenderness present Back/Spine no CVA tenderness and no thoracic nor lumbar tenderness Extremity normal to inspection Extremity Narrative: Lymphedema bilateral lower extremities, no calf or medial thigh tenderness. General Extremety ED: Yes edema; Negative for tenderness General Extremity: edema Neuro oriented x3 and no sensory deficits noted Sensorium / Orientation: awake and alert Skin no rashes or lesions noted and no wounds MDM MDM MDM Narrative Medical decision making narrative: Patient currently on 6 L oxygen there is no respiratory distress. Currently differential of his dyspnea is multifactorial with his sleep apnea, obesity hypoventilation syndrome, CHF history. PE is in the differential with his hypoxemia however with his history reporting increasing leg swelling higher concerns for CHF exacerbation. He has no cough or concerns for pneumonia. Work-up was initiated, laboratory studies obtained and reviewed by myself hemoglobin Benedicta 0.6. White count 6.5. Creatinine 1.19 DIRECTOR OF ENROLLMENT of 124 he has carbon dioxide level greater than 45 he is alert and oriented x3. Currently concern for combination of acute hypoxic and hypercapnic respiratory failure. Two-view chest x-ray interpreted by myself increasing pleural effusion more in the right posterior aspect. This more consistent with heart failure currently with his history. He is given 40 mg IV Lasix. He has same presentation when he was admitted back in December 2020. Further discussion with more invasive aggressive treatments if necessary he states he does not tolerate BiPAP and would not want this. Further discussion with ventilations he declines wanting intubation or CPR. There is no DNR forms he states he has been meaning to get around to it. I discussed extensively with him. He would like one filled out currently for DNR Comfort Care arrest. I will speak with hospitalist for plan admission I spoke with Dr. Fraser for admission. Lab Data Attestation: I reviewed the patient's lab results. Labs: Laboratory Results - last 24 hr 04/23/22 04/23/22 04/23/22 09:16 09:16 09:16 WBC 6.5 RBC 4.11 L Hgb 11.6 L Hct 40.8 MCV 99.3 H MCH 28.2 MCHC 28.4 L RDW Std Deviation 58.7 H RDW Coeff of Sandi 16.3 H Plt Count 108 L MPV 11.2 Immature Gran % (Auto) 1.200 H Neut % (Auto) 82.6 H Lymph % (Auto) 6.9 L Tompkins % (Auto) 6.7 Eos % (Auto) 2.1 Baso % (Auto) 0.5 Absolute Neuts (auto) 5.4 Absolute Lymphs (auto) 0.45 L Nucleated RBC % 0 Differential Comment PT 15.1 H INR 1.2 APTT 30.2 Sodium 141 Potassium 4.4 Chloride 95 L Carbon Dioxide > 45.0 H* Anion Gap TNP BUN 29 H Creatinine 1.19 Estim Creat Clear Calc 65.60 Est GFR (MDRD) Af Amer 79 Est GFR (MDRD) Non-Af 66 BUN/Creatinine Ratio 24.4 H Glucose 124 H Calcium 8.4 L Total Bilirubin 0.70 AST 18 ALT 17 Alkaline Phosphatase 94 B-Natriuretic Peptide Total Protein 7.5 Albumin 3.1 L Globulin 4.4 H Albumin/Globulin Ratio 0.7 L 04/23/22 09:16 WBC RBC Hgb Hct MCV MCH MCHC RDW Std Deviation RDW Coeff of Sandi Plt Count MPV Immature Gran % (Auto) Neut % (Auto) Lymph % (Auto) Tompkins % (Auto) Eos % (Auto) Baso % (Auto) Absolute Neuts (auto) Absolute Lymphs (auto) Nucleated RBC % Differential Comment PT INR APTT Sodium Potassium Chloride Carbon Dioxide Anion Gap BUN Creatinine Estim Creat Clear Calc Est GFR (MDRD) Af Amer Est GFR (MDRD) Non-Af BUN/Creatinine Ratio Glucose Calcium Total Bilirubin AST ALT Alkaline Phosphatase B-Natriuretic Peptide 124.4 H Total Protein Albumin Globulin Albumin/Globulin Ratio Radiography Diagnostic Testing: Clinical Impression(s) from Imaging Studies Chest X-Ray 04/23/22 09:30 IMPRESSION: Cardiomegaly. CHF and small right pleural effusion. Electronically Signed: Sourav Norwood MD at 10:22 EST , EKG Initial EKG: Attestation: I personally reviewed and interpreted this EKG as follows: Comments: Sinus rate of [address] or T wave changes. Discharge Plan Dx/Rx/DC Orders Clinical Impression: VAN (obstructive sleep apnea), Chronic diastolic (congestive) heart failure, (HFpEF) heart failure with preserved ejection fraction, CHF (congestive heart failure) Disposition Disposition: Acute Care Hospital [facility] Discharge Date/Time: 04/23/22 11:24
[2022-04-23 09:28] LABS: Absolute Lymphocyte Count 0.45 X10^3/uL (0.83-4.51); Absolute Neutrophil Count 5.4 X10^3/uL (2.0-7.7); Basophil# 0.03 X10^3/uL; Basophil% 0.5 % (0-1); Eosinophil# 0.14 X10^3/uL; Eosinophils% 2.1 % (0-5); Hematocrit 40.8 % (40-54); Hemoglobin 11.6 g/dL (13.0-16.5); Lymphocyte # 0.45 X10^3/ul (0.83-4.51); Lymphocyte % 6.9 % (19-41); Mean Corp Hgb Conc 28.4 g/dL (32-36); Mean Corpuscular Hgb 28.2 pg (27.0-32.0); Mean Corpuscular Volume 99.3 fL (80-94); Mean Platelet Vol. 11.2 fl (6.2-12.0); Monocyte# 0.44 X10^3/uL; Monocyte% 6.7 % (0-10); NRBC Flagged by Analyzer 0 % (0-5); Neutrophil % 82.6 % (47-70); POSITIVE DIFFERENTIAL YES; Platelet Count 108 K/mm3 (150-450); RBC Distribution Width CV 16.3 % (11.6-14.6); RBC Distribution Width SD 58.7 fl (35.1-43.9); Red Blood Count 4.11 M/mm3 (4.6-6.2); White Blood Count 6.5 K/mm3 (4.4-11.0)
[2022-04-23 09:30] LABS: Differential Indicated SCAN CRITERIA MET
--- NOTE | 2022-04-23 09:30 | RAD_ITS ---
STUDY: X-RAY CHEST REASON FOR EXAM: Male, 61 years old. Sob TECHNIQUE: AP and lateral views of the chest. COMPARISON: Comparison is made with prior study dated 11/01/2020. FINDINGS: Vascular congestion and CHF. Small right pleural effusion with right basilar atelectasis. There is moderate cardiac enlargement. Normal mediastinum and ender. Normal visualized pulmonary arteries. There is atherosclerotic tortuosity of the aortic arch and descending thoracic aorta. There are diffuse degenerative changes of the visualized thoracic spine. Normal visualized ribs, clavicles, and shoulders. There is no demonstrated abnormality of the visualized soft tissue structures of the upper abdomen. RAD/Chest PA and Lateral IMPRESSION: Cardiomegaly. CHF and small right pleural effusion. Electronically Signed: Sourav Norwood MD at 10:22 [facility] ,
[2022-04-23 09:35] LABS: International Normalized Ratio 1.2; Partial Thromboplast Time 30.2 Seconds (24.1-36.2); Prothrombin Time (Protime)PT. 15.1 SECONDS (11.7-14.9)
[2022-04-23 09:44] LABS: BNP,B-Type NATRIURETIC PEPTIDE 124.4 pg/mL (0-100)
[2022-04-23 09:53] LABS: ALB/GLOB Ratio 0.7 RATIO (0.9-2.4); AST(SGOT) 18 U/L (15-37); Alanine Aminotransfer ALT/SGPT 17 U/L (16-61); Albumin, Serum 3.1 g/dL (3.2-5.0); Alkaline Phosphatase 94 U/L (45-117); BUN 29 mg/dL (7-18); BUN/Creat Ratio 24.4 RATIO (10-20); Calcium,Total 8.4 mg/dL (8.5-10.1); Carbon Dioxide > 45.0 mmol/L (21.0-32.0); Chloride 95 mmol/L (98-107); Creatinine, Serum 1.19 mg/dL (0.70-1.30); EST Glomerular Filtration Rate 66 mL/min (>60); Est Glom Filt Rate - Afr Amer 79 mL/min (>60); Globulin 4.4 g/dL (2.2-4.2); Glucose 124 mg/dL (74-106); Potassium 4.4 mmol/L (3.5-5.1); Protein, Total 7.5 g/dL (6.4-8.2); Sodium Level 141 mmol/L (136-145)
[2022-04-23] MEDS: Furosemide 40 MG/4 ML Vial IV (10:26)
--- NOTE | 2022-04-23 10:44 | NURSING ---
SARATH MÁRQUEZ ACUTE HYPOXIC HYPERCAPMIC RESP FAILURE, CHF EXAC
--- NOTE | 2022-04-23 11:35 | HP.PCM.HOS_ITS ---
HPI - General General Date of Admission: 04/23/22 Date of Service: 04/23/22 Chief Complaint: shortness of breath HPI Narrative FLORIN RUBIN, is a 61 M who presents with progressive shortness of breath. Pt is home-oxygen dependent, but over the past week he has maxxed out his concentrator. States that he is also been getting more swollen. Presents to the emergency room and had a chest x-ray that showed increased right pleural effusions and CHF and received 40 mg of IV furosemide. Patient does weigh himself weekly but does not know if he is put on weight recently. [facility] Medical History Abnormal electrocardiogram Bilateral leg edema Blister of great toe of left foot Blister of toe of left foot Borderline diabetes Chronic diastolic (congestive) heart failure Chronic respiratory failure with hypoxia, on home O2 therapy Chronic ulcer of left foot with fat layer exposed Chronic ulcer of left foot with fat layer exposed Depression Essential (primary) hypertension Lymphedema VAN (obstructive sleep apnea) Other specified peripheral vascular diseases Secondary pulmonary arterial hypertension Stasis dermatitis of both legs Super-super obese Venous insufficiency Home Medications albuterol sulfate 90 mcg/actuation aerosol inhaler (ProAir HFA) 1 - 2 puff inhalation Q4H PRN shortness of breath 01/07/18 [History Last Taken 04/23/22] docusate sodium 100 mg capsule (Colace) 100 mg PO DAILY PRN Constipation 11/01/20 [History Last Taken Unknown] Disability Placard #1 ea 02/18/21 [Rx Last Taken Unknown] cholecalciferol (vitamin D3) 1,250 mcg (50,000 unit) capsule 50,000 unit PO KOEHLER SUPPLEMENT 05/14/21 [History Last Taken 04/20/22] potassium chloride 20 mEq tablet,extended release(part/cryst) 20 meq PO Q3D SUPPLEMENT 10/03/21 [History Last Taken 04/21/22] ipratropium 20 mcg-albuterol 100 mcg/actuation mist for inhalation (Combivent Respimat) 1 puff inhalation DAILY SHORTNESS OF BREATH 11/14/21 [History Last Taken 04/23/22] aspirin 81 mg tablet,delayed release 81 mg PO DAILY HEART HEALTH 04/23/22 [History Last Taken 04/23/22] carvedilol 12.5 mg tablet 12.5 mg PO DAILY HEART 04/23/22 [History Last Taken 04/23/22] furosemide 40 mg tablet 40 mg PO BID FLUID 04/23/22 [History Last Taken 04/23/22] lisinopril 10 mg tablet 10 mg PO DAILY blood pressure 04/23/22 [History Last Taken 04/23/22] naproxen sodium 220 mg tablet (Aleve) 220 mg PO Q8H PRN Pain 04/23/22 [History Last Taken 04/22/22] white petrolatum (Petroleum Jelly topical) 1 applic topical Q7D PRN LEGS 04/23/22 [History Last Taken 04/20/22] Allergy/AdvReac Type Severity Reaction Status Date / Time No Known Allergies Allergy Verified 04/23/22 08:46 Family History Mother Hypertension Father Hypertension Surgical History History of tonsillectomy Social History adopted: No household members: family housing: house number of children: 0 current occupational status: unemployed current occupational exposures/hazards: No pets and animals: No history of recent travel: No sexually active: No Smoking Status: Never smoker second hand exposure: No alcohol intake: never substance use type: does not use caffeine: Yes Type: carbonated beverages and tea what type of physical activity do you participate in: none ROS ROS Narrative All review of systems were negative except as mentioned above in the history of present illness and the other review of systems. Vital Signs Vital Signs Vital Signs: 04/23/22 08:47 04/23/22 09:04 04/23/22 09:05 Temperature 35.0 C L Temperature Source Temporal Pulse Rate 62 Respiratory Rate 17 Respiratory Effort Short of Breath Labored Blood Pressure 145/66 H Blood Pressure Mean 92 Pulse Ox 97 94 Oxygen Delivery Method Nasal Cannula Nasal Cannula Nasal Cannula Oxygen Flow Rate (L/min) 6 6 94 04/23/22 09:20 04/23/22 10:35 04/23/22 10:37 Temperature 36.7 C 36.7 C Temperature Source Oral Oral Pulse Rate 66 68 Respiratory Rate 13 18 Respiratory Effort Blood Pressure 135/63 H 135/63 H Blood Pressure Mean 87 87 Pulse Ox 95 98 97 Oxygen Delivery Method Nasal Cannula Nasal Cannula Nasal Cannula Oxygen Flow Rate (L/min) 6 6 6 Weight Weight: 181.437 kg Body Mass Index (BMI) 57.4 Physical Exam Const alert and no apparent distress Constitutional Narrative: Morbidly obese HEENT normocephalic, head/scalp atraumatic and hearing grossly normal bilaterally Neck Neck Narrative: Voluminous neck tissue Resp Resp Narrative: Coarse breath sounds bilateral Cardio Cardio Narrative: Distant heart sounds but regular GI normal to inspection, nondistended, normoactive bowel sounds, soft to palpation and non-distended Extremity Extremity Narrative: Lymphedematous changes with lichenification of his lower extremities. Bilateral lower extremity edema. Neuro oriented x3 and moves all extremities Psych affect normal Results Lab / Micro Data Attestation: I reviewed the patient's lab results. Lab results narrative: Chest x-ray reviewed and showed pulmonary vascular congestion as well as right pleural effusion. Result Diagrams: 04/23/22 09:16 04/23/22 09:16 Labs: Laboratory Results - last 24 hr 04/23/22 09:16: WBC 6.5, RBC 4.11 L, Hgb 11.6 L, Hct 40.8, MCV 99.3 H, MCH 28.2, MCHC 28.4 L, RDW Std Deviation 58.7 H, RDW Coeff of Sandi 16.3 H, Plt Count 108 L, MPV 11.2, Immature Gran % (Auto) 1.200 H, Neut % (Auto) 82.6 H, Lymph % (Auto) 6.9 L, [place] % (Auto) 6.7, Eos % (Auto) 2.1, Baso % (Auto) 0.5, Absolute Neuts (auto) 5.4, Absolute Lymphs (auto) 0.45 L, Nucleated RBC % 0, Differential Comment 04/23/22 09:16: PT 15.1 H, INR 1.2, APTT 30.2 04/23/22 09:16: Sodium 141, Potassium 4.4, Chloride 95 L, Carbon Dioxide > 45.0 H*, Anion Gap TNP, BUN 29 H, Creatinine 1.19, Estim Creat Clear Calc 65.60, Est GFR (MDRD) Af Amer 79, Est GFR (MDRD) Non-Af 66, BUN/Creatinine Ratio 24.4 H, Glucose 124 H, Calcium 8.4 L, Total Bilirubin 0.70, AST 18, ALT 17, Alkaline Phosphatase 94, Total Protein 7.5, Albumin 3.1 L, Globulin 4.4 H, Albumin/Globulin Ratio 0.7 L 04/23/22 09:16: B-Natriuretic Peptide 124.4 H Micro: Microbiology 04/23/22 09:25 Nasal Secretion SARS-CoV-2 Antigen (Rapid) - Final EKG Initial EKG: Attestation: I personally reviewed and interpreted this EKG as follows: Prior EKG tracings: available for review EKG Rhythm Intrepretation: Sinus Rhythm Radiology Impression Chest X-Ray 04/23/22 09:30 IMPRESSION: Cardiomegaly. CHF and small right pleural effusion. Electronically Signed: Sourav Norwood MD at 10:22 EST , Assessment & Plan Assessment/Plan (1) (HFpEF) heart failure with preserved ejection fraction: PLAN: EF of 55% from 2D echocardiogram September 18, 2020. Patient takes 40 mg of furosemide twice daily at home. We will change him over to 80 mg IV twice daily Repeat echocardiogram Continue lisinopril (2) Acute and chronic respiratory failure with hypercapnia: PLAN: Multifactorial: Due to sleep apnea that is untreated, obesity hypoventilation Patient's CO2 on his BMP was greater than 45 that is higher than its been but has been chronically elevated. This is likely not a new development since his last BMP was from November 2020. Strongly encourage patient use BiPAP at night and with naps. He makes me easily excuses about why he does not use the BiPAP. I emphasized that if he wants to get better he needs to help himself. I strongly encouraged him to ignore the voices in his head that tell him to take the BiPAP off and the tough it out. He says that he will try. I am not sure he will succeed however. I will check an ABG and the patient does tolerate the BiPAP we will see about arranging a BiPAP for when he is ready for discharge. PLAN: Plan Chronic conditions * Morbid obesity: BMI of 57.4 kg meter squared complicates care and recovery. Consult nutrition for dietary advice * Debility: Patient is a walker at baseline. States that he feels weaker currently. Case management to see as well as PT and OT. * Lymphedematous changes lower extremities: Due to chronic longstanding lower extremity edema. Much of this is not amenable to improvement but hopefully with management of his other medical conditions he can prevent from getting worsened. VTE prophylaxis: Subcu enoxaparin CODE STATUS: Addressed with the patient. Patient wishes to be DNR Comfort Care arrest no intubation. Charges/Coding Visit Charges Inpatient E&M: 50360 Init Hosp L3
--- NOTE | 2022-04-23 11:43 | ECHOD_ITS ---
Reason For Study: CHF Procedure This was a 2D Doppler, Color Flow transthoracic echocardiogram. Technically difficult study due to patient condition and body habitus. Patient scanned sitting in room chair on BIPAP due to SOB. Definity not used, no IV access. Nurse Asya attempted IV twice. Exam performed portable in patient room. Left Ventricle Normal LV size. Left ventricular systolic function is normal. The estimated ejection fraction is 55 %. Stage 2 diastolic dysfunction. No regional wall motion abnormalities noted. Right Ventricle Normal right ventricle. Mitral Valve Normal mitral valve. Tricuspid Valve Normal tricuspid valve. Pericardium/Pleural No pericardial effusion. MMode/2D Measurements & Calculations Ao root diam: 3.8 cm Time Measurements MV dec time: 0.30 sec Doppler Measurements & Calculations MV E max erik: 85.2 cm/sec Lat Peak E' Erik: 12.7 cm/sec Med Peak E' Erik: 9.0 cm/sec MV A max erik: 72.7 cm/sec E/E' lat: 6.7 E/E' med: 9.5 MV E/A: 1.2 Ao V2 max: 139.3 cm/sec PA V2 max: 132.6 cm/sec TR max erik: 130.8 cm/sec Ao max P.8 mmHg TR max P.8 mmHg ECHO/Echo Complete Interpretation Summary Normal LV size. Left ventricular systolic function is normal. The estimated ejection fraction is 55 %. Stage 2 diastolic dysfunction. The study was technically difficult. The study was technically limited. Ordering Physician: Keith Fraser Performed By: Gonzalo Ambrocio RCS
--- NOTE | 2022-04-23 12:58 | EKG12_ITS ---
Test Reason : Blood Pressure : / mmHG Vent. Rate : 068 BPM Atrial Rate : 068 BPM P-R Int : 160 ms QRS Dur : 080 ms QT Int : 428 ms P-R-T Axes : 064 018 045 degrees QTc Int : 455 ms Sinus rhythm with Premature atrial complexes Low voltage QRS Borderline ECG When compared with ECG of 23-APR-2022 09:24, MANUAL COMPARISON REQUIRED, DATA IS UNCONFIRMED Confirmed by HERNANDO SHEPPARD, SIDNEY ([id number]), newspaper editor managing TRELL MCCARTHY ([id number]) on 04/24/2022 1:53:03 PM Referred By: YULISA Confirmed By:ROXIE VILLAGOMEZ MD
[2022-04-23] MEDS: Ipratropium/Albuterol Sulfate 3 ML AMPUL.NEB INHALATION ×2 (13:25→19:03)
[2022-04-23 13:55] LABS: Troponin-I HS 8 pg/mL (3.0-78.0)
[2022-04-23 15:59] LABS: Troponin-I HS 8 pg/mL (3.0-78.0)
[2022-04-23] MEDS: Furosemide 100 MG/10 ML Vial 80 MG IV (18:22)
[2022-04-23] MEDS: 0.9% Saline Lock 10 ML Syringe IV (18:23)
[2022-04-23 20:41] LABS: Troponin-I HS 9 pg/mL (3.0-78.0)
[2022-04-23] MEDS: Enoxaparin 40 MG/0.4 ML Syringe SC (22:14)
[2022-04-24] VITALS (13 sets, daily range): BP systolic 115–133; BP diastolic 72–79; PULSE 55–113; RESP 12–22; TEMP 36.9–37.1; O2SAT 92–96
[2022-04-24 04:46] LABS: Absolute Lymphocyte Count 0.68 X10^3/uL (0.83-4.51); Absolute Neutrophil Count 4.5 X10^3/uL (2.0-7.7); Basophil# 0.03 X10^3/uL; Basophil% 0.5 % (0-1); Eosinophil# 0.13 X10^3/uL; Eosinophils% 2.2 % (0-5); Hematocrit 39.8 % (40-54); Hemoglobin 11.5 g/dL (13.0-16.5); Lymphocyte # 0.68 X10^3/ul (0.83-4.51); Lymphocyte % 11.6 % (19-41); Mean Corp Hgb Conc 28.9 g/dL (32-36); Mean Corpuscular Hgb 28.5 pg (27.0-32.0); Mean Corpuscular Volume 98.8 fL (80-94); Monocyte# 0.49 X10^3/uL; Monocyte% 8.4 % (0-10); NRBC Flagged by Analyzer 0 % (0-5); Neutrophil # 4.49 X10^3/uL (2.7-7.7); Neutrophil % 76.6 % (47-70); Platelet Count 101 K/mm3 (150-450); RBC Distribution Width CV 16.2 % (11.6-14.6); RBC Distribution Width SD 58.4 fl (35.1-43.9); Red Blood Count 4.03 M/mm3 (4.6-6.2); White Blood Count 5.9 K/mm3 (4.4-11.0)
[2022-04-24 05:19] LABS: ALB/GLOB Ratio 0.7 RATIO (0.9-2.4); AST(SGOT) 12 U/L (15-37); Alanine Aminotransfer ALT/SGPT 18 U/L (16-61); Albumin, Serum 2.9 g/dL (3.2-5.0); Alkaline Phosphatase 90 U/L (45-117); BUN 29 mg/dL (7-18); BUN/Creat Ratio 26.6 RATIO (10-20); Calcium,Total 8.4 mg/dL (8.5-10.1); Carbon Dioxide > 45.0 mmol/L (21.0-32.0); Chloride 92 mmol/L (98-107); Cholesterol 121 mg/dL (200); Creatinine, Serum 1.09 mg/dL (0.70-1.30); EST Glomerular Filtration Rate 73 mL/min (>60); Est Glom Filt Rate - Afr Amer 88 mL/min (>60); Estimated Creatinine Clearance 71.62 ml/min; Globulin 4.3 g/dL (2.2-4.2); Glucose 103 mg/dL (74-106); High Density Lipoprotein 34 mg/dL; Potassium 3.6 mmol/L (3.5-5.1); Protein, Total 7.2 g/dL (6.4-8.2); Sodium Level 142 mmol/L (136-145); Triglycerides 133 mg/dL; Very Low Density Lipoprotein 27 mg/dL (5-40)
[2022-04-24] MEDS: Ipratropium/Albuterol Sulfate 3 ML AMPUL.NEB INHALATION ×3 (06:49→19:48)
--- NOTE | 2022-04-24 08:27 | PN.HOSP_ITS ---
Subjective Subjective feels better. Says he used the BiPAP last night from 9-4am. Objective Data Objective Data Vital Signs: Vital Signs Temp Pulse Resp BP Pulse Ox O2 Del Method O2 Flow Rate 36.9 C 61 19 H 129/78 H 95 Nasal Cannula 6 04/24/22 05:00 04/24/22 05:00 04/24/22 05:00 04/24/22 05:00 04/24/22 05:00 04/24/22 07:56 04/24/22 07:56 FiO2 40 04/24/22 03:30 Oxygen Flow Rate (L/min) 6 Oxygen Delivery Method Nasal Cannula Weight: 182.5 kg Body Mass Index (BMI) 57.6 Intake & Output: Intake and Output for Last 24 Hours 04/22/22 04/23/22 04/24/22 23:59 23:59 23:59 Intake Total 240 / 240 Output Total 1700 / 1700 250 / 250 Balance -1460 / -1460 -250 / -250 Lab / Micro Data Result Diagrams: 04/24/22 04:14 04/24/22 04:14 Labs: Laboratory Results - last 24 hr 04/23/22 09:16: WBC 6.5, RBC 4.11 L, Hgb 11.6 L, Hct 40.8, MCV 99.3 H, MCH 28.2, MCHC 28.4 L, RDW Std Deviation 58.7 H, RDW Coeff of Sandi 16.3 H, Plt Count 108 L, MPV 11.2, Immature Gran % (Auto) 1.200 H, Neut % (Auto) 82.6 H, Lymph % (Auto) 6.9 L, [place] % (Auto) 6.7, Eos % (Auto) 2.1, Baso % (Auto) 0.5, Absolute Neuts (auto) 5.4, Absolute Lymphs (auto) 0.45 L, Nucleated RBC % 0, Differential Comment 04/23/22 09:16: PT 15.1 H, INR 1.2, APTT 30.2 04/23/22 09:16: Sodium 141, Potassium 4.4, Chloride 95 L, Carbon Dioxide > 45.0 H*, Anion Gap TNP, BUN 29 H, Creatinine 1.19, Estim Creat Clear Calc 65.60, Est GFR (MDRD) Af Amer 79, Est GFR (MDRD) Non-Af 66, BUN/Creatinine Ratio 24.4 H, Glucose 124 H, Calcium 8.4 L, Total Bilirubin 0.70, AST 18, ALT 17, Alkaline Phosphatase 94, Total Protein 7.5, Albumin 3.1 L, Globulin 4.4 H, Albumin/Globulin Ratio 0.7 L 04/23/22 09:16: B-Natriuretic Peptide 124.4 H 04/23/22 13:25: Troponin I High Sens 8 04/23/22 15:25: Troponin I High Sens 8 04/23/22 19:55: Troponin I High Sens 9 04/24/22 04:14: WBC 5.9, RBC 4.03 L, Hgb 11.5 L, Hct 39.8 L, MCV 98.8 H, MCH 28.5, MCHC 28.9 L, RDW Std Deviation 58.4 H, RDW Coeff of Sandi 16.2 H, Plt Count 101 L, MPV 11.0, Immature Gran % (Auto) 0.700, Neut % (Auto) 76.6 H, Lymph % (Auto) 11.6 L, [place] % (Auto) 8.4, Eos % (Auto) 2.2, Baso % (Auto) 0.5, Absolute Neuts (auto) 4.5, Absolute Lymphs (auto) 0.68 L, Nucleated RBC % 0 04/24/22 04:14: Sodium 142, Potassium 3.6, Chloride 92 L, Carbon Dioxide > 45.0 H*, Anion Gap TNP, BUN 29 H, Creatinine 1.09, Estim Creat Clear Calc 71.62, Est GFR (MDRD) Af Amer 88, Est GFR (MDRD) Non-Af 73, BUN/Creatinine Ratio 26.6 H, Glucose 103, Calcium 8.4 L, Total Bilirubin 0.60, AST 12 L, ALT 18, Alkaline Phosphatase 90, Total Protein 7.2, Albumin 2.9 L, Globulin 4.3 H, Albumin/Globulin Ratio 0.7 L, Triglycerides 133, Cholesterol 121, LDL Cholesterol 60, VLDL Cholesterol 27, HDL Cholesterol 34 L Micro: Microbiology 04/23/22 09:25 Nasal Secretion SARS-CoV-2 Antigen (Rapid) - Final Radiography Diagnostic Testing: Radiology Impression Chest X-Ray 04/23/22 09:30 IMPRESSION: Cardiomegaly. CHF and small right pleural effusion. Electronically Signed: Sourav Norwood MD at 10:22 EST , Echocardiogram 04/23/22 11:43 Interpretation Summary Normal LV size. Left ventricular systolic function is normal. The estimated ejection fraction is 55 %. Stage 2 diastolic dysfunction. The study was technically difficult. The study was technically limited. Ordering Physician: Keith Fraser Performed By: Gonzalo Ambrocio RCS Physical Exam Const Constitutional Narrative: up in chair. no respiratory distress. HEENT head/scalp atraumatic and moist oral mucous membranes Resp normal respiratory effort, no retractions, no use of accessory muscles and clear to auscultation bilaterally Cardio regular rate, regular rhythm, S1 normal heart sound and S2 normal heart sound GI normal to inspection, nondistended, normoactive bowel sounds, soft to palpation, non-tender and non-distended Extremity normal to inspection Assessment & Plan Assessment/Plan (1) (HFpEF) heart failure with preserved ejection fraction: PLAN: EF of 55% from 2D echocardiogram September 18, 2020. Patient takes 40 mg of furosemide twice daily at home. We will change him over to 80 mg IV twice daily Repeat echocardiogram Continue lisinopril (2) Acute and chronic respiratory failure with hypercapnia: PLAN: Multifactorial: Due to sleep apnea that is untreated, obesity hypovent ilation Patient's CO2 on his BMP was greater than 45 that is higher than its been but has been chronically elevated. This is likely not a new development since his last BMP was from November 2020. Strongly encourage patient use BiPAP at night and with naps. He makes me easily excuses about why he does not use the BiPAP. I emphasized that if he wants to get better he needs to help himself. I strongly encouraged him to ignore the voices in his head that tell him to take the BiPAP off and the tough it out. He says that he will try. I am not sure he will succeed however. AB39/. PLAN: Plan Chronic conditions * Morbid obesity: BMI of 57.4 kg meter squared complicates care and recovery. Consult nutrition for dietary advice * Debility: Patient is a walker at baseline. States that he feels weaker currently. Case management to see as well as PT and OT. * Lymphedematous changes lower extremities: Due to chronic longstanding lower extremity edema. Much of this is not amenable to improvement but hopefully with management of his other medical conditions he can prevent from getting worsened. VTE prophylaxis: Subcu enoxaparin CODE STATUS: Addressed with the patient. Patient wishes to be DNR Comfort Care arrest no intubation. Charges/Coding Visit Charges Inpatient E&M: 17396 Subs Hosp L2
[2022-04-24] MEDS: Furosemide 100 MG/10 ML Vial 80 MG IV ×2 (08:59→17:25)
[2022-04-24] MEDS: 0.9% Saline Lock 10 ML Syringe IV ×3 (08:59→21:25)
[2022-04-24] MEDS: Enoxaparin 40 MG/0.4 ML Syringe SC ×2 (09:01→21:25)
[2022-04-24] MEDS: Lisinopril 10 MG Tablet PO (09:02)
[2022-04-24] MEDS: Carvedilol 12.5 MG Tablet PO (09:02)
[2022-04-24] MEDS: Aspirin E.C. 81 MG Tablet PO (09:02)
[2022-04-24] MEDS: Potassium Chloride Oral Tablet 20 MEQ PO (09:02)
--- NOTE | 2022-04-24 14:54 | CASEMGMT ---
RN?CM?BANK CLERK?CM?placed call to pt's room for initial transition planning/care coordination?assessment.?RN?CM?introduced self and role at [facility].? Pt voices understanding and consents to?assessment?at this time.? Pt is A/O at this time and answers all questions appropriately.?? Care providers, pharmacy, and demographics verified/updated at this time. PCP: Gaby Ugalde Specialists: Dr Norman-pulmonology. Pt used to see Dr Pollack, cardiology, but pt states he no longer sees him. Pt is also active w/Palliative Care. [facility]erred [facility]acy: [facility] Insurance: [facility] Prescription Benefit: [facility] Living Will/HPOA:?Pt's sister, Morelia Sands, is HCPOA. ? LNOK: Morelia Sands, sister/HCPOA; ?Saumya Johnson, mother Living Arrangements: Pt lives with parents and younger sister in 1 story home with laundry in basement. Ramp entrance into home. Pt states there is one step into the T.V room and 2 into the garage. He navigates them slowly. He does not go to the basement anymore, as his family does laundry and other home mgmt tasks for him. Pt states he does have a shower chair, but has difficulty getting in/out of shower, so he mostly just sponge baths. He is able to dress himself mostly, but family does help w/lower body dressing when needed. He sleeps in a lift chair. Family picks his medications up for him, but then he manages taking them. Transportation: Pt states drives self and states no transportation concerns. ?He states his sister will most likely be taking him home @ d/c. DME: Pt states has a cane, rollator, O2 thru [employer], and pulse ox. He does not have a nebulizer. Pt states he wears O2 @ 4 l/m continuously. Per [employer], pt's current O2 orders are 3 l/m. Pt states he also has a CPAP, but has difficulty tolerating the mask, and has woken up with it off of him and ripped up. He states when he has been @ [facility] in the past, they have trialed different masks on him. He is interested in having appt scheduled with [facility] for them to trial other masks for him to use @ home. He states, I need someone to help motivate me to wear it. SNF/HHC ?Pt states no hx of HHC, but he has been to [facility] in 2020. He has went to [facility] for Lymphedema once or twice Pt states he wishes to return home @ d/c and is interested in HHC. He would like a list of agencies to review. He is not sure if he wants it set up by CM @ [facility] prior to discharge yet, as he wants to check into the agencies first. Pt states no concerns with going home at time of discharge. ?Pt states no further concerns/needs. ?CM to follow for increased home oxygen needs and any further discharge planning/needs. ?Advised pt to ask for CM if any further questions/concerns/needs arise. Pt voices understanding. ? Plan: Home w/possible HHC, monitor for any increase in O2 needs, and [employer] to be notified of need of trialing other masks for CPAP. Kenney MYERSN RN CM ?
[2022-04-24 15:11] LABS: Allen Test Positive; Base Excess > 30 mmol/L (-2 to +2); Bicarbonate 56.4 mmol/L (22-26); Blood Gas Specimen Type ART; O2 Delivery Device Cannula; PO2 82 mmHG (75-100); SITE L Radial; SO2 94 % (95-99); Total Carbon Dioxide > 50 mmol/L; pCO2 105.9 mmHg (35-45); pH 7.34 (7.35-7.45)
[2022-04-25] VITALS (10 sets, daily range): BP systolic 100–145; BP diastolic 72–100; PULSE 59–71; RESP 12–20; TEMP 36.6–36.7; O2SAT 91–100
[2022-04-25 04:40] LABS: Absolute Lymphocyte Count 0.73 X10^3/uL (0.83-4.51); Absolute Neutrophil Count 4.4 X10^3/uL (2.0-7.7); Basophil# 0.02 X10^3/uL; Basophil% 0.3 % (0-1); Eosinophil# 0.15 X10^3/uL; Eosinophils% 2.6 % (0-5); Hematocrit 40.1 % (40-54); Hemoglobin 11.6 g/dL (13.0-16.5); Lymphocyte # 0.73 X10^3/ul (0.83-4.51); Lymphocyte % 12.6 % (19-41); Mean Corp Hgb Conc 28.9 g/dL (32-36); Mean Corpuscular Hgb 28.4 pg (27.0-32.0); Mean Corpuscular Volume 98.3 fL (80-94); Mean Platelet Vol. 11.2 fl (6.2-12.0); Monocyte# 0.48 X10^3/uL; Monocyte% 8.3 % (0-10); NRBC Flagged by Analyzer 0 % (0-5); Neutrophil # 4.37 X10^3/uL (2.7-7.7); Neutrophil % 75.7 % (47-70); Platelet Count 103 K/mm3 (150-450); RBC Distribution Width SD 57.9 fl (35.1-43.9); Red Blood Count 4.08 M/mm3 (4.6-6.2); White Blood Count 5.8 K/mm3 (4.4-11.0)
[2022-04-25 05:30] LABS: BUN 31 mg/dL (7-18); BUN/Creat Ratio 27.2 RATIO (10-20); Calcium,Total 8.5 mg/dL (8.5-10.1); Carbon Dioxide > 45.0 mmol/L (21.0-32.0); Chloride 91 mmol/L (98-107); Creatinine, Serum 1.14 mg/dL (0.70-1.30); EST Glomerular Filtration Rate 69 mL/min (>60); Est Glom Filt Rate - Afr Amer 83 mL/min (>60); Estimated Creatinine Clearance 68.48 ml/min; Glucose 100 mg/dL (74-106); Potassium 3.5 mmol/L (3.5-5.1); Sodium Level 141 mmol/L (136-145)
[2022-04-25] MEDS: Ipratropium/Albuterol Sulfate 3 ML AMPUL.NEB INHALATION ×2 (07:00→19:44)
[2022-04-25] MEDS: Carvedilol 12.5 MG Tablet PO (08:37)
[2022-04-25] MEDS: Aspirin E.C. 81 MG Tablet PO (08:37)
[2022-04-25] MEDS: Furosemide 100 MG/10 ML Vial 80 MG IV ×2 (08:37→17:14)
[2022-04-25] MEDS: Lisinopril 10 MG Tablet PO (08:37)
[2022-04-25] MEDS: Potassium Chloride Oral Tablet 20 MEQ PO (08:37)
[2022-04-25] MEDS: Enoxaparin 40 MG/0.4 ML Syringe SC ×2 (08:37→21:16)
--- NOTE | 2022-04-25 09:03 | PN.HOSP_ITS ---
Subjective Subjective Breathing better. Objective Data Objective Data Vital Signs: Vital Signs Temp Pulse Resp BP Pulse Ox O2 Del Method O2 Flow Rate 36.7 C 62 14 115/100 H 97 Nasal Cannula 7 04/25/22 03:46 04/25/22 07:00 04/25/22 07:00 04/25/22 03:46 04/25/22 07:00 04/25/22 07:00 04/25/22 07:00 FiO2 40 04/25/22 03:18 Oxygen Flow Rate (L/min) 7 Oxygen Delivery Method Nasal Cannula Weight: 171.5 kg Body Mass Index (BMI) 57.6 Intake & Output: Intake and Output for Last 24 Hours 04/23/22 04/24/22 04/25/22 23:59 23:59 23:59 Intake Total 240 / 240 660 / 660 Output Total 1700 / 1700 1800 / 1800 350 / 350 Balance -1460 / -1460 -1140 / -1140 -350 / -350 Lab / Micro Data Result Diagrams: 04/25/22 04:02 04/25/22 04:02 Labs: Laboratory Results - last 24 hr 04/25/22 04:02: WBC 5.8, RBC 4.08 L, Hgb 11.6 L, Hct 40.1, MCV 98.3 H, MCH 28.4, MCHC 28.9 L, RDW Std Deviation 57.9 H, RDW Coeff of Sandi 16.0 H, Plt Count 103 L, MPV 11.2, Immature Gran % (Auto) 0.500, Neut % (Auto) 75.7 H, Lymph % (Auto) 12.6 L, [place] % (Auto) 8.3, Eos % (Auto) 2.6, Baso % (Auto) 0.3, Absolute Neuts (auto) 4.4, Absolute Lymphs (auto) 0.73 L, Nucleated RBC % 0 04/25/22 04:02: Sodium 141, Potassium 3.5, Chloride 91 L, Carbon Dioxide > 45.0 H*, Anion Gap TNP, BUN 31 H, Creatinine 1.14, Estim Creat Clear Calc 68.48, Est GFR (MDRD) Af Amer 83, Est GFR (MDRD) Non-Af 69, BUN/Creatinine Ratio 27.2 H, Glucose 100, Calcium 8.5 Micro: Microbiology 04/23/22 09:25 Nasal Secretion SARS-CoV-2 Antigen (Rapid) - Final ABG Data ABG results: ABG 04/23/22 12:58 Specimen Type ART Sample Site L Radial pH 7.34 L Bicarbonate Actual 56.4 H Total CO2 > 50 Base Excess > 30 H O2 Saturation 94 L ABG pCO2 105.9 H* ABG pO2 82 Daquan Test Positive O2 Delivery Device Cannula Liter Flow 5.0 Crit Call To/Read Back Yes Blood Gas Notified Whom darcie Physical Exam Const alert Resp normal respiratory effort, no retractions and no use of accessory muscles Cardio regular rate, regular rhythm, S1 normal heart sound and S2 normal heart sound GI normal to inspection, nondistended, normoactive bowel sounds GI Narrative: obese Extremity Extremity Narrative: venous stasis changes with edema. Assessment & Plan Assessment/Plan (1) (HFpEF) heart failure with preserved ejection fraction: PLAN: EF of 55% from 2D echocardiogram September 18, 2020. Patient takes 40 mg of furosemide twice daily at home. We will change him over to 80 mg IV twice daily Repeat echocardiogram Continue lisinopril (2) Acute and chronic respiratory failure with hypercapnia: PLAN: Multifactorial: Due to sleep apnea that is untreated, obesity hypovent ilation Patient's CO2 on his BMP was greater than 45 that is higher than its been but has been chronically elevated. This is likely not a new development since his last BMP was from November 2020. Strongly encourage patient use BiPAP at night and with naps. He makes me easily excuses about why he does not use the BiPAP. I emphasized that if he wants to get better he needs to help himself. I strongly encouraged him to ignore the voices in his head that tell him to take the BiPAP off and the tough it out. He says that he will try. I am not sure he will succeed however. (3) Obesity hypoventilation syndrome: PLAN: admission pCO2 on ABG 105.9 Patient requires volume ventilation and all other alternative therapies, including bilevel, have been considered and ruled out due to the severity of the disease state, weak breathing muscles and potential life-threatening condition including CO2 retention probability of acute exacerbation, patient requires ventilation to be used during the day as needed, addition to every night usage with facemask. PLAN: Plan Chronic conditions * Morbid obesity: BMI of 57.4 kg meter squared complicates care and recovery. Consult nutrition for dietary advice * Debility: Patient is a walker at baseline. States that he feels weaker currently. Case management to see as well as PT and OT. * Lymphedematous changes lower extremities: Due to chronic longstanding lower extremity edema. Much of this is not amenable to improvement but hopefully with management of his other medical conditions he can prevent from getting worsened. VTE prophylaxis: Subcu enoxaparin CODE STATUS: Addressed with the patient. Patient wishes to be DNR Comfort Care arrest no intubation. Disposition: plan for home over the weekend. continue diuresis. Charges/Coding Visit Charges Inpatient E&M: 84253 Subs Hosp L2
--- NOTE | 2022-04-25 12:22 | CASEMGMT ---
Addendum entered by Rosalba Maldonado 04/25/22 16:35: [facility] and [facility] are not able to accept patient due to staffing. Additional referrals sent to [facility], and [facility]. Original Note: RN CM in to discuss discharge plans with patient and family. Patient and family agreeable to [facility] at discharge. A list of [facility] providers including quality and resource use data and consistent with the patient?s preferred geographical region, medical needs, and insurance network were provided from the [facility] Guide. 1st choice is [facility], second choice is [facility]. MELINDA BERGMAN sent referral via [facility] to [facility]. CM will continue to follow this patient and plan for a safe discharge.
--- NOTE | 2022-04-25 12:49 | CASEMGMT ---
Social Work LW/POA both scanned into summary tab of echart. Pt has sister Morelia Sands listed as Healthcare POA. CHICO Koenig
--- NOTE | 2022-04-25 13:00 | CASEMGMT ---
Hospitalist updated this RN CM that patient will need triology or NIV at discharge. Script received and RN CM called Pamela at [facility] [place]. RN CM assisted with clinical document and provided to Shannon. Santiago back to discuss NIV with patient. CM will continue to follow this patient and plan for a safe discharge.
[2022-04-25] MEDS: 0.9% Saline Lock 10 ML Syringe IV ×2 (17:14→21:16)
[2022-04-26] VITALS (12 sets, daily range): BP systolic 103–140; BP diastolic 62–76; PULSE 55–67; RESP 12–20; TEMP 36.4–36.8; O2SAT 6–98
[2022-04-26] MEDS: Ipratropium/Albuterol Sulfate 3 ML AMPUL.NEB INHALATION ×3 (07:22→19:31)
[2022-04-26] MEDS: Carvedilol 12.5 MG Tablet PO (08:02)
[2022-04-26] MEDS: Lisinopril 10 MG Tablet PO (08:02)
[2022-04-26] MEDS: Potassium Chloride Oral Tablet 20 MEQ PO (08:02)
[2022-04-26] MEDS: Ergocalciferol 1.25 MG (50, 000 UNIT) Capsule PO (08:02)
[2022-04-26] MEDS: Enoxaparin 40 MG/0.4 ML Syringe SC ×2 (08:02→21:22)
[2022-04-26] MEDS: Aspirin E.C. 81 MG Tablet PO (08:02)
[2022-04-26] MEDS: Furosemide 100 MG/10 ML Vial 80 MG IV ×2 (08:03→17:16)
[2022-04-26] MEDS: Menthol/Lanolin/Calamine/Znox 113 GM Tube 1 APPLIC TOPICAL ×2 (08:10→21:21)
[2022-04-26 10:53] LABS: BUN 33 mg/dL (7-18); BUN/Creat Ratio 23.4 RATIO (10-20); Calcium,Total 8.9 mg/dL (8.5-10.1); Carbon Dioxide > 45.0 mmol/L (21.0-32.0); Chloride 92 mmol/L (98-107); Creatinine, Serum 1.41 mg/dL (0.70-1.30); EST Glomerular Filtration Rate 54 mL/min (>60); Est Glom Filt Rate - Afr Amer 65 mL/min (>60); Estimated Creatinine Clearance 55.37 ml/min; Glucose 155 mg/dL (74-106); Potassium 3.6 mmol/L (3.5-5.1); Sodium Level 142 mmol/L (136-145)
--- NOTE | 2022-04-26 14:42 | PN.HOSP_ITS ---
Subjective Subjective Breathing ok. Feels ok walking to rest room. Didn't sleep well. Use BiPAP overnight. Objective Data Objective Data Vital Signs: Vital Signs Temp Pulse Resp BP Pulse Ox O2 Del Method O2 Flow Rate 36.8 C 65 18 122/76 H 97 Nasal Cannula 6 04/26/22 09:30 04/26/22 13:08 04/26/22 13:08 04/26/22 09:30 04/26/22 14:28 04/26/22 10:00 04/26/22 14:28 FiO2 40 04/26/22 02:55 Oxygen Flow Rate (L/min) [ 87 AMBULATING with Oxygen #2] Oxygen Flow Rate (L/min) [ 88 AMBULATING with Oxygen #1] Oxygen Flow Rate (L/min) [At 3 REST with Oxygen] Oxygen Flow Rate (L/min) 6 Oxygen Delivery Method Nasal Cannula Weight: 171.5 kg Body Mass Index (BMI) 57.6 Intake & Output: Intake and Output for Last 24 Hours 04/24/22 04/25/22 04/26/22 23:59 23:59 23:59 Intake Total 660 / 660 840 / 840 400 / 400 Output Total 1800 / 1800 1550 / 1550 Balance -1140 / -1140 -710 / -710 400 / 400 Lab / Micro Data Result Diagrams: 04/25/22 04:02 04/26/22 10:10 Labs: Laboratory Results - last 24 hr 04/26/22 09:14: Sodium Cancelled, Potassium Cancelled, Chloride Cancelled, Carbon Dioxide Cancelled, Anion Gap Cancelled, BUN Cancelled, Creatinine Cancelled, Estim Creat Clear Calc Cancelled, Est GFR (MDRD) Af Amer Cancelled, Est GFR (MDRD) Non-Af Cancelled, BUN/Creatinine Ratio Cancelled, Glucose Cancelled, Calcium Cancelled 04/26/22 10:10: Sodium 142, Potassium 3.6, Chloride 92 L, Carbon Dioxide > 45.0 H*, Anion Gap TNP, BUN 33 H, Creatinine 1.41 H, Estim Creat Clear Calc 55.37, Est GFR (MDRD) Af Amer 65, Est GFR (MDRD) Non-Af 54 L, BUN/Creatinine Ratio 23.4 H, Glucose 155 H, Calcium 8.9 Micro: Microbiology 04/23/22 09:25 Nasal Secretion SARS-CoV-2 Antigen (Rapid) - Final Physical Exam Const alert and no apparent distress Resp normal respiratory effort, no retractions, no use of accessory muscles and clear to auscultation bilaterally Cardio regular rate, regular rhythm, S1 normal heart sound and S2 normal heart sound GI normal to inspection, nondistended, normoactive bowel sounds, soft to palpation and non-tender Neuro Sensorium / Orientation: awake and alert Psych affect normal Assessment & Plan Assessment/Plan (1) (HFpEF) heart failure with preserved ejection fraction: PLAN: EF of 55% from 2D echocardiogram September 18, 2020. Patient takes 40 mg of furosemide twice daily at home. We will change him over to 80 mg IV twice daily Repeat echocardiogram Continue lisinopril (2) Acute and chronic respiratory failure with hypercapnia: PLAN: Multifactorial: Due to sleep apnea that is untreated, obesity hypoventilation Patient's CO2 on his BMP was greater than 45 that is higher than its been but has been chronically elevated. This is likely not a new development since his last BMP was from November 2020. Strongly encourage patient use BiPAP at night and with naps. He makes me easily excuses about why he does not use the BiPAP. I emphasized that if he wants to get better he needs to help himself. I strongly encouraged him to ignore the voices in his head that tell him to take the BiPAP off and the tough it out. He says that he will try. I am not sure he will succeed however. 04/26: Required 8 L of oxygen with activity and was tachypneic with. Continue with diuresis. (3) Obesity hypoventilation syndrome: PLAN: admission pCO2 on ABG 105.9 Patient requires volume ventilation and all other alternative therapies, including bilevel, have been considered and ruled out due to the severity of the disease state, weak breathing muscles and potential life-threatening condition including CO2 retention probability of acute exacerbation, patient requires ventilation to be used during the day as needed, addition to every night usage with facemask. PLAN: Plan Chronic conditions * Morbid obesity: BMI of 57.4 kg meter squared complicates care and recovery. Consult nutrition for dietary advice * Debility: Patient is a walker at baseline. States that he feels weaker currently. Case management to see as well as PT and OT. * Lymphedematous changes lower extremities: Due to chronic longstanding lower extremity edema. Much of this is not amenable to improvement but hopefully with management of his other medical conditions he can prevent from getting worsened. VTE prophylaxis: Subcu enoxaparin CODE STATUS: Addressed with the patient. Patient wishes to be DNR Comfort Care arrest no intubation. Disposition: plan for home over the weekend. continue diuresis. Charges/Coding Visit Charges Inpatient E&M: 25334 Subs Hosp L2
[2022-04-26] MEDS: 0.9% Saline Lock 10 ML Syringe IV ×2 (17:15→21:22)
[2022-04-27] VITALS (16 sets, daily range): BP systolic 92–104; BP diastolic 50–69; PULSE 60–76; RESP 12–20; TEMP 36.4–37; O2SAT 80–97
[2022-04-27 06:49] LABS: Anion Gap 4 (5-15); BUN 44 mg/dL (7-18); BUN/Creat Ratio 19.7 RATIO (10-20); Chloride 93 mmol/L (98-107); Creatinine, Serum 2.23 mg/dL (0.70-1.30); EST Glomerular Filtration Rate 32 mL/min (>60); Est Glom Filt Rate - Afr Amer 38 mL/min (>60); Estimated Creatinine Clearance 35.01 ml/min; Glucose 117 mg/dL (74-106); Potassium 3.8 mmol/L (3.5-5.1); Sodium Level 140 mmol/L (136-145)
[2022-04-27] MEDS: Ipratropium/Albuterol Sulfate 3 ML AMPUL.NEB INHALATION ×3 (07:15→19:10)
--- NOTE | 2022-04-27 08:49 | PCM.PN.HOSP ---
Subjective Subjective Oxygen but able to be weaned down to 4 L at rest, however, when he was walked on 6 L he dropped into the 80s and was even bumped up to the 8 L and was still 80s. States that is used the BiPAP overnight and did okay with that. Objective Data Objective Data Vital Signs: Vital Signs Temp Pulse Resp BP Pulse Ox O2 Del Method O2 Flow Rate 36.8 C 66 18 103/67 97 Bi-pap 5 04/27/22 04:48 04/27/22 07:16 04/27/22 07:16 04/27/22 04:48 04/27/22 04:48 04/27/22 04:48 04/27/22 02:24 FiO2 35 04/27/22 04:05 Oxygen Flow Rate (L/min) [ 87 AMBULATING with Oxygen #2] Oxygen Flow Rate (L/min) [ 88 AMBULATING with Oxygen #1] Oxygen Flow Rate (L/min) [At 3 REST with Oxygen] Oxygen Flow Rate (L/min) 5 Oxygen Delivery Method Bi-pap Weight: 171.5 kg Body Mass Index (BMI) 57.6 Intake & Output: Intake and Output for Last 24 Hours 04/25/22 04/26/22 04/27/22 23:59 23:59 23:59 Intake Total 840 / 840 950 / 950 100 / 100 Output Total 1550 / 1550 Balance -710 / -710 950 / 950 100 / 100 Lab / Micro Data Result Diagrams: 04/25/22 04:02 04/27/22 05:43 Labs: Laboratory Results - last 24 hr 04/26/22 09:14: Sodium Cancelled, Potassium Cancelled, Chloride Cancelled, Carbon Dioxide Cancelled, Anion Gap Cancelled, BUN Cancelled, Creatinine Cancelled, Estim Creat Clear Calc Cancelled, Est GFR (MDRD) Af Amer Cancelled, Est GFR (MDRD) Non-Af Cancelled, BUN/Creatinine Ratio Cancelled, Glucose Cancelled, Calcium Cancelled 04/26/22 10:10: Sodium 142, Potassium 3.6, Chloride 92 L, Carbon Dioxide > 45.0 H*, Anion Gap TNP, BUN 33 H, Creatinine 1.41 H, Estim Creat Clear Calc 55.37, Est GFR (MDRD) Af Amer 65, Est GFR (MDRD) Non-Af 54 L, BUN/Creatinine Ratio 23.4 H, Glucose 155 H, Calcium 8.9 04/27/22 05:43: Sodium 140, Potassium 3.8, Chloride 93 L, Carbon Dioxide 43.0 H, Anion Gap 4 L, BUN 44 H, Creatinine 2.23 H, Estim Creat Clear Calc 35.01, Est GFR (MDRD) Af Amer 38 L, Est GFR (MDRD) Non-Af 32 L, BUN/Creatinine Ratio 19.7, Glucose 117 H, Calcium 9.0 Micro: Microbiology 04/23/22 09:25 Nasal Secretion SARS-CoV-2 Antigen (Rapid) - Final Physical Exam Const alert and no apparent distress Constitutional Narrative: up in chair. afebrile. Resp normal respiratory effort, no retractions, no use of accessory muscles and clear to auscultation bilaterally Cardio regular rate, regular rhythm, S1 normal heart sound and S2 normal heart sound GI normal to inspection, nondistended, normoactive bowel sounds, soft to palpation, non-tender and non-distended Extremity normal to inspection Assessment & Plan Assessment/Plan (1) (HFpEF) heart failure with preserved ejection fraction: PLAN: EF of 55% from 2D echocardiogram September 18, 2020. Patient takes 40 mg of furosemide twice daily at home. We will change him over to 80 mg IV twice daily Repeat echocardiogram Continue lisinopril (2) Acute and chronic respiratory failure with hypercapnia: PLAN: Multifactorial: Due to sleep apnea that is untreated, obesity hypoventilation Patient's CO2 on his BMP was greater than 45 that is higher than its been but has been chronically elevated. This is likely not a new development since his last BMP was from November 2020. Strongly encourage patient use BiPAP at night and with naps. He makes me easily excuses about why he does not use the BiPAP. I emphasized that if he wants to get better he needs to help himself. I strongly encouraged him to ignore the voices in his head that tell him to take the BiPAP off and the tough it out. He says that he will try. I am not sure he will succeed however. 04/26: Required 8 L of oxygen with activity and was tachypneic with. Continue with diuresis. 04/27: add PEP. Still requiring 8 L with activity. I would have to scale back his diuresis as his creatinine has gotten worse. Consult pulmonary for further recommendations given his lack of progress despite diuresis (3) Obesity hypoventilation syndrome: PLAN: admission pCO2 on ABG 105.9 (patient was awake and alert) Patient requires volume ventilation and all other alternative therapies, including bilevel, have been considered and ruled out due to the severity of the disease state, weak breathing muscles and potential life-threatening condition including CO2 retention probability of acute exacerbation, patient requires ventilation to be used during the day as needed, addition to every night usage with facemask. (4) VELMA (acute kidney injury): PLAN: Likely secondary to overdiuresis. Hold Lasix for now and reevaluate. PLAN: Plan Chronic conditions Morbid obesity: BMI of 57.4 kg meter squared complicates care and recovery. Consult nutrition for dietary advice Debility: Patient is a walker at baseline. States that he feels weaker currently. Case management to see as well as PT and OT. Lymphedematous changes lower extremities: Due to chronic longstanding lower extremity edema. Much of this is not amenable to improvement but hopefully with management of his other medical conditions he can prevent from getting worsened. VTE prophylaxis: Subcu enoxaparin CODE STATUS: Addressed with the patient. Patient wishes to be DNR Comfort Care arrest no intubation. Disposition: TBD. Eventual plan is to get the patient home. Patient has been evaluated by [facility] and is been approved for bilevel at home. Charges/Coding Visit Charges Inpatient E&M: 74596 Subs Hosp L2
[2022-04-27] MEDS: 0.9% Saline Lock 10 ML Syringe IV (09:17)
[2022-04-27] MEDS: Potassium Chloride Oral Tablet 20 MEQ PO (09:18)
[2022-04-27] MEDS: Menthol/Lanolin/Calamine/Znox 113 GM Tube 1 APPLIC TOPICAL ×2 (09:18→21:53)
[2022-04-27] MEDS: Carvedilol 12.5 MG Tablet PO (09:18)
[2022-04-27] MEDS: Aspirin E.C. 81 MG Tablet PO (09:18)
[2022-04-27] MEDS: Enoxaparin 40 MG/0.4 ML Syringe SC ×2 (09:18→21:52)
[2022-04-27] MEDS: Furosemide 100 MG/10 ML Vial 80 MG IV (09:18)
[2022-04-28] VITALS (13 sets, daily range): BP systolic 104–122; BP diastolic 60–92; PULSE 65–79; RESP 12–22; TEMP 36.6–36.9; O2SAT 80–96
[2022-04-28 06:04] LABS: Absolute Lymphocyte Count 0.83 X10^3/uL (0.83-4.51); Absolute Neutrophil Count 4.2 X10^3/uL (2.0-7.7); Basophil# 0.02 X10^3/uL; Basophil% 0.3 % (0-1); Eosinophil# 0.19 X10^3/uL; Eosinophils% 3.3 % (0-5); Hematocrit 44.1 % (40-54); Hemoglobin 12.4 g/dL (13.0-16.5); Lymphocyte # 0.83 X10^3/ul (0.83-4.51); Lymphocyte % 14.5 % (19-41); Mean Corp Hgb Conc 28.1 g/dL (32-36); Mean Corpuscular Hgb 28.5 pg (27.0-32.0); Mean Corpuscular Volume 101.4 fL (80-94); Mean Platelet Vol. 10.9 fl (6.2-12.0); Monocyte# 0.51 X10^3/uL; Monocyte% 8.9 % (0-10); NRBC Flagged by Analyzer 0 % (0-5); Neutrophil # 4.16 X10^3/uL (2.7-7.7); Neutrophil % 72.7 % (47-70); Platelet Count 117 K/mm3 (150-450); RBC Distribution Width CV 16.3 % (11.6-14.6); RBC Distribution Width SD 61.3 fl (35.1-43.9); Red Blood Count 4.35 M/mm3 (4.6-6.2); White Blood Count 5.7 K/mm3 (4.4-11.0)
[2022-04-28 06:26] LABS: Anion Gap 4 (5-15); BUN 59 mg/dL (7-18); BUN/Creat Ratio 22.4 RATIO (10-20); Calcium,Total 8.8 mg/dL (8.5-10.1); Chloride 93 mmol/L (98-107); Creatinine, Serum 2.63 mg/dL (0.70-1.30); EST Glomerular Filtration Rate 26 mL/min (>60); Est Glom Filt Rate - Afr Amer 32 mL/min (>60); Estimated Creatinine Clearance 29.68 ml/min; Glucose 116 mg/dL (74-106); Sodium Level 140 mmol/L (136-145)
[2022-04-28] MEDS: Ipratropium/Albuterol Sulfate 3 ML AMPUL.NEB INHALATION ×2 (06:58→19:14)
[2022-04-28] MEDS: Carvedilol 12.5 MG Tablet PO (09:23)
[2022-04-28] MEDS: Aspirin E.C. 81 MG Tablet PO (09:23)
[2022-04-28] MEDS: Menthol/Lanolin/Calamine/Znox 113 GM Tube 1 APPLIC TOPICAL ×2 (09:23→20:51)
[2022-04-28] MEDS: Enoxaparin 40 MG/0.4 ML Syringe SC ×2 (09:24→20:52)
[2022-04-28] MEDS: Potassium Chloride Oral Tablet 20 MEQ PO (09:24)
--- NOTE | 2022-04-28 09:54 | CASEMGMT ---
Addendum entered by Rosalba Maldonado 04/28/22 12:04: MELINDA BERGMAN in to update patient regarding HHC setup with [facility] with planned start of care for 05/01/22. Patient asked MELINDA BERGMAN to updated his family. MELNIDA BERGMAN called sister/AUSTIN Thibodeaux and updated regarding HHC setup and planned start of care. Sister had no further questions or concerns at this time. Original Note: MELINDA BERGMAN called Matthias at [facility] in regards to referral. Matthias to review referral and call back with acceptance. MADALYN will continue to follow this patient and plan for a safe discharge.
--- NOTE | 2022-04-28 10:50 | PCM.DC.SUM ---
Providers Date of Admission: 04/23/22 Date of Discharge: 04/28/22 Primary Care Physician: [facility] Reason For Visit: ACUTE HYPOXIC, CHF EXACERBATION Diagnosis Discharge Diagnosis (1) (HFpEF) heart failure with preserved ejection fraction: Status: Acute Code(s): I50.30 - Unspecified diastolic (congestive) heart failure (2) Acute and chronic respiratory failure with hypercapnia: Status: Chronic Code(s): J96.22 - Acute and chronic respiratory failure with hypercapnia (3) Obesity hypoventilation syndrome: Status: Acute Code(s): E66.2 - Morbid (severe) obesity with alveolar hypoventilation (4) VELMA (acute kidney injury): Status: Acute Code(s): N17.9 - Acute kidney failure, unspecified Medications at Discharge Home Medications albuterol sulfate 90 mcg/actuation aerosol inhaler (ProAir HFA) 1 - 2 puff inhalation Q4H PRN shortness of breath 01/07/18 docusate sodium 100 mg capsule (Colace) 100 mg PO DAILY PRN Constipation 11/01/20 Disability Placard #1 ea 02/18/21 cholecalciferol (vitamin D3) 1,250 mcg (50,000 unit) capsule 50,000 unit PO KOEHLER SUPPLEMENT 05/14/21 potassium chloride 20 mEq tablet,extended release(part/cryst) 20 meq PO Q3D SUPPLEMENT 10/03/21 ipratropium 20 mcg-albuterol 100 mcg/actuation mist for inhalation (Combivent Respimat) 1 puff inhalation DAILY SHORTNESS OF BREATH 11/14/21 aspirin 81 mg tablet,delayed release 81 mg PO DAILY HEART HEALTH 04/23/22 carvedilol 12.5 mg tablet 12.5 mg PO DAILY HEART 04/23/22 furosemide 40 mg tablet 40 mg PO BID FLUID 04/23/22 white petrolatum (Petroleum Jelly topical) 1 applic topical Q7D PRN LEGS 04/23/22 Hospital Course Summary of Care Provided Minutes Spent on Discharge: 35 Physical Exam Narrative GENERAL: Patient is cooperative HEENT: Atraumatic; normocephalic EYES; Anicteric, Normal Conjunctiva NECK; supple, normal thyroid, RESPIRATORY: Diminished to auscultation CARDIOVASCULAR: Regular S1 S2, GI: soft, normoactive bowel sounds, : No Renal angle tenderness; EXTREMITIES: No edema, no clubbing, MUSCULOSKELETAL: no muscle wasting NEURO: Awake; no lateralizing signs. SKIN: No Rash PSYCH; Flat affect Weight / BMI Weight Weight: 171.5 kg Body Mass Index (BMI) 57.6 ABG / Lab / Microbiology Data Result Diagrams: 04/28/22 05:50 04/28/22 05:50 Laboratory: Laboratory Results - last 24 hr 04/28/22 05:50: Sodium 140, Potassium 4.0, Chloride 93 L, Carbon Dioxide 43.0 H, Anion Gap 4 L, BUN 59 H, Creatinine 2.63 H, Estim Creat Clear Calc 29.68, Est GFR (MDRD) Af Amer 32 L, Est GFR (MDRD) Non-Af 26 L, BUN/Creatinine Ratio 22.4 H, Glucose 116 H, Calcium 8.8 04/28/22 05:50: WBC 5.7, RBC 4.35 L, Hgb 12.4 L, Hct 44.1, MCV 101.4 H, MCH 28.5, MCHC 28.1 L, RDW Std Deviation 61.3 H, RDW Coeff of Sandi 16.3 H, Plt Count 117 L, MPV 10.9, Immature Gran % (Auto) 0.300, Neut % (Auto) 72.7 H, Lymph % (Auto) 14.5 L, [place] % (Auto) 8.9, Eos % (Auto) 3.3, Baso % (Auto) 0.3, Absolute Neuts (auto) 4.2, Absolute Lymphs (auto) 0.83, Nucleated RBC % 0 Microbiology: Microbiology 04/23/22 09:25 Nasal Secretion SARS-CoV-2 Antigen (Rapid) - Final D/C Instructions Discharge Diet: No restrictions Discharge Activity: Return to Normal Activity Call your doctor if you observe: Fever of 101 or Higher, Shortness of breath, Fainting spells and Chest pain Meaningful Use Info Meaningful Use Diagnoses (Choose all that apply): None applicable Discharge Plan Admission Admit Date/Time: 04/23/22 11:26 Attending Provider: Sid Vigil [facility] Providers: Keith Fraser Discharge Orders/Prescriptions Prescriptions: Continued ProAir HFA 90 mcg/actuation HFA aerosol inhaler 1 - 2 puff INHALATION Q4H PRN (Reason: shortness of breath) cholecalciferol (vitamin D3) 1,250 mcg (50,000 unit) capsule 50,000 unit PO KOEHLER (DME) Disability Placard See Rx Instructions .ROUTE .MEDSUPPLY Qty: 1 0RF Rx Instructions: Expires in 5 years potassium chloride 20 mEq tablet,ER particles/crystals 20 meq PO Q3D docusate sodium [Colace] 100 mg Capsule 100 mg PO DAILY PRN (Reason: Constipation) Combivent Respimat 20-100 mcg/actuation Mist 1 puff INHALATION DAILY aspirin 81 mg Tablet,Delayed Release (Dr/Ec) 81 mg PO DAILY white petrolatum [Petroleum Jelly] Gel 1 applic TOPICAL Q7D PRN (Reason: LEGS) furosemide 40 MG tablet 40 mg PO BID carvedilol 12.5 mg tablet 12.5 mg PO DAILY Discontinued naproxen sodium [Aleve] 220 mg Tablet 220 mg PO Q8H PRN (Reason: Pain) lisinopril 10 mg tablet 10 mg PO DAILY Referrals / Follow Up: Sukh Norman MD [Med Staff - Active Staff] - Within 2 Weeks [facility],Gaby Ugalde [Primary Care Provider] - In 1 Week Disposition Disposition (needs filled in before D/C Order can be placed): Home Health Service
--- NOTE | 2022-04-28 10:58 | US_ITS ---
STUDY: RENAL ULTRASOUND - COMPLETE REASON FOR EXAM: Male, 61 years old. RENAL FAILURE TECHNIQUE: Ultrasound evaluation of the kidneys was performed with real-time and static tavarez-scale imaging. COMPARISON: None. FINDINGS: RIGHT KIDNEY: Normal location of the right kidney, which is normal in size. The right kidney measures 12.3 cm x 7.3 cm x 5.7 cm. There is a normal cortex of the right kidney. The renal cortex measures 1.8 cm. There is no right renal mass or cyst. There are no right renal calculi. There is no right hydronephrosis. DISTAL RIGHT URETER: There is non-visualization of the distal right ureter. There is no demonstrated right ureterovesical junction calculus. There is no demonstrated right ureteral jet. LEFT KIDNEY: Normal location of the left kidney, which is normal in size. The left kidney measures 9.8 cm x 6.7 cm x 5.8 cm. There is a normal cortex of the left kidney. The renal cortex measures 1.5 cm. There is no left renal mass or cyst. There are no left renal calculi. There is no left hydronephrosis. DISTAL LEFT URETER: There is non-visualization of the distal left ureter. There is no demonstrated left ureterovesical junction calculus. There is no demonstrated left ureteral jet. BLADDER: Urinary bladder is empty at the time of examination. US/Kidney and Bladder IMPRESSION: Normal ultrasound of the kidneys. Electronically Signed: Sourav Norwood MD at 13:47 EST ,
--- NOTE | 2022-04-28 11:00 | PN.HOSP_ITS ---
Subjective Subjective Follow-up acute kidney injury Patient is a 61-year-old gentleman with past medical history single for chronic congestive heart failure, obesity hypoventilation syndrome with BMI of 54 apparently noncompliant with CPAP therapy presented to the hospital with progressive shortness of breath diagnosed with acute on chronic respiratory failure with significant hypercapnia. Objective Data Objective Data Vital Signs: Vital Signs Temp Pulse Resp BP Pulse Ox O2 Del Method O2 Flow Rate 98.5 F 68 16 113/65 95 Nasal Cannula 4 04/28/22 09:21 04/28/22 09:21 04/28/22 09:21 04/28/22 09:21 04/28/22 09:21 04/28/22 09:21 04/28/22 09:21 FiO2 35 04/28/22 03:11 Oxygen Flow Rate (L/min) [ 8 AMBULATING with Oxygen #3] Oxygen Flow Rate (L/min) [ 6 AMBULATING with Oxygen #2] Oxygen Flow Rate (L/min) [ 4 AMBULATING with Oxygen #1] Oxygen Flow Rate (L/min) [At 3 REST with Oxygen] Oxygen Flow Rate (L/min) 4 Oxygen Delivery Method Nasal Cannula Weight: 171.5 kg Body Mass Index (BMI) 57.6 Intake & Output: Intake and Output for Last 24 Hours 04/26/22 04/27/22 04/28/22 23:59 23:59 23:59 Intake Total 950 / 950 1000 / 1200 200 / 200 Balance 950 / 950 1000 / 1200 200 / 200 Lab / Micro Data Result Diagrams: 04/28/22 05:50 04/28/22 05:50 Labs: Laboratory Results - last 24 hr 04/28/22 05:50: Sodium 140, Potassium 4.0, Chloride 93 L, Carbon Dioxide 43.0 H, Anion Gap 4 L, BUN 59 H, Creatinine 2.63 H, Estim Creat Clear Calc 29.68, Est GFR (MDRD) Af Amer 32 L, Est GFR (MDRD) Non-Af 26 L, BUN/Creatinine Ratio 22.4 H , Glucose 116 H, Calcium 8.8 04/28/22 05:50: WBC 5.7, RBC 4.35 L, Hgb 12.4 L, Hct 44.1, MCV 101.4 H, MCH 28.5, MCHC 28.1 L, RDW Std Deviation 61.3 H, RDW Coeff of Sandi 16.3 H, Plt Count 117 L, MPV 10.9, Immature Gran % (Auto) 0.300, Neut % (Auto) 72.7 H, Lymph % (Auto) 14.5 L, [place] % (Auto) 8.9, Eos % (Auto) 3.3, Baso % (Auto) 0.3, Absolute Neuts (auto) 4.2, Absolute Lymphs (auto) 0.83, Nucleated RBC % 0 Micro: Microbiology 04/23/22 09:25 Nasal Secretion SARS-CoV-2 Antigen (Rapid) - Final Physical Exam Narrative GENERAL: dyspneic at rest HEENT: Atraumatic; EYES; Anicteric, Normal Conjunctiva NECK; supple, normal thyroid, RESPIRATORY: Diminished to auscultation CARDIOVASCULAR:? Regular S1 S2, GI:? soft, normoactive bowel sounds, : No Renal angle tenderness; EXTREMITIES: Bilateral lymphedema MUSCULOSKELETAL:? no muscle waisting NEURO:? Awake;? no lateralizing signs. SKIN: As discussed above PSYCH; Flat? affect Assessment & Plan Assessment/Plan (1) CHF (congestive heart failure): (2) VELMA (acute kidney injury): PLAN: Plan Patient is a 61-year-old gentleman with past medical history single for chronic congestive heart failure, obesity hypoventilation syndrome with BMI of 54 apparently noncompliant with CPAP therapy presented to the hospital with progressive shortness of breath diagnosed with acute on chronic respiratory failure with significant hypercapnia. 1. Acute hypoxic and hypercapnic respiratory failure superimposed on chronic respiratory failure ?Secondary to a combination of factors including CHF, obstructive sleep apnea and hypoventilation obesity syndrome.? Patient placed on supplemental oxygen admitted to monitored bed for treatment of underlying condition 2.? Acute on chronic congestive heart failure ?Echo obtained 04/23/2021 demonstrated EF of 55% with normal left ventricular systolic function.? Patient has been admitted to monitored bed.?Managed with strict input and output, fluid restriction, daily weight, supplemental oxygen as well as IV Lasix 3. Acute kidney injury Patient creatinine on admission was 1.19 and has since been worsening of his kidney function with creatinine being 2.63 as of 04/28/2024. Patient was on lisinopril as well as furosemide but discontinued started on gentle IV fluid co nsultation placed to nephrology also ordered renal duplex for subsequent eval 4.? Obstructive sleep apnea ?Patient apparently noncompliant with CPAP therapy patient was counseled on the need to be compliant 5.? Essential hypertension ?Patient blood pressure not well controlled continue with home meds except for lisinopril in view of worsening kidney function 6.? Bilateral stasis dermatitis ?Patient has some lower extremity oozing consult placed to wound care nurse for dressing changes 7.? Morbid obesity - With a BMI of 54 patient was counseled on weight reduction.? 9.? DVT prophylaxis ?Lovenox dose adjusted for weight Time spent in the patient's overall evaluation,decision-making process, review of diagnostic data, adjustment of management, discussion with other providers, nursing nursing and ancillary staff involved in patient's care documentation, 38 Minutes - Charges/Coding Visit Charges Inpatient E&M: 19040 Subs Hosp L2
[2022-04-28] MEDS: 0.9% Normal Saline 1,000 ML 100 ML IV ×2 (11:43→20:50)
--- NOTE | 2022-04-28 14:18 | CON.PCM.RE_ITS ---
Assessment & Plan Assessment/Plan (1) VELMA (acute kidney injury): PLAN: Baseline creatinine was normal, close to normal on admission. Creatinine increased over the last 2 days. No contrast agents. Echocardiogram showed decent ejection fraction, more important right-sided parameters could not be obtained due to body habitus. He has chronic lymphedema presumably due to right-sided heart failure. Has responded well to IV Lasix. No other nephrotoxic agents. Most likely acute renal failure is related to diuresis. Renal ultrasound without any hydronephrosis. We will check a urine analysis. Blood pressure is borderline low. Lasix is already on hold. Continue to monitor without Lasix. Will wait for pulmonology input for sleep apnea/obesity hypoventilation. ? [facility] HPI Consult Data Date of Consult: 04/28/22 HPI Narrative Reason for Consultation: Acute renal failure HPI Narrative: FLORIN RUBIN, is a 61 M who presents to the hospital about 4 days ago with worsening shortness of breath. Apparently he uses home oxygen 4 to 6 L at home on a chronic basis. He was requiring more oxygen and came into the hospital. Was found to have significant volume overload peripherally. Was started on IV Lasix 80 mg IV twice daily. He says he has avoided significant amount with the Lasix. Feels better. Oxygen requirements have improved. He has known history of morbid obesity, BMI 54, likely sleep apnea, obesity hypoventilation syndrome. PCO2 was more than 100 on admission, serum bicarbonate was initially more than 45. Pulmonology has been consulted. Echocardiogram with decent ejection fraction, right-sided parameters could not be obtained due to body habitus. He says he is voiding okay. No contrast agents. No NSAIDs. [facility] Medical History (Updated 04/27/22 @ 14:[address] Keith Fraser, DO) Abnormal electrocardiogram Bilateral leg edema Blister of great toe of left foot Blister of toe of left foot Borderline diabetes Chronic diastolic (congestive) heart failure Chronic respiratory failure with hypoxia, on home O2 therapy Chronic ulcer of left foot with fat layer exposed Chronic ulcer of left foot with fat layer exposed Depression Essential (primary) hypertension Lymphedema Obesity hypoventilation syndrome VAN (obstructive sleep apnea) Other specified peripheral vascular diseases Secondary pulmonary arterial hypertension Stasis dermatitis of both legs Super-super obese Venous insufficiency Home Medications albuterol sulfate 90 mcg/actuation aerosol inhaler (ProAir HFA) 1 - 2 puff inhalation Q4H PRN shortness of breath 01/07/18 [History Last Taken 04/23/22] docusate sodium 100 mg capsule (Colace) 100 mg PO DAILY PRN Constipation 11/01/20 [History Last Taken Unknown] Disability Placard #1 ea 02/18/21 [Rx Last Taken Unknown] cholecalciferol (vitamin D3) 1,250 mcg (50,000 unit) capsule 50,000 unit PO KOEHLER SUPPLEMENT 05/14/21 [History Last Taken 04/20/22] potassium chloride 20 mEq tablet,extended release(part/cryst) 20 meq PO Q3D SUPPLEMENT 10/03/21 [History Last Taken 04/21/22] ipratropium 20 mcg-albuterol 100 mcg/actuation mist for inhalation (Combivent Respimat) 1 puff inhalation DAILY SHORTNESS OF BREATH 11/14/21 [History Last Taken 04/23/22] aspirin 81 mg tablet,delayed release 81 mg PO DAILY HEART HEALTH 04/23/22 [History Last Taken 04/23/22] carvedilol 12.5 mg tablet 12.5 mg PO DAILY HEART 04/23/22 [History Last Taken 04/23/22] furosemide 40 mg tablet 40 mg PO BID FLUID 04/23/22 [History Last Taken 04/23] white petrolatum (Petroleum Jelly topical) 1 applic topical Q7D PRN LEGS 04/23/22 [History Last Taken 04/20/22] Allergy/AdvReac Type Severity Reaction Status Date / Time No Known Allergies Allergy Verified 04/23/22 08:46 Family History Mother Hypertension Father Hypertension Surgical History History of tonsillectomy Social History (Updated 04/23/22 @ 14:26 by Asya Hollis) adopted: No household members: family housing: house number of children: 0 current occupational status: unemployed current occupational exposures/hazards: No pets and animals: No history of recent travel: No sexually active: No Smoking Status: Never smoker second hand exposure: No alcohol intake: never substance use type: does not use caffeine: Yes Type: carbonated beverages and tea what type of physical activity do you participate in: none ROS ROS Narrative Negative except above Physical Exam Narrative Alert, awake, oriented JVD could not be assessed Heart S1-S2 Lungs bilateral air entry Abdomen, obese, no suprapubic fullness Lower extremities, chronic lymphedema changes Edema present No cyanosis Lab / Micro Data Result Diagrams: 04/28/22 05:50 04/28/22 05:50 Labs: Laboratory Results - last 24 hr 04/28/22 05:50: Sodium 140, Potassium 4.0, Chloride 93 L, Carbon Dioxide 43.0 H, Anion Gap 4 L, BUN 59 H, Creatinine 2.63 H, Estim Creat Clear Calc 29.68, Est GFR (MDRD) Af Amer 32 L, Est GFR (MDRD) Non-Af 26 L, BUN/Creatinine Ratio 22.4 H , Glucose 116 H, Calcium 8.8 04/28/22 05:50: WBC 5.7, RBC 4.35 L, Hgb 12.4 L, Hct 44.1, MCV 101.4 H, MCH 28.5, MCHC 28.1 L, RDW Std Deviation 61.3 H, RDW Coeff of Sandi 16.3 H, Plt Count 117 L, MPV 10.9, Immature Gran % (Auto) 0.300, Neut % (Auto) 72.7 H, Lymph % (Auto) 14.5 L, [place] % (Auto) 8.9, Eos % (Auto) 3.3, Baso % (Auto) 0.3, Absolute Neuts (auto) 4.2, Absolute Lymphs (auto) 0.83, Nucleated RBC % 0 Radiology Impression Renal Ultrasound 04/28/22 10:58 IMPRESSION: Normal ultrasound of the kidneys. Electronically Signed: Sourav Norwood MD at 13:47 EST ,
[2022-04-29] VITALS (8 sets, daily range): BP systolic 124–128; BP diastolic 81–87; PULSE 60–85; RESP 12–20; TEMP 36.2–36.6; O2SAT 86–100
[2022-04-29 04:15] LABS: Absolute Lymphocyte Count 0.75 X10^3/uL (0.83-4.51); Absolute Neutrophil Count 3.8 X10^3/uL (2.0-7.7); Basophil# 0.01 X10^3/uL; Basophil% 0.2 % (0-1); Eosinophil# 0.23 X10^3/uL; Eosinophils% 4.3 % (0-5); Hematocrit 37.8 % (40-54); Hemoglobin 10.9 g/dL (13.0-16.5); Lymphocyte # 0.75 X10^3/ul (0.83-4.51); Mean Corp Hgb Conc 28.8 g/dL (32-36); Mean Corpuscular Hgb 27.8 pg (27.0-32.0); Mean Corpuscular Volume 96.4 fL (80-94); Mean Platelet Vol. 11.5 fl (6.2-12.0); Monocyte# 0.56 X10^3/uL; Monocyte% 10.4 % (0-10); NRBC Flagged by Analyzer 0 % (0-5); Neutrophil % 70.7 % (47-70); Platelet Count 102 K/mm3 (150-450); RBC Distribution Width CV 15.9 % (11.6-14.6); RBC Distribution Width SD 56.1 fl (35.1-43.9); Red Blood Count 3.92 M/mm3 (4.6-6.2); White Blood Count 5.4 K/mm3 (4.4-11.0)
[2022-04-29 04:24] LABS: International Normalized Ratio 1.3; Prothrombin Time (Protime)PT. 15.8 SECONDS (11.7-14.9)
[2022-04-29 04:37] LABS: Anion Gap 4 (5-15); BUN 50 mg/dL (7-18); BUN/Creat Ratio 28.2 RATIO (10-20); Calcium,Total 8.5 mg/dL (8.5-10.1); Chloride 96 mmol/L (98-107); Creatinine, Serum 1.77 mg/dL (0.70-1.30); EST Glomerular Filtration Rate 41 mL/min (>60); Est Glom Filt Rate - Afr Amer 50 mL/min (>60); Estimated Creatinine Clearance 44.11 ml/min; Glucose 113 mg/dL (74-106); Magnesium 2.7 mg/dL (1.6-2.6); Sodium Level 140 mmol/L (136-145)
[2022-04-29] MEDS: 0.9% Normal Saline 1,000 ML 100 ML IV (06:43)
[2022-04-29] MEDS: Ipratropium/Albuterol Sulfate 3 ML AMPUL.NEB INHALATION ×2 (07:30→11:05)
[2022-04-29] MEDS: Potassium Chloride Oral Tablet 20 MEQ PO (08:48)
[2022-04-29] MEDS: Enoxaparin 40 MG/0.4 ML Syringe SC (08:48)
[2022-04-29] MEDS: Aspirin E.C. 81 MG Tablet PO (08:48)
[2022-04-29] MEDS: Carvedilol 12.5 MG Tablet PO (08:48)
--- NOTE | 2022-04-29 09:32 | DS.PCM_ITS ---
Providers Date of Admission: 04/23/22 Date of Discharge: 04/29/22 Primary Care Physician: [facility] Consultations 04/28/22 10:58 Consult: Nephrology Routine Consulting Provider: Kasey Chen Reason for Consult: VELMA EMERGENT Consult: No MD Notified: Yes Date Notified: 04/28/22 Time Notified: 11:05 Method of Notification: Answering Service Reason For Visit: ACUTE HYPOXIC, CHF EXACERBATION Diagnosis Discharge Diagnosis (1) CHF (congestive heart failure): Status: Acute Code(s): I50.9 - Heart failure, unspecified (2) VELMA (acute kidney injury): Status: Acute Code(s): N17.9 - Acute kidney failure, unspecified Plan Patient is a 61-year-old gentleman with past medical history single for chronic congestive heart failure, obesity hypoventilation syndrome with BMI of 54 apparently noncompliant with CPAP therapy presented to the hospital with p rogressive shortness of breath diagnosed with acute on chronic respiratory failure with significant hypercapnia. 1. Acute hypoxic and hypercapnic respiratory failure superimposed on chronic respiratory failure ?Secondary to a combination of factors including CHF, obstructive sleep apnea and hypoventilation obesity syndrome.? Patient placed on supplemental oxygen admitted to monitored bed for treatment of underlying condition 2.? Acute on chronic congestive heart failure ?Echo obtained 04/23/2021 demonstrated EF of 55% with normal left ventricular systolic function.? Patient has been admitted to monitored bed.?Managed with strict input and output, fluid restriction, daily weight, supplemental oxygen as well as IV Lasix 3. Acute kidney injury Patient creatinine on admission was 1.19 and has since been worsening of his kidney function with creatinine being 2.63 as of 04/28/2024. Patient was on lisinopril as well as furosemide but discontinued started on gentle IV fluid consultation placed to nephrology also ordered renal duplex for subsequent eval -04/29/2022. Patient kidney function did improve decision was made to discharge patient home 4.? Obstructive sleep apnea ?Patient apparently noncompliant with CPAP therapy patient was counseled on the need to be compliant 5.? Essential hypertension ?Patient blood pressure not well controlled continue with home meds except for lisinopril in view of worsening kidney function 6.? Bilateral stasis dermatitis ?Patient has some lower extremity oozing consult placed to wound care nurse for dressing changes 7.? Morbid obesity - With a BMI of 54 patient was counseled on weight reduction.? 9.? DVT prophylaxis ?Lovenox dose adjusted for weight Time spent in the patient's overall evaluation,decision-making process, review of diagnostic data, adjustment of management, discussion with other providers, nursing nursing and ancillary staff involved in patient's care documentation, 38 Minutes - Medications at Discharge Home Medications albuterol sulfate 90 mcg/actuation aerosol inhaler (ProAir HFA) 1 - 2 puff inhalation Q4H PRN shortness of breath 01/07/18 docusate sodium 100 mg capsule (Colace) 100 mg PO DAILY PRN Constipation 11/01/20 Disability Placard #1 ea 02/18/21 cholecalciferol (vitamin D3) 1,250 mcg (50,000 unit) capsule 50,000 unit PO KOEHLER SUPPLEMENT 05/14/21 potassium chloride 20 mEq tablet,extended release(part/cryst) 20 meq PO Q3D SUPPLEMENT 10/03/21 ipratropium 20 mcg-albuterol 100 mcg/actuation mist for inhalation (Combivent Respimat) 1 puff inhalation DAILY SHORTNESS OF BREATH 11/14/21 aspirin 81 mg tablet,delayed release 81 mg PO DAILY HEART HEALTH 04/23/22 carvedilol 12.5 mg tablet 12.5 mg PO DAILY HEART 04/23/22 furosemide 40 mg tablet 40 mg PO BID FLUID 04/23/22 white petrolatum (Petroleum Jelly topical) 1 applic topical Q7D PRN LEGS 04/23/22 Hospital Course Summary of Care Provided Minutes Spent on Discharge: 38 Physical Exam Narrative GENERAL: dyspneic at rest HEENT: Atraumatic; EYES; Anicteric, Normal Conjunctiva NECK; supple, normal thyroid, RESPIRATORY: Diminished to auscultation CARDIOVASCULAR:? Regular S1 S2, GI:? soft, normoactive bowel sounds, : No Renal angle tenderness; EXTREMITIES: Bilateral lymphedema MUSCULOSKELETAL:? no muscle waisting NEURO:? Awake;? no lateralizing signs. SKIN: As discussed above PSYCH; Flat? affect Weight / BMI Weight Weight: 171.8 kg Body Mass Index (BMI) 57.6 ABG / Lab / Microbiology Data Result Diagrams: 04/29/22 03:57 04/29/22 03:57 Laboratory: Laboratory Results - last 24 hr 04/29/22 03:57: WBC 5.4, RBC 3.92 L, Hgb 10.9 L, Hct 37.8 L, MCV 96.4 H, MCH 27.8, MCHC 28.8 L, RDW Std Deviation 56.1 H, RDW Coeff of Sandi 15.9 H, Plt Count 102 L, MPV 11.5, Immature Gran % (Auto) 0.400, Neut % (Auto) 70.7 H, Lymph % (Auto) 14.0 L, [place] % (Auto) 10.4 H, Eos % (Auto) 4.3, Baso % (Auto) 0.2, Absolute Neuts (auto) 3.8, Absolute Lymphs (auto) 0.75 L, Nucleated RBC % 0 04/29/22 03:57: PT 15.8 H, INR 1.3 04/29/22 03:57: Sodium 140, Potassium 4.0, Chloride 96 L, Carbon Dioxide 40.0 H, Anion Gap 4 L, BUN 50 H, Creatinine 1.77 H, Estim Creat Clear Calc 44.11, Est GFR (MDRD) Af Amer 50 L, Est GFR (MDRD) Non-Af 41 L, BUN/Creatinine Ratio 28.2 H , Glucose 113 H, Calcium 8.5, Magnesium 2.7 H Microbiology: Microbiology 04/23/22 09:25 Nasal Secretion SARS-CoV-2 Antigen (Rapid) - Final Radiography Diagnostic Testing: Radiology Impression Renal Ultrasound 04/28/22 10:58 IMPRESSION: Normal ultrasound of the kidneys. Electronically Signed: Sourav Norwood MD at 13:47 EST Reading Location ID and State: [facility] / ID , Service support , D/C Instructions Discharge Diet: No restrictions Discharge Activity: Return to Normal Activity Call your doctor if you observe: Fever of 101 or Higher, Shortness of breath, Fainting spells and Chest pain Meaningful Use Info Meaningful Use Diagnoses (Choose all that apply): CHF CHF DHIRAJ/ARB ordered at discharge?: Yes Documented LVEF (%): 55 Discharge Plan Admission Admit Date/Time: 04/23/22 11:26 Attending Provider: Sid Vigil [facility] Providers: Keith Fraser ; Kasey Chen Discharge Orders/Prescriptions Prescriptions: Continued ProAir HFA 90 mcg/actuation HFA aerosol inhaler 1 - 2 puff INHALATION Q4H PRN (Reason: shortness of breath) cholecalciferol (vitamin D3) 1,250 mcg (50,000 unit) capsule 50,000 unit PO KOEHLER (DME) Disability Placard See Rx Instructions .ROUTE .MEDSUPPLY Qty: 1 0RF Rx Instructions: Expires in 5 years potassium chloride 20 mEq tablet,ER particles/crystals 20 meq PO Q3D docusate sodium [Colace] 100 mg Capsule 100 mg PO DAILY PRN (Reason: Constipation) Combivent Respimat 20-100 mcg/actuation Mist 1 puff INHALATION DAILY aspirin 81 mg Tablet,Delayed Release (Dr/Ec) 81 mg PO DAILY white petrolatum [Petroleum Jelly] Gel 1 applic TOPICAL Q7D PRN (Reason: LEGS) furosemide 40 MG tablet 40 mg PO BID carvedilol 12.5 mg tablet 12.5 mg PO DAILY Discontinued naproxen sodium [Aleve] 220 mg Tablet 220 mg PO Q8H PRN (Reason: Pain) lisinopril 10 mg tablet 10 mg PO DAILY Referrals / Follow Up: Sukh [facility] MD [Med Staff - Active Staff] - [facility] Weeks [facility] [Primary Care Provider] - In 1 Week Disposition Disposition (needs filled in before D/C Order can be placed): Home Health Service Charges/Coding Visit Charges Inpatient E&M: 22304 Disch Hosp >30min
--- NOTE | 2022-04-29 10:32 | PN.RENAL_ITS ---
Subjective Subjective No new complaints Objective Data Objective Data Vital Signs: Vital Signs Temp Pulse Resp BP Pulse Ox O2 Del Method O2 Flow Rate 97.2 F L 64 20 H 124/87 H 93 Nasal Cannula 3 04/29/22 09:05 04/29/22 09:05 04/29/22 09:05 04/29/22 09:05 04/29/22 10:05 04/29/22 10:06 04/29/22 10:06 FiO2 93 04/29/22 10:06 Oxygen Flow Rate (L/min) [ 6 AMBULATING with Oxygen #3] Oxygen Flow Rate (L/min) [ 4 AMBULATING with Oxygen #2] Oxygen Flow Rate (L/min) [ 3 AMBULATING with Oxygen #1] Oxygen Flow Rate (L/min) [At 3 REST with Oxygen] Oxygen Flow Rate (L/min) 3 Oxygen Delivery Method Nasal Cannula Weight: 171.8 kg Body Mass Index (BMI) 57.6 Intake & Output: Intake and Output for Last 24 Hours 04/27/22 04/28/22 04/29/22 23:59 23:59 23:59 Intake Total 1000 / 1200 1591.67 / 1831.67 1348.33 / 1348.33 Balance 1000 / 1200 1591.67 / 1831.67 1348.33 / 1348.33 Lab / Micro Data Result Diagrams: 04/29/22 03:57 04/29/22 03:57 Labs: Laboratory Results - last 24 hr 04/29/22 03:57: WBC 5.4, RBC 3.92 L, Hgb 10.9 L, Hct 37.8 L, MCV 96.4 H, MCH 27.8, MCHC 28.8 L, RDW Std Deviation 56.1 H, RDW Coeff of Sandi 15.9 H, Plt Count 102 L, MPV 11.5, Immature Gran % (Auto) 0.400, Neut % (Auto) 70.7 H, Lymph % (Auto) 14.0 L, [place] % (Auto) 10.4 H, Eos % (Auto) 4.3, Baso % (Auto) 0.2, Absolute Neuts (auto) 3.8, Absolute Lymphs (auto) 0.75 L, Nucleated RBC % 0 04/29/22 03:57: PT 15.8 H, INR 1.3 04/29/22 03:57: Sodium 140, Potassium 4.0, Chloride 96 L, Carbon Dioxide 40.0 H, Anion Gap 4 L, BUN 50 H, Creatinine 1.77 H, Estim Creat Clear Calc 44.11, Est GFR (MDRD) Af Amer 50 L, Est GFR (MDRD) Non-Af 41 L, BUN/Creatinine Ratio 28.2 H , Glucose 113 H, Calcium 8.5, Magnesium 2.7 H Micro: Microbiology 04/23/22 09:25 Nasal Secretion SARS-CoV-2 Antigen (Rapid) - Final Radiography Diagnostic Testing: Radiology Impression Renal Ultrasound 04/28/22 10:58 IMPRESSION: Normal ultrasound of the kidneys. Electronically Signed: Sourav Norwood MD at 13:47 EST , Physical Exam Narrative Alert, awake, oriented JVD could not be assessed Heart S1-S2 Lungs bilateral air entry Abdomen, obese, no suprapubic fullness Lower extremities, chronic lymphedema changes Edema present No cyanosis Assessment & Plan Assessment/Plan (1) VELMA (acute kidney injury): PLAN: Baseline creatinine was normal, close to normal on admission. Creatinine increased over the last 2 days. No contrast agents. Echocardiogram showed decent ejection fraction, more important right-sided parameters could not be obtained due to body habitus. He has chronic lymphedema presumably due to right-sided heart failure. Has responded well to IV Lasix. No other nephrotoxic agents. Most likely acute renal failure is related to diuresis. Renal ultrasound without any hydronephrosis. Creatinine is significantly better. Okay to resume home dose of Lasix at the time of discharg e. His oxygen requirements are back to baseline, at 4 L. No further work-up needed from nephrology standpoint.
--- NOTE | 2022-04-29 11:15 | CASEMGMT ---
Addendum entered by Rosalba Maldonado 04/29/22 12:16: MELINDA BERGMAN received call back from Pamela at [facility]. They have arrangements made to deliver equipment at [phone]. RN MADALYN called mother Ora to inquire when she will meat pickler patient. They are planning on picking patient up at 1400. RN CM reminded mother to bring portable tank from home with them for patient at discharge. Mother voiced understanding. RN CM updated nursing. Original Note: RN MADALYN updated that patient is discharging today. Patient is requiring 6lpm with ambulation, updated script received and sent to [facility]. MELINDA BERGMAN called Pamela at [facility] to arrange for larger concentrator and NIV to be delivered to patient's home. Pamela to reach out to patient's mother. RN MADALYN called and sent discharge instructions to [facility]. CM will continue to follow this patient and arrange for a safe discharge.
== END 2022-04-29 14:32 | disposition home health service (06) | DRG 133 ==
LOC: ED 09:38 → PCU 11:39
PROVIDERS: Emergency Provider Emergency Medicine; Visit Provider Internal Medicine
DX: J96.21 Acute and chronic respiratory failure with hypoxia (principal); I50.33 Acute on chronic diastolic (congestive) heart failure; N17.9 Acute kidney failure, unspecified; I27.21 Secondary pulmonary arterial hypertension; E66.2 Morbid (severe) obesity with alveolar hypoventilation; Z68.43 Body mass index [BMI] 50.0-59.9, adult; I11.0 Hypertensive heart disease with heart failure; J96.22 Acute and chronic respiratory failure with hypercapnia; I50.813 Acute on chronic right heart failure; I89.0 Lymphedema, not elsewhere classified; I87.2 Venous insufficiency (chronic) (peripheral); Z20.822 Contact with and (suspected) exposure to COVID-19; Z66 Do not resuscitate; Z79.82 Long term (current) use of aspirin; Z99.81 Dependence on supplemental oxygen; Z79.899 Other long term (current) drug therapy; Z91.199 Patient's noncompliance with other medical treatment and regimen due to unspecified reason
CPT/HCPCS: 36415; 36600; 71046; 76770; 80048; 80053; 80061; 82803; 83735; 83880; 84484; 85025; 85610; 85730; 87811; 93005; 93306; 94002; 94003; 94640; 94667; 94668; 94762; 97110; 97162; 97166; 97530; 97535; 97802; 99252; 99285; J7030; Q9957; A4216; G0463; J1940

== ENCOUNTER 2024-04-01 08:07 | Inpatient (IN) | payer MEDICARE, SELFPAY ==
[2024-04-01] VITALS (40 sets, daily range): BP systolic 112–153; BP diastolic 66–106; PULSE 55–96; RESP 12–24; TEMP 36.5–37; O2SAT 74–385; BMI 53.1; BMI 53.5
--- NOTE | 2024-04-01 08:24 | EDS_ITS ---
HPI History of Present Illness Chief Complaint: Shortness of Breath Informant: patient Onset/Context/Timing Onset: Days Context: gradual Timing: Continuous Quality: Positive for Dyspnea on exertion Worsened by: Exertion Relieved by: Oxygen Associated Symptoms sore throat and chills; Negative for cough, rhinorrhea, post nasal drip, ear pain, fever, sweats, clear sputum, white sputum, yellow sputum or green sputum Chest Pain: Positive for Tightness and - (Heaviness) Narrative Narrative: Patient presents with shortness of breath that has been getting worse over the past 2 days. Patient states his breathing is worse with any exertion. Patient states he has been increasing has oxygen at home which has been helping. Patient admits to some heaviness and tightness across his chest. Patient states it is worse on the left side of his chest. Patient admits to some subjective chills but denies any fevers. Patient does admit to a mild sore throat. Patient denies any cough. PE Risk Factors: Negative for Cancer, OCP + Smoking + > 35, Prior DVT or PE, Recent immobilization, Recent surgery or Recent travel [facility] Medical History Diabetes mellitus, type 2 HLD (hyperlipidemia) (HFpEF) heart failure with preserved ejection fraction Allergic rhinitis Morbid obesity Anxiety and depression Obesity hypoventilation syndrome Stasis dermatitis of both legs Lymphedema Other specified peripheral vascular diseases Venous insufficiency Essential (primary) hypertension VAN (obstructive sleep apnea) Chronic respiratory failure with hypoxia, on home O2 therapy Secondary pulmonary arterial hypertension Home Medications ?Medication ?Instructions ?Recorded ?Last Taken ?Type Disability Placard #1 ea 02/18/21 Unknown Rx cholecalciferol (vitamin D3) 1,250 50,000 unit PO KOEHLER SUPPLEMENT 05/14/21 04/01/24 History mcg (50,000 unit) capsule potassium chloride 20 mEq 20 meq PO Q3D SUPPLEMENT 10/03/21 04/21/22 History tablet,extended release(part/cryst) ipratropium 20 mcg-albuterol 100 1 puff inhalation DAILY SHORTNESS 11/14/21 04/23/22 History mcg/actuation mist for inhalation OF BREATH (Combivent Respimat) aspirin 81 mg tablet,delayed 81 mg PO DAILY HEART HEALTH 04/23/22 04/01/24 History release furosemide 40 mg tablet 40 mg PO BID FLUID 04/23/22 04/01/24 History white petrolatum (Petroleum Jelly 1 applic topical Q7D PRN LEGS 04/23/22 04/20/22 History topical) carvedilol 12.5 mg tablet See Rx Instructions .Route 09/23/22 04/01/24 Rx .COMPLEX #180 TABLETS dapagliflozin propanediol 10 mg 10 mg PO DAILY diabetes 04/01/24 Unknown History tablet empagliflozin 10 mg tablet 10 mg PO DAILY heart 04/01/24 Unknown History (Jardiance) Allergy/AdvReac Type Severity Reaction Status Date / Time No Known Allergies Allergy Verified 04/01/24 08:16 Family History Mother Hypertension Father Hypertension Surgical History History of tonsillectomy Social History adopted: No household members: family housing: house number of children: 0 current occupational status: unemployed current occupational exposures/hazards: No pets and animals: No history of recent travel: No sexually active: No Smoking Status: Never smoker second hand exposure: No alcohol intake: never substance use type: does not use caffeine: Yes Type: carbonated beverages and tea what type of physical activity do you participate in: none ROS ROS ED Constitutional Constitutional ED: Reports chills; Denies fever(s) Eyes Eyes: Reports blurry vision; Denies diplopia ENT ENT ED: Reports sore throat; Denies rhinorrhea Cardiovascular Cardiovascular: Reports chest pain; Denies palpitations Respiratory/Chest Respiratory/Chest: Reports dyspnea; Denies cough Gastrointestinal Gastrointestinal: Reports nausea and vomiting Genitourinary Genitourinary ED: Denies dysuria or hematuria Musculoskeletal Musculoskeletal: Reports back pain; Denies neck pain Integumentary Denies abscess or rash Neurologic Neurologic: Reports headache(s); Denies weakness Allergic/Immunologic Allergic/Immunologic ED: Denies mouth swelling or urticaria EXAM Physical Exam Const Vital Signs: 04/01/24 08:09 04/01/24 08:14 04/01/24 08:41 Temperature 97.7 F L 97.9 F Temperature Source Oral Oral Pulse Rate 71 71 Respiratory Rate 20 H 20 H Respiratory Effort Respiratory Depth Respiratory Pattern Blood Pressure 132/66 H 132/66 H Blood Pressure Mean 88 88 Pulse Ox 87 87 Oxygen Delivery Method Nasal Cannula Nasal Cannula Nasal Cannula Oxygen Flow Rate (L/min) 6 6 6 04/01/24 09:08 04/01/24 09:14 04/01/24 10:00 Temperature 97.8 F 97.9 F 97.9 F Temperature Source Oral Oral Oral Pulse Rate 68 65 66 Respiratory Rate 24 H 18 17 Respiratory Effort Respiratory Depth Respiratory Pattern Blood Pressure 112/78 132/74 H 152/106 H Blood Pressure Mean 89 93 121 Pulse Ox 89 93 94 Oxygen Delivery Method High Flow High Flow High Flow Oxygen Flow Rate (L/min) 7 7 7 04/01/24 10:15 04/01/24 10:53 04/01/24 11:00 Temperature 98.4 F Temperature Source Oral Pulse Rate 66 64 Respiratory Rate 17 Respiratory Effort Normal Respiratory Depth Normal Respiratory Pattern Normal Blood Pressure 137/74 H 153/83 H Blood Pressure Mean 106 Pulse Ox 95 Oxygen Delivery Method High Flow High Flow Oxygen Flow Rate (L/min) 7 7 04/01/24 12:00 Temperature 98.4 F Temperature Source Oral Pulse Rate 67 Respiratory Rate 15 Respiratory Effort Respiratory Depth Respiratory Pattern Blood Pressure 152/86 H Blood Pressure Mean 108 Pulse Ox 91 Oxygen Delivery Method Oxygen Flow Rate (L/min) Positive well nourished and well developed General Appearance ED: well developed and NAD HEENT Reports moist mucous membranes Neck supple and no JVD Resp normal respiratory effort Auscultation: diminished lung sounds diffuse Cardio regular rate and regular rhythm GI non-tender and non-distended Palpation: soft Extremity General Extremety ED: Yes edema General Extremity: edema Neuro oriented x3, CN's II-XII intact bilaterally and no sensory deficits noted [place] Coma Scale: document GCS findings Spontaneous Obeys Commands Oriented 15 Sensorium / Orientation: alert Speech: speech normal Motor Exam: strength 5/5 throughout Psych mental status grossly normal MDM MDM MDM Narrative Medical decision making narrative: Differential diagnosis includes congestive heart failure, cardiac dysrhythmia, cardiac ischemia, pneumonia, pneumothorax, pleural effusion, electrolyte abnormality, and anxiety. EKG will be obtained to assess for cardiac dysrhythmia and cardiac ischemia. Chest x-ray will be obtained to assess for pneumonia, pneumothorax, congestive heart failure, and pleural effusion. CBC will be obtained to assess for leukocytosis and anemia. Basic metabolic profile will be obtained to assess for electrolyte abnormality and renal function. BNP will be obtained to assess for congestive heart failure. High-sensitivity troponin will be obtained to assess for cardiac ischemia. 2-hour repeat high- sensitivity troponin will be obtained to assess for ongoing cardiac ischemia. Lab Data Attestation: I reviewed the patient's lab results. Lab results narrative: CBC was reviewed. There is a mild anemia with a hemoglobin of 11.9. Platelets were slightly low at 100. The remainder is within normal limits. Basic metabolic profile was reviewed. CO2 was slightly elevated at 43. BUN was 22. Creatinine was normal at 1.18. High-sensitivity troponin was reviewed and was normal at 11. BNP was reviewed and was slightly elevated at 139.2. 2-hour repeat high-sensitivity troponin was reviewed and was normal at 11. Labs: Laboratory Results - last 24 hr 04/01/24 04/01/24 08:25 11:02 WBC 6.2 RBC 4.50 L Hgb 11.9 L Hct 43.2 MCV 96.0 H MCH 26.4 L MCHC 27.5 L RDW Std Deviation 59.1 H RDW Coeff of Sandi 16.9 H Plt Count 100 L MPV 10.4 Immature Gran % (Auto) 2.100 H Neut % (Auto) 81.7 H Lymph % (Auto) 7.3 L [place] % (Auto) 6.0 Eos % (Auto) 2.3 Baso % (Auto) 0.6 Absolute Neuts (auto) 5.1 Absolute Lymphs (auto) 0.45 L Nucleated RBC % 0.3 Sodium 142 Potassium 4.7 Chloride 97 L Carbon Dioxide 43.0 H Anion Gap 2 L BUN 22 H Creatinine 1.18 Estim Creat Clear Calc 98.06 Est GFR (MDRD) Af Amer 80 Est GFR (MDRD) Non-Af 66 BUN/Creatinine Ratio 18.6 Glucose 177 H Calcium 8.4 L Magnesium 2.7 H Troponin I High Sens 11 11 B-Natriuretic Peptide 139.2 H Procalcitonin Cancelled Radiography Chest X-Ray - ED: 2 View, Read by ED Physician, Read by Radiologist, CHF, Right Effusion and Left Effusion Diagnostic Testing: Clinical Impression(s) from Imaging Studies Chest X-Ray 04/01/24 08:58 IMPRESSION: Mild congestive failure with small bilateral pleural effusions. Electronically Signed: Frandy Short MD at 9:17 EST , PA and lateral chest x-ray was obtained. There are 2 views. On my independent interpretation, there is some congestive heart failure and bilateral pleural effusions. Bony thorax is normal. Radiologist also interpreted the x-rays and agrees. EKG Initial EKG: Attestation: I personally reviewed and interpreted this EKG as follows: Interpretation: Sinus Rhythm (With first-degree AV block with a rate of 68) and No Acute Injury Pattern Comments: EKG was obtained. On my independent interpretation, it showed a sinus rhythm with a first-degree AV block with a rate of 68. NH interval, QRS interval, and QTc intervals were all normal. [place] was normal. There are no acute ST or T wave changes. Prior EKG tracings: available for review Prior: Unchanged (04/23/2022) Management Discussion w/another healthcare provider: Hospitalist (Dr. Steele) Treatment and Re-Evaluation :: Patient was advised of his findings. Patient was given a dose of Lasix. Patient placed on nitroglycerin paste. I discussed with the patient that I would recommend admission to the hospital. Patient was agreeable with this. Case was discussed with the hospitalist. She will admit the patient to her service. Patient and family understood and were agreeable with the plan. All questions were answered. Discharge Plan Dx/Rx/DC Orders Clinical Impression: CHF (congestive heart failure), Lymphedema, Dyspnea on exertion Disposition Disposition: Acute Care Hospital [facility] Discharge Date/Time: 04/01/24 13:13
--- NOTE | 2024-04-01 08:41 | EKG12_ITS ---
Test Reason : SOB Blood Pressure : */* mmHG Vent. Rate : 68 BPM Atrial Rate : 68 BPM P-R Int : 214 ms QRS Dur : 94 ms QT Int : 442 ms P-R-T Axes : 72 40 44 degrees QTcB Int : 469 ms Sinus rhythm with 1st degree A-V block Low voltage QRS Borderline ECG Confirmed by VERONIQUE SHEPPARD, JAIME ([id number]), medical editor MALIK ACUÑA ([id number]) on 04/04/2024 6:41:59 AM Referred By: BARBARA Confirmed By: AJIME PIPER MD
--- NOTE | 2024-04-01 08:58 | RAD_ITS ---
STUDY: X-RAY CHEST REASON FOR EXAM: Male, 63 years old. Dyspnea TECHNIQUE: PA and lateral views of the chest. COMPARISON: 04/23/2022 FINDINGS: The lungs are clear and expanded. Small bilateral pleural effusions. There is moderate cardiac enlargement. Normal mediastinum and ender. There is prominence of the pulmonary hilar arteries and peripheral pulmonary arteries, consistent with congestive heart failure (CHF). Normal visualized aortic arch and descending thoracic aorta. Normal visualized thoracic spine. Normal visualized ribs, clavicles, and shoulders. There is no demonstrated abnormality of the visualized soft tissue structures of the upper abdomen. RAD/Chest PA and Lateral IMPRESSION: Mild congestive failure with small bilateral pleural effusions. Electronically Signed: Frandy Short MD at 9:17 EST ,
[2024-04-01 09:02] LABS: Absolute Lymphocyte Count 0.45 X10^3/uL (0.83-4.51); Absolute Neutrophil Count 5.1 X10^3/uL (2.0-7.7); Basophil# 0.04 X10^3/uL; Basophil% 0.6 % (0-1); Eosinophil# 0.14 X10^3/uL; Eosinophils% 2.3 % (0-5); Hematocrit 43.2 % (40-54); Hemoglobin 11.9 g/dL (13.0-16.5); Lymphocyte # 0.45 X10^3/ul (0.83-4.51); Lymphocyte % 7.3 % (19-41); Mean Corp Hgb Conc 27.5 g/dL (32-36); Mean Corpuscular Hgb 26.4 pg (27.0-32.0); Mean Platelet Vol. 10.4 fl (6.2-12.0); Monocyte# 0.37 X10^3/uL; NRBC Flagged by Analyzer 0.3 % (0-5); Neutrophil # 5.06 X10^3/uL (2.7-7.7); Neutrophil % 81.7 % (47-70); POSITIVE DIFFERENTIAL YES; Platelet Count 100 K/mm3 (150-450); RBC Distribution Width CV 16.9 % (11.6-14.6); RBC Distribution Width SD 59.1 fl (35.1-43.9); White Blood Count 6.2 K/mm3 (4.4-11.0)
[2024-04-01 09:22] LABS: BNP,B-Type NATRIURETIC PEPTIDE 139.2 pg/mL (0-100)
[2024-04-01 09:47] LABS: Anion Gap 2 (5-15); BUN 22 mg/dL (7-18); BUN/Creat Ratio 18.6 RATIO (10-20); Calcium,Total 8.4 mg/dL (8.5-10.1); Chloride 97 mmol/L (98-107); Creatinine, Serum 1.18 mg/dL (0.70-1.30); EST Glomerular Filtration Rate 66 mL/min (>60); Est Glom Filt Rate - Afr Amer 80 mL/min (>60); Estimated Creatinine Clearance 98.06 ml/min; Glucose 177 mg/dL (74-106); Potassium 4.7 mmol/L (3.5-5.1); Sodium Level 142 mmol/L (136-145); Troponin-I HS (w/2H Reflex) 11 pg/mL (3.0-78.0)
[2024-04-01] MEDS: Furosemide 40 MG/4 ML Vial IV ×2 (10:52→17:49)
[2024-04-01] MEDS: Nitroglycerin Oint 1 INCH PACKET TD (10:53)
[2024-04-01 10:55] LABS: Reflex Troponin-HS? (from REC) Y
--- NOTE | 2024-04-01 11:00 | ED.RN ---
1025 mL drained from cates
[2024-04-01 11:28] LABS: Troponin-I HS 11 pg/mL (3.0-78.0)
--- NOTE | 2024-04-01 12:34 | HP.PCM.HOS_ITS ---
HPI - General General Date of Admission: 04/01/24 Date of Service: 04/01/24 Chief Complaint: Dyspnea, increased Hypoxia, Chest pain/tightness. HPI Narrative The patient is a 63 y/o M w/ PMHx: Chronic thrombocytopenia, HFpEF, Morbid obesity, Chronic macrocytic anemia, CKD stage II per GFR trending but has prior vacillated and may be stage III, Secondary Pulmonary HTN, Diabetes mellitus type II, VAN, HTN, HLD, Chronic BL LE Lymphedema/Chronic venous stasis disease/Stasis dermatitis with significant bilateral lower extremity lichenification, Anxiety and Depression, Hypoventilation Obesity Syndrome, COPD w/ Chronic Hypoxic and Hypercapnic respiratory failure (4-6L NC) with goal saturation 89 to 92% per pulmonary medicine who presents to the [facility] ED on 04/01/2024 with history of worsening dyspnea, more severe with exertion with recent chills and sore throat but no specific cough or other URI type symptoms however he does note chest tightness/heaviness that is been worsening over the last 2 days prompting him to increase his oxygen at home which she reports has been helping some although he notes that the tightness and heaviness in his chest is worse on the left side prompting eventual ED evaluation to be cautious. Workup in the ED included T97.7, heart rate 71, BP 150/66, respiratory rate 20, 87% initially on 6 L nasal cannula in addition to high flow at 7 L with most recent repeat vitals T98.4, heart rate 67, BP 152/86, respiratory rate 15, 91% on 7 L, CBC with WBC 6.2, hemoglobin 0.9, MCV 96, platelet 100 with increased immature granulocytes, BMP with chloride 97, carbon oxide 23, BUN/creatinine 22/1.18, GFR 66, glucose 177, calcium 8.4, BNP 139.2, initial troponin 11 with repeat delta 11, chest x-ray with mild congestive failure with small bilateral effusions, EKG with sinus rhythm with first-degree AV block with no acute evidence of ischemia unchanged from previous. In the ED patient ministered Lasix 40 mg IV x 1 and transdermal nitroglycerin ointment. [facility] Medical History Diabetes mellitus, type 2 HLD (hyperlipidemia) (HFpEF) heart failure with preserved ejection fraction Allergic rhinitis Morbid obesity Anxiety and depression Obesity hypoventilation syndrome Stasis dermatitis of both legs Lymphedema Other specified peripheral vascular diseases Venous insufficiency Essential (primary) hypertension VAN (obstructive sleep apnea) Chronic respiratory failure with hypoxia, on home O2 therapy Secondary pulmonary arterial hypertension Home Medications ?Medication ?Instructions ?Recorded ?Last Taken ?Type Disability Fredo #1 ea 02/18/21 Unknown Rx cholecalciferol (vitamin D3) 1,250 50,000 unit PO KOEHLER SUPPLEMENT 05/14/21 04/01/24 History mcg (50,000 unit) capsule potassium chloride 20 mEq 20 meq PO Q3D SUPPLEMENT 10/03/21 04/21/22 History tablet,extended release(part/cryst) ipratropium 20 mcg-albuterol 100 1 puff inhalation DAILY SHORTNESS 11/14/21 04/23/22 History mcg/actuation mist for inhalation OF BREATH (Combivent Respimat) aspirin 81 mg tablet,delayed 81 mg PO DAILY HEART HEALTH 04/23/22 04/01/24 History release furosemide 40 mg tablet 40 mg PO BID FLUID 04/23/22 04/01/24 History white petrolatum (Petroleum Jelly 1 applic topical Q7D PRN LEGS 04/23/22 04/20/22 History topical) carvedilol 12.5 mg tablet See Rx Instructions .Route 09/23/22 04/01/24 Rx .COMPLEX #180 TABLETS empagliflozin 10 mg tablet 10 mg PO DAILY 04/01/24 Unknown History (Jardiance) Allergy/AdvReac Type Severity Reaction Status Date / Time No Known Allergies Allergy Verified 04/01/24 08:16 Family History Mother Hypertension Father Hypertension Surgical History History of tonsillectomy Social History adopted: No household members: family housing: house number of children: 0 current occupational status: unemployed current occupational exposures/hazards: No pets and animals: No history of recent travel: No sexually active: No Smoking Status: Never smoker second hand exposure: No alcohol intake: never substance use type: does not use caffeine: Yes Type: carbonated beverages and tea what type of physical activity do you participate in: none ROS ROS Narrative Admission Review of Systems: CONSTITUTIONAL: No weight loss, fever, chills, + weakness or fatigue. HEENT: + Sore throat. Eyes: No visual loss, blurred vision, double vision or yellow sclerae. Ears, Nose, Throat: No hearing loss, sneezing, congestion, runny nose. SKIN: No rash or itching, lesions, wounds except significant + bilateral lower extremity chronic venous stasis disease, lichenification, various staged ecchymoses, intertrigo. CARDIOVASCULAR: + Chronic edema, orthopnea. No chest pain, chest pressure or chest discomfort, palpitations, syncopal events. RESPIRATORY: + Dyspnea. No marked cough or sputum, wheezing, hemoptysis. GASTROINTESTINAL: No anorexia, nausea, vomiting or diarrhea, abdominal pain, melena, BRBPR. GENITOURINARY: No dysuria, frequency, urgency or retention. NEUROLOGICAL: No headache, dizziness, syncope, paralysis, ataxia, numbness or tingling in the extremities, focal weakness, change in bowel or bladder control, seizure. MUSCULOSKELETAL: + muscle, back pain, joint pain or stiffness. HEMATOLOGIC:+ Chronic anemia. No marked bleeding or bruising. LYMPHATICS: No enlarged nodes. No history of splenectomy. PSYCHIATRIC: + History of anxiety and depression. ENDOCRINOLOGIC: No reports of sweating, cold or heat intolerance. No polyuria or polydipsia. ALLERGIES: + History of allergic rhinitis. Vital Signs Vital Signs Vital Signs: 04/01/24 08:09 04/01/24 08:14 04/01/24 08:41 Temperature 97.7 F L 97.9 F Temperature Source Oral Oral Pulse Rate 71 71 Respiratory Rate 20 H 20 H Respiratory Effort Respiratory Depth Respiratory Pattern Blood Pressure 132/66 H 132/66 H Blood Pressure Mean 88 88 Pulse Ox 87 87 Oxygen Delivery Method Nasal Cannula Nasal Cannula Nasal Cannula Oxygen Flow Rate (L/min) 6 6 6 04/01/24 09:08 04/01/24 09:14 04/01/24 10:00 Temperature 97.8 F 97.9 F 97.9 F Temperature Source Oral Oral Oral Pulse Rate 68 65 66 Respiratory Rate 24 H 18 17 Respiratory Effort Respiratory Depth Respiratory Pattern Blood Pressure 112/78 132/74 H 152/106 H Blood Pressure Mean 89 93 121 Pulse Ox 89 93 94 Oxygen Delivery Method High Flow High Flow High Flow Oxygen Flow Rate (L/min) 7 7 7 12/27/24 10:15 04/01/24 10:53 04/01/24 11:00 Temperature 98.4 F Temperature Source Oral Pulse Rate 66 64 Respiratory Rate 17 Respiratory Effort Normal Respiratory Depth Normal Respiratory Pattern Normal Blood Pressure 137/74 H 153/83 H Blood Pressure Mean 106 Pulse Ox 95 Oxygen Delivery Method High Flow High Flow Oxygen Flow Rate (L/min) 7 7 04/01/24 12:00 Temperature 98.4 F Temperature Source Oral Pulse Rate 67 Respiratory Rate 15 Respiratory Effort Respiratory Depth Respiratory Pattern Blood Pressure 152/86 H Blood Pressure Mean 108 Pulse Ox 91 Oxygen Delivery Method Oxygen Flow Rate (L/min) Weight Weight: 370 lb 13.08 oz Body Mass Index (BMI) 53.1 Physical Exam Narrative Physical Examination: General: Awake, alert, oriented x 3 and cooperative, seated upright in ED bed, fatigued, notes dyspnea lessening. Skin: Normal color, normal turgor, no icterus, no cyanosis except bilateral lower extremity chronic venous stasis disease, lichenification, various staged ecchymoses, intertrigo. HEENT: AT/NC, EOMI, PERRLA, MMM, difficult to discern carotid bruits or JVD secondary to thickened neck. Lungs: Diminished, distant secondary to habitus, appropriate effort, very distant rales, no distress. Heart: Regular rate and rhythm; no gallop, rub audible. Abdomen: Soft, morbidly obese, NTTP, distant BS, difficult to discern distention and HSM given habitus. Extremities: No cyanosis, no clubbing, significant lower extremity chronic edema, complicated by venous stasis disease, stasis dermatitis, lichenification. Neurological: Patient awake, alert, oriented as noted, cognitive function intact; pupils equally reactive to light and accommodation, cranial nerves grossly normal, moving all 4 extremities, no focal deficits, strength moderately to severely globally decreased. Psychiatric: Affect appears fatigued otherwise normal, no acute evidence of depressive or anxiety feelings but does have underlying history. Results Lab / Micro Data 04/01/24 08:25 04/01/24 08:25 Labs: Laboratory Results - last 24 hr 04/01/24 08:25: WBC 6.2, RBC 4.50 L, Hgb 11.9 L, Hct 43.2, MCV 96.0 H, MCH 26.4 L, MCHC 27.5 L, RDW Std Deviation 59.1 H, RDW Coeff of Sandi 16.9 H, Plt Count 100 L, MPV 10.4, Immature Gran % (Auto) 2.100 H, Neut % (Auto) 81.7 H, Lymph % (Auto) 7.3 L, [place] % (Auto) 6.0, Eos % (Auto) 2.3, Baso % (Auto) 0.6, Absolute Neuts (auto) 5.1, Absolute Lymphs (auto) 0.45 L, Nucleated RBC % 0.3, Sodium 142, Potassium 4.7, Chloride 97 L, Carbon Dioxide 43.0 H, Anion Gap 2 L, BUN 22 H, Creatinine 1.18, Estim Creat Clear Calc 98.06, Est GFR (MDRD) Af Amer 80, Est GFR (MDRD) Non-Af 66, BUN/Creatinine Ratio 18.6, Glucose 177 H, Calcium 8.4 L, Troponin I High Sens 11, B-Natriuretic Peptide 139.2 H 04/01/24 11:02: Troponin I High Sens 11 Imaging Radiology Impression Chest X-Ray 04/01/24 08:58 IMPRESSION: Mild congestive failure with small bilateral pleural effusions. Electronically Signed: Frandy Short MD at 9:17 EST Reading Location ID and State: [facility] / [place] Tel , Service support , Assessment & Plan Assessment/Plan (1) CHF (congestive heart failure): PLAN: Plan The patient is a 63 y/o M w/ PMHx: Chronic thrombocytopenia, HFpEF, Morbid obesity, Chronic macrocytic anemia, CKD stage II per GFR trending but has prior vacillated and may be stage III, Secondary Pulmonary HTN, Diabetes mellitus type II, VAN, HTN, HLD, Chronic BL LE Lymphedema/Chronic venous stasis disease/Stasis dermatitis with significant bilateral lower extremity lichenification, Anxiety and Depression, Hypoventilation Obesity Syndrome, COPD w/ Chronic Hypoxic and Hypercapnic respiratory failure (4-6L NC) with goal saturation 89 to 92% per pulmonary medicine who presents to the [facility] ED on 04/01/2024 with history of worsening dyspnea, more severe with exertion with recent chills and sore throat but no specific cough or other URI type symptoms however he does note chest tightness/heaviness that is been worsening over the last 2 days prompting him to increase his oxygen at home which she reports has been helping some although he notes that the tightness and heaviness in his chest is worse on the left side prompting eventual ED evaluation to be cautious. #1. Acute on Chronic Hypoxic and Hypercarbic Respiratory Failure secondary to Acute Decompensated HFpEF complicated by underlying severe pulmonary hypertension and obesity hypoventilation syndrome: Patient administered IV lasix in the ED, will admit to PCU, maintain on cardiac telemetry, obtain cardiac enzyme series, obtain serial EKGs, continue IV lasix diuresis, monitor I/Os, maintain on intake restriction, continue medical therapy, obtain TSH and magnesium level. 04/23/2022 echocardiogram with normal LV size, normal LV systolic function, EF 55%, stage II diastolic dysfunction thus repeat requested. Wound RN consulted to assist w/ BL LE lichenification as ideally would like to place snug denis wraps with elevation. To be cautious given vague sore throat and chills will obtain respiratory panel/COVID/sputum if onset productive sputum. #2. Diabetes mellitus type II: Clarifying regimen, in the interim will maintain on ADA diet, accu checks w/ ISS. #3. Chronic macrocytic anemia: Admission hemoglobin 11.9, MCV 96, baseline hemoglobin primarily 10-11, stable, continue to trend. #4. Chronic thrombocytopenia, unclear etiology: Admission platelets 100, similar baseline, continue to trend. #5. Chronic Kidney Disease Stage II per GFR trending but has vacillated, potentially stage III but uncertain: Admission BUN/Cr 22/1.18, GFR 66, baseline renal function previously primarily 0.8-1.1 but in early 2022 did have admission with acute kidney injury with no labs following this, repeat BMP in AM to further elucidate. #6. Chronic BL LE Lymphedema/Chronic venous stasis disease/Stasis dermatitis with significant bilateral lower extremity lichenification: Will consult wound and RN to assist with severe lichenification, placing Denis wraps with lower extremity elevation as able following. #7. Morbid Obesity with severe obesity hypoventilation syndrome associated: Weight loss and lifestyle changes encouraged, nutrition consulted. #8. VAN: PAP nightly. #9. DVT prophylaxis: Lovenox. #10. CODE status: Patient ROCKY is his sisters present and living will is currently in place. Discussed CODE status at length including difference between FULL code, DNR-CCA and DNR-CC status. Following discussions about the differences in these status, requested DNR-CCA, no intubation status with examples given and confirmed status. Advanced Care Planning Face to Face Time: 16 minutes. Charges/Coding Visit Charges Inpatient E&M: 50606 Init Hosp L3 Procedures Hospitalists Procedures: 14100 Advncd Care Plan 30 Min
--- NOTE | 2024-04-01 13:31 | ECHOCS_ITS ---
Reason For Study: CHF Procedure This was a 2D Doppler, Color Flow transthoracic echocardiogram. The study was technically difficult. Limited views were obtained. Contrast injection was performed. Exam performed portable in patient room. Left Ventricle Normal left ventricle. The left ventricular ejection fraction is 70 %. No regional wall motion abnormalities noted. Right Ventricle Normal RV size. Normal systolic function. Mitral Valve Mitral valve not well visualized. Tricuspid Valve The tricuspid valve is not well visualized. Aortic Valve The aortic valve is not well visualized. Great Vessels Normal aortic root. The pulmonary is not well visualized. Inferior vena cava collapse with respiration. Pericardium/Pleural No pericardial effusion. Medication Diluted definity 5ml given slow IV push to enhance endocardial definition. MMode/2D Measurements & Calculations LVOT diam: 2.2 cm LA dimension(2D): 4.1 cm LVOT area: 3.9 cm2 Time Measurements MV dec time: 0.21 sec Doppler Measurements & Calculations MV E max carlene: 103.6 cm/sec MV V2 max: 127.3 cm/sec MV dec slope: 486.8 cm/sec2 MV A max carlene: 63.6 cm/sec MV max P.5 mmHg MV E/A: 1.6 MV V2 mean: 60.2 cm/sec MV mean P.8 mmHg MV V2 VTI: 37.6 cm MVA(VTI): 2.4 cm2 Ao V2 max: 132.7 cm/sec LV V1 max: 118.5 cm/sec SV(LVOT): 91.5 ml Ao max P.1 mmHg LV V1 max P.6 mmHg Ao V2 mean: 95.2 cm/sec LV V1 mean P.9 mmHg Ao mean P.1 mmHg LV V1 mean: 77.1 cm/sec Ao V2 VTI: 29.1 cm LV V1 VTI: 23.5 cm AV (velocity ratio): 0.81 OSEI(I,D): 3.1 cm2 OSEI(V,D): 3.5 cm2 ECHO/Echo Complete W/ Contrast Interpretation Summary The left ventricular ejection fraction is 70 %. Normal left ventricle. Contrast injection was performed. The study was technically limited. The study was technically difficult. Ordering Physician: Danielle Steele Referring Physician: LARRY MONTGOMERY Performed By: Nicolasa Matta RCS
[2024-04-01 14:01] LABS: Magnesium 2.7 mg/dL (1.6-2.6)
--- NOTE | 2024-04-01 14:09 | CASEMGMT ---
Care Management Face to Face with patient for initial transition planning/care coordination assessment in the ED.? This credit underwriter introduced self and role at [facility]. Patient lying in bed, alert and oriented. Patient willing to participate in assessment and is able to answer all questions appropriately.?Patients sister was at bedside and permission given for her to participate in assessment.? ?Care providers, pharmacy, and demographics verified. Admitting Diagnosis: ?CHF Other diagnosis history: ?Chronic respiratory failure, HFpEF, morbid obesity, peripheral vascular disease PCP: ?[facility] Specialists: ?[facility] Preferred Pharmacy: [facility] Insurance: Caregivers Prescription Benefit:?yes Living Will/HPOA: ?Has both Living Will and HPOA on file at [facility] LNOK: ?Sister Living Arrangements: ?Lives with his mother in a one-story home.? One stair to enter, no stairs inside.? Patient states that he has been completing all his own ADLs, cooking, cleaning and laundry.? Transportation: Patient drives DME: ?cane, shower bench, grab bars, pulse ox, home O2 and Cpap, both thru [employer].? Patient states O2 is 4-6 liters HHC: none SNF/Rehab: previous short term stay at [facility] Resources: patient is receiving Palliative services through [facility].? NUT GRINDER is Yina Teague ph [phone] Behavioral Health History: none Patient goals: Patient wishes to discharge home, open to short term stay at SNF if needed. Disposition Plan: admission to acute; RN CM/SW to follow for discharge planning needs that may arise. Chayito Ling, STULL HEWER, CAGE OPERATOR
--- NOTE | 2024-04-01 15:16 | WOUNDNOTE ---
was asked to see patient for severe lichenification to bilateral lower legs. no open wounds noted at this time. skin very thick and dry. attempted to remove some of the dry skin. was able to remove a small amount. skin will need softened more before the skin can be removed. washed legs and feet with soap and water. pat dry. applied remedy barrier cream that is petroleum based to assist in softening the skin. wrapped legs with kerlix and applied DHIRAJ wraps from the base of the toes to just below the knees. pt tolerated well. see skin photos.
--- NOTE | 2024-04-01 15:24 | WOUNDNOTE ---
skin photo: right lower leg
--- NOTE | 2024-04-01 15:25 | WOUNDNOTE ---
skin photo: left lower leg
[2024-04-01 15:38] LABS: Troponin-I HS 8 pg/mL (3.0-78.0)
[2024-04-01 15:39] LABS: Procalcitonin 0.17 ng/mL (0.00-0.09)
[2024-04-01] MEDS: 0.9% Saline Lock 10 ML Syringe IV ×2 (17:49→22:19)
[2024-04-01 18:04] LABS: Bedside Glucose 101 mg/dL (74-106)
[2024-04-01] MEDS: Carvedilol 12.5 MG Tablet PO (22:11)
[2024-04-01] MEDS: Enoxaparin 40 MG/0.4 ML Syringe SC (22:12)
[2024-04-02] VITALS (13 sets, daily range): BP systolic 105–151; BP diastolic 61–89; PULSE 62–70; RESP 12–18; TEMP 36.4–36.9; O2SAT 91–97; BMI 53.5
[2024-04-02 01:20] LABS: Bedside Glucose 109 mg/dL (74-106)
--- NOTE | 2024-04-02 06:30 | PN.HOSP_ITS ---
Reason for Visit Reason for Visit: Diagnoses Heart failure, unspecified (04/01/24) Subjective Subjective Patient with no acute events overnight per self and per nursing report. Patient this a.m. is mildly irritable as he really would like to put his legs completely down as this helps with the discomfort to his legs. Lengthy discussion regarding the fact that this unfortunately is part of the cycle of his legs having significant edema/venous stasis and it is important to elevate this is much as possible. Patient is asking for pain medication and discussed that this was a reasonable consideration and will be added. Discussed that unfortunately is not diuresed significantly and weight has not dropped markedly thus plan for transition to Lasix drip to which he is amenable. He does report that his breathing is improved but he does have some difficulty with anxiety tolerating BiPAP. Patient denies fevers, chills, nausea, emesis, abdominal pain, chest pain. Objective Data Objective Data Vital Signs: Vital Signs Temp Pulse Resp BP Pulse Ox O2 Del Method O2 Flow Rate 97.5 F L 68 14 127/75 H 95 High Flow 8 04/02/24 05:36 04/02/24 05:36 04/02/24 05:36 04/02/24 05:36 04/02/24 05:36 04/02/24 05:41 04/02/24 05:41 FiO2 45 04/02/24 04:22 Oxygen Flow Rate (L/min) 8 Oxygen Delivery Method High Flow Weight: 362 lb 7.039 oz Body Mass Index (BMI) 53.5 Intake & Output: Intake and Output for Last 24 Hours 03/31/24 04/01/24 04/02/24 23:59 23:59 23:59 Output Total 1700 / 1700 1500 / 1500 Balance -1700 / -1700 -1500 / -1500 Lab / Micro Data 04/02/24 06:12 04/02/24 06:12 Labs: Laboratory Results - last 24 hr 04/01/24 08:25: WBC 6.2, RBC 4.50 L, Hgb 11.9 L, Hct 43.2, MCV 96.0 H, MCH 26.4 L, MCHC 27.5 L, RDW Std Deviation 59.1 H, RDW Coeff of Sandi 16.9 H, Plt Count 100 L, MPV 10.4, Immature Gran % (Auto) 2.100 H, Neut % (Auto) 81.7 H, Lymph % (Auto) 7.3 L, [place] % (Auto) 6.0, Eos % (Auto) 2.3, Baso % (Auto) 0.6, Absolute Neuts (auto) 5.1, Absolute Lymphs (auto) 0.45 L, Nucleated RBC % 0.3, Sodium 142, Potassium 4.7, Chloride 97 L, Carbon Dioxide 43.0 H, Anion Gap 2 L, BUN 22 H, Creatinine 1.18, Estim Creat Clear Calc 98.06, Est GFR (MDRD) Af Amer 80, Est GFR (MDRD) Non-Af 66, BUN/Creatinine Ratio 18.6, Glucose 177 H, Calcium 8.4 L, Troponin I High Sens 11, B-Natriuretic Peptide 139.2 H 04/01/24 11:02: Magnesium 2.7 H, Troponin I High Sens 11, Procalcitonin Cancelled 04/01/24 14:40: Troponin I High Sens 8, Procalcitonin 0.17 H 04/01/24 17:40: POC Glucose 101 04/01/24 22:16: POC Glucose 109 H Micro: Microbiology 04/01/24 13:03 Mucosa - Nose Respiratory Panel (PCR) - Final 04/01/24 13:03 Mucosa - Nasopharyngeal Coronavirus COVID-19 PCR - Final Radiography Diagnostic Testing: Radiology Impression Chest X-Ray 04/01/24 08:58 IMPRESSION: Mild congestive failure with small bilateral pleural effusions. Electronically Signed: Frandy Short MD at 9:17 EST , Echocardiogram 04/01/24 13:31 Interpretation Summary The left ventricular ejection fraction is 70 %. Normal left ventricle. Contrast injection was performed. The study was technically limited. The study was technically difficult. Ordering Physician: Danielle Steele Referring Physician: LARRY MONTGOMERY Performed By: Nicolasa Matta RCS Physical Exam Narrative Physical Examination: General: Awake, alert, oriented x 3 and cooperative, seated upright in a PCU bed, currently off BiPAP, on nasal cannula, no evidence of any distress. Skin: Normal color, normal turgor, no icterus, no cyanosis except bilateral lower extremity wrapped without any significant drainage, intertrigo improving. HEENT: AT/NC, EOMI, PERRLA, MMM. Lungs: Diminished, distant secondary to habitus, appropriate effort, very distant rales, no distress. Heart: Regular rate and rhythm; no gallop, rub audible. Abdomen: Soft, morbidly obese, NTTP, distant BS. Extremities: No cyanosis, no clubbing, less than tension to palpation of the lower extremities, chronic lymphedema but some improvement from prior, bilateral lower extremities with snug denis wraps in place with no drainage. Neurological: Patient awake, alert, oriented as noted, cognitive function intact; pupils equally reactive to light and accommodation, cranial nerves grossly normal, moving all 4 extremities, no focal deficits, strength moderately to severely globally decreased. Psychiatric: Affect appears more irritable this morning but improved respiratory status layne 1 day prior, no acute evidence of depressive or anxiety feelings but does have underlying history. Assessment & Plan Assessment/Plan (1) CHF (congestive heart failure): PLAN: Plan The patient is a 63 y/o M w/ PMHx: Chronic thrombocytopenia, HFpEF, Morbid obesity, Chronic macrocytic anemia, CKD stage II per GFR trending but has prior vacillated and may be stage III, Secondary Pulmonary HTN, Diabetes mellitus type II, VAN, HTN, HLD, Chronic BL LE Lymphedema/Chronic venous stasis disease/Stasis dermatitis with significant bilateral lower extremity lichenification, Anxiety and Depression, Hypoventilation Obesity Syndrome, COPD w/ Chronic Hypoxic and Hypercapnic respiratory failure (4-6L NC) with goal saturation 89 to 92% per pulmonary medicine who presents to the [facility] ED on 04/01/2024 with history of worsening dyspnea, more severe with exertion with recent chills and sore throat but no specific cough or other URI type symptoms however he does note chest tightness/heaviness that is been worsening over the last 2 days prompting him to increase his oxygen at home which she reports has been helping some although he notes that the tightness and heaviness in his chest is worse on the left side prompting eventual ED evaluation to be cautious. #1. Acute on Chronic Hypoxic and Hypercarbic Respiratory Failure secondary to Acute Decompensated HFpEF complicated by underlying severe pulmonary hypertension and obesity hypoventilation syndrome: Patient administered IV lasix in the ED, admitted to PCU, maintained on cardiac telemetry, cardiac enzymes unremarkable with trend 11-> 11->8, initiated on IV lasix diuresis however not marked diuresis or weight significant loss thus will transition to Lasix drip 04/02/2024, monitor I/Os, maintain on intake restriction, continue medical therapy, TSH 1.380, magnesium 2.7, FLP with total cholesterol 134, triglycerides 126, LDL 65, VLDL 29, HDL 40. 04/23/2022 echocardiogram with normal LV size, normal LV systolic function, EF 55%, stage II diastolic dysfunction thus repeat performed 04/01/2024 with normal LVEF 70%, normal LV, limited study given size. Wound RN consulted to assist w/ BL LE lichenification as ideally would like to place snug denis wraps with elevation. Full respiratory viral panel negative. COVID-negative. Sputum culture requested. Procalcitonin minimally elevated 0.17. 04/02/2024 discussed at length with patient need to elevate his lower extremities and avoid sleeping or sitting in a chair for prolonged periods as this contributes to his lower extremity swelling/venous stasis disease. #2. Diabetes mellitus type II: Hold oral regimen, maintain on ADA diet, accu checks w/ ISS, hemoglobin A1c 6.0%. #3. Chronic macrocytic anemia: Admission hemoglobin 11.9, MCV 96, baseline hemoglobin primarily 10-11, 04/02/2024 hemoglobin 12.1, MCV 95.8, continue to trend. #4. Chronic thrombocytopenia, unclear etiology: Admission platelets 100, similar baseline, continue to trend. #5. Chronic Kidney Disease Stage II per GFR trending but has vacillated: Admission BUN/Cr 22/1.18, GFR 66, baseline renal function previously primarily 0.8-1.1 but in early 2022 did have admission with acute kidney injury with no labs following this, 04/02/2024 BUN/creatinine 18/0.98, GFR 81, repeat BMP in AM. #6. Chronic BL LE Lymphedema/Chronic venous stasis disease/Stasis dermatitis with significant bilateral lower extremity lichenification: Consulted wound RN to assist with severe lichenification, continue Denis wraps with lower extremity elevation as able following. From discussion with wound RN likely would need to soften over the next 1 to 2 days with removal following. #7. Morbid Obesity with severe obesity hypoventilation syndrome associated: Weight loss and lifestyle changes encouraged, nutrition consulted and following. #8. VAN: Strongly encouraged nightly BiPAP and as needed with naps. Normally has used CPAP notes but uncertain, unable to discern from recent pulmonary notes, given hypercapnic history and presentation as noted #1 used BiPAP. #9. DVT prophylaxis: Lovenox. #10. CODE status: Patient HCPOA is his sisters present and living will is currently in place. DNR-CCA, no intubation status with examples given and confirmed status. Charges/Coding Visit Charges Inpatient E&M: 32111 Subs Hosp L3
[2024-04-02 06:51] LABS: Absolute Lymphocyte Count 0.52 X10^3/uL (0.83-4.51); Absolute Neutrophil Count 5.9 X10^3/uL (2.0-7.7); Basophil# 0.03 X10^3/uL; Basophil% 0.4 % (0-1); Eosinophil# 0.16 X10^3/uL; Eosinophils% 2.2 % (0-5); Hematocrit 42.9 % (40-54); Hemoglobin 12.1 g/dL (13.0-16.5); Lymphocyte # 0.52 X10^3/ul (0.83-4.51); Lymphocyte % 7.2 % (19-41); Mean Corp Hgb Conc 28.2 g/dL (32-36); Mean Corpuscular Volume 95.8 fL (80-94); Mean Platelet Vol. 11.3 fl (6.2-12.0); Monocyte# 0.48 X10^3/uL; Monocyte% 6.7 % (0-10); NRBC Flagged by Analyzer 0 % (0-5); Neutrophil # 5.93 X10^3/uL (2.7-7.7); Neutrophil % 82.3 % (47-70); POSITIVE DIFFERENTIAL YES; Platelet Count 103 K/mm3 (150-450); RBC Distribution Width CV 16.9 % (11.6-14.6); RBC Distribution Width SD 58.9 fl (35.1-43.9); Red Blood Count 4.48 M/mm3 (4.6-6.2); White Blood Count 7.2 K/mm3 (4.4-11.0)
[2024-04-02 07:11] LABS: Bedside Glucose 109 mg/dL (74-106)
[2024-04-02 07:30] LABS: ALB/GLOB Ratio 0.7 RATIO (0.9-2.4); AST(SGOT) 18 U/L (15-37); Alanine Aminotransfer ALT/SGPT 23 U/L (16-61); Albumin, Serum 2.9 g/dL (3.2-5.0); Alkaline Phosphatase 115 U/L (45-117); Anion Gap 0 (5-15); BUN 18 mg/dL (7-18); BUN/Creat Ratio 18.3 RATIO (10-20); Calcium,Total 8.2 mg/dL (8.5-10.1); Chloride 95 mmol/L (98-107); Cholesterol 134 mg/dL (200); Creatinine, Serum 0.98 mg/dL (0.70-1.30); EST Glomerular Filtration Rate 81 mL/min (>60); Est Glom Filt Rate - Afr Amer 98 mL/min (>60); Estimated Creatinine Clearance 114.99 ml/min; Globulin 4.4 g/dL (2.2-4.2); Glucose 122 mg/dL (74-106); High Density Lipoprotein 40 mg/dL; Potassium 3.7 mmol/L (3.5-5.1); Protein, Total 7.3 g/dL (6.4-8.2); Sodium Level 139 mmol/L (136-145); Triglycerides 146 mg/dL; Very Low Density Lipoprotein 29 mg/dL (5-40)
[2024-04-02] MEDS: Potassium Chloride Oral Tablet 20 MEQ PO (09:31)
[2024-04-02] MEDS: Aspirin E.C. 81 MG Tablet PO (09:31)
[2024-04-02] MEDS: Enoxaparin 40 MG/0.4 ML Syringe SC ×2 (09:31→21:37)
[2024-04-02] MEDS: Carvedilol 12.5 MG Tablet PO ×2 (09:31→21:37)
[2024-04-02] MEDS: 0.9% Saline Lock 10 ML Syringe IV (09:31)
[2024-04-02] MEDS: Menthol/Lanolin/Calamine/Znox 113 GM Tube 1 APPLIC TOPICAL ×2 (09:32→21:36)
[2024-04-02] MEDS: Furosemide 500 MG in Empty Viaflex 50 mL 1 EACH CONT INF (09:51)
[2024-04-02] MEDS: oxyCODONE 5 MG Tablet PO (11:26)
[2024-04-02 11:50] LABS: Bedside Glucose 140 mg/dL (74-106)
[2024-04-02 16:31] LABS: Bedside Glucose 131 mg/dL (74-106)
[2024-04-02 22:11] LABS: Bedside Glucose 122 mg/dL (74-106)
[2024-04-03] VITALS (12 sets, daily range): BP systolic 105–129; BP diastolic 60–75; PULSE 64–75; RESP 12–18; TEMP 36.3–37.1; O2SAT 92–97; BMI 53.3
[2024-04-03] MEDS: oxyCODONE 5 MG Tablet PO (00:43)
[2024-04-03] MEDS: LORazepam 2 MG/ML Syringe 0.5 MG IV (00:44)
[2024-04-03] MEDS: 0.9% Saline Lock 10 ML Syringe IV (00:44)
--- NOTE | 2024-04-03 06:35 | PCM.PN.HOSP ---
Reason for Visit Reason for Visit: Diagnoses Heart failure, unspecified (04/01/24) Subjective Subjective Patient with no acute events overnight per self and per nursing report. He did refuse further usage of BiPAP however family was fortunately able to bring in his PAP therapy and he is amenable to using his own home machine. Unfortunately overnight patient with not marked diuresis or weight reduction. Discussed with patient and with family and at this time will increase Lasix drip to which they were amenable. He does note he feels less swollen and does have less dyspnea. Patient denies fevers, chills, nausea, emesis, abdominal pain, chest pain. Objective Data Objective Data Vital Signs: Vital Signs Temp Pulse Resp BP Pulse Ox O2 Del Method O2 Flow Rate 97.4 F L 64 14 126/75 H 94 Bi-pap 6 04/03/24 03:20 04/03/24 03:20 04/03/24 03:20 04/03/24 03:20 04/03/24 03:20 04/03/24 03:49 04/02/24 21:47 FiO2 40 04/03/24 03:49 Oxygen Flow Rate (L/min) 6 Oxygen Delivery Method Bi-pap Weight: 361 lb 5.402 oz Body Mass Index (BMI) 53.3 Intake & Output: Intake and Output for Last 24 Hours 04/01/24 04/02/24 04/03/24 23:59 23:59 23:59 Intake Total 1060 / 1750 690 / 690 Output Total 1700 / 1700 3500 / 4900 1400 / 1400 Balance -1700 / -1700 -2440 / -3150 -710 / -710 Lab / Micro Data 04/03/24 10:30 04/03/24 10:30 Labs: Laboratory Results - last 24 hr 04/02/24 06:12: WBC 7.2, RBC 4.48 L, Hgb 12.1 L, Hct 42.9, MCV 95.8 H, MCH 27.0, MCHC 28.2 L, RDW Std Deviation 58.9 H, RDW Coeff of Sandi 16.9 H, Plt Count 103 L, MPV 11.3, Immature Gran % (Auto) 1.200 H, Neut % (Auto) 82.3 H, Lymph % (Auto) 7.2 L, [place] % (Auto) 6.7, Eos % (Auto) 2.2, Baso % (Auto) 0.4, Absolute Neuts (auto) 5.9, Absolute Lymphs (auto) 0.52 L, Nucleated RBC % 0, Sodium 139, Potassium 3.7, Chloride 95 L, Carbon Dioxide 44.0 H, Anion Gap 0 L, BUN 18, Creatinine 0.98, Estim Creat Clear Calc 114.99, Est GFR (MDRD) Af Amer 98, Est GFR (MDRD) Non-Af 81, BUN/Creatinine Ratio 18.3, Glucose 122 H, Hemoglobin A1c 6.0 H, Calcium 8.2 L, Total Bilirubin 0.80, AST 18, ALT 23, Alkaline Phosphatase 115, Total Protein 7.3, Albumin 2.9 L, Globulin 4.4 H, Albumin/Globulin Ratio 0.7 L, Triglycerides 146, Cholesterol 134, LDL Cholesterol 65, VLDL Cholesterol 29, HDL Cholesterol 40, TSH 1.380 04/02/24 06:46: POC Glucose 109 H 04/02/24 11:29: POC Glucose 140 H 04/02/24 16:06: POC Glucose 131 H 04/02/24 21:40: POC Glucose 122 H Micro: Microbiology 04/01/24 22:31 Sputum, Expectorated/Coughed Gram Stain - Final 04/01/24 13:03 Mucosa - Nose Respiratory Panel (PCR) - Final 04/01/24 13:03 Mucosa - Nasopharyngeal Coronavirus COVID-19 PCR - Final Physical Exam Narrative Physical Examination: General: Awake, alert, oriented x 3 and cooperative, seated upright in a PCU bed, seated upright, talking with family, does appear improved, less irritable. Skin: Normal color, normal turgor, no icterus, no cyanosis except bilateral lower extremity wrapped without any significant drainage, less tense than day prior, intertrigo improving. HEENT: AT/NC, EOMI, PERRLA, MMM. Lungs: Diminished, distant secondary to habitus, appropriate effort, currently not discerning any rales, rhonchi or wheezing. Heart: Regular rate and rhythm; no gallop, rub audible. Abdomen: Soft, morbidly obese, NTTP, distant BS. Extremities: No cyanosis, no clubbing, less than tension to palpation of the lower extremities, chronic lymphedema but some improvement from prior, bilateral lower extremities with snug denis wraps in place with no drainage. Neurological: Patient awake, alert, oriented as noted, cognitive function intact; pupils equally reactive to light and accommodation, cranial nerves grossly normal, moving all 4 extremities, no focal deficits, strength moderately to severely globally decreased. Psychiatric: Affect appears more calm, interactive, no acute evidence of depressive or anxiety feelings but does have underlying history. Assessment & Plan Assessment/Plan (1) CHF (congestive heart failure): PLAN: Plan The patient is a 63 y/o M w/ PMHx: Chronic thrombocytopenia, HFpEF, Morbid obesity, Chronic macrocytic anemia, CKD stage II per GFR trending but has prior vacillated and may be stage III, Secondary Pulmonary HTN, Diabetes mellitus type II, VAN, HTN, HLD, Chronic BL LE Lymphedema/Chronic venous stasis disease/Stasis dermatitis with significant bilateral lower extremity lichenification, Anxiety and Depression, Hypoventilation Obesity Syndrome, COPD w/ Chronic Hypoxic and Hypercapnic respiratory failure (4-6L NC) with goal saturation 89 to 92% per pulmonary medicine who presents to [facility] ED on 04/01/2024 with history of worsening dyspnea, more severe with exertion with recent chills and sore throat but no specific cough or other URI type symptoms however he does note chest tightness/heaviness that is been worsening over the last 2 days prompting him to increase his oxygen at home which she reports has been helping some although he notes that the tightness and heaviness in his chest is worse on the left side prompting eventual ED evaluation to be cautious. #1. Acute on Chronic Hypoxic and Hypercarbic Respiratory Failure secondary to Acute Decompensated HFpEF complicated by underlying severe pulmonary hypertension and obesity hypoventilation syndrome: Patient administered IV lasix in the ED, admitted to PCU, maintained on cardiac telemetry, cardiac enzymes unremarkable with trend 11-> 11->8, initiated on IV lasix diuresis however not marked diuresis or weight significant loss thus will transition to Lasix drip 04/02/2024, monitor I/Os, maintain on intake restriction, continue medical therapy, TSH 1.380, magnesium 2.7, FLP with total cholesterol 134, triglycerides 126, LDL 65, VLDL 29, HDL 40. 04/23/2022 echocardiogram with normal LV size, normal LV systolic function, EF 55%, stage II diastolic dysfunction thus repeat performed 04/01/2024 with normal LVEF 70%, normal LV, limited study given size. Wound RN consulted to assist w/ BL LE lichenification as ideally would like to place snug denis wraps with elevation. Full respiratory viral panel negative. COVID-negative. Sputum culture requested. Procalcitonin minimally elevated 0.17. 04/02/2024-->AM 04/03/2024 not marked diuresis or weight decrease thus per discussion with patient and family will increase Lasix drip and continue to closely monitor with electrolyte supplementation as needed with potassium ongoing trending. 04/02/2024 evening also patient refused further BiPAP usage thus repeat CMP 04/03/2024 unsurprisingly with elevated carbon oxide. #2. Diabetes mellitus type II: Hold oral regimen, maintain on ADA diet, accu checks w/ ISS, hemoglobin A1c 6.0%. #3. Chronic macrocytic anemia: Admission hemoglobin 11.9, MCV 96, baseline hemoglobin primarily 10-11, 04/03/2024 hemoglobin 12.8, MCV 93.7, continue to trend. #4. Chronic thrombocytopenia, unclear etiology: Admission platelets 100, similar baseline, 04/03/2024 platelets 116, continue to trend. #5. Chronic Kidney Disease Stage II per GFR trending but has vacillated: Admission BUN/Cr 22/1.18, GFR 66, baseline renal function previously primarily 0.8-1.1 but in early 2022 did have admission with acute kidney injury with no labs following this, 04/03/2024 BUN/creatinine 18/1.13, GFR 69, repeat BMP in AM. #6. Chronic BL LE Lymphedema/Chronic venous stasis disease/Stasis dermatitis with significant bilateral lower extremity lichenification: Consulted wound RN to assist with severe lichenification, continue Denis wraps with lower extremity elevation as able following. From discussion with wound RN likely would need to soften over the next 1 to 2 days with removal following. #7. Morbid Obesity with severe obesity hypoventilation syndrome associated: Weight loss and lifestyle changes encouraged, nutrition consulted and following. #8. VAN: Strongly encouraged nightly BiPAP and as needed with naps. Normally has used CPAP notes but uncertain, unable to discern from recent pulmonary notes, given hypercapnic history and presentation as noted #1 used BiPAP. #9. DVT prophylaxis: Lovenox. #10. CODE status: Patient ROCKY is his sisters present and living will is currently in place. DNR-CCA, no intubation status with examples given and confirmed status. Charges/Coding Visit Charges Inpatient E&M: 01526 Subs Hosp L3
[2024-04-03 07:15] LABS: Bedside Glucose 101 mg/dL (74-106)
[2024-04-03] MEDS: Potassium Chloride Oral Tablet 20 MEQ PO (07:45)
[2024-04-03] MEDS: Menthol/Lanolin/Calamine/Znox 113 GM Tube 1 APPLIC TOPICAL ×3 (07:45→20:11)
[2024-04-03] MEDS: Aspirin E.C. 81 MG Tablet PO (07:45)
[2024-04-03] MEDS: Enoxaparin 40 MG/0.4 ML Syringe SC ×2 (07:46→20:10)
[2024-04-03] MEDS: Carvedilol 12.5 MG Tablet PO ×2 (07:46→20:10)
[2024-04-03] MEDS: Budesonide Respules 0.5 MG/2 ML AMPUL.NEB. INHALATION (07:52)
[2024-04-03 10:44] LABS: Absolute Neutrophil Count 5.8 X10^3/uL (2.0-7.7); Basophil# 0.03 X10^3/uL; Basophil% 0.4 % (0-1); Eosinophil# 0.18 X10^3/uL; Eosinophils% 2.6 % (0-5); Hematocrit 44.6 % (40-54); Hemoglobin 12.8 g/dL (13.0-16.5); Lymphocyte % 7.1 % (19-41); Mean Corp Hgb Conc 28.7 g/dL (32-36); Mean Corpuscular Hgb 26.9 pg (27.0-32.0); Mean Corpuscular Volume 93.7 fL (80-94); Mean Platelet Vol. 10.2 fl (6.2-12.0); Monocyte# 0.45 X10^3/uL; Monocyte% 6.4 % (0-10); NRBC Flagged by Analyzer 0 % (0-5); Neutrophil # 5.82 X10^3/uL (2.7-7.7); Neutrophil % 82.8 % (47-70); POSITIVE DIFFERENTIAL YES; Platelet Count 116 K/mm3 (150-450); RBC Distribution Width CV 16.8 % (11.6-14.6); RBC Distribution Width SD 56.4 fl (35.1-43.9); Red Blood Count 4.76 M/mm3 (4.6-6.2)
[2024-04-03 11:28] LABS: Bedside Glucose 193 mg/dL (74-106)
[2024-04-03 11:29] LABS: ALB/GLOB Ratio 0.6 RATIO (0.9-2.4); AST(SGOT) 21 U/L (15-37); Alanine Aminotransfer ALT/SGPT 22 U/L (16-61); Albumin, Serum 3.2 g/dL (3.2-5.0); Alkaline Phosphatase 127 U/L (45-117); BUN 18 mg/dL (7-18); BUN/Creat Ratio 15.9 RATIO (10-20); Calcium,Total 8.4 mg/dL (8.5-10.1); Carbon Dioxide > 45.0 mmol/L (21.0-32.0); Chloride 88 mmol/L (98-107); Creatinine, Serum 1.13 mg/dL (0.70-1.30); EST Glomerular Filtration Rate 69 mL/min (>60); Est Glom Filt Rate - Afr Amer 84 mL/min (>60); Estimated Creatinine Clearance 99.54 ml/min; Globulin 5.2 g/dL (2.2-4.2); Glucose 188 mg/dL (74-106); Potassium 3.4 mmol/L (3.5-5.1); Protein, Total 8.4 g/dL (6.4-8.2); Sodium Level 139 mmol/L (136-145)
[2024-04-03] MEDS: Insulin Lispro 100 UNIT/ML INSULN.PEN SC (11:47)
[2024-04-03] MEDS: Furosemide 500 MG in Empty Viaflex 50 mL 1 EACH CONT INF (12:00)
[2024-04-03 16:39] LABS: Bedside Glucose 135 mg/dL (74-106)
[2024-04-03] MEDS: Potassium Chloride Oral Tablet 20 MEQ 40 MEQ PO (17:01)
[2024-04-03 21:08] LABS: Bedside Glucose 164 mg/dL (74-106)
--- NOTE | 2024-04-03 22:46 | CPS ---
patient on home AVAPS unit with 6L Oxygen bled in
[2024-04-04] VITALS (11 sets, daily range): BP systolic 107–148; BP diastolic 55–82; PULSE 66–76; RESP 14–20; TEMP 35.6–36.8; O2SAT 92–95; BMI 50.9
[2024-04-04] MEDS: oxyCODONE 5 MG Tablet PO (06:48)
[2024-04-04] MEDS: Budesonide Respules 0.5 MG/2 ML AMPUL.NEB. INHALATION (06:59)
[2024-04-04 07:58] LABS: Bedside Glucose 138 mg/dL (74-106)
[2024-04-04 08:11] LABS: Absolute Lymphocyte Count 0.53 X10^3/uL (0.83-4.51); Absolute Neutrophil Count 5.4 X10^3/uL (2.0-7.7); Basophil# 0.02 X10^3/uL; Basophil% 0.3 % (0-1); Eosinophil# 0.16 X10^3/uL; Eosinophils% 2.4 % (0-5); Hematocrit 44.6 % (40-54); Hemoglobin 13.1 g/dL (13.0-16.5); Lymphocyte # 0.53 X10^3/ul (0.83-4.51); Lymphocyte % 7.9 % (19-41); Mean Corp Hgb Conc 29.4 g/dL (32-36); Mean Corpuscular Hgb 27.2 pg (27.0-32.0); Mean Corpuscular Volume 92.5 fL (80-94); Mean Platelet Vol. 11.2 fl (6.2-12.0); Monocyte# 0.53 X10^3/uL; Monocyte% 7.9 % (0-10); NRBC Flagged by Analyzer 0 % (0-5); Neutrophil # 5.42 X10^3/uL (2.7-7.7); Neutrophil % 80.6 % (47-70); POSITIVE DIFFERENTIAL YES; Platelet Count 111 K/mm3 (150-450); RBC Distribution Width CV 16.7 % (11.6-14.6); RBC Distribution Width SD 55.5 fl (35.1-43.9); Red Blood Count 4.82 M/mm3 (4.6-6.2); White Blood Count 6.7 K/mm3 (4.4-11.0)
[2024-04-04 08:56] LABS: ALB/GLOB Ratio 0.6 RATIO (0.9-2.4); AST(SGOT) 18 U/L (15-37); Alanine Aminotransfer ALT/SGPT 23 U/L (16-61); Albumin, Serum 3.2 g/dL (3.2-5.0); Alkaline Phosphatase 121 U/L (45-117); BUN 21 mg/dL (7-18); BUN/Creat Ratio 18.4 RATIO (10-20); Calcium,Total 8.9 mg/dL (8.5-10.1); Carbon Dioxide > 45.0 mmol/L (21.0-32.0); Chloride 86 mmol/L (98-107); Creatinine, Serum 1.14 mg/dL (0.70-1.30); EST Glomerular Filtration Rate 68 mL/min (>60); Est Glom Filt Rate - Afr Amer 83 mL/min (>60); Estimated Creatinine Clearance 95.92 ml/min; Globulin 5.3 g/dL (2.2-4.2); Glucose 132 mg/dL (74-106); Potassium 3.1 mmol/L (3.5-5.1); Protein, Total 8.5 g/dL (6.4-8.2); Sodium Level 138 mmol/L (136-145)
[2024-04-04] MEDS: Carvedilol 12.5 MG Tablet PO ×2 (09:06→22:25)
[2024-04-04] MEDS: Menthol/Lanolin/Calamine/Znox 113 GM Tube 1 APPLIC TOPICAL ×4 (09:06→22:25)
[2024-04-04] MEDS: Aspirin E.C. 81 MG Tablet PO (09:06)
[2024-04-04] MEDS: Potassium Chloride Oral Tablet 20 MEQ PO (09:06)
[2024-04-04] MEDS: Enoxaparin 40 MG/0.4 ML Syringe SC ×2 (09:06→22:25)
--- NOTE | 2024-04-04 10:48 | WOUNDNOTE ---
In to reassess bilateral lower legs. removed the DHIRAJ wraps. no drainage noted. no open wounds. pt still with a large amount of lichenification to bilateral lower legs. pt requesting for wraps to be left off for a couple of hours. edema has improved. will plan to leave the dressings off at this time. will reapply the wraps later today. pt denies further needs at this time. see skin photos.
[2024-04-04] MEDS: Insulin Lispro 100 UNIT/ML INSULN.PEN SC ×3 (11:03→22:25)
[2024-04-04 11:31] LABS: Bedside Glucose 153 mg/dL (74-106)
--- NOTE | 2024-04-04 11:39 | WOUNDNOTE ---
skin photo: left lower leg
--- NOTE | 2024-04-04 11:40 | WOUNDNOTE ---
skin photo: right lower leg
[2024-04-04] MEDS: Furosemide 500 MG in Empty Viaflex 50 mL 1 EACH CONT INF (13:05)
--- NOTE | 2024-04-04 14:05 | WOUNDNOTE ---
Washed legs and feet with soap and water. pat dry. applied Remedy ointment and wrapped legs with kerlix. reapplied the DHIRAJ wraps. pt tolerated well. pt denies further needs at this time.
--- NOTE | 2024-04-04 15:25 | PCM.PN.HOSP ---
Subjective Subjective Doing well, no issues overnight Objective Data Objective Data Vital Signs: Vital Signs Temp Pulse Resp BP Pulse Ox O2 Del Method O2 Flow Rate 97.2 F L 72 16 107/55 L 92 Nasal Cannula 4 04/04/24 10:53 04/04/24 10:53 04/04/24 10:53 04/04/24 10:53 04/04/24 11:13 04/04/24 13:50 04/04/24 13:50 FiO2 40 04/03/24 03:49 Oxygen Flow Rate (L/min) 4 Oxygen Delivery Method Nasal Cannula Weight: 344 lb 12.847 oz Body Mass Index (BMI) 50.9 Intake & Output: Intake and Output for Last 24 Hours 04/03/24 04/04/24 04/05/24 03:59 03:59 03:59 Intake Total 1750 / 1750 882.0 / 882.0 410 / 410 Output Total 3600 / 3600 5675 / 5675 1950 / 1950 Balance -1850 / -1850 -4793.0 / -4793.0 -1540 / -1540 Lab / Micro Data 04/04/24 07:22 04/04/24 07:22 Labs: Laboratory Results - last 24 hr 04/03/24 16:06: POC Glucose 135 H 04/03/24 20:13: POC Glucose 164 H 04/04/24 06:45: POC Glucose 138 H 04/04/24 07:22: WBC 6.7, RBC 4.82, Hgb 13.1, Hct 44.6, MCV 92.5, MCH 27.2, MCHC 29.4 L, RDW Std Deviation 55.5 H, RDW Coeff of Sandi 16.7 H, Plt Count 111 L, MPV 11.2, Immature Gran % (Auto) 0.900, Neut % (Auto) 80.6 H, Lymph % (Auto) 7.9 L, [place] % (Auto) 7.9, Eos % (Auto) 2.4, Baso % (Auto) 0.3, Absolute Neuts (auto) 5.4, Absolute Lymphs (auto) 0.53 L, Nucleated RBC % 0, Sodium 138, Potassium 3.1 L, Chloride 86 L, Carbon Dioxide > 45.0 H*, Anion Gap TNP, BUN 21 H, Creatinine 1.14, Estim Creat Clear Calc 95.92, Est GFR (MDRD) Af Amer 83, Est GFR (MDRD) Non-Af 68, BUN/Creatinine Ratio 18.4, Glucose 132 H, Calcium 8.9, Total Bilirubin 1.10 H, AST 18, ALT 23, Alkaline Phosphatase 121 H, Total Protein 8.5 H, Albumin 3.2, Globulin 5.3 H, Albumin/Globulin Ratio 0.6 L 04/04/24 11:02: POC Glucose 153 H Micro: Microbiology 04/01/24 22:31 Sputum, Expectorated/Coughed Gram Stain - Final 04/01/24 22:31 Sputum, Expectorated/Coughed Respiratory Culture - Final Staphylococcus aureus 04/01/24 13:03 Mucosa - Nose Respiratory Panel (PCR) - Final 04/01/24 13:03 Mucosa - Nasopharyngeal Coronavirus COVID-19 PCR - Final Physical Exam Narrative General: Alert, Oriented x3, Cooperative, No apparent distress, morbidly obese HEENT: Atraumatic, PERRLA, EOMI, Normocephalic Oral: Moist Mucosa Neck: Supple, No JVD Lungs: Diminished, Normal air movement, No rhonchi, No wheeze, No rales Cardiovascular: Regular rate, Regular Rhythm, Normal S1, Normal S2, No murmurs Abdomen: Soft, Non Tender, Non-Distended, No Hepato-splenomegaly Extremities: Edema, Capillary Refill Less than 3 Seconds Skin: No rashes, No breakdown, chronic skin changes from lymphedema Musculoskeletal: No Tenderness to Palpation of Joints or Extremities Neurological: No focal neurological deficits, Motor Exam 5/5 strength throughout, Sensory exam intact to light touch and pain Psych/Mental Status: Normal Affect, Appropriate Assessment & Plan Assessment/Plan (1) CHF (congestive heart failure): PLAN: Plan #1. Acute on Chronic Hypoxic and Hypercarbic Respiratory Failure secondary to Acute Decompensated HFpEF complicated by underlying severe pulmonary hypertension and obesity hypoventilation syndrome: Patient administered IV lasix in the ED, admitted to PCU, maintained on cardiac telemetry, cardiac enzymes unremarkable with trend 11-> 11->8, initiated on IV lasix diuresis however not marked diuresis or weight significant loss thus will transition to Lasix drip 04/02/2024, monitor I/Os, maintain on intake restriction, continue medical therapy, TSH 1.380, magnesium 2.7, FLP with total cholesterol 134, triglycerides 126, LDL 65, VLDL 29, HDL 40. 04/23/2022 echocardiogram with normal LV size, normal LV systolic function, EF 55%, stage II diastolic dysfunction thus repeat performed 04/01/2024 with normal LVEF 70%, normal LV, limited study given size. Wound RN consulted to assist w/ BL LE lichenification as ideally would like to place snug denis wraps with elevation. Full respiratory viral panel negative. COVID-negative. Sputum culture requested. Procalcitonin minimally elevated 0.17. 04/02/2024-->AM 04/03/2024 not marked diuresis or weight decrease thus per discussion with patient and family will increase Lasix drip and continue to closely monitor with electrolyte supplementation as needed with potassium ongoing trending. 04/02/2024 evening also patient refused further BiPAP usage thus repeat CMP 04/03/2024 unsurprisingly with elevated carbon oxide. 04/04/2024: Continue with Lasix drip for diuresis, breathing a bit better. PT/OT #2. Diabetes mellitus type II: Hold oral regimen, maintain on ADA diet, accu checks w/ ISS, hemoglobin A1c 6.0%. #3. Chronic macrocytic anemia: Admission hemoglobin 11.9, MCV 96, baseline hemoglobin primarily 10-11, 04/03/2024 hemoglobin 12.8, MCV 93.7, continue to trend. #4. Chronic thrombocytopenia, unclear etiology: Admission platelets 100, similar baseline, 04/03/2024 platelets 116, continue to trend. #5. Chronic Kidney Disease Stage II per GFR trending but has vacillated: Admission BUN/Cr 22/1.18, GFR 66, baseline renal function previously primarily 0.8-1.1 but in early 2022 did have admission with acute kidney injury with no labs following this, 04/03/2024 BUN/creatinine 18/1.13, GFR 69, repeat BMP in AM. #6. Chronic BL LE Lymphedema/Chronic venous stasis disease/Stasis dermatitis with significant bilateral lower extremity lichenification: Consulted wound RN to assist with severe lichenification, continue Denis wraps with lower extremity elevation as able following. From discussion with wound RN likely would need to soften over the next 1 to 2 days with removal following. #7. Morbid Obesity with severe obesity hypoventilation syndrome associated: Weight loss and lifestyle changes encouraged, nutrition consulted and following. #8. VAN: Strongly encouraged nightly BiPAP and as needed with naps. Normally has used CPAP notes but uncertain, unable to discern from recent pulmonary notes, given hypercapnic history and presentation as noted #1 used BiPAP. DVT: Lovenox Charges/Coding Visit Charges Inpatient E&M: 67616 Subs Hosp L2
--- NOTE | 2024-04-04 15:42 | CASEMGMT ---
Social Work SW met with pt and introduced self and role of SW. SW discussed discharge plan with pt and how pt did while working with therapy. Options of home with home health and SNF discussed. After consideration, pt feels he will likely need short term SNF prior to return home. Pt stating that his insurance will change on 04/06/24 but pt is uncertain of new provider. Pt requesting SW call pt's sister. Phone call to pt sister Morelia who confirms pt's Medicaid product will end on 04/05/24 and new insurance will be [employer] [place] [employer] effective 04/06/24. PFS updated. [facility] ID#[id number] Group#[id number] SW requested Morelia bring a copy of cards to hospital for next visit. SW updated Morelia that pt is choosing to go to SNF prior to return home and Morelia is agreeable. A list of SNF providers including quality and resource use data and consistent with the patient?s preferred geographic region, medical needs, and insurance network were provided from the [facility] Guide. Pt reviewed list and preferred provider is [facility]CU. SW explained that referral would be made to TCU but requested that pt continue to review list and make additional choices in the event TCU is unable to accept. pt agreeable. Referral sent to TCU. SW will await determination of acceptance. Precert cannot be started until 04/07/24 (once insurance is effective on 04/06 and the insurance company is open on 04/07) and pt will need to remain in the hospital until that time. NOREEN Rosa
--- NOTE | 2024-04-04 16:12 | CASEMGMT ---
Social Work Pt's sister Morelia Sands, called into PCU. She spoke w/JASON Townsend earlier. She states she went online and looked up the SNFs in pt's insurance and saw [facility] is in network with his new MMO insurance, and asked about a referral being made there. SW explained we are already looking into this and can let her know tomorrow if pt would be accepted. JASON will continue to follow. CHICO Koenig
[2024-04-04 16:58] LABS: Bedside Glucose 151 mg/dL (74-106)
[2024-04-04 22:50] LABS: Bedside Glucose 150 mg/dL (74-106)
[2024-04-05] VITALS (7 sets, daily range): BP systolic 94–119; BP diastolic 62–80; PULSE 68–83; RESP 16–18; TEMP 36.6–37; O2SAT 93–96; BMI 47.1
--- NOTE | 2024-04-05 00:02 | CPS ---
pt has own bipap unit here at hospital
[2024-04-05 04:02] LABS: Absolute Neutrophil Count 5.4 X10^3/uL (2.0-7.7); Basophil# 0.02 X10^3/uL; Basophil% 0.3 % (0-1); Eosinophil# 0.22 X10^3/uL; Eosinophils% 3.1 % (0-5); Hematocrit 43.2 % (40-54); Hemoglobin 12.7 g/dL (13.0-16.5); Mean Corp Hgb Conc 29.4 g/dL (32-36); Mean Corpuscular Hgb 26.7 pg (27.0-32.0); Mean Corpuscular Volume 90.8 fL (80-94); Mean Platelet Vol. 10.1 fl (6.2-12.0); Monocyte# 0.68 X10^3/uL; Monocyte% 9.7 % (0-10); NRBC Flagged by Analyzer 0 % (0-5); Neutrophil # 5.37 X10^3/uL (2.7-7.7); Neutrophil % 76.3 % (47-70); Platelet Count 115 K/mm3 (150-450); RBC Distribution Width CV 16.5 % (11.6-14.6); RBC Distribution Width SD 54.5 fl (35.1-43.9); Red Blood Count 4.76 M/mm3 (4.6-6.2)
[2024-04-05 04:30] LABS: BUN 26 mg/dL (7-18); BUN/Creat Ratio 22.6 RATIO (10-20); Calcium,Total 8.8 mg/dL (8.5-10.1); Carbon Dioxide > 45.0 mmol/L (21.0-32.0); Chloride 87 mmol/L (98-107); Creatinine, Serum 1.15 mg/dL (0.70-1.30); EST Glomerular Filtration Rate 68 mL/min (>60); Est Glom Filt Rate - Afr Amer 82 mL/min (>60); Estimated Creatinine Clearance 95.09 ml/min; Glucose 131 mg/dL (74-106); Magnesium 2.3 mg/dL (1.6-2.6); Potassium 2.9 mmol/L (3.5-5.1); Sodium Level 137 mmol/L (136-145)
[2024-04-05] MEDS: Potassium Chloride Oral Tablet 20 MEQ 60 MEQ PO (06:24)
[2024-04-05 06:50] LABS: Bedside Glucose 134 mg/dL (74-106)
[2024-04-05] MEDS: Budesonide Respules 0.5 MG/2 ML AMPUL.NEB. INHALATION (07:10)
[2024-04-05] MEDS: Potassium Chloride Oral Tablet 20 MEQ PO (10:17)
[2024-04-05] MEDS: Menthol/Lanolin/Calamine/Znox 113 GM Tube 1 APPLIC TOPICAL ×4 (10:17→21:29)
[2024-04-05] MEDS: Aspirin E.C. 81 MG Tablet PO (10:17)
[2024-04-05] MEDS: Enoxaparin 40 MG/0.4 ML Syringe SC ×2 (10:18→21:30)
[2024-04-05] MEDS: Carvedilol 12.5 MG Tablet PO ×2 (10:18→21:30)
--- NOTE | 2024-04-05 10:22 | WOUNDNOTE ---
Pt sitting up in chair. DHIRAJ wraps to lower legs are intact. edema has been improving. will continue to monitor.
--- NOTE | 2024-04-05 10:33 | PN.HOSP_ITS ---
Subjective Subjective Doing well, appears to be at baseline down to 319 pounds Objective Data Objective Data Vital Signs: Vital Signs Temp Pulse Resp BP Pulse Ox O2 Del Method O2 Flow Rate 97.8 F 75 16 119/80 96 Nasal Cannula 4 04/05/24 09:45 04/05/24 09:45 04/05/24 09:45 04/05/24 09:45 04/05/24 09:45 04/05/24 09:45 04/05/24 09:45 FiO2 40 04/03/24 03:49 Oxygen Flow Rate (L/min) 4 Oxygen Delivery Method Nasal Cannula Weight: 319 lb 3.669 oz Body Mass Index (BMI) 47.1 Intake & Output: Intake and Output for Last 24 Hours 04/04/24 04/05/24 04/06/24 03:59 03:59 03:59 Intake Total 882.0 / 882.0 1080 / 1080 250 / 250 Output Total 5675 / 5675 3800 / 3800 500 / 500 Balance -4793.0 / -4793.0 -2720 / -2720 -250 / -250 Lab / Micro Data 04/05/24 03:48 04/05/24 03:48 Labs: Laboratory Results - last 24 hr 04/04/24 11:02: POC Glucose 153 H 04/04/24 16:30: POC Glucose 151 H 04/04/24 22:22: POC Glucose 150 H 04/05/24 03:48: WBC 7.0, RBC 4.76, Hgb 12.7 L, Hct 43.2, MCV 90.8, MCH 26.7 L, M CHC 29.4 L, RDW Std Deviation 54.5 H, RDW Coeff of Sandi 16.5 H, Plt Count 115 L, MPV 10.1, Immature Gran % (Auto) 0.600, Neut % (Auto) 76.3 H, Lymph % (Auto) 10.0 L, [place] % (Auto) 9.7, Eos % (Auto) 3.1, Baso % (Auto) 0.3, Absolute Neuts (auto) 5.4, Absolute Lymphs (auto) 0.70 L, Nucleated RBC % 0, Sodium 137, P otassium 2.9 L, Chloride 87 L, Carbon Dioxide > 45.0 H*, Anion Gap TNP, BUN 26 H , Creatinine 1.15, Estim Creat Clear Calc 95.09, Est GFR (MDRD) Af Amer 82, Est GFR (MDRD) Non-Af 68, BUN/Creatinine Ratio 22.6 H, Glucose 131 H, Calcium 8.8, Phosphorus 3.0, Magnesium 2.3 04/05/24 06:29: POC Glucose 134 H Micro: Microbiology 04/01/24 22:31 Sputum, Expectorated/Coughed Gram Stain - Final 04/01/24 22:31 Sputum, Expectorated/Coughed Respiratory Culture - Final Staphylococcus aureus 04/01/24 13:03 Mucosa - Nose Respiratory Panel (PCR) - Final 04/01/24 13:03 Mucosa - Nasopharyngeal Coronavirus COVID-19 PCR - Final Physical Exam Narrative General: Alert, Oriented x3, Cooperative, No apparent distress, morbidly obese HEENT: Atraumatic, PERRLA, EOMI, Normocephalic Oral: Moist Mucosa Neck: Supple, No JVD Lungs: Diminished, Normal air movement, No rhonchi, No wheeze, No rales Cardiovascular: Regular rate, Regular Rhythm, Normal S1, Normal S2, No murmurs Abdomen: Soft, Non Tender, Non-Distended, No Hepato-splenomegaly Extremities: Edema, Capillary Refill Less than 3 Seconds Skin: No rashes, No breakdown, chronic skin changes from lymphedema Musculoskeletal: No Tenderness to Palpation of Joints or Extremities Neurological: No focal neurological deficits, Motor Exam 5/5 strength throughout, Sensory exam intact to light touch and pain Psych/Mental Status: Normal Affect, Appropriate Assessment & Plan Assessment/Plan (1) CHF (congestive heart failure): PLAN: Plan #1. Acute on Chronic Hypoxic and Hypercarbic Respiratory Failure secondary to Acute Decompensated HFpEF complicated by underlying severe pulmonary hypertension and obesity hypoventilation syndrome: Patient administered IV lasix in the ED, admitted to PCU, maintained on cardiac telemetry, cardiac enzymes unremarkable with trend 11-> 11->8, initiated on IV lasix diuresis however not marked diuresis or weight significant loss thus will transition to Lasix drip 04/02/2024, monitor I/Os, maintain on intake restriction, continue medical therapy, TSH 1.380, magnesium 2.7, FLP with total cholesterol 134, triglycerides 126, LDL 65, VLDL 29, HDL 40. 04/23/2022 echocardiogram with normal LV size, normal LV systolic function, EF 55%, stage II diastolic dysfunction thus repeat performed 04/01/2024 with normal LVEF 70%, normal LV, limited study given size. Wound RN consulted to assist w/ BL LE lichenification as ideally would like to place snug denis wraps with elevation. Full respiratory viral panel negative. COVID-negative. Sputum culture requested. Procalcitonin minimally elevated 0.17. 04/02/2024-->AM 04/03/2024 not marked diuresis or weight decrease thus per discussion with patient and family will increase Lasix drip and continue to closely monitor with electrolyte supplementation as needed with potassium ongoing trending. 04/02/2024 evening also patient refused further BiPAP usage thus repeat CMP 04/03/2024 unsurprisingly with elevated carbon oxide. 04/04/2024: Continue with Lasix drip for diuresis, breathing a bit better. PT/OT 04/05/2024: I do think we are approaching the best we will get him, he is down 40 pounds since admission #2. Diabetes mellitus type II: Hold oral regimen, maintain on ADA diet, accu checks w/ ISS, hemoglobin A1c 6.0%. #3. Chronic macrocytic anemia: Admission hemoglobin 11.9, MCV 96, baseline hemoglobin primarily 10-11, 04/03/2024 hemoglobin 12.8, MCV 93.7, continue to trend. #4. Chronic thrombocytopenia, unclear etiology: Admission platelets 100, similar baseline, 04/03/2024 platelets 116, continue to trend. #5. Chronic Kidney Disease Stage II per GFR trending but has vacillated: Admission BUN/Cr 22/1.18, GFR 66, baseline renal function previously primarily 0.8-1.1 but in early 2022 did have admission with acute kidney injury with no labs following this, 04/03/2024 BUN/creatinine 18/1.13, GFR 69, repeat BMP in AM. #6. Chronic BL LE Lymphedema/Chronic venous stasis disease/Stasis dermatitis with significant bilateral lower extremity lichenification: Consulted wound RN to assist with severe lichenification, continue Denis wraps with lower extremity elevation as able following. From discussion with wound RN likely would need to soften over the next 1 to 2 days with removal following. #7. Morbid Obesity with severe obesity hypoventilation syndrome associated: Weight loss and lifestyle changes encouraged, nutrition consulted and following. #8. VAN: Strongly encouraged nightly BiPAP and as needed with naps. Normally has used CPAP notes but uncertain, unable to discern from recent pulmonary notes, given hypercapnic history and presentation as noted #1 used BiPAP. DVT: Lovenox Charges/Coding Visit Charges Inpatient E&M: 29522 Subs Hosp L2
--- NOTE | 2024-04-05 10:57 | CASEMGMT ---
Social Work [facility] is unable to accept pt. SW placed call to pt sister/HCPOA Morelia to discuss discharge options. Morelia requesting referrals to 1. [facility] 2. [facility] 3. [facility]. JASON met with pt and updated that [facility]CU cannot accept and preferences of sister Morelia Pt is agreeable to referrals as sister listed. DC medical services assistant updated and to send referral to [facility]. NOREEN Rosa
[2024-04-05] MEDS: Insulin Lispro 100 UNIT/ML INSULN.PEN SC ×2 (11:15→21:36)
--- NOTE | 2024-04-05 12:01 | CASEMGMT ---
Addendum entered by Radha Coello 04/05/24 15:31: [facility] has declined d/t no available beds, Radha Coello DC Planning Asst. Original Note: Discharge Planning Referral sent to [facility]. Radha Coello DC Planning Asst.
[2024-04-05 12:09] LABS: Bedside Glucose 169 mg/dL (74-106)
[2024-04-05] MEDS: Furosemide 500 MG in Empty Viaflex 50 mL 1 EACH CONT INF (14:30)
--- NOTE | 2024-04-05 15:31 | CASEMGMT ---
Addendum entered by Radha Coello 04/07/24 07:56: [facility] has declined. Radha Coello DC Planning Asst. Addendum entered by Radha Coello 04/05/24 16:40: [facility] has declined. SW updated. Radha Coello DC Planning Asst. Original Note: Discharge Planning Referral sent to [facility] and [facility]. Radha Coello DC Planning Asst.
[2024-04-05 17:38] LABS: Bedside Glucose 148 mg/dL (74-106)
[2024-04-06 01:01] LABS: Bedside Glucose 156 mg/dL (74-106)
[2024-04-06 03:30] VITALS: BP 119/82; PULSE 72; RESP 15; TEMP 36.2; O2SAT 95
[2024-04-06 04:27] LABS: Absolute Lymphocyte Count 0.72 X10^3/uL (0.83-4.51); Absolute Neutrophil Count 5.3 X10^3/uL (2.0-7.7); Basophil# 0.02 X10^3/uL; Basophil% 0.3 % (0-1); Eosinophils% 2.9 % (0-5); Hematocrit 43.6 % (40-54); Lymphocyte # 0.72 X10^3/ul (0.83-4.51); Lymphocyte % 10.5 % (19-41); Mean Corp Hgb Conc 29.8 g/dL (32-36); Mean Corpuscular Hgb 27.3 pg (27.0-32.0); Mean Corpuscular Volume 91.4 fL (80-94); Mean Platelet Vol. 10.5 fl (6.2-12.0); Monocyte# 0.64 X10^3/uL; Monocyte% 9.3 % (0-10); NRBC Flagged by Analyzer 0 % (0-5); Neutrophil # 5.25 X10^3/uL (2.7-7.7); Neutrophil % 76.3 % (47-70); Platelet Count 126 K/mm3 (150-450); RBC Distribution Width CV 16.6 % (11.6-14.6); RBC Distribution Width SD 55.7 fl (35.1-43.9); Red Blood Count 4.77 M/mm3 (4.6-6.2); White Blood Count 6.9 K/mm3 (4.4-11.0)
[2024-04-06 04:56] LABS: Anion Gap 4 (5-15); BUN 33 mg/dL (7-18); BUN/Creat Ratio 24.1 RATIO (10-20); Calcium,Total 8.9 mg/dL (8.5-10.1); Chloride 90 mmol/L (98-107); Creatinine, Serum 1.37 mg/dL (0.70-1.30); EST Glomerular Filtration Rate 55 mL/min (>60); Est Glom Filt Rate - Afr Amer 67 mL/min (>60); Estimated Creatinine Clearance 76.29 ml/min; Glucose 146 mg/dL (74-106); Potassium 3.2 mmol/L (3.5-5.1); Sodium Level 138 mmol/L (136-145)
[2024-04-06 05:38] VITALS: BMI 49.6
[2024-04-06 06:46] LABS: Bedside Glucose 146 mg/dL (74-106)
[2024-04-06] MEDS: Budesonide Respules 0.5 MG/2 ML AMPUL.NEB. INHALATION (08:11)
[2024-04-06 08:14] VITALS: PULSE 73; RESP 18; O2SAT 99
[2024-04-06 09:30] VITALS: BP 118/68; PULSE 76; RESP 15; TEMP 36.4; O2SAT 92
[2024-04-06] MEDS: Enoxaparin 40 MG/0.4 ML Syringe SC ×2 (09:32→21:18)
[2024-04-06] MEDS: Carvedilol 12.5 MG Tablet PO ×2 (09:32→21:18)
[2024-04-06] MEDS: Aspirin E.C. 81 MG Tablet PO (09:32)
[2024-04-06] MEDS: Potassium Chloride Oral Tablet 20 MEQ PO (09:32)
[2024-04-06] MEDS: Menthol/Lanolin/Calamine/Znox 113 GM Tube 1 APPLIC TOPICAL ×4 (09:32→21:17)
--- NOTE | 2024-04-06 10:15 | PCM.PN.HOSP ---
Subjective Subjective Doing well, no issues overnight Objective Data Objective Data Vital Signs: Vital Signs Temp Pulse Resp BP Pulse Ox O2 Del Method O2 Flow Rate 97.6 F L 76 15 118/68 92 Nasal Cannula 6 04/06/24 09:30 04/06/24 09:30 04/06/24 09:30 04/06/24 09:30 04/06/24 09:30 04/06/24 09:30 04/06/24 08:14 FiO2 40 04/03/24 03:49 Oxygen Flow Rate (L/min) 6 Oxygen Delivery Method Nasal Cannula Weight: 335 lb 15.752 oz Body Mass Index (BMI) 49.6 Intake & Output: Intake and Output for Last 24 Hours 04/05/24 04/06/24 04/07/24 03:59 03:59 03:59 Intake Total 1080 / 1080 1320 / 1320 200 / 200 Output Total 3800 / 3800 2525 / 2525 475 / 475 Balance -2720 / -2720 -1205 / -1205 -275 / -275 Lab / Micro Data 04/06/24 04:10 04/06/24 04:10 Labs: Laboratory Results - last 24 hr 04/05/24 11:13: POC Glucose 169 H 04/05/24 17:03: POC Glucose 148 H 04/05/24 21:34: POC Glucose 156 H 04/06/24 04:10: WBC 6.9, RBC 4.77, Hgb 13.0, Hct 43.6, MCV 91.4, MCH 27.3, MCHC 29.8 L, RDW Std Deviation 55.7 H, RDW Coeff of Sandi 16.6 H, Plt Count 126 L, MPV 10.5, Immature Gran % (Auto) 0.700, Neut % (Auto) 76.3 H, Lymph % (Auto) 10.5 L, [place] % (Auto) 9.3, Eos % (Auto) 2.9, Baso % (Auto) 0.3, Absolute Neuts (auto) 5.3, Absolute Lymphs (auto) 0.72 L, Nucleated RBC % 0, Sodium 138, Potassium 3.2 L, Chloride 90 L, Carbon Dioxide 44.0 H, Anion Gap 4 L, BUN 33 H, Creatinine 1.37 H, Estim Creat Clear Calc 76.29, Est GFR (MDRD) Af Amer 67, Est GFR (MDRD) Non-Af 55 L, BUN/Creatinine Ratio 24.1 H, Glucose 146 H, Calcium 8.9 04/06/24 06:22: POC Glucose 146 H Micro: Microbiology 04/01/24 22:31 Sputum, Expectorated/Coughed Gram Stain - Final 04/01/24 22:31 Sputum, Expectorated/Coughed Respiratory Culture - Final Staphylococcus aureus 04/01/24 13:03 Mucosa - Nose Respiratory Panel (PCR) - Final 04/01/24 13:03 Mucosa - Nasopharyngeal Coronavirus COVID-19 PCR - Final Physical Exam Narrative General: Alert, Oriented x3, Cooperative, No apparent distress, morbidly obese HEENT: Atraumatic, PERRLA, EOMI, Normocephalic Oral: Moist Mucosa Neck: Supple, No JVD Lungs: Diminished, Normal air movement, No rhonchi, No wheeze, No rales Cardiovascular: Regular rate, Regular Rhythm, Normal S1, Normal S2, No murmurs Abdomen: Soft, Non Tender, Non-Distended, No Hepato-splenomegaly Extremities: Edema, Capillary Refill Less than 3 Seconds Skin: No rashes, No breakdown, chronic skin changes from lymphedema Musculoskeletal: No Tenderness to Palpation of Joints or Extremities Neurological: No focal neurological deficits, Motor Exam 5/5 strength throughout, Sensory exam intact to light touch and pain Psych/Mental Status: Normal Affect, Appropriate Assessment & Plan Assessment/Plan (1) CHF (congestive heart failure): PLAN: Plan #1. Acute on Chronic Hypoxic and Hypercarbic Respiratory Failure secondary to Acute Decompensated HFpEF complicated by underlying severe pulmonary hypertension and obesity hypoventilation syndrome: Patient administered IV lasix in the ED, admitted to PCU, maintained on cardiac telemetry, cardiac enzymes unremarkable with trend 11-> 11->8, initiated on IV lasix diuresis however not marked diuresis or weight significant loss thus will transition to Lasix drip 04/02/2024, monitor I/Os, maintain on intake restriction, continue medical therapy, TSH 1.380, magnesium 2.7, FLP with total cholesterol 134, triglycerides 126, LDL 65, VLDL 29, HDL 40. 04/23/2022 echocardiogram with normal LV size, normal LV systolic function, EF 55%, stage II diastolic dysfunction thus repeat performed 04/01/2024 with normal LVEF 70%, normal LV, limited study given size. Wound RN consulted to assist w/ BL LE lichenification as ideally would like to place snug denis wraps with elevation. Full respiratory viral panel negative. COVID-negative. Sputum culture requested. Procalcitonin minimally elevated 0.17. 04/02/2024-->AM 04/03/2024 not marked diuresis or weight decrease thus per discussion with patient and family will increase Lasix drip and continue to closely monitor with electrolyte supplementation as needed with potassium ongoing trending. 04/02/2024 evening also patient refused further BiPAP usage thus repeat CMP 04/03/2024 unsurprisingly with elevated carbon oxide. 04/04/2024: Continue with Lasix drip for diuresis, breathing a bit better. PT/OT 04/05/2024: I do think we are approaching the best we will get him, he is down 40 pounds since admission 04/06/2024: Will discontinue Lasix drip as his creatinine has increased and transition to bolus dosing of IV Lasix 40 mg twice daily. Will replace potassium as well today. Awaiting pre-CERT. #2. Diabetes mellitus type II: Hold oral regimen, maintain on ADA diet, accu checks w/ ISS, hemoglobin A1c 6.0%. #3. Chronic macrocytic anemia: Admission hemoglobin 11.9, MCV 96, baseline hemoglobin primarily 10-11, 04/03/2024 hemoglobin 12.8, MCV 93.7, continue to trend. #4. Chronic thrombocytopenia, unclear etiology: Admission platelets 100, similar baseline, 04/03/2024 platelets 116, continue to trend. #5. Chronic Kidney Disease Stage II per GFR trending but has vacillated: Admission BUN/Cr 22/1.18, GFR 66, baseline renal function previously primarily 0.8-1.1 but in early 2022 did have admission with acute kidney injury with no labs following this, 04/03/2024 BUN/creatinine 18/1.13, GFR 69, repeat BMP in AM. #6. Chronic BL LE Lymphedema/Chronic venous stasis disease/Stasis dermatitis with significant bilateral lower extremity lichenification: Consulted wound RN to assist with severe lichenification, continue Denis wraps with lower extremity elevation as able following. From discussion with wound RN likely would need to soften over the next 1 to 2 days with removal following. #7. Morbid Obesity with severe obesity hypoventilation syndrome associated: Weight loss and lifestyle changes encouraged, nutrition consulted and following. #8. VAN: Strongly encouraged nightly BiPAP and as needed with naps. Normally has used CPAP notes but uncertain, unable to discern from recent pulmonary notes, given hypercapnic history and presentation as noted #1 used BiPAP. DVT: Lovenox Charges/Coding Visit Charges Inpatient E&M: 38839 Subs Hosp L2
[2024-04-06] MEDS: Insulin Lispro 100 UNIT/ML INSULN.PEN SC (11:44)
[2024-04-06] MEDS: Potassium Chloride Oral Tablet 20 MEQ 40 MEQ PO (11:50)
[2024-04-06 12:50] LABS: Bedside Glucose 158 mg/dL (74-106)
[2024-04-06 15:30] VITALS: BP 104/73; PULSE 73; RESP 18; TEMP 36.5; O2SAT 94
[2024-04-06] MEDS: 0.9% Saline Lock 10 ML Syringe IV (16:55)
[2024-04-06] MEDS: Furosemide 40 MG/4 ML Vial IV (16:55)
[2024-04-06 17:19] LABS: Bedside Glucose 141 mg/dL (74-106)
[2024-04-06 21:30] VITALS: BP 115/51; PULSE 88; RESP 14; TEMP 35.7; O2SAT 95
[2024-04-06 22:04] LABS: Bedside Glucose 147 mg/dL (74-106)
[2024-04-07 04:15] VITALS: BP 113/63; PULSE 75; RESP 16; TEMP 36; O2SAT 94
[2024-04-07 05:20] VITALS: BMI 48.9
[2024-04-07 07:08] LABS: Bedside Glucose 134 mg/dL (74-106)
[2024-04-07] MEDS: Budesonide Respules 0.5 MG/2 ML AMPUL.NEB. INHALATION ×2 (07:22→20:16)
[2024-04-07 07:23] VITALS: PULSE 78; RESP 18; O2SAT 93
[2024-04-07 08:59] LABS: Anion Gap 2 (5-15); BUN 37 mg/dL (7-18); BUN/Creat Ratio 27.8 RATIO (10-20); Calcium,Total 9.2 mg/dL (8.5-10.1); Chloride 92 mmol/L (98-107); Creatinine, Serum 1.33 mg/dL (0.70-1.30); EST Glomerular Filtration Rate 57 mL/min (>60); Est Glom Filt Rate - Afr Amer 69 mL/min (>60); Estimated Creatinine Clearance 80.25 ml/min; Glucose 139 mg/dL (74-106); Potassium 3.3 mmol/L (3.5-5.1); Sodium Level 139 mmol/L (136-145)
--- NOTE | 2024-04-07 09:23 | PCM.PN.HOSP ---
Subjective Subjective Breathing is at baseline, no issues overnight Objective Data Objective Data Vital Signs: Vital Signs Temp Pulse Resp BP Pulse Ox O2 Del Method O2 Flow Rate 96.8 F L 78 18 113/63 93 Nasal Cannula 4 04/07/24 04:15 04/07/24 07:23 04/07/24 07:23 04/07/24 04:15 04/07/24 07:23 04/07/24 07:23 04/07/24 07:23 FiO2 40 04/03/24 03:49 Oxygen Flow Rate (L/min) 4 Oxygen Delivery Method Nasal Cannula Weight: 330 lb 14.621 oz Body Mass Index (BMI) 48.9 Intake & Output: Intake and Output for Last 24 Hours 04/06/24 04/07/24 04/08/24 03:59 03:59 03:59 Intake Total 1320 / 1320 1081 / 1081 Output Total 2525 / 2525 2075 / 2075 Balance -1205 / -1205 -994 / -994 Lab / Micro Data 04/06/24 04:10 04/07/24 07:35 Labs: Laboratory Results - last 24 hr 04/06/24 11:42: POC Glucose 158 H 04/06/24 16:53: POC Glucose 141 H 04/06/24 21:15: POC Glucose 147 H 04/07/24 06:34: POC Glucose 134 H 04/07/24 07:35: Sodium 139, Potassium 3.3 L, Chloride 92 L, Carbon Dioxide 44.0 H, Anion Gap 2 L, BUN 37 H, Creatinine 1.33 H, Estim Creat Clear Calc 80.25, Est GFR (MDRD) Af Amer 69, Est GFR (MDRD) Non-Af 57 L, BUN/Creatinine Ratio 27.8 H, Glucose 139 H, Calcium 9.2 Micro: Microbiology 04/01/24 22:31 Sputum, Expectorated/Coughed Gram Stain - Final 04/01/24 22:31 Sputum, Expectorated/Coughed Respiratory Culture - Final Staphylococcus aureus 04/01/24 13:03 Mucosa - Nose Respiratory Panel (PCR) - Final 04/01/24 13:03 Mucosa - Nasopharyngeal Coronavirus COVID-19 PCR - Final Physical Exam Narrative General: Alert, Oriented x3, Cooperative, No apparent distress, morbidly obese HEENT: Atraumatic, PERRLA, EOMI, Normocephalic Oral: Moist Mucosa Neck: Supple, No JVD Lungs: Diminished, Normal air movement, No rhonchi, No wheeze, No rales Cardiovascular: Regular rate, Regular Rhythm, Normal S1, Normal S2, No murmurs Abdomen: Soft, Non Tender, Non-Distended, No Hepato-splenomegaly Extremities: Edema, Capillary Refill Less than 3 Seconds Skin: No rashes, No breakdown, chronic skin changes from lymphedema Musculoskeletal: No Tenderness to Palpation of Joints or Extremities Neurological: No focal neurological deficits, Motor Exam 5/5 strength throughout, Sensory exam intact to light touch and pain Psych/Mental Status: Normal Affect, Appropriate Assessment & Plan Assessment/Plan (1) CHF (congestive heart failure): PLAN: Plan #1. Acute on Chronic Hypoxic and Hypercarbic Respiratory Failure secondary to Acute Decompensated HFpEF complicated by underlying severe pulmonary hypertension and obesity hypoventilation syndrome: Patient administered IV lasix in the ED, admitted to PCU, maintained on cardiac telemetry, cardiac enzymes unremarkable with trend 11-> 11->8, initiated on IV lasix diuresis however not marked diuresis or weight significant loss thus will transition to Lasix drip 04/02/2024, monitor I/Os, maintain on intake restriction, continue medical therapy, TSH 1.380, magnesium 2.7, FLP with total cholesterol 134, triglycerides 126, LDL 65, VLDL 29, HDL 40. 04/23/2022 echocardiogram with normal LV size, normal LV systolic function, EF 55%, stage II diastolic dysfunction thus repeat performed 04/01/2024 with normal LVEF 70%, normal LV, limited study given size. Wound RN consulted to assist w/ BL LE lichenification as ideally would like to place snug denis wraps with elevation. Full respiratory viral panel negative. COVID-negative. Sputum culture requested. Procalcitonin minimally elevated 0.17. 04/02/2024-->AM 04/03/2024 not marked diuresis or weight decrease thus per discussion with patient and family will increase Lasix drip and continue to closely monitor with electrolyte supplementation as needed with potassium ongoing trending. 04/02/2024 evening also patient refused further BiPAP usage thus repeat CMP 04/03/2024 unsurprisingly with elevated carbon oxide. 04/04/2024: Continue with Lasix drip for diuresis, breathing a bit better. PT/OT 04/05/2024: I do think we are approaching the best we will get him, he is down 40 pounds since admission 04/06/2024: Will discontinue Lasix drip as his creatinine has increased and transition to bolus dosing of IV Lasix 40 mg twice daily. Will replace potassium as well today. Awaiting pre-CERT. 04/07/2024: Awaiting pre-CERT #2. Diabetes mellitus type II: Hold oral regimen, maintain on ADA diet, accu checks w/ ISS, hemoglobin A1c 6.0%. #3. Chronic macrocytic anemia: Admission hemoglobin 11.9, MCV 96, baseline hemoglobin primarily 10-11, 04/03/2024 hemoglobin 12.8, MCV 93.7, continue to trend. #4. Chronic thrombocytopenia, unclear etiology: Admission platelets 100, similar baseline, 04/03/2024 platelets 116, continue to trend. #5. Chronic Kidney Disease Stage II per GFR trending but has vacillated: Admission BUN/Cr 22/1.18, GFR 66, baseline renal function previously primarily 0.8-1.1 but in early 2022 did have admission with acute kidney injury with no labs following this, 04/03/2024 BUN/creatinine 18/1.13, GFR 69, repeat BMP in AM. #6. Chronic BL LE Lymphedema/Chronic venous stasis disease/Stasis dermatitis with significant bilateral lower extremity lichenification: Consulted wound RN to assist with severe lichenification, continue Denis wraps with lower extremity elevation as able following. From discussion with wound RN likely would need to soften over the next 1 to 2 days with removal following. #7. Morbid Obesity with severe obesity hypoventilation syndrome associated: Weight loss and lifestyle changes encouraged, nutrition consulted and following. #8. VAN: Strongly encouraged nightly BiPAP and as needed with naps. Normally has used CPAP notes but uncertain, unable to discern from recent pulmonary notes, given hypercapnic history and presentation as noted #1 used BiPAP. DVT: Lovenox Charges/Coding Visit Charges Inpatient E&M: 61280 Subs Hosp L2
--- NOTE | 2024-04-07 09:37 | CASEMGMT ---
SW called patient's sister Morelia as all of the SNF choices have declined patient. The next 3 [facility], and [facility]. JASON let Morelia know SW will make referrals and will get back to her regarding what these facilities say. JASON asked Radha to send referrals. Nisa FRANCOIS
--- NOTE | 2024-04-07 09:52 | CASEMGMT ---
Addendum entered by Radha Coello 04/07/24 12:40: [facility]. Radha Coello DC Planning Asst. Addendum entered by Radha Coello 04/07/24 11:22: [facility] referral. Radha Coello DC Planning Asst. Original Note: Discharge Planning Ref[facility] to [facility], [facility], and [facility]. Radha Coello DC Planning Asst.
[2024-04-07 10:00] VITALS: BP 122/69; PULSE 76; RESP 19; TEMP 37.4; O2SAT 91
[2024-04-07] MEDS: Potassium Chloride Oral Tablet 20 MEQ 60 MEQ PO (10:08)
[2024-04-07] MEDS: Carvedilol 12.5 MG Tablet PO ×2 (10:08→22:00)
[2024-04-07] MEDS: Enoxaparin 40 MG/0.4 ML Syringe SC ×2 (10:09→22:00)
[2024-04-07] MEDS: Aspirin E.C. 81 MG Tablet PO (10:09)
[2024-04-07] MEDS: Potassium Chloride Oral Tablet 20 MEQ PO (10:09)
[2024-04-07] MEDS: Furosemide 40 MG/4 ML Vial IV ×2 (10:09→17:54)
[2024-04-07] MEDS: Menthol/Lanolin/Calamine/Znox 113 GM Tube 1 APPLIC TOPICAL ×4 (10:09→21:59)
--- NOTE | 2024-04-07 11:46 | CASEMGMT ---
[facility] as [facility] are full. Still awaiting [place]. Nisa Dove WOOD BUCKER ALESSANDRO
--- NOTE | 2024-04-07 11:49 | WOUNDNOTE ---
Washed legs and feet with soap and water. was able to remove a small amount of the dry, flaky skin. applied Remedy cream and wrapped legs with kerlix and DHIRAJ wraps. pt tolerated well.
[2024-04-07] MEDS: Insulin Lispro 100 UNIT/ML INSULN.PEN SC (11:54)
--- NOTE | 2024-04-07 12:46 | CASEMGMT ---
SW called patient's sister Morelia and let her know that all 3 of the facilities have declined patient as they are full. [facility] 3 [facility], [facility]. JASON asked Radha to send referrals to all three facilities. Nisa Dove DEFENSE TRAVEL ADMINISTRATOR ALESSANDRO
--- NOTE | 2024-04-07 12:48 | CASEMGMT ---
Addendum entered by Radha Coello 04/07/24 13:44: [facility] declined. [facility]. Per SW, [facility]. Both [facility]fs updated and [facility] was asked to submit for precert. Radha Coello DC Planning Asst. Original Note: Discharge Planning Referral sent via [facility] to [facility], and [facility]. Radha Coello DC Planning Asst.
[2024-04-07 12:49] LABS: Bedside Glucose 158 mg/dL (74-106)
--- NOTE | 2024-04-07 13:42 | CASEMGMT ---
[facility]. JASON called patient's sister Morelia and let her know. JASON helped her process through which facility would be best for patient by listening. Morelia said patient would probably prefer [facility]. JASON explained JASON will ask [facility] to get the authorization from insurance. Once we get approval someone will let her know. Nisa Dove TERMINAL [employer] INFECTIOUS DISEASE PHYSICIAN
[2024-04-07 16:00] VITALS: BP 123/70; PULSE 74; RESP 18; TEMP 36.4; O2SAT 96
[2024-04-07 17:16] LABS: Bedside Glucose 118 mg/dL (74-106)
[2024-04-07] MEDS: 0.9% Saline Lock 10 ML Syringe IV (17:55)
[2024-04-07 20:16] VITALS: PULSE 73; RESP 20; O2SAT 95
[2024-04-07 21:30] VITALS: BP 118/61; PULSE 67; RESP 20; TEMP 36.9; O2SAT 95
[2024-04-07 22:21] LABS: Bedside Glucose 150 mg/dL (74-106)
[2024-04-08 03:42] VITALS: O2SAT 93
[2024-04-08 05:37] VITALS: BP 117/74; PULSE 67; RESP 16; TEMP 36.6; O2SAT 98
[2024-04-08 06:00] VITALS: BMI 50.7
[2024-04-08] MEDS: Budesonide Respules 0.5 MG/2 ML AMPUL.NEB. INHALATION (06:58)
[2024-04-08 07:15] VITALS: PULSE 71; RESP 17
[2024-04-08 07:16] LABS: Bedside Glucose 132 mg/dL (74-106)
[2024-04-08 07:52] VITALS: O2SAT 96
[2024-04-08 08:20] LABS: Anion Gap 3 (5-15); BUN 35 mg/dL (7-18); BUN/Creat Ratio 27.1 RATIO (10-20); Chloride 91 mmol/L (98-107); Creatinine, Serum 1.29 mg/dL (0.70-1.30); EST Glomerular Filtration Rate 59 mL/min (>60); Est Glom Filt Rate - Afr Amer 72 mL/min (>60); Estimated Creatinine Clearance 84.58 ml/min; Glucose 155 mg/dL (74-106); Potassium 3.3 mmol/L (3.5-5.1); Sodium Level 134 mmol/L (136-145)
--- NOTE | 2024-04-08 08:47 | PCM.PN.HOSP ---
Subjective Subjective No issues overnight Objective Data Objective Data Vital Signs: Vital Signs Temp Pulse Resp BP Pulse Ox O2 Del Method O2 Flow Rate 98 F 71 17 117/74 96 Nasal Cannula 4 04/08/24 05:37 04/08/24 07:15 04/08/24 07:15 04/08/24 05:37 04/08/24 07:52 04/08/24 07:52 04/08/24 07:52 FiO2 40 04/03/24 03:49 Oxygen Flow Rate (L/min) 4 Oxygen Delivery Method Nasal Cannula Weight: 343 lb 7.683 oz Body Mass Index (BMI) 50.7 Intake & Output: Intake and Output for Last 24 Hours 04/07/24 04/08/24 04/09/24 03:59 03:59 03:59 Intake Total 1081 / 1081 600 / 600 250 / 250 Output Total 2075 / 207 1150 / 1150 125 / 125 Balance -994 / -994 -550 / -550 125 / 125 Lab / Micro Data 04/06/24 04:10 04/08/24 07:35 Labs: Laboratory Results - last 24 hr 04/07/24 07:35: Sodium 139, Potassium 3.3 L, Chloride 92 L, Carbon Dioxide 44.0 H, Anion Gap 2 L, BUN 37 H, Creatinine 1.33 H, Estim Creat Clear Calc 80.25, Est GFR (MDRD) Af Amer 69, Est GFR (MDRD) Non-Af 57 L, BUN/Creatinine Ratio 27.8 H, Glucose 139 H, Calcium 9.2 04/07/24 11:53: POC Glucose 158 H 04/07/24 16:57: POC Glucose 118 H 04/07/24 21:58: POC Glucose 150 H 04/08/24 06:58: POC Glucose 132 H 04/08/24 07:35: Sodium 134 L, Potassium 3.3 L, Chloride 91 L, Carbon Dioxide 40.0 H, Anion Gap 3 L, BUN 35 H, Creatinine 1.29, Estim Creat Clear Calc 84.58, Est GFR (MDRD) Af Amer 72, Est GFR (MDRD) Non-Af 59 L, BUN/Creatinine Ratio 27.1 H, Glucose 155 H, Calcium 9.0 Micro: Microbiology 04/01/24 22:31 Sputum, Expectorated/Coughed Gram Stain - Final 04/01/24 22:31 Sputum, Expectorated/Coughed Respiratory Culture - Final Staphylococcus aureus 04/01/24 13:03 Mucosa - Nose Respiratory Panel (PCR) - Final 04/01/24 13:03 Mucosa - Nasopharyngeal Coronavirus COVID-19 PCR - Final Physical Exam Narrative General: Alert, Oriented x3, Cooperative, No apparent distress, morbidly obese HEENT: Atraumatic, PERRLA, EOMI, Normocephalic Oral: Moist Mucosa Neck: Supple, No JVD Lungs: Diminished, Normal air movement, No rhonchi, No wheeze, No rales Cardiovascular: Regular rate, Regular Rhythm, Normal S1, Normal S2, No murmurs Abdomen: Soft, Non Tender, Non-Distended, No Hepato-splenomegaly Extremities: Edema, Capillary Refill Less than 3 Seconds Skin: No rashes, No breakdown, chronic skin changes from lymphedema Musculoskeletal: No Tenderness to Palpation of Joints or Extremities Neurological: No focal neurological deficits, Motor Exam 5/5 strength throughout, Sensory exam intact to light touch and pain Psych/Mental Status: Normal Affect, Appropriate Assessment & Plan Assessment/Plan (1) CHF (congestive heart failure): PLAN: Plan #1. Acute on Chronic Hypoxic and Hypercarbic Respiratory Failure secondary to Acute Decompensated HFpEF complicated by underlying severe pulmonary hypertension and obesity hypoventilation syndrome: Patient administered IV lasix in the ED, admitted to PCU, maintained on cardiac telemetry, cardiac enzymes unremarkable with trend 11-> 11->8, initiated on IV lasix diuresis however not marked diuresis or weight significant loss thus will transition to Lasix drip 04/02/2024, monitor I/Os, maintain on intake restriction, continue medical therapy, TSH 1.380, magnesium 2.7, FLP with total cholesterol 134, triglycerides 126, LDL 65, VLDL 29, HDL 40. 04/23/2022 echocardiogram with normal LV size, normal LV systolic function, EF 55%, stage II diastolic dysfunction thus repeat performed 04/01/2024 with normal LVEF 70%, normal LV, limited study given size. Wound RN consulted to assist w/ BL LE lichenification as ideally would like to place snug denis wraps with elevation. Full respiratory viral panel negative. COVID-negative. Sputum culture requested. Procalcitonin minimally elevated 0.17. 04/02/2024-->AM 04/03/2024 not marked diuresis or weight decrease thus per discussion with patient and family will increase Lasix drip and continue to closely monitor with electrolyte supplementation as needed with potassium ongoing trending. 04/02/2024 evening also patient refused further BiPAP usage thus repeat CMP 04/03/2024 unsurprisingly with elevated carbon oxide. 04/04/2024: Continue with Lasix drip for diuresis, breathing a bit better. PT/OT 04/05/2024: I do think we are approaching the best we will get him, he is down 40 pounds since admission 04/06/2024: Will discontinue Lasix drip as his creatinine has increased and transition to bolus dosing of IV Lasix 40 mg twice daily. Will replace potassium as well today. Awaiting pre-CERT. 04/07/2024: Awaiting pre-CERT 04/08/2024: Awaiting pre-CERT. Will increase Lasix to twice daily 40 mg IV as well as a fluid restriction of 1500 he is gaining weight #2. Diabetes mellitus type II: Hold oral regimen, maintain on ADA diet, accu checks w/ ISS, hemoglobin A1c 6.0%. #3. Chronic macrocytic anemia: Admission hemoglobin 11.9, MCV 96, baseline hemoglobin primarily 10-11, 04/03/2024 hemoglobin 12.8, MCV 93.7, continue to trend. #4. Chronic thrombocytopenia, unclear etiology: Admission platelets 100, similar baseline, 04/03/2024 platelets 116, continue to trend. #5. Chronic Kidney Disease Stage II per GFR trending but has vacillated: Admission BUN/Cr 22/1.18, GFR 66, baseline renal function previously primarily 0.8-1.1 but in early 2022 did have admission with acute kidney injury with no labs following this, 04/03/2024 BUN/creatinine 18/1.13, GFR 69, repeat BMP in AM. #6. Chronic BL LE Lymphedema/Chronic venous stasis disease/Stasis dermatitis with significant bilateral lower extremity lichenification: Consulted wound RN to assist with severe lichenification, continue Denis wraps with lower extremity elevation as able following. From discussion with wound RN likely would need to soften over the next 1 to 2 days with removal following. #7. Morbid Obesity with severe obesity hypoventilation syndrome associated: Weight loss and lifestyle changes encouraged, nutrition consulted and following. #8. VAN: Strongly encouraged nightly BiPAP and as needed with naps. Normally has used CPAP notes but uncertain, unable to discern from recent pulmonary notes, given hypercapnic history and presentation as noted #1 used BiPAP. DVT: Lovenox Charges/Coding Visit Charges Inpatient E&M: 30514 Subs Hosp L2
[2024-04-08 09:11] LABS: Phosphorus 3.6 mg/dL (2.5-4.9)
--- NOTE | 2024-04-08 09:22 | CASEMGMT ---
SW went to patient's room. Introduced self and role at [facility]. SW wanted to make sure patient was up to date on his discharge plan since SW had been talking with patient's sister. Patient said he was aware and thanked JASON for checking with him. Plan: [facility] pending pre-cert. Nisa Dove CHIEF TECHNOLOGIST ALESSANDRO
[2024-04-08 09:24] LABS: Magnesium 2.8 mg/dL (1.6-2.6)
[2024-04-08 09:30] VITALS: BP 117/67; PULSE 66; RESP 18; TEMP 36.4; O2SAT 96
[2024-04-08] MEDS: Carvedilol 12.5 MG Tablet PO (09:35)
[2024-04-08] MEDS: Enoxaparin 40 MG/0.4 ML Syringe SC (09:35)
[2024-04-08] MEDS: Potassium Chloride Oral Tablet 20 MEQ 60 MEQ PO (09:36)
[2024-04-08] MEDS: Menthol/Lanolin/Calamine/Znox 113 GM Tube 1 APPLIC TOPICAL (09:36)
[2024-04-08] MEDS: Potassium Chloride Oral Tablet 20 MEQ PO (09:36)
[2024-04-08] MEDS: Furosemide 40 MG/4 ML Vial IV (09:37)
[2024-04-08] MEDS: Aspirin E.C. 81 MG Tablet PO (09:37)
[2024-04-08] MEDS: 0.9% Saline Lock 10 ML Syringe IV (09:53)
--- NOTE | 2024-04-08 10:45 | WOUNDNOTE ---
In to reassess bilateral lower legs. patient still with a large amount of lichenification, but is slowly improving. washed legs and feet with soap and water. pat dry. was able to remove more of the dry skin. applied the Remedy ointment and applied kerlix. reapplied the DHIRAJ wraps. pt recommending wraps be removed at bedtime and reapplied the following day. would recommend wraps be reapplied before patient gets out of bed i the morning. pt tends to sit up in the wheelchair with legs dependent. pt denies further needs at this time. will monitor.
[2024-04-08] MEDS: Insulin Lispro 100 UNIT/ML INSULN.PEN SC (11:22)
--- NOTE | 2024-04-08 11:42 | CASEMGMT ---
[facility] has obtained auth to admit. Radha Coello DC Planning Asst.
--- NOTE | 2024-04-08 11:46 | TREXTCAR_ITS ---
Diet Diet Order/Speech Therapy: 04/01/24 13:31 Diet: Cardiac: Calorie-Controlled Food consistency:: Soft & Bite Sized Liquid Consistency:: Regular/Thin Fluid restriction:: 1500 mL How many daily calories?: 2000 calorie Routine Orders/Code Status Routine Lab Work: CBC and BMP Code Status: DNRCC-A DC O2, CPAP, BIPAP needs Home O2 Discharge instructions: No Wound(s) buttocks: Wound Type: Pressure Injury Therapies Physical Therapy: Eval and Treat Occupational Therapy: Eval and Treat Problem/Diagnosis (1) CHF (congestive heart failure): Status: Acute Code(s): I50.9 - Heart failure, unspecified Plan #1. Acute on Chronic Hypoxic and Hypercarbic Respiratory Failure secondary to Acute Decompensated HFpEF complicated by underlying severe pulmonary hypertension and obesity hypoventilation syndrome: Patient administered IV lasix in the ED, admitted to PCU, maintained on cardiac telemetry, cardiac enzymes unremarkable with trend 11-> 11->8, initiated on IV lasix diuresis however not marked diuresis or weight significant loss thus will transition to Lasix drip 04/02/2024, monitor I/Os, maintain on intake restriction, continue medical therapy, TSH 1.380, magnesium 2.7, FLP with total cholesterol 134, triglycerides 126, LDL 65, VLDL 29, HDL 40. 04/23/2022 echocardiogram with normal LV size, normal LV systolic function, EF 55%, stage II diastolic dysfunction thus repeat performed 04/01/2024 with normal LVEF 70%, normal LV, limited study given size. Wound RN consulted to assist w/ BL LE lichenification as ideally would like to place snug denis wraps with elevation. Full respiratory viral panel negative. COVID-negative. Sputum culture requested. Procalcitonin minimally elevated 0.17. 04/02/2024-->AM 04/03/2024 not marked diuresis or weight decrease thus per discussion with patient and family will increase Lasix drip and continue to closely monitor with electrolyte supplementation as needed with potassium ongoing trending. 04/02/2024 evening also patient refused further BiPAP usage thus repeat CMP 04/03/2024 unsurprisingly with elevated carbon oxide. 04/04/2024: Continue with Lasix drip for diuresis, breathing a bit better. PT/OT 04/05/2024: I do think we are approaching the best we will get him, he is down 40 pounds since admission 04/06/2024: Will discontinue Lasix drip as his creatinine has increased and transition to bolus dosing of IV Lasix 40 mg twice daily. Will replace potassium as well today. Awaiting pre-CERT. 04/07/2024: Awaiting pre-CERT 04/08/2024: Awaiting pre-CERT. Will increase Lasix to twice daily 40 mg IV as well as a fluid restriction of 1500 he is gaining weight #2. Diabetes mellitus type II: Hold oral regimen, maintain on ADA diet, accu checks w/ ISS, hemoglobin A1c 6.0%. #3. Chronic macrocytic anemia: Admission hemoglobin 11.9, MCV 96, baseline hemoglobin primarily 10-11, 04/03/2024 hemoglobin 12.8, MCV 93.7, continue to trend. #4. Chronic thrombocytopenia, unclear etiology: Admission platelets 100, similar baseline, 04/03/2024 platelets 116, continue to trend. #5. Chronic Kidney Disease Stage II per GFR trending but has vacillated: Admission BUN/Cr 22/1.18, GFR 66, baseline renal function previously primarily 0.8-1.1 but in early 2022 did have admission with acute kidney injury with no labs following this, 04/03/2024 BUN/creatinine 18/1.13, GFR 69, repeat BMP in AM. #6. Chronic BL LE Lymphedema/Chronic venous stasis disease/Stasis dermatitis with significant bilateral lower extremity lichenification: Consulted wound RN to assist with severe lichenification, continue Denis wraps with lower extremity elevation as able following. From discussion with wound RN likely would need to soften over the next 1 to 2 days with removal following. #7. Morbid Obesity with severe obesity hypoventilation syndrome associated: Weight loss and lifestyle changes encouraged, nutrition consulted and following. #8. VAN: Strongly encouraged nightly BiPAP and as needed with naps. Normally has used CPAP notes but uncertain, unable to discern from recent pulmonary notes, given hypercapnic history and presentation as noted #1 used BiPAP. DVT: Lovenox Allergies/Procedures Done in Hospital Allergies No Known Allergies Allergy (Verified 04/01/24 08:16) Procedures: 2-D Echocardiogram Type of Care/Length of Stay Estimated LOS: Convalescent Care Less Than 30 days Type of Care Needed: Skilled Rehab Potential: Good Prognosis: Good Additional Orders/Day of Discharge Day of Discharge: 04/08/24 Dietary and Speech Recommendations Dietitian Recommendations/Changes: Continue 2000 calorie controlled/consistent carbohydrate; cardiac diet per HRIS ANALYST consistency/texture recommendations. Continue 1500ml fluid restriction. Will monitor weight as available. Reviewed and approved by Sisi Mahoney RDN, LD. Discharge Plan Admission Admit Date/Time: 04/01/24 12:34 Attending Provider: Ronni Lewis [facility] Providers: Danielle Steele Discharge Orders/Prescriptions Prescriptions: Continued cholecalciferol (vitamin D3) 1,250 mcg (50,000 unit) capsule 50,000 unit PO KOEHLER (DME) Disability Placard See Rx Instructions .ROUTE .MEDSUPPLY Qty: 1 0RF Rx Instructions: Expires in 5 years Combivent Respimat 20-100 mcg/actuation Mist 1 puff INHALATION DAILY aspirin 81 mg Tablet,Delayed Release (Dr/Ec) 81 mg PO DAILY white petrolatum [Petroleum Jelly] Gel 1 applic TOPICAL Q7D PRN (Reason: LEGS) Jardiance 10 mg tablet 10 mg PO DAILY Patient Comments: per pt & family -- have been talking to about switching to Jardiance, though haven't done yet. carvedilol 12.5 mg tablet See Rx Instructions .ROUTE .COMPLEX Qty: 180 3RF Dose Instruction: Take 1 tablet by mouth twice daily with food Rx Instructions: Take 1 tablet by mouth twice daily with food Changed furosemide 40 MG tablet 60 mg PO BID 30 Days Qty: 0 0RF potassium chloride 20 mEq tablet,ER particles/crystals 20 meq PO BID 30 Days Qty: 0 0RF Discontinued dapagliflozin propanediol 10 mg tablet 10 mg PO DAILY Patient Comments: per pt & family -- have been talking to about switching to Jardiance, though haven't done yet. [facility] - Disposition Disposition (needs filled in before D/C Order can be placed): Nursing Home Facility
[2024-04-08 11:55] LABS: Bedside Glucose 154 mg/dL (74-106)
--- NOTE | 2024-04-08 12:06 | CASEMGMT ---
Patient was approved for [facility]. JASON notified patient, physician, and patient's sister Mroelia. JASON completed a 7000 on [facility]. Physicians will transport patient. JASON did notify [place] yesterday that patient will get billed for the transport. Plan: d/c to [facility] under skilled level of care on a convalescent stay. Physicians will transport patient via wheelchair van. Nisa FRANCOIS
[2024-04-08 12:42] VITALS: BP 117/67; PULSE 66; RESP 18; TEMP 36.4; O2SAT 96
--- NOTE | 2024-04-08 12:51 | CASEMGMT ---
JASON emailed [facility] a message letting them know patient is going to [facility] today for short term rehab. Nisa Dove DISTRIBUTION SUPERINTENDENT FORESTRY SUPPORT SPECIALIST
--- NOTE | 2024-04-08 12:53 | CASEMGMT ---
Discharge Planning Discharge orders, signed med list, and transport time sent to [facility]. Physicians will transport patient by wheelchair at 3:30p. Nursing, SW, patient, and his sister (Morelia) updated. Radha Coello DC Planning Asst.
--- NOTE | 2024-04-08 13:42 | DS.PCM_ITS ---
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/fleet technician Routine Comment: Reason for Consult:: BL LE severe lichenification Reason For Visit: ACUTE ON CHRONIC HYPOXIA/HYPERCAPNIA, HF EXAC Diagnosis Discharge Diagnosis (1) CHF (congestive heart failure): Status: Acute Code(s): I50.9 - Heart failure, unspecified Medications at Discharge Home Medications Disability Placard #1 ea 02/18/21 cholecalciferol (vitamin D3) 1,250 mcg (50,000 unit) capsule 50,000 unit PO KOEHLER SUPPLEMENT 05/14/21 ipratropium 20 mcg-albuterol 100 mcg/actuation mist for inhalation (Combivent Respimat) 1 puff inhalation DAILY SHORTNESS OF BREATH 11/14/21 aspirin 81 mg tablet,delayed release 81 mg PO DAILY HEART HEALTH 04/23/22 white petrolatum (Petroleum Jelly topical) 1 applic topical Q7D PRN LEGS 04/23/22 carvedilol 12.5 mg tablet See Rx Instructions .Route .COMPLEX #180 TABLETS 09/23/22 empagliflozin 10 mg tablet (Jardiance) 10 mg PO DAILY heart 04/01/24 furosemide 40 mg tablet 60 mg (1.5 x 40 mg) PO BID FLUID 30 days #0 tabs 04/08/24 potassium chloride 20 mEq tablet,extended release(part/cryst) 20 meq PO BID SUPPLEMENT 30 days #0 tabs 04/08/24 Hospital Course Operations None Procedures 2-D Echocardiogram Summary of Care Provided Minutes Spent on Discharge: 39 Hospital Course: Per HPI: The patient is a 63 y/o M w/ PMHx: Chronic thrombocytopenia, HFpEF, Morbid obesity, Chronic macrocytic anemia, CKD stage II per GFR trending but has prior vacillated and may be stage III, Secondary Pulmonary HTN, Diabetes mellitus type II, VAN, HTN, HLD, Chronic BL LE Lymphedema/Chronic venous stasis disease/Stasis dermatitis with significant bilateral lower extremity lichenification, Anxiety and Depression, Hypoventilation Obesity Syndrome, COPD w/ Chronic Hypoxic and Hypercapnic respiratory failure (4-6L NC) with goal saturation 89 to 92% per pulmonary medicine who presents to the [facility] [place] ED on 04/01/2024 with history of worsening dyspnea, more severe with exertion with recent chills and sore throat but no specific cough or other URI type symptoms however he does note chest tightness/heaviness that is been worsening over the last 2 days prompting him to increase his oxygen at home which she reports has been helping some although he notes that the tightness and heaviness in his chest is worse on the left side prompting eventual ED evaluation to be cautious. Workup in the ED included T97.7, heart rate 71, BP 150/66, respiratory rate 20, 87% initially on 6 L nasal cannula in addition to high flow at 7 L with most recent repeat vitals T98.4, heart rate 67, BP 152/86, respiratory rate 15, 91% on 7 L, CBC with WBC 6.2, hemoglobin 0.9, MCV 96, platelet 100 with increased immature granulocytes, BMP with chloride 97, carbon oxide 23, BUN/creatinine 22/1.18, GFR 66, glucose 177, calcium 8.4, BNP 139.2, initial troponin 11 with repeat delta 11, chest x-ray with mild congestive failure with small bilateral effusions, EKG with sinus rhythm with first-degree AV block with no acute evidence of ischemia unchanged from previous. In the ED patient ministered Lasix 40 mg IV x 1 and transdermal nitroglycerin ointment. Hospital Course: #1. Acute on Chronic Hypoxic and Hypercarbic Respiratory Failure secondary to Acute Decompensated HFpEF complicated by underlying severe pulmonary hypertension and obesity hypoventilation syndrome: Patient administered IV lasix in the ED, admitted to PCU, maintained on cardiac telemetry, cardiac enzymes unremarkable with trend 11-> 11->8, initiated on IV lasix diuresis however not marked diuresis or weight significant loss thus will transition to Lasix drip 04/02/2024, monitor I/Os, maintain on intake restriction, continue medical therapy, TSH 1.380, magnesium 2.7, FLP with total cholesterol 134, triglycerides 126, LDL 65, VLDL 29, HDL 40. 04/23/2022 echocardiogram with normal LV size, normal LV systolic function, EF 55%, stage II diastolic dysfunction thus repeat performed 04/01/2024 with normal LVEF 70%, normal LV, limited study given size. Wound RN consulted to assist w/ BL LE lichenification as ideally would like to place snug denis wraps with elevation. Full respiratory viral panel negative. COVID-negative. Sputum culture requested. Procalcitonin minimally elevated 0.17. 04/02/2024-->AM 04/03/2024 not marked diuresis or weight decrease thus per discussion with patient and family will increase Lasix drip and continue to closely monitor with electrolyte supplementation as needed with potassium ongoing trending. 04/02/2024 evening also patient refused further BiPAP usage thus repeat CMP 04/03/2024 unsurprisingly with elevated carbon oxide. 04/04/2024: Continue with Lasix drip for diuresis, breathing a bit better. PT/OT 04/05/2024: I do think we are approaching the best we will get him, he is down 40 pounds since admission 04/06/2024: Will discontinue Lasix drip as his creatinine has increased and transition to bolus dosing of IV Lasix 40 mg twice daily. Will replace potassium as well today. Awaiting pre-CERT. 04/07/2024: Awaiting pre-CERT 04/08/2024: Will increase his Lasix to 60 mg p.o. twice daily as well as place him on a fluid restriction of 1500 cc. If this does not control his volume then we may also need to add metolazone as an outpatient. I discussed with him the plan for discharge to SNF today he expressed understanding of the risks and benefits of going to the [facility] and would like to go today. #2. Diabetes mellitus type II: Hold oral regimen, maintain on ADA diet, accu checks w/ ISS, hemoglobin A1c 6.0%. #3. Chronic macrocytic anemia: Admission hemoglobin 11.9, MCV 96, baseline hemoglobin primarily 10-11, 04/03/2024 hemoglobin 12.8, MCV 93.7, continue to trend. #4. Chronic thrombocytopenia, unclear etiology: Admission platelets 100, similar baseline, 04/03/2024 platelets 116, continue to trend. #5. Chronic Kidney Disease Stage II per GFR trending but has vacillated: Admission BUN/Cr 22/1.18, GFR 66, baseline renal function previously primarily 0.8-1.1 but in early 2022 did have admission with acute kidney injury with no labs following this, 04/03/2024 BUN/creatinine 18/1.13, GFR 69, repeat BMP in AM. #6. Chronic BL LE Lymphedema/Chronic venous stasis disease/Stasis dermatitis with significant bilateral lower extremity lichenification: Consulted wound RN to assist with severe lichenification, continue Denis wraps with lower extremity elevation as able following. From discussion with wound RN likely would need to soften over the next 1 to 2 days with removal following. #7. Morbid Obesity with severe obesity hypoventilation syndrome associated: Weight loss and lifestyle changes encouraged, nutrition consulted and following. #8. VAN: Strongly encouraged nightly BiPAP and as needed with naps. Normally has used CPAP notes but uncertain, unable to discern from recent pulmonary notes, given hypercapnic history and presentation as noted #1 used BiPAP. Physical Exam Narrative General: Alert, Oriented x3, Cooperative, No apparent distress, morbidly obese HEENT: Atraumatic, PERRLA, EOMI, Normocephalic Oral: Moist Mucosa Neck: Supple, No JVD Lungs: Diminished, Normal air movement, No rhonchi, No wheeze, No rales Cardiovascular: Regular rate, Regular Rhythm, Normal S1, Normal S2, No murmurs Abdomen: Soft, Non Tender, Non-Distended, No Hepato-splenomegaly Extremities: Edema, Capillary Refill Less than 3 Seconds Skin: No rashes, No breakdown, chronic skin changes from lymphedema Musculoskeletal: No Tenderness to Palpation of Joints or Extremities Neurological: No focal neurological deficits, Motor Exam 5/5 strength throughout, Sensory exam intact to light touch and pain Psych/Mental Status: Normal Affect, Appropriate Weight / BMI Weight Weight: 343 lb 7.683 oz Body Mass Index (BMI) 50.7 ABG / Lab / Microbiology Data 04/06/24 04:10 04/08/24 07:35 Laboratory: Laboratory Results - last 24 hr 04/07/24 16:57: POC Glucose 118 H 04/07/24 21:58: POC Glucose 150 H 04/08/24 06:58: POC Glucose 132 H 04/08/24 07:35: Sodium 134 L, Potassium 3.3 L, Chloride 91 L, Carbon Dioxide 40.0 H, Anion Gap 3 L, BUN 35 H, Creatinine 1.29, Estim Creat Clear Calc 84.58, Est GFR (MDRD) Af Amer 72, Est GFR (MDRD) Non-Af 59 L, BUN/Creatinine Ratio 27.1 H, Glucose 155 H, Calcium 9.0, Phosphorus 3.6, Magnesium 2.8 H 04/08/24 11:20: POC Glucose 154 H Microbiology: Microbiology 04/01/24 22:31 Sputum, Expectorated/Coughed Gram Stain - Final 04/01/24 22:31 Sputum, Expectorated/Coughed Respiratory Culture - Final Staphylococcus aureus 04/01/24 13:03 Mucosa - Nose Respiratory Panel (PCR) - Final 04/01/24 13:03 Mucosa - Nasopharyngeal Coronavirus COVID-19 PCR - Final D/C Instructions DC O2, CPAP, BIPAP Needs PSN CPAP & BiPAP: BiPAP & CPAP Settings per PSN Mode BiPAP 04/04/24 06:59 Bipap Delivery Device Face Mask 04/03/24 01:29 BiPAP Inspiratory Pressure 20 04/03/24 01:10 BiPAP Expiratory Pressure 04/03/24 01:10 BiPAP Rate 04/03/24 01:10 Fraction of Inspired Oxygen ( 40 04/03/24 03:49 FIO2) Home O2 Discharge instructions: No Meaningful Use Info Meaningful Use Meaningful Use Diagnoses (Choose all that apply): None applicable Ischemic Stroke Statin Dosing Therapy Reference: STATIN DOSE THERAPY REFERENCE: * Patients > 75 years receive moderate or high dose statin therapy. * Patients 75 years or YOUNGER should receive HIGH intensity statin dose unless contraindicated. You will be required to document reason for non-treatment if statin daily dose does not meet guidelines. HIGH DOSE STATIN THERAPY DAILY Atorvastatin > than or = to 40 mg Rosuvastatin > than or = to 20 mg Amlodipine + Atorvastatin > than or = to 2.5/40 mg Ezetimibe + Simvastatin 10/80 mg Simvastatin 80mg Discharge Plan Admission Admit Date/Time: 04/01/24 12:34 Attending Provider: Ronni Lewis [facility] Providers: Danielle Steele Discharge Orders/Prescriptions Prescriptions: Continued cholecalciferol (vitamin D3) 1,250 mcg (50,000 unit) capsule 50,000 unit PO KOEHLER (DME) Disability Placard See Rx Instructions .ROUTE .MEDSUPPLY Qty: 1 0RF Rx Instructions: Expires in 5 years Combivent Respimat 20-100 mcg/actuation Mist 1 puff INHALATION DAILY aspirin 81 mg Tablet,Delayed Release (Dr/Ec) 81 mg PO DAILY white petrolatum [Petroleum Jelly] Gel 1 applic TOPICAL Q7D PRN (Reason: LEGS) Jardiance 10 mg tablet 10 mg PO DAILY Patient Comments: per pt & family -- have been talking to about switching to Jardiance, though haven't done yet. carvedilol 12.5 mg tablet See Rx Instructions .ROUTE .COMPLEX Qty: 180 3RF Dose Instruction: Take 1 tablet by mouth twice daily with food Rx Instructions: Take 1 tablet by mouth twice daily with food Changed furosemide 40 MG tablet 60 mg PO BID 30 Days Qty: 0 0RF potassium chloride 20 mEq tablet,ER particles/crystals 20 meq PO BID 30 Days Qty: 0 0RF Discontinued dapagliflozin propanediol 10 mg tablet 10 mg PO DAILY Patient Comments: per pt & family -- have been talking to about switching to Jardiance, though haven't done yet. Referrals / Follow Up: [facility] [Primary Care Provider] - Disposition Disposition (needs filled in before D/C Order can be placed): [facility] Facility Charges/Coding Visit Charges Inpatient E&M: 24841 Disch Hosp >30min
--- NOTE | 2024-04-08 13:52 | NURSING ---
Report called to nurse Rojas for pt to be d/c to [facility].
== END 2024-04-08 16:19 | disposition skilled nursing facility (03) | DRG 291 ==
LOC: ED 12:37 → PCU 12:52
PROVIDERS: Admitting Provider Family Medicine; Emergency Provider Emergency Medicine; Visit Provider Family Medicine
DX: I13.0 Hypertensive heart and chronic kidney disease with heart failure and stage 1 through stage 4 chronic kidney disease, or unspecified chronic kidney disease (principal); J96.21 Acute and chronic respiratory failure with hypoxia; J96.22 Acute and chronic respiratory failure with hypercapnia; I50.33 Acute on chronic diastolic (congestive) heart failure; E66.2 Morbid (severe) obesity with alveolar hypoventilation; Z68.43 Body mass index [BMI] 50.0-59.9, adult; I27.21 Secondary pulmonary arterial hypertension; D69.6 Thrombocytopenia, unspecified; E11.22 Type 2 diabetes mellitus with diabetic chronic kidney disease; J44.9 Chronic obstructive pulmonary disease, unspecified; D53.9 Nutritional anemia, unspecified; F32.A Depression, unspecified; E11.51 Type 2 diabetes mellitus with diabetic peripheral angiopathy without gangrene; I89.0 Lymphedema, not elsewhere classified; N18.2 Chronic kidney disease, stage 2 (mild); E78.5 Hyperlipidemia, unspecified; I87.2 Venous insufficiency (chronic) (peripheral); F41.9 Anxiety disorder, unspecified; L28.0 Lichen simplex chronicus; Z66 Do not resuscitate; Z11.52 Encounter for screening for COVID-19; Z99.81 Dependence on supplemental oxygen; Z79.82 Long term (current) use of aspirin; Z79.84 Long term (current) use of oral hypoglycemic drugs; Z79.899 Other long term (current) drug therapy
CPT/HCPCS: 36415; 51702; 71046; 80048; 80053; 80061; 82962; 83036; 83735; 83880; 84100; 84145; 84443; 84484; 85025; 87070; 87077; 87186; 87205; 87633; 87635; 93005; 93306; 94002; 94003; 94640; 94668; 94762; 97110; 97116; 97162; 97166; 97530; 97802; 97803; 99285; Q9957; A4216; C8929; J1940

== ENCOUNTER → 2024-05-03 | Outpatient (CLI) | payer MEDICARE, SELFPAY ==
[2024-05-03 13:08] LABS: Absolute Neutrophil Count 5.9 X10^3/uL (2.0-7.7); Basophil# 0.02 X10^3/uL; Basophil% 0.3 % (0-1); Eosinophil# 0.18 X10^3/uL; Eosinophils% 2.5 % (0-5); Hematocrit 38.9 % (40-54); Hemoglobin 11.7 g/dL (13.0-16.5); Lymphocyte % 8.4 % (19-41); Mean Corp Hgb Conc 30.1 g/dL (32-36); Mean Corpuscular Hgb 27.1 pg (27.0-32.0); Mean Platelet Vol. 11.3 fl (6.2-12.0); Monocyte# 0.44 X10^3/uL; Monocyte% 6.1 % (0-10); NRBC Flagged by Analyzer 0 % (0-5); Neutrophil # 5.87 X10^3/uL (2.7-7.7); POSITIVE DIFFERENTIAL YES; Platelet Count 102 K/mm3 (150-450); RBC Distribution Width CV 16.3 % (11.6-14.6); RBC Distribution Width SD 53.1 fl (35.1-43.9); Red Blood Count 4.32 M/mm3 (4.6-6.2); White Blood Count 7.2 K/mm3 (4.4-11.0)
[2024-05-03 13:33] LABS: ALB/GLOB Ratio 0.7 RATIO (0.9-2.4); AST(SGOT) 16 U/L (15-37); Alanine Aminotransfer ALT/SGPT 22 U/L (16-61); Albumin, Serum 3.1 g/dL (3.2-5.0); Alkaline Phosphatase 119 U/L (45-117); Anion Gap 5 (5-15); BUN 17 mg/dL (7-18); BUN/Creat Ratio 13.6 RATIO (10-20); Calcium,Total 8.7 mg/dL (8.5-10.1); Chloride 96 mmol/L (98-107); Creatinine, Serum 1.25 mg/dL (0.70-1.30); EST Glomerular Filtration Rate 62 mL/min (>60); Est Glom Filt Rate - Afr Amer 74 mL/min (>60); Globulin 4.6 g/dL (2.2-4.2); Glucose 232 mg/dL (74-106); Protein, Total 7.7 g/dL (6.4-8.2); Sodium Level 136 mmol/L (136-145)
== END | disposition home or self-care (01) ==
DX: I50.30 Unspecified diastolic (congestive) heart failure (principal)
CPT/HCPCS: 36415; 80053; 85025

== ENCOUNTER → 2024-08-03 | Outpatient (CLI) | payer MEDICARE, SELFPAY ==
[2024-08-03 13:02] LABS: Absolute Lymphocyte Count 0.79 X10^3/uL (0.83-4.51); Absolute Neutrophil Count 6.4 X10^3/uL (2.0-7.7); Basophil# 0.04 X10^3/uL; Basophil% 0.5 % (0-1); Eosinophil# 0.24 X10^3/uL; Hematocrit 42.2 % (40-54); Hemoglobin 12.9 g/dL (13.0-16.5); Lymphocyte # 0.79 X10^3/ul (0.83-4.51); Lymphocyte % 9.8 % (19-41); Mean Corp Hgb Conc 30.6 g/dL (32-36); Mean Corpuscular Hgb 28.4 pg (27.0-32.0); Mean Corpuscular Volume 92.7 fL (80-94); Mean Platelet Vol. 10.8 fl (6.2-12.0); Monocyte# 0.46 X10^3/uL; Monocyte% 5.7 % (0-10); NRBC Flagged by Analyzer 0 % (0-5); Neutrophil # 6.44 X10^3/uL (2.7-7.7); Neutrophil % 80.3 % (47-70); Platelet Count 143 K/mm3 (150-450); RBC Distribution Width CV 15.9 % (11.6-14.6); RBC Distribution Width SD 54.1 fl (35.1-43.9); Red Blood Count 4.55 M/mm3 (4.6-6.2)
[2024-08-03 13:35] LABS: Microalbumin,Random Urine < 12.0 mg/L (NO RANGE EST.)
[2024-08-03 13:40] LABS: FOLATES,SERUM (FOLIC ACID) 8.96 ng/mL (4.60-34.80)
[2024-08-03 13:58] LABS: ALB/GLOB Ratio 0.8 RATIO (0.9-2.4); AST(SGOT) 26 U/L (<=37); Alanine Aminotransfer ALT/SGPT 18 U/L (<=46); Albumin, Serum 3.9 g/dL (3.4-4.8); Alkaline Phosphatase 128 U/L (40-129); Anion Gap 11 (5-15); BUN 21 mg/dL (4-19); BUN/Creat Ratio 17.3 RATIO (10-20); Carbon Dioxide 32.6 mmol/L (21.0-32.0); Chloride 98 mmol/L (98-108); Creatinine, Serum 1.19 mg/dL (0.70-1.20); EST Glomerular Filtration Rate 68 (>60); Ferritin 245 ng/mL (37-417); Globulin 4.6 g/dL (2.2-4.2); Glucose 144 mg/dL (70-99); Potassium 4.2 mmol/L (3.3-5.1); Protein, Total 8.5 g/dL (5.9-8.4); Sodium Level 141 mmol/L (133-145); Total Bilirubin 0.48 mg/dL (0.00-1.30); Vitamin B12 334 pg/mL (180-914)
[2024-08-03 16:41] LABS: Iron 57 ug/dL (65-175); Iron Binding Capacity,Total 278 ug/dL (250-450); Iron Binding Capacity,Unsat 221 ug/dL (228-428)
== END | disposition home or self-care (01) ==
LOC: VSLAB 10:42
PROVIDERS: PCP Nurse Practitioner Family
DX: E11.9 Type 2 diabetes mellitus without complications (principal); D64.9 Anemia, unspecified
CPT/HCPCS: 36415; 80053; 82043; 82607; 82728; 82746; 83540; 83550; 84443; 85025

== ENCOUNTER 2025-02-02 10:46 | Outpatient (CLI) | payer MEDICARE, SELFPAY ==
[2025-02-02 12:05] LABS: Hematocrit 41.2 % (40-54); Hemoglobin 12.7 g/dL (13.0-16.5); Immature Granulocytes Count 0.050 X10^3/uL (0.0-0.0); Mean Corp Hgb Conc 30.8 g/dL (32-36); Mean Corpuscular Volume 92.4 fL (80-94); Mean Platelet Vol. 10.8 fl (6.2-12.0); NRBC Flagged by Analyzer 0 % (0-5); Platelet Count 133 K/mm3 (150-450); RBC Distribution Width CV 15.6 % (11.6-14.6); RBC Distribution Width SD 52.6 fl (35.1-43.9); Red Blood Count 4.46 M/mm3 (4.6-6.2); White Blood Count 7.3 K/mm3 (4.4-11.0)
[2025-02-02 18:56] LABS: AST(SGOT) 26 U/L (<=37); Alanine Aminotransfer ALT/SGPT 21 U/L (<=46); Albumin, Serum 3.7 g/dL (3.4-4.8); Alkaline Phosphatase 120 U/L (40-129); Anion Gap 8 (5-15); BUN 19 mg/dL (4-19); BUN/Creat Ratio 16.5 RATIO (10-20); Calcium,Total 8.8 mg/dL (7.6-11.0); Carbon Dioxide 33.4 mmol/L (21.0-32.0); Chloride 98 mmol/L (98-108); Cholesterol 152 mg/dL (<=200); Ferritin 228 ng/mL (37-417); Globulin 4.3 g/dL (2.2-4.2); Glucose 146 mg/dL (70-99); Low Density Lipoprotein Calc. 85 mg/dL; Potassium 4.4 mmol/L (3.3-5.1); Triglycerides 164 mg/dL; Very Low Density Lipoprotein 33 mg/dL (5-40); Vitamin B12 291 pg/mL (180-914); Vitamin D,25 Hydroxy 99.1 ng/mL (30-100); cholesterol:hdl ratio screen 3.94
[2025-02-02 19:12] LABS: Iron 55 ug/dL (65-175); Iron Binding Capacity,Total 263 ug/dL (250-450); Iron Binding Capacity,Unsat 208 ug/dL (228-428)
== END 2025-02-02 23:59 | disposition home or self-care (01) ==
LOC: VSLAB 10:46
PROVIDERS: PCP Nurse Practitioner Family
DX: G62.9 Polyneuropathy, unspecified (principal); E11.9 Type 2 diabetes mellitus without complications; D50.9 Iron deficiency anemia, unspecified; I10 Essential (primary) hypertension; E55.9 Vitamin D deficiency, unspecified
CPT/HCPCS: 36415; 80053; 80061; 82306; 82607; 82728; 83540; 83550; 84443; 85025

== ENCOUNTER → 2025-02-07 | Outpatient (CLI) | payer MEDICARE, SELFPAY ==
--- NOTE | 2025-02-07 10:22 | RAD_ITS ---
PROCEDURE: RAD/Knee 4 or More Views
== END | disposition home or self-care (01) ==
LOC: RAD 10:20
PROVIDERS: PCP Nurse Practitioner Family
DX: M25.562 Pain in left knee (principal)
CPT/HCPCS: 73564